=== PATIENT | female | born 1955 | race Caucasian/White ===

== ENCOUNTER 2020-02-22 11:19 | Outpatient (REF) | payer MEDICARE, SELFPAY ==
[2020-02-22 14:27] LABS: Estimated Average Glucose 105 mg/dL; Hemoglobin A1c % 5.3 %
[2020-02-22 14:50] LABS: Lithium 0.31 mmol/L (0.60-1.20)
[2020-02-22 14:52] LABS: Alanine Aminotransferase 11 U/L (0-31); Anion Gap 18 (12-20); Aspartate Amino Transferase 15 U/L (5-31); Blood Urea Nitrogen 10 mg/dL (9-16); Calcium 9.3 mg/dL (8.4-10.2); Carbon Dioxide 20 mmol/L (22-29); Chloride 110 mmol/L (96-108); Cholesterol 134 mg/dL; Estimated Glomerular Filt Rate > 60; Glucose Fasting 113 mg/dL (60-99); HDL Cholesterol 36 mg/dL; LDL Cholesterol Calculated 59 mg/dl; Potassium 3.4 mmol/l (3.3-5.1); Sodium 145 mmol/L (135-145); Triglycerides 198 mg/dL
[2020-02-22 14:57] LABS: Creatinine Urine 258.38 mg/dL; Microalbum/Creatinine Ratio Ur 99.4 ug/mg cr
[2020-02-22 15:11] LABS: Vitamin D 25-OH Total 32.5 ng/mL (>30)
[2020-02-22 15:26] LABS: Folate 9.2 ng/mL (> or = 4.0); Vitamin B12 645 pg/mL (200-900)
[2020-02-24 15:27] LABS: Calcium, Ionized 4.9 mg/dL (4.8-5.6)
[2020-02-24 16:37] LABS: Calcium (PTHI) 9.6 mg/dL (8.6-10.4); PTHI 100 pg/mL (14-64)
== END 2020-02-22 11:20 | disposition home or self-care (01) ==
LOC: HO.HMGCLDS 11:19
PROVIDERS: PCP Internal Medicine; Visit Provider Internal Medicine
DX: I10 Essential (primary) hypertension (principal); E83.52 Hypercalcemia; F31.9 Bipolar disorder, unspecified; E78.5 Hyperlipidemia, unspecified; E11.9 Type 2 diabetes mellitus without complications; E53.8 Deficiency of other specified B group vitamins; Z78.0 Asymptomatic menopausal state
CPT/HCPCS: 80048; 80061; 80178; 82043; 82306; 82330; 82607; 82746; 83036; 83970; 84450; 84460

== ENCOUNTER → 2020-04-06 12:59 | Outpatient (BNVA) | payer MEDICARE, SELFPAY | PROVIDERS: PCP Internal Medicine; Referring Provider Internal Medicine; Visit Provider Urology | DX: R32 Unspecified urinary incontinence (principal); R35.1 Nocturia | CPT/HCPCS: 51798; 99202 ==

== ENCOUNTER → 2020-05-25 08:51 | Outpatient (BNVA) | payer MEDICARE, SELFPAY | PROVIDERS: PCP Internal Medicine; Visit Provider Internal Medicine | DX: E11.9 Type 2 diabetes mellitus without complications (principal); I10 Essential (primary) hypertension; E78.5 Hyperlipidemia, unspecified; M88.9 Osteitis deformans of unspecified bone; E21.3 Hyperparathyroidism, unspecified; E55.9 Vitamin D deficiency, unspecified | CPT/HCPCS: Q3014 ==

== ENCOUNTER 2020-06-03 13:54 | Outpatient (REF) | payer MEDICARE, SELFPAY ==
--- NOTE | 2020-06-03 13:59 | MM_ITS ---
EXAMINATION: BONE DENSITOMETRY CLINICAL INDICATION: Hyperparathyroidism, unspecified. COMPARISON: Baseline BD dated 10/21/2018. TECHNIQUE: Using a iGen6 DXA System (software version: 13.1) manufactured by [employer], dual-energy x-ray absorptiometry was performed of the lumbar spine, left hip, and left forearm radius 33%. The images are of good technical quality. Summary results are attached. FINDINGS: AP SPINE L1-L4: Current: BMD 1.284 g/cm2, Z-score 1.2, T-score 0.9, normal, 0.5% increase from baseline (<5% change is not significant). Baseline: BMD 1.278 g/cm2. LEFT FEMUR, NECK: Current: BMD 0.859 g/cm2, Z-score -0.7, T-score -1.3, osteopenia. Baseline: BMD 0.967 g/cm2. LEFT FEMUR, TOTAL: Current: BMD 0.910 g/cm2, Z-score -0.5, T-score -0.8, normal, 3.2% decrease from baseline (<5% change is not significant). Baseline: BMD 0.940 g/cm2. LEFT FOREARM RADIUS 33%: BMD 0.842 g/cm2, Z-score 0.8, T-score -0.4, normal. IDENTIFIED RISK FACTORS: Hyperparathyroidism, low calcium intake, menopause. HISTORY OF FRACTURE: None listed. MEDICATIONS: Vitamin D. MM/XR DEXA appendicular skeleton IMPRESSION: 1. DIAGNOSIS: Osteopenia based on the lowest T-score value of -1.3 in the femoral neck applying World Health Organization criteria. 2. 10-YEAR FRACTURE RISK PREDICTION, FRAX: Major osteoporotic fracture (clinical spine, forearm, hip or shoulder) 6.9%. Hip fracture 0.5%. 3. Treatment Recommendations: NOF guidelines recommend consideration for treatment in postmenopausal women and men age 50 and older presenting with the following: -A hip or vertebral (clinical or morphometric) fracture. -T-score less than or equal to -2.5 at the femoral neck or spine after appropriate evaluation to exclude secondary causes. -Low bone mass at the hip or spine and a 10-year fracture probability by FRAX of greater than or equal to 3% for hip fracture or greater than or equal to 20% for major osteoporotic fracture based on the [place] adapted WHO algorithm. 4. Other Recommendations: All treatment decisions require clinical judgment and consideration of individual patient factors, including patient preferences, comorbidities, previous drug use, risk factors not captured in the FRAX model (e.g. frailty, falls, vitamin D deficiency, increased bone turnover, interval significant decline in bone density) and possible under or overestimation of fracture risk by FRAX. Additional medical evaluation for secondary cause of low bone mineral density may be appropriate. FUTURE SCAN RECOMMENDATION: People with diagnosed cases of osteoporosis or at high risk for fracture should have regular bone mineral density tests. For patients eligible for Medicare, routine testing is allowed once every 2 years. The testing frequency can be increased to one year for patients who have rapidly progressing disease, those who are receiving or discontinuing medical therapy to restore bone mass, or have additional risk factors.
== END 2020-06-03 13:55 | disposition home or self-care (01) ==
LOC: HO.MAMMO 13:54
PROVIDERS: Visit Provider Internal Medicine
DX: Z13.820 Encounter for screening for osteoporosis (principal); Z78.0 Asymptomatic menopausal state; E21.3 Hyperparathyroidism, unspecified; E58 Dietary calcium deficiency
CPT/HCPCS: 77081

== ENCOUNTER → 2020-06-15 14:48 | Outpatient (BNVA) | payer MEDICARE, SELFPAY | PROVIDERS: PCP Internal Medicine; Visit Provider Dietitian, Registered ==

== ENCOUNTER → 2020-07-13 13:12 | Outpatient (BNVA) | payer MEDICARE, SELFPAY | PROVIDERS: PCP Internal Medicine; Visit Provider Dietitian, Registered ==

== ENCOUNTER → 2020-08-05 07:22 | Outpatient (BNVA) | payer MEDICARE, SELFPAY | PROVIDERS: PCP Internal Medicine; Visit Provider Internal Medicine | DX: Z13.89 Encounter for screening for other disorder (principal) | CPT/HCPCS: Q3014 ==

== ENCOUNTER 2020-09-09 13:20 | Outpatient (REF) | payer MEDICARE, SELFPAY ==
[2020-09-09 14:30] LABS: Alanine Aminotransferase 11 U/L (0-31); Albumin Level 4.4 g/dL (3.5-5.0); Alkaline Phosphatase 203 U/L (39-117); Anion Gap 16 (12-20); Aspartate Amino Transferase 14 U/L (5-31); Bilirubin Total 0.7 mg/dL (0.0-1.0); Blood Urea Nitrogen 6 mg/dL (9-16); Calcium 9.1 mg/dL (8.4-10.2); Carbon Dioxide 25 mmol/L (22-29); Chloride 108 mmol/L (96-108); Cholesterol 142 mg/dL; Estimated Glomerular Filt Rate > 60; Glucose Fasting 122 mg/dL (60-99); HDL Cholesterol 36 mg/dL; LDL Cholesterol Calculated 70 mg/dl; Phosphorus 3.1 mg/dL (2.7-4.5); Potassium 3.5 mmol/L (3.3-5.1); Sodium 145 mmol/L (135-145); Total Protein 6.6 g/dL (6.5-8.0); Triglycerides 182 mg/dL
[2020-09-09 14:45] LABS: Free T4 (Free Thyroxine) 0.96 ng/dL (0.71-1.85); Vitamin D 25-OH Total 22.5 ng/mL (>30)
[2020-09-09 17:37] LABS: Creatinine Urine 75.58 mg/dL
[2020-09-12 11:37] LABS: Calcium (PTHI) 9.2 mg/dL (8.6-10.4); PTHI 118 pg/mL (14-64)
[2020-09-13 21:02] LABS: Prot Elec - Albumin 3.8 g/dL (3.8-4.8); Prot Elec - Alpha1 0.4 g/dL (0.2-0.3); Prot Elec - Alpha2 1.1 g/dL (0.5-0.9); Prot Elec - Beta 1 0.4 g/dL (0.4-0.6); Prot Elec - Beta 2 0.4 g/dL (0.2-0.5); Prot Elec - Gamma 0.4 g/dL (0.8-1.7); Prot Elec - Total Protein 6.5 g/dL (6.1-8.1)
[2020-09-16 16:27] LABS: Alkaline Phosphatase Bone 32.9 mcg/L (5.6-29.0)
== END 2020-09-09 13:21 | disposition home or self-care (01) ==
LOC: HO.HMGCLDS 13:20
PROVIDERS: PCP Internal Medicine; Visit Provider Internal Medicine
DX: E11.9 Type 2 diabetes mellitus without complications (principal); E78.2 Mixed hyperlipidemia; Z78.0 Asymptomatic menopausal state; I10 Essential (primary) hypertension; E55.9 Vitamin D deficiency, unspecified; E21.3 Hyperparathyroidism, unspecified
CPT/HCPCS: 36415; 80048; 80053; 80061; 82043; 82306; 83970; 84075; 84100; 84155; 84165; 84439; 84443

== ENCOUNTER 2020-09-20 11:04 | Outpatient (REF) | payer MEDICARE, SELFPAY ==
[2020-09-20 14:47] LABS: Creatinine, mg/dL 24.02
[2020-09-21 07:46] LABS: Creatinine, 24Hr Urine 0.5 G/Day (1.0-2.0); Total Volume 24 Hour Urine 1950 mL
[2020-09-21 17:47] LABS: Calcium, 24 Hr Urine 20 mg/24 h; Calcium/Creatinine Ratio 38 mg/g creat (30-275); Creatinine 24Hr Urine 0.51 g/24 h (0.50-2.15)
[2020-09-24 10:46] LABS: N-Telopeptide 155 (see note); NTXCreaRU 21 mg/dL (20-275)
== END 2020-09-20 11:05 | disposition home or self-care (01) ==
LOC: HO.CHCLNP 11:04
PROVIDERS: Visit Provider Internal Medicine
DX: E21.3 Hyperparathyroidism, unspecified (principal)
CPT/HCPCS: 82340; 82523; 82570

== ENCOUNTER 2020-10-06 12:48 | Outpatient (REF) | payer MEDICARE, SELFPAY ==
--- NOTE | ~2020-10-06 | MM_ITS ---
EXAMINATION: MM SCREENING DIGITAL BREAST TOMOSYNTHESIS, BILATERAL CLINICAL INFORMATION: Screening. Asymptomatic. The lifetime risk of breast cancer based on the Tyrer-Cuzick Model is 18%. COMPARISON: Mammography: 10/21/2018 and outside exam 08/10/2016 ([place], [place]). TECHNIQUE: Digital breast tomosynthesis is performed in both the craniocaudal and mediolateral oblique views along with computer-aided detection (CAD). Synthesized 2D images are generated from the tomosynthesis. Additional left CC and left MLO views are provided. FINDINGS: The breasts are almost entirely fatty (ACR BI-RADS breast composition Category a). There are no significant masses, abnormal calcifications, or other abnormalities. Background stromal densities are stable. There is no significant changes from prior exams. Skin contours are smooth. MM/MM tomosynthesis screening BI IMPRESSION: No mammographic evidence of malignancy. ASSESSMENT: BI-RADS 1: Negative RECOMMENDATION: Routine annual mammography screening. This patient's information was entered into a reminder system with a target due date for their next mammogram.
== END 2020-10-06 12:49 | disposition home or self-care (01) ==
LOC: HO.MAMMO 12:48
PROVIDERS: Visit Provider Internal Medicine
DX: Z12.31 Encounter for screening mammogram for malignant neoplasm of breast (principal)
CPT/HCPCS: 77063; 77067

== ENCOUNTER → 2020-10-17 12:20 | Outpatient (BNVA) | payer MEDICARE, SELFPAY | PROVIDERS: PCP Internal Medicine; Visit Provider Dietitian, Registered | DX: E11.65 Type 2 diabetes mellitus with hyperglycemia (principal) | CPT/HCPCS: 97803 ==

== ENCOUNTER → 2021-01-16 13:03 | Outpatient (BNVA) | payer MEDICARE, SELFPAY | PROVIDERS: PCP Internal Medicine; Visit Provider Dietitian, Registered | DX: E11.65 Type 2 diabetes mellitus with hyperglycemia (principal); E66.9 Obesity, unspecified; Z68.41 Body mass index [BMI] 40.0-44.9, adult; Z71.3 Dietary counseling and surveillance | CPT/HCPCS: 97803 ==

== ENCOUNTER 2021-01-26 12:16 | Outpatient (REF) | payer MEDICARE, SELFPAY ==
[2021-01-26 14:02] LABS: Eosinophils Percent Auto 0.6 % (0-4); MANUAL DIFF FLAG SCAN; PLT CLUMP 1; SCAN SMEAR FLAG 1
[2021-01-26 14:04] LABS: Basophils Percent Auto 0.4 % (0-2); Hematocrit 40.7 % (37-47); Imm Gran Abs Auto 0.02 X10*3/uL (0.00-0.03); Imm Gran Pct Auto 0.4 % (0.0-0.4); Lymphocytes Absolute Auto 0.9 X10*3/uL (1.2-4.9); Lymphocytes Percent Auto 18.9 % (20-40); Mean Corpuscular HGB Conc 31.9 g/dl (31.0-35.0); Mean Corpuscular Hemoglobin 28.1 pg (27.0-33.0); Mean Corpuscular Volume 88.1 fL (80-98); Monocytes Absolute Auto 0.2 X10*3/uL (0.1-1.2); Neutrophils Absolute Auto 3.6 X10*3/uL (2.0-8.3); Neutrophils Percent Auto 74.7 % (45-73); Platelet Count 111 X10*3/uL (160-400); Red Blood Count 4.62 X10*6/uL (4.20-5.50); Red Cell Distribution Width 13.7 % (11.0-16.0); White Blood Count 4.8 X10*3/uL (4.8-10.8)
[2021-01-26 14:08] LABS: SLIDE REVIEW VERIFIED
[2021-01-26 14:29] LABS: Alanine Aminotransferase 12 U/L (0-31); Albumin Level 4.7 g/dL (3.5-5.0); Alkaline Phosphatase 184 U/L (39-117); Anion Gap 18 (12-20); Aspartate Amino Transferase 15 U/L (5-31); Bilirubin Total 0.4 mg/dL (0.0-1.0); Blood Urea Nitrogen 9 mg/dL (9-16); Calcium 10.1 mg/dL (8.4-10.2); Carbon Dioxide 22 mmol/L (22-29); Chloride 108 mmol/L (96-108); Estimated Glomerular Filt Rate > 60; Glucose Random 106 mg/dL (60-115); Potassium 4.2 mmol/L (3.3-5.1); Sodium 144 mmol/L (135-145); Total Protein 7.1 g/dL (6.5-8.0)
[2021-01-26 14:39] LABS: Amphetamine Screen Urine Not Detected (Not Detect); Barbiturates, Urine Not Detected (Not Detect); Benzodiazepines Screen Urine Not Detected (Not Detect); Cannabinoid Screen Urine Not Detected (Not Detect); Cocaine Screen Urine Not Detected (Not Detect); Fentanyl, urine Not Detected (Not Detect); Opiate Screen Urine Not Detected (Not Detect); Phencyclidine Screen Urine Not Detected (Not Detect)
[2021-01-31 08:38] LABS: Alcohol, Ethyl Urine Screen Negative
[2021-02-02 11:47] LABS: EDDP (Methadone Metabolite) negative; Methadone, Urine MS negative
== END 2021-01-26 12:17 | disposition home or self-care (01) ==
LOC: HO.HMGCLDS 12:16
PROVIDERS: PCP Internal Medicine; Visit Provider Nurse Practitioner Psychiatric/Mental Health
DX: Z51.81 Encounter for therapeutic drug level monitoring (principal); Z79.899 Other long term (current) drug therapy
CPT/HCPCS: 36415; 80053; 80307; 80358; 85025

== ENCOUNTER → 2021-03-22 08:05 | Outpatient (BNVA) | payer MEDICARE, SELFPAY | PROVIDERS: PCP Internal Medicine | DX: R32 Unspecified urinary incontinence (principal) | CPT/HCPCS: 51798; 99212 ==

== ENCOUNTER 2021-03-27 14:31 | Outpatient (REF) | payer MEDICARE, SELFPAY ==
--- NOTE | ~2021-03-27 | US_ITS ---
EXAMINATION: US THYROID CLINICAL INFORMATION: Hyperparathyroidism, unspecified. COMPARISON: None TECHNIQUE: Linear transducer grayscale and color Doppler examination with attention to the region of the thyroid. FINDINGS: SIZE: Measurements of the thyroid lobes and nodules are given in sagittal, anteroposterior and transverse dimensions respectively. Right Thyroid Lobe: 5.4 x 1.7 x 1.2 cm, volume 5.9 mL. Parenchyma: The gland echotexture is homogeneous. Thyroid vascularity is normal. Left Thyroid Lobe: 4.4 x 1.4 x 1.8 cm, volume 5.6 mL. Parenchyma: The gland echotexture is homogeneous. Thyroid vascularity is normal. Isthmus: 0.5 cm in maximum AP dimension. Estimated total number of nodules greater than or equal to 1 cm: 1. Metal Sash Setter nodules are described as follows: 1. Location: Right lower pole. Size: 0.8 x 0.8 x 0.8 cm, volume 0.27 mL. Nodule characteristics: Composition: Solid/almost completely solid (2). Echogenicity: Hypoechoic (2). Shape: Not taller than wide (0). Margins: Smooth (0). Echogenic Foci: None (0). ACR TI-RADS total points: 4 ACR TI-RADS category: 4 2. Location: Right mid pole. Size: 0.6 x 0.4 x 0.4 cm, volume 0.05 mL. Nodule characteristics: Composition: Spongiform (0). Echogenicity: Shape: Margins: Echogenic Foci: ACR TI-RADS total points: 0 ACR TI-RADS category: 1 3. Location: Isthmus. Size: 1.3 x 0.2 x 0.2 cm, volume 0.008 mL. Nodule characteristics: Composition: Spongiform (0). Echogenicity: Shape: Margins: Echogenic Foci: ACR TI-RADS total points: 0 ACR TI-RADS category: 1 4. Location: Left mid pole. Size: 0.9 x 0.6 x 1.1 cm, volume 0.34 mL. Nodule characteristics: Composition: Mixed cystic and solid (1). Echogenicity: Isoechoic (1). Shape: Not taller than wide (0). Margins: Smooth (0). Echogenic Foci: Punctate echogenic foci (3). ACR TI-RADS total points: 5 ACR TI-RADS category: 4 NODES: No lymphadenopathy is seen in the tissue surrounding the thyroid gland. US/US thyroid IMPRESSION: Small thyroid nodules. No parathyroid adenoma seen. ACR TI-RADS RECOMMENDATION REFERENCE: Ultrasound-guided fine-needle aspiration, followup ultrasound, no further follow up. * TR1 (0 point) and TR 2 (2 points): No FNA or follow up * TR3 (3 points): FNA if more than or equal to 2.5 cm in maximum dimension, followup ultrasound in 1, 3 and 5 years if 1.5 to 2.4 cm in maximum dimension. * TR4 (4-6 points): FNA if more than or equal to 1.5 cm in maximum dimension, followup ultrasound in 1, 2, 3 and 5 years if 1 to 1.4 cm in maximum dimension. * TR5 (more than or equal to 7 points): FNA if more than or equal to 1 cm in maximum dimension, followup ultrasound every year for 5 years if 0.5 to 0.9 cm in maximum dimension. * TR3, TR4 or TR5 nodules that are below the size threshold for follow up receive no follow up.
[2021-03-27 17:04] LABS: Alanine Aminotransferase 15 U/L (0-31); Aspartate Amino Transferase 15 U/L (5-31)
== END 2021-03-27 14:32 | disposition home or self-care (01) ==
LOC: HO.HMGCX 14:31
PROVIDERS: Absent Provider Internal Medicine; PCP Internal Medicine; Visit Provider Internal Medicine
DX: E21.3 Hyperparathyroidism, unspecified (principal); E11.9 Type 2 diabetes mellitus without complications; E78.2 Mixed hyperlipidemia; Z78.0 Asymptomatic menopausal state; E55.9 Vitamin D deficiency, unspecified
CPT/HCPCS: 36415; 76536; 82306; 84450; 84460

== ENCOUNTER → 2021-04-17 13:04 | Outpatient (BNVA) | payer MEDICARE, SELFPAY | PROVIDERS: PCP Internal Medicine; Visit Provider Dietitian, Registered | DX: E11.65 Type 2 diabetes mellitus with hyperglycemia (principal) | CPT/HCPCS: 97803 ==

== ENCOUNTER → 2021-06-12 12:35 | Outpatient (BNVA) | payer MEDICARE, SELFPAY | PROVIDERS: PCP Internal Medicine; Visit Provider Internal Medicine | DX: M88.9 Osteitis deformans of unspecified bone (principal); E21.3 Hyperparathyroidism, unspecified; E55.9 Vitamin D deficiency, unspecified | CPT/HCPCS: 99212 ==

== ENCOUNTER → 2021-06-14 09:26 | Outpatient (BNVA) | payer MEDICARE, SELFPAY | PROVIDERS: PCP Internal Medicine; Referring Provider Internal Medicine; Visit Provider Surgery | DX: Z12.11 Encounter for screening for malignant neoplasm of colon (principal); K43.9 Ventral hernia without obstruction or gangrene | CPT/HCPCS: 99212 ==

== ENCOUNTER 2021-07-07 08:28 | Outpatient (REF) | payer MEDICARE, SELFPAY ==
--- NOTE | ~2021-07-07 | CT_ITS ---
EXAMINATION: CT ABDOMEN AND PELVIS WITHOUT CONTRAST CLINICAL INFORMATION: Ventral hernia without obstruction or gangrene. COMPARISON: CT abdomen 12/31/2018. TECHNIQUE: Multidetector volumetric imaging was performed from the superior aspect of the liver through the pubic symphysis. Sagittal and coronal reformatted images were obtained on the technologist's workstation. This CT examination was performed using dose optimization techniques as appropriate, variously including the following: *Automated exposure control *Adjustment of mA and/or kV according to patient size (this includes techniques or standardized protocols for targeted exams where dose is matched to indication/reason for exam; i.e. extremities or head) *Use of iterative reconstruction technique DLP: 1069 mGy-cm FINDINGS: LUNG BASES: The visualized lung bases are unremarkable. LIVER, GALLBLADDER, AND BILIARY TREE: Subtle nodularity to the liver surface raises the possibility of cirrhosis. No demonstrable mass or ductal dilatation. There is a recanalized umbilical vein. The gallbladder is unremarkable with no evidence of radiopaque gallstones, gallbladder wall thickening, or obvious pericholecystic inflammatory changes. PANCREAS: Unremarkable. SPLEEN: The spleen is enlarged measuring up to 14.9 cm. ADRENAL GLANDS: Unremarkable. KIDNEYS AND URETERS: The kidneys are normal in size, shape, and attenuation. No hydronephrosis, hydroureter, or calculi seen. No perinephric stranding. BLADDER: Unremarkable. GASTROINTESTINAL TRACT: Small hiatal hernia. Stomach unremarkable. Large duodenal diverticulum. Normal caliber small bowel. A large loop of transverse colon and associated omentum within a large umbilical hernia. No evidence of obstruction. There is moderate sigmoid diverticulosis. ABDOMINAL WALL: Umbilical hernia. The neck of the hernia measures 4.7 x 3.3 cm. The hernia sac measures 14.4 x 10.7 x 14.8 cm. The sac contains transverse colon and omentum. No evidence of obstruction. No pneumatosis, vascular congestion, or fluid within the hernia sac. LYMPH NODES: No lymphadenopathy. VASCULAR: No aortic aneurysm. PELVIC VISCERA: Left adnexal cyst measures 3.6 x 3.2 x 5.0 cm. This is unchanged compared to prior MRI. OSSEOUS STRUCTURES: Mild degenerative changes in the spine. Heterogeneous right iliac bone is unchanged compared to prior. CT/CT abdomen pelvis wo con IMPRESSION: Question hepatic cirrhosis with subtle nodularity to the liver surface, recanalized umbilical vein, and enlarged spleen measuring 14.9 cm. No ascites. Umbilical hernia containing transverse colon without evidence of obstruction. Unchanged left adnexal cyst measuring up to 5 cm in diameter. Fleischner guidelines were followed.
[2021-07-07 09:50] LABS: Thyroid Stimulating Hormone 1.01 uIU/mL (0.32-4.0); Vitamin D 25-OH Total 82.9 ng/mL (>30)
[2021-07-07 10:06] LABS: Alanine Aminotransferase 10 U/L (0-31); Albumin Level 4.7 g/dL (3.5-5.0); Alkaline Phosphatase 154 U/L (39-117); Anion Gap 18 (12-20); Aspartate Amino Transferase 11 U/L (5-31); Bilirubin Total 0.6 mg/dL (0.0-1.0); Blood Urea Nitrogen 16 mg/dL (9-16); Calcium 10.3 mg/dL (8.4-10.2); Carbon Dioxide 25 mmol/L (22-29); Chloride 103 mmol/L (96-108); Estimated Glomerular Filt Rate 59; Glucose Random 136 mg/dL (60-115); Phosphorus 3.7 mg/dL (2.7-4.5); Potassium 3.9 mmol/L (3.3-5.1); Sodium 142 mmol/L (135-145); Total Protein 7.2 g/dL (6.5-8.0)
[2021-07-10 13:35] LABS: Calcium (PTHI) 9.9 mg/dL (8.6-10.4); PTHI 75 pg/mL (14-64)
[2021-07-11 15:36] LABS: Alkaline Phosphatase Bone 19.4 mcg/L (5.6-29.0)
== END 2021-07-07 08:29 | disposition home or self-care (01) ==
LOC: HO.CT 08:28
PROVIDERS: Absent Provider Internal Medicine; PCP Internal Medicine; Visit Provider Surgery
DX: K43.9 Ventral hernia without obstruction or gangrene (principal); E21.3 Hyperparathyroidism, unspecified; E04.2 Nontoxic multinodular goiter
CPT/HCPCS: 36415; 74176; 80053; 82306; 83970; 84075; 84100; 84439; 84443

== ENCOUNTER → 2021-07-13 09:33 | Outpatient (BNVA) | payer MEDICARE, SELFPAY | PROVIDERS: PCP Internal Medicine; Referring Provider Internal Medicine; Visit Provider Surgery | DX: Z12.11 Encounter for screening for malignant neoplasm of colon (principal); K43.9 Ventral hernia without obstruction or gangrene | CPT/HCPCS: 99212 ==

== ENCOUNTER 2021-07-13 12:07 | Outpatient (REF) | payer MEDICARE, SELFPAY ==
[2021-07-13 12:57] LABS: Total Volume 24 Hour Urine 1600 mL
[2021-07-13 13:03] LABS: Creatinine, 24Hr Urine 0.6 G/Day (1.0-2.0)
[2021-07-16 17:46] LABS: Calcium, 24 Hr Urine 69 mg/24 h; Calcium/Creatinine Ratio 108 mg/g creat (30-275); Creatinine 24Hr Urine 0.64 g/24 h (0.50-2.15)
[2021-07-19 18:21] LABS: N-Telopeptide 77 (see note); NTXCreaRU 22 mg/dL (20-275)
== END 2021-07-13 12:08 | disposition home or self-care (01) ==
LOC: HO.LNP 12:07
PROVIDERS: Visit Provider Internal Medicine
DX: E21.3 Hyperparathyroidism, unspecified (principal)
CPT/HCPCS: 82340; 82523; 82570

== ENCOUNTER → 2021-07-17 11:42 | Outpatient (BNVA) | payer MEDICARE, SELFPAY | PROVIDERS: PCP Internal Medicine; Visit Provider Dietitian, Registered | DX: E11.65 Type 2 diabetes mellitus with hyperglycemia (principal) | CPT/HCPCS: 97803 ==

== ENCOUNTER 2021-08-03 08:16 | Outpatient (REF) | payer MEDICARE, SELFPAY ==
--- NOTE | 2021-08-03 09:18 | P.BOP_ITS ---
Brief Operative Note Date of Service: 08/03/21 Pre-op diagnosis: Multinodular Thyroid Procedure: EXAMINATION: US THYROID CLINICAL INFORMATION: Multinodular Thyroid TECHNIQUE: Linear transducer valverde-scale and color Doppler examination with attention to the region of the thyroid. FINDINGS: SIZE: Measurements of the thyroid lobes and nodules are given in sagittal, anteroposterior and transverse dimensions respectively. Right Thyroid Lobe: 3.7 x 1.5 x 1.3 cm. Parenchyma: The gland echotexture is heterogenous. Left Thyroid Lobe: 4.6 x 1.4 x 1.4 cm. Parenchyma: The gland echotexture is heterogenous. Isthmus: 0.3 cm in maximum AP dimension. RIGHT THYROID LOBE: There is 1 nodule. There is a 0.9 x 0.8 x 1.0 cm spongiform nodule in the right mid pole. This has regular margins and no calcification. LEFT THYROID LOBE: There is 1 nodule. There is a 0.9 x 0.5 x 0.7 cm spongiform nodule. This has regular margins and no calcifications. IMPRESSION: A small heterogenous appearing thyroid gland with bilateral small spongiform nodules not meeting indication for FNA biopsy at this time. Surgeon: Miryam Larios, DO Was an Piano Assembler used for this Procedure?: No Estimated blood loss (mL): 0
== END 2021-08-03 08:17 | disposition home or self-care (01) ==
LOC: HO.US 08:16
PROVIDERS: Visit Provider Internal Medicine
DX: E04.2 Nontoxic multinodular goiter (principal)
CPT/HCPCS: 76536

== ENCOUNTER → 2021-09-07 09:04 | Outpatient (BNVA) | payer MEDICARE, SELFPAY | PROVIDERS: PCP Internal Medicine; Visit Provider Internal Medicine | DX: M88.9 Osteitis deformans of unspecified bone (principal); E21.3 Hyperparathyroidism, unspecified; E55.9 Vitamin D deficiency, unspecified; E04.2 Nontoxic multinodular goiter | CPT/HCPCS: Q3014 ==

== ENCOUNTER 2021-09-11 09:36 | Outpatient (REF) | payer MEDICARE, SELFPAY ==
[2021-09-11 11:41] LABS: Alanine Aminotransferase 12 U/L (0-31); Albumin Level 4.9 g/dL (3.5-5.0); Alkaline Phosphatase 152 U/L (39-117); Anion Gap 17 (12-20); Aspartate Amino Transferase 13 U/L (5-31); Bilirubin Total 0.5 mg/dL (0.0-1.0); Blood Urea Nitrogen 18 mg/dL (9-16); Calcium 10.4 mg/dL (8.4-10.2); Carbon Dioxide 25 mmol/L (22-29); Chloride 105 mmol/L (96-108); Cholesterol 112 mg/dL; Estimated Glomerular Filt Rate 59; Glucose Random 129 mg/dL (60-115); HDL Cholesterol 37 mg/dL; LDL Cholesterol Calculated 51 mg/dl; Phosphorus 3.8 mg/dL (2.7-4.5); Potassium 3.8 mmol/L (3.3-5.1); Sodium 143 mmol/L (135-145); Total Protein 7.4 g/dL (6.5-8.0); Triglycerides 120 mg/dL
[2021-09-11 11:43] LABS: Estimated Average Glucose 120 mg/dL; Hemoglobin A1c % 5.8 %
[2021-09-11 12:02] LABS: Vitamin D 25-OH Total 50.6 ng/mL (>30)
[2021-09-11 12:11] LABS: Creatinine Urine 96.64 mg/dL; Microalbum/Creatinine Ratio Ur 21.7 ug/mg cr
[2021-09-12 12:42] LABS: Calcium (PTHI) 10.4 mg/dL (8.6-10.4); PTHI 92 pg/mL (16-77)
[2021-09-16 10:26] LABS: Alkaline Phosphatase Bone 22.8 mcg/L (5.6-29.0)
[2021-09-17 05:36] LABS: N-Telopeptide 112 (see note); NTXCreaRU 96 mg/dL (20-275)
== END 2021-09-11 09:37 | disposition home or self-care (01) ==
LOC: HO.HMGCLDS 09:36
PROVIDERS: PCP Internal Medicine; Visit Provider Internal Medicine
DX: Z00.01 Encounter for general adult medical examination with abnormal findings (principal); E78.2 Mixed hyperlipidemia; E21.3 Hyperparathyroidism, unspecified; E55.9 Vitamin D deficiency, unspecified; E11.9 Type 2 diabetes mellitus without complications
CPT/HCPCS: 36415; 80053; 80061; 82043; 82306; 82523; 83036; 83970; 84075; 84100

== ENCOUNTER → 2021-09-19 09:55 | Outpatient (BNVA) | payer MEDICARE, SELFPAY | PROVIDERS: PCP Nurse Practitioner Family | DX: R32 Unspecified urinary incontinence (principal) | CPT/HCPCS: 51798; 99212 ==

== ENCOUNTER → 2021-10-12 09:48 | Outpatient (BNVA) | payer MEDICARE, SELFPAY | PROVIDERS: PCP Internal Medicine; Visit Provider Surgery | DX: K43.9 Ventral hernia without obstruction or gangrene (principal); E66.01 Morbid (severe) obesity due to excess calories | CPT/HCPCS: 99212 ==

== ENCOUNTER → 2021-10-19 10:42 | Outpatient (BNVA) | payer MEDICARE, SELFPAY | PROVIDERS: PCP Internal Medicine; Visit Provider Internal Medicine | DX: E21.3 Hyperparathyroidism, unspecified (principal); E55.9 Vitamin D deficiency, unspecified; E04.2 Nontoxic multinodular goiter | CPT/HCPCS: Q3014 ==

== ENCOUNTER 2021-10-25 10:23 | Outpatient (REF) | payer MEDICARE, SELFPAY ==
--- NOTE | ~2021-10-25 | MM_ITS ---
EXAMINATION: MM SCREENING DIGITAL BREAST TOMOSYNTHESIS, BILATERAL CLINICAL INFORMATION: Screening. Asymptomatic. The lifetime risk of breast cancer based on the Tyrer-Cuzick Model is 19%. COMPARISON: Mammography: 10/06/2020, 10/21/2018; outside mammography 08/10/2016 ([place], [place]). TECHNIQUE: Digital breast tomosynthesis is performed in both the craniocaudal and mediolateral oblique views along with computer-aided detection (CAD). Synthesized 2D images are generated from the tomosynthesis. Additional left CC view is provided. FINDINGS: The breasts are almost entirely fatty (ACR BI-RADS breast composition Category a). Left breast has a new smooth oval nodule 0.8 x 0.5 cm residing close to skin anterior lower inner quadrant 4.5 cm from nipple. Remainder of the bilateral breasts show no significant changes. There is no architectural abnormality or abnormal calcifications. Right breast unremarkable. The bilateral axilla are unremarkable. MM/MM tomosynthesis screening BI IMPRESSION: Left: -New smooth oval nodule close to skin anterior lower inner quadrant. Right: -No mammographic evidence of malignancy. ASSESSMENT: BI-RADS 0: Incomplete - Need Additional Imaging Evaluation RECOMMENDATION: 1. Additional views of the left breast (assess for dermal lesion and obtain images with skin marker if applicable). Otherwise targeted left breast ultrasound. 2. Radiology department staff will contact the patient for additional imaging. This patient's information was entered into a reminder system with a target due date for their next mammogram.
== END 2021-10-25 10:24 | disposition home or self-care (01) ==
LOC: HO.MAMMO 10:23
PROVIDERS: Visit Provider Internal Medicine
DX: Z12.31 Encounter for screening mammogram for malignant neoplasm of breast (principal)
CPT/HCPCS: 77063; 77067

== ENCOUNTER → 2021-10-31 10:30 | Outpatient (BNVA) | payer MEDICARE, SELFPAY | PROVIDERS: PCP Internal Medicine | DX: R32 Unspecified urinary incontinence (principal); N32.81 Overactive bladder; Z79.899 Other long term (current) drug therapy | CPT/HCPCS: Q3014 ==

== ENCOUNTER 2021-11-07 11:04 | Outpatient (REF) | payer MEDICARE, SELFPAY ==
[2021-11-07 14:35] LABS: Creatinine, mg/dL 40.22
[2021-11-07 16:43] LABS: Creatinine, 24Hr Urine 0.8 G/Day (1.0-2.0); Total Volume 24 Hour Urine 1950 mL
[2021-11-09 17:42] LABS: Calcium, 24 Hr Urine 64 mg/24 h; Calcium/Creatinine Ratio 79 mg/g creat (30-275); Creatinine 24Hr Urine 0.82 g/24 h (0.50-2.15)
== END 2021-11-07 11:05 | disposition home or self-care (01) ==
LOC: HO.HMGCLNP 11:04
PROVIDERS: PCP Internal Medicine; Visit Provider Internal Medicine
DX: E21.3 Hyperparathyroidism, unspecified (principal)
CPT/HCPCS: 82340; 82570

== ENCOUNTER → 2021-11-09 10:53 | Outpatient (BNVA) | payer MEDICARE, SELFPAY | PROVIDERS: PCP Internal Medicine; Referring Provider Internal Medicine; Visit Provider Internal Medicine | DX: I48.19 Other persistent atrial fibrillation (principal); I42.9 Cardiomyopathy, unspecified; E78.2 Mixed hyperlipidemia; Z79.01 Long term (current) use of anticoagulants; Z79.899 Other long term (current) drug therapy | CPT/HCPCS: 93005; 99202 ==

== ENCOUNTER → 2021-11-15 12:13 | Outpatient (BNVA) | payer MEDICARE, SELFPAY | PROVIDERS: PCP Internal Medicine; Visit Provider Dietitian, Registered | DX: E11.65 Type 2 diabetes mellitus with hyperglycemia (principal) | CPT/HCPCS: 97803 ==

== ENCOUNTER 2021-11-20 14:07 | Outpatient (REF) | payer MEDICARE, SELFPAY ==
--- NOTE | ~2021-11-20 | US_ITS ---
EXAMINATION: US DIAGNOSTIC ULTRASOUND BREAST, LEFT CLINICAL INFORMATION: Recall from screening for new smooth oval nodule close to skin anterior lower inner left breast measuring approximately 0.8 x 0.5 cm. Family history breast cancer, mother. COMPARISON: Mammography 10/25/2021, 10/06/2020, 10/21/2018. TECHNIQUE: Ultrasound left breast is targeted to the lower inner quadrant. Grayscale imaging and color Doppler are performed without and with harmonics. FINDINGS: Clinical exam reveals no dermal lesion to correspond to finding on recent mammography. Ultrasound demonstrates subtle smooth oval hyperechoic lesion just beneath the skin lower inner left breast approximately 3-4 cm from nipple measuring 0.7 x 0.3 cm. There is no increased or decreased through transmission of sound or associated color flow. The size and shape and location and appears to correspond to the finding on recent mammography. There is no skin thickening or intradermal lesion or edema tracking in soft tissue planes. No architectural abnormality. Results and management options are discussed with patient at time of exam. Ultrasound finding has benign characteristics and may represent sequela from remote trauma. Management plan is for short interval six-month follow-up left mammography. Breast ultrasound may be performed at same visit if warranted. US/US breast LT limited IMPRESSION: Smooth benign-appearing oval hyperechoic lesion lower inner left breast 0.7 x 0.3 cm, possibly sequela from remote trauma. ASSESSMENT: BI-RADS 3: Probably Benign RECOMMENDATION: Diagnostic left mammography in 6 months. This patient's information was entered into a reminder system with a target due date for their next mammogram.
== END 2021-11-20 14:08 | disposition home or self-care (01) ==
LOC: HO.MAMMO 14:07
PROVIDERS: Visit Provider Internal Medicine
DX: N63.24 Unspecified lump in the left breast, lower inner quadrant (principal)
CPT/HCPCS: 76642

== ENCOUNTER → 2021-12-19 12:42 | Outpatient (REF) | payer MEDICARE, SELFPAY ==
--- NOTE | 2021-12-19 12:46 | HM_ITS ---
* Total monitoring time 2 days and 19 hours. * Underlying rhythm is atrial fibrillation. Average rate 55/Min. Range 34 to 123/Min. * Several pauses noted. Longest 3.4 seconds during sleep hours. Pauses also seen during daytime but do not reach significance. * Rare ventricular ectopy. Minimal burden. * No patient events. MTDD
--- NOTE | 2021-12-19 12:46 | CA_ITS ---
Transthoracic Echocardiogram Patient (Last, First, Middle): Rissa Betancur A Gender: Female Date of : 1955 Age: 65 Procedure Date: 12/19/2021 Procedure Type: Transthoracic Echocardiogram Location: OP Height: 170.18 cm Weight: 111.13 kg BSA: 2.20 m2 Heart Rate: 68 bpm BP: 130 / 85 mmHg Makeup Artistry Instructor: SB Referring MD: Maycol Wolfe MD Symptoms: I48.19 - Other persistent atrial fibrillation Study Quality: Adequate ECG Rhythm: Atrial Fibrillation/flutter Conclusions: - The left ventricular systolic function is normal. The visually estimated ejection fraction is between 55-60%. - No obvious valvular pathology seen on this study. Findings Left Ventricle Normal left ventricular cavity size. There is normal left ventricular wall thickness. The left ventricular systolic function is normal. The visually estimated ejection fraction is between 55-60%. There is no evidence of regional wall motion abnormalities. Diastolic function is indeterminate on the basis of available data. Right Ventricle Normal right ventricular cavity size. There is low normal right ventricular systolic function. Atria Both atria are normal in size. Aortic Valve There is a normal trileaflet aortic valve. There is no aortic valve stenosis. There is no aortic valve regurgitation. Mitral Valve The mitral valve appears normal. There is trace mitral valve regurgitation. There is no mitral valve stenosis. Pulmonic Valve The pulmonic valve is likely normal. Tricuspid Valve Normal tricuspid valve structure. There is trace tricuspid valve regurgitation. There is no evidence of pulmonary hypertension. Great Vessels The aortic annulus, sinuses of valsalva, asc aorta, and aortic arch are normal in size. Venous The inferior vena cava is normal in size and collapses greater than 50% with inspiration. Pericardium/Pleural There is no evidence of pericardial effusion. Prior Study Comparison No prior study available for comparison. Recommendations, Care & Conclusions No obvious valvular pathology seen on this study. Measurements 2D Linear Measurements IVSd: 0.94 0.6-0.9/0.6-1.0 cm LVIDd: 4.98 3.9-5.3/4.2-5.9 cm LVIDd Index: 2.26 2.4-3.2/2.2-3.1 cm/m2 LVIDs: 3.55 2.0-3.6 cm LVPWd: 0.89 0.7-1.1 cm LA Diam: 4.50 2.7-3.8/3.0-4.0 cm LAIDs Index: 2.05 1.5-2.3 cm/m2 LV Mass: 199.43 67-162/88-224 g LV Mass Index: 90.65 43-95/49-115 g/m2 LVOT Diam: 2.10 3.0+(-)1.3 cm 2D Systolic Function EF 4C: 45.40 >55% EF 2C: 56.90 >55% EF BiP: 52.50 >55% Aortic Valve AoV Pk Oleg: 1.62 AoV Mn Oleg: 1.15 AoV VTI: 0.29 AoV Pk Grad: 10.00 Aov Mn Grad: 6.00 BERNY Cont.VTI: 2.61 LVOT LVOT Pk Oleg: 1.21 LVOT Mn Oleg: 0.88 LVOT VTI: 0.22 LVOT Pk Grad: 6.00 LVOT Mn Grad: 4.00 LVOT Diam: 2.10 LVOT Area: 3.46 Right Ventricle TAPSE (mm): 17.00 TVS' Oleg: 8.90 Tricuspid Valve RA Press: 3.00 Great Vessels Aorta Sinus of Valsalva: 2.90 2.0-3.5 cm Ao Asc: 3.50 2.1-3.4 cm Ao Arch: 2.90 Pulmonary Valve PV Pk Oleg: 1.02 Peak PV Grad: 4.00 Updated in Other Vendor System with Status of Final Maycol Wolfe MD electronically signed on 12/19/2021 4:16:15 PM with status of Final
== END ==
LOC: HO.CARD 12:42
PROVIDERS: PCP Internal Medicine; Visit Provider Internal Medicine
DX: I48.19 Other persistent atrial fibrillation (principal)
CPT/HCPCS: 93242; 93306

== ENCOUNTER → 2021-12-19 13:52 | Outpatient (REF) | payer MEDICARE, SELFPAY | LOC: HO.SL 13:52 | PROVIDERS: PCP Internal Medicine; Visit Provider Internal Medicine | DX: G47.33 Obstructive sleep apnea (adult) (pediatric) (principal) | CPT/HCPCS: 95806 ==

== ENCOUNTER → 2022-01-11 09:27 | Outpatient (BNVA) | payer MEDICARE, SELFPAY | PROVIDERS: PCP Internal Medicine; Visit Provider Surgery | DX: K43.9 Ventral hernia without obstruction or gangrene (principal) | CPT/HCPCS: 99212 ==

== ENCOUNTER 2022-01-15 11:41 | Outpatient (REF) | payer MEDICARE, SELFPAY ==
[2022-01-15 13:51] LABS: Alanine Aminotransferase 16 U/L (0-31); Albumin Level 4.8 g/dL (3.5-5.0); Alkaline Phosphatase 143 U/L (39-117); Anion Gap 21 (12-20); Aspartate Amino Transferase 13 U/L (5-31); Bilirubin Total 0.5 mg/dL (0.0-1.0); Blood Urea Nitrogen 18 mg/dL (9-16); Calcium 9.9 mg/dL (8.4-10.2); Carbon Dioxide 19 mmol/L (22-29); Chloride 108 mmol/L (96-108); Estimated Glomerular Filt Rate 59; Glucose Random 117 mg/dL (60-115); Phosphorus 3.8 mg/dL (2.7-4.5); Potassium 4.1 mmol/L (3.3-5.1); Sodium 144 mmol/L (135-145); Total Protein 7.2 g/dL (6.5-8.0)
[2022-01-15 14:20] LABS: Vitamin D 25-OH Total 43.1 ng/mL (>30)
[2022-01-17 13:33] LABS: Calcium (PTHI) 10.2 mg/dL (8.6-10.4); PTHI 77 pg/mL (16-77)
== END 2022-01-15 11:42 | disposition home or self-care (01) ==
LOC: HO.LAB 11:41
PROVIDERS: PCP Internal Medicine; Visit Provider Internal Medicine
DX: E21.3 Hyperparathyroidism, unspecified (principal); E04.2 Nontoxic multinodular goiter; M88.9 Osteitis deformans of unspecified bone; E55.9 Vitamin D deficiency, unspecified
CPT/HCPCS: 36415; 80053; 82306; 83970; 84100; 99212

== ENCOUNTER → 2022-01-16 09:38 | Outpatient (BNVA) | payer MEDICARE, SELFPAY | PROVIDERS: PCP Internal Medicine; Referring Provider Internal Medicine; Visit Provider Internal Medicine | DX: I48.19 Other persistent atrial fibrillation (principal); I42.9 Cardiomyopathy, unspecified; E11.9 Type 2 diabetes mellitus without complications; E78.2 Mixed hyperlipidemia; G47.33 Obstructive sleep apnea (adult) (pediatric); Z79.01 Long term (current) use of anticoagulants; Z79.899 Other long term (current) drug therapy | CPT/HCPCS: 99212 ==

== ENCOUNTER 2022-04-02 11:18 | Outpatient (REF) | payer MEDICARE, SELFPAY ==
[2022-04-02 14:29] LABS: Cholesterol 90 mg/dL; HDL Cholesterol 31 mg/dL; LDL Cholesterol Calculated 35 mg/dl; Triglycerides 121 mg/dL
== END 2022-04-02 11:19 | disposition home or self-care (01) ==
LOC: HO.HMGCLDS 11:18
PROVIDERS: PCP Internal Medicine; Visit Provider Internal Medicine
DX: E78.5 Hyperlipidemia, unspecified (principal); E11.9 Type 2 diabetes mellitus without complications
CPT/HCPCS: 36415; 80061

== ENCOUNTER → 2022-05-02 11:21 | Outpatient (BNVA) | payer MEDICARE, SELFPAY | PROVIDERS: PCP Internal Medicine; Visit Provider Nurse Practitioner Family | DX: R32 Unspecified urinary incontinence (principal) | CPT/HCPCS: Q3014 ==

== ENCOUNTER → 2022-05-18 11:21 | Outpatient (BNVA) | payer MEDICARE, SELFPAY | PROVIDERS: PCP Internal Medicine; Visit Provider Dietitian, Registered | DX: E11.65 Type 2 diabetes mellitus with hyperglycemia (principal) | CPT/HCPCS: 97803 ==

== ENCOUNTER 2022-05-24 12:41 | Outpatient (REF) | payer MEDICARE, SELFPAY ==
--- NOTE | ~2022-05-24 | MM_ITS ---
EXAMINATION: MM DIAGNOSTIC DIGITAL BREAST TOMOSYNTHESIS, LEFT US TARGETED BREAST, LEFT CLINICAL INFORMATION: Six-month followup left breast density. The lifetime risk of breast cancer based on the Tyrer-Cuzick Model is 19%. COMPARISON: Mammography: 10/25/2021 and studies dating back to 08/10/2016. TECHNIQUE: Digital breast tomosynthesis is performed in both the craniocaudal and mediolateral oblique views along with computer-aided detection (CAD). Synthesized 2-D images are generated from the tomosynthesis. Targeted left breast ultrasound. FINDINGS: The breasts are almost entirely fatty (ACR BI-RADS breast composition Category a). The previously noted oval density within the left breast is no longer seen. There is a new approximately 6 x 4 x 5 mm well circumscribed density about the inferior aspect, 8 cm from the nipple, which contains a few rounded calcifications. On tomosynthesis the lesion appears to be related to the skin. However, no more or other skin abnormality is appreciated. The right breast appears stable with no new abnormal dominant mass or suspicious grouping of microcalcifications. ULTRASOUND: Targeted left breast ultrasound inferiorly demonstrates a solid homogeneously hyperechoic 5 x 3 mm circumscribed lesion within the glandular soft tissue and not associated with the dermis. There is no distal sound shadowing present. Lesion is wider than it is tall. No internal vascular flow is seen. Results are discussed with the patient at time of visit. MM/MM tomosynthesis diagnostic LT IMPRESSION: Resolution of previously noted inferior left breast lesion now with new circumscribed lesion inferiorly for which 6 month followup bilateral mammography and targeted left breast ultrasound is recommended. ASSESSMENT: BI-RADS 3: Probably Benign. RECOMMENDATION: Diagnostic mammography in 6 months. This patient's information was entered into a reminder system with a target due date for their next mammogram.
== END 2022-05-24 12:42 | disposition home or self-care (01) ==
LOC: HO.MAMMO 12:41
PROVIDERS: PCP Internal Medicine; Visit Provider Internal Medicine
DX: N63.20 Unspecified lump in the left breast, unspecified quadrant (principal); R92.2 Inconclusive mammogram
CPT/HCPCS: 76642; 77061; 77065

== ENCOUNTER → 2022-06-06 09:25 | Outpatient (BNVA) | payer MEDICARE, SELFPAY | PROVIDERS: PCP Internal Medicine; Visit Provider Surgery | DX: K43.9 Ventral hernia without obstruction or gangrene (principal); E66.01 Morbid (severe) obesity due to excess calories; Z68.33 Body mass index [BMI] 33.0-33.9, adult | CPT/HCPCS: 99212 ==

== ENCOUNTER 2022-06-12 08:33 | Outpatient (REF) | payer MEDICARE, SELFPAY ==
--- NOTE | ~2022-06-12 | MM_ITS ---
EXAMINATION: BONE DENSITOMETRY CLINICAL INDICATION: Hyperparathyroidism, unspecified. COMPARISON: Previous BD dated 06/03/2020 of the lumbar spine, left hip and left forearm radius 33%. Baseline BD dated 10/21/2018 of the lumbar spine and left hip. TECHNIQUE: Using a [employer] DXA System (software version: 13.1) manufactured by [employer], dual-energy x-ray absorptiometry was performed of the lumbar spine, left hip and left forearm radius 33%. The images are of good technical quality. Summary results are attached. FINDINGS: AP SPINE L1-L4: Current: BMD 1.179 g/cm2, Z-score 0.6, T-score 0.0, normal, 8.2% decrease from previous, 7.7% decrease from baseline (<5% change is not significant). Prior: BMD 1.284 g/cm2. Baseline: BMD 1.278 g/cm2. LEFT FEMUR, NECK: Current: BMD 0.899 g/cm2, Z-score -0.2, T-score -1.0, normal. Prior: BMD 0.859 g/cm2. Baseline: BMD 0.967 g/cm2. LEFT FEMUR, TOTAL: Current: BMD 0.934 g/cm2, Z-score -0.1, T-score -0.6, normal, 2.6% increase from previous, 0.6% decrease from baseline (<5% change is not significant). Prior: BMD 0.910 g/cm2. Baseline: BMD 0.940 g/cm2. LEFT FOREARM RADIUS 33%: BMD 0.826 g/cm2, Z-score 0.8, T-score -0.6, normal, 1.9% decrease from baseline (<5% change is not significant). Baseline: BMD 0.842 g/cm2. IDENTIFIED RISK FACTORS: Hyperparathyroidism. Menopause. HISTORY OF FRACTURE: None listed. MEDICATIONS: None listed. MM/XR DEXA appendicular skeleton IMPRESSION: 1. DIAGNOSIS: Normal bone density based on the lowest T-score value of -1.0 in the femoral neck applying World Health Organization criteria. 2. 10-YEAR FRACTURE RISK PREDICTION, FRAX: According to the guidelines, FRAX calculation should only be performed on patients in the osteopenia bone density category. Therefore, FRAX was not performed on this patient.? 3. Treatment Recommendations: NOF guidelines recommend consideration for treatment in postmenopausal women and men age 50 and older presenting with the following: -A hip or vertebral (clinical or morphometric) fracture. -T-score less than or equal to -2.5 at the femoral neck or spine after appropriate evaluation to exclude secondary causes. -Low bone mass at the hip or spine and a 10-year fracture probability by FRAX of greater than or equal to 3% for hip fracture or greater than or equal to 20% for major osteoporotic fracture based on the [place] adapted WHO algorithm. 4. Other Recommendations: All treatment decisions require clinical judgment and consideration of individual patient factors, including patient preferences, comorbidities, previous drug use, risk factors not captured in the FRAX model (e.g. frailty, falls, vitamin D deficiency, increased bone turnover, interval significant decline in bone density) and possible under or overestimation of fracture risk by FRAX. FUTURE SCAN RECOMMENDATION: People with diagnosed cases of osteoporosis or at high risk for fracture should have regular bone mineral density tests. For patients eligible for Medicare, routine testing is allowed once every 2 years. The testing frequency can be increased to one year for patients who have rapidly progressing disease, those who are receiving or discontinuing medical therapy to restore bone mass, or have additional risk factors.
== END 2022-06-12 08:34 | disposition home or self-care (01) ==
LOC: HO.MAMMO 08:33
PROVIDERS: PCP Internal Medicine; Visit Provider Internal Medicine
DX: Z13.820 Encounter for screening for osteoporosis (principal); E21.3 Hyperparathyroidism, unspecified; Z78.0 Asymptomatic menopausal state
CPT/HCPCS: 77081

== ENCOUNTER 2022-07-06 08:00 | Day surgery (SDC) | payer MEDICARE, SELFPAY ==
[2022-06-29 09:23] VITALS: BMI 33.2
--- NOTE | 2022-07-05 11:44 | HO.ANESPROP2 ---
Documented by User: Pattie Barcenas NP 07/05/22 11:46 HPI - Anesthesia Eval Consult details Narrative: 66yo F for Hernia Repair Large Umbilical with mesh Eliquis for afib. OK to hold per cardiol PMFSH Active Problems Active Problems: All Active Problems (Updated 04/02/22 @ 11:11 by Elsa Barrera MD) Persistent atrial fibrillation (Acute) Obstructive sleep apnea (Acute) Bipolar disorder (Acute) Morbid obesity (Acute) Benign familial tremor (Acute) Atrial fibrillation (Acute) Colon cancer screening (Acute) Ventral hernia (Acute) Multinodular thyroid (Acute) Umbilical hernia with obstruction (Acute) CVID (common variable immunodeficiency) (Acute) Vitamin D deficiency (Acute) Hyperparathyroidism (Acute) HLD (hyperlipidemia) (Acute) HTN (hypertension) (Acute) Cardiomyopathy (Acute) Macular degeneration (Acute) Menopause (Acute) Alkaline phosphatase elevation (Acute) Elevated parathyroid hormone (Acute) Urinary incontinence (Acute) Controlled diabetes mellitus without long-term current use of insulin (Acute) Mixed dyslipidemia (Acute) Past Medical History Medical History Alkaline phosphatase elevation Atrial fibrillation Benign familial tremor Bipolar disorder Cardiomyopathy Colon cancer screening Controlled diabetes mellitus without long-term current use of insulin CVID (common variable immunodeficiency) Elevated parathyroid hormone HLD (hyperlipidemia) HTN (hypertension) Hyperparathyroidism Macular degeneration Menopause Mixed dyslipidemia Morbid obesity Multinodular thyroid Umbilical hernia with obstruction Urinary incontinence Ventral hernia Vitamin D deficiency Family History Family History Father Diabetes mellitus Depression Mental health disorder Mother Diabetes mellitus Colon cancer Breast cancer Familial tremor Sister Colon cancer Maternal Aunt Familial tremor Sister No problems noted. Surgical History Surgical History H/O colonoscopy History of adenoidectomy History of cardiac catheterization (~2017) History of hysteroscopy Hx of biopsy Hx of wisdom tooth extraction Social History Social History Housing: House Are you a primary regular senior care provider to a significant other at home: No Do you presently have visiting nurse or other home services: No Alcohol intake: never Patient Tobacco Use Status: Never used Tobacco e-Cigarette/Vaping Use: Never Used Use of substances other than those prescribed or required for medical reasons: No Are you DNR?: No Advance Directives: No Advance Directives Information Provided: Yes (brochure mailed) Advance Directives on File: No Recently lost weight without trying: No Eating poorly because of decreased appetite: No Nutrition Risks: No Nutritional Risk Poor oral hygiene: No (chipped teeth upper front-nothing loose) Current occupational status: disabled Cognitive needs: No Hearing needs: No Vision needs: Yes Meds Allergies Allergy/AdvReac Type Severity Reaction Status Date / Time No Known Allergies Allergy Verified 07/06/22 08:28 [No Known Allergies*] Home Medications Medication Instructions Recorded Confirmed Last Taken Type ziprasidone HCl 80 mg capsule 80 mg PO BID 06/14/21 06/06/22 07/06/22 07:00 History apixaban 5 mg tablet 5 mg PO BID 01/16/22 06/29/22 07/03/22 History atorvastatin 80 mg tablet 80 mg PO BEDTIME 06/29/22 06/29/22 Unknown History oxybutynin chloride 10 mg 20 mg PO BEDTIME OAB 06/29/22 06/29/22 Unknown History tablet,extended release 24 hr vit C 250 mg-vit E 90 mg-zinc 40 1 tab PO BID 06/29/22 06/29/22 Unknown History mg-copper 1 [id number] capsule (PreserVision AREDS-2) Exam Exam Date and Time: July 05, 2022 1144 Height,Weight and Vital Signs: Height 5 ft 7 in Weight 96.162 kg Narrative Narrative: ECHO 12/2021 Conclusions: - The left ventricular systolic function is normal.? The visually estimated ejection fraction is between 55-60%. ? - No obvious valvular pathology seen on this study.? Holter 12/2021 Total monitoring time 2 days and 19 hours. Underlying rhythm is atrial fibrillation.? Average rate 55/Min.? Range 34 to 123/Min. Several pauses noted.? Longest 3.4 seconds during sleep hours.? Pauses also seen during daytime but do not reach significance. Rare ventricular ectopy.? Minimal burden. No patient events. Assessment and Plan Assessment Anesthesia Assessment: Chart Reviewed Documented by User: Mj Peres MD 07/06/22 08:52 [facility] Past Medical History Medical History Alkaline phosphatase elevation Atrial fibrillation Benign familial tremor Bipolar disorder Cardiomyopathy Colon cancer screening Controlled diabetes mellitus without long-term current use of insulin CVID (common variable immunodeficiency) Elevated parathyroid hormone HLD (hyperlipidemia) HTN (hypertension) Hyperparathyroidism Macular degeneration Menopause Mixed dyslipidemia Morbid obesity Multinodular thyroid Umbilical hernia with obstruction Urinary incontinence Ventral hernia Vitamin D deficiency Family History Family History Father Diabetes mellitus Depression Mental health disorder Mother Diabetes mellitus Colon cancer Breast cancer Familial tremor Sister Colon cancer Maternal Aunt Familial tremor Sister No problems noted. Family history of problems with anesthesia: No Surgical History Surgical History H/O colonoscopy History of adenoidectomy History of cardiac catheterization (~2016) History of hysteroscopy Hx of biopsy Hx of wisdom tooth extraction History of Problems with Anesthesia: No Social History Social History Housing: House Are you a primary regular senior care provider to a significant other at home: No Do you presently have visiting nurse or other home services: No Alcohol intake: never Patient Tobacco Use Status: Never used Tobacco e-Cigarette/Vaping Use: Never Used Use of substances other than those prescribed or required for medical reasons: No Are you DNR?: No Advance Directives: No Advance Directives Information Provided: Yes (brochure mailed) Advance Directives on File: No Recently lost weight without trying: No Eating poorly because of decreased appetite: No Nutrition Risks: No Nutritional Risk Poor oral hygiene: No (chipped teeth upper front-nothing loose) Current occupational status: disabled Cognitive needs: No Hearing needs: No Vision needs: Yes Meds Allergies Allergy/AdvReac Type Severity Reaction Status Date / Time No Known Allergies Allergy Verified 07/06/22 08:28 [No Known Allergies*] Home Medications Medication Instructions Recorded Confirmed Last Taken Type ziprasidone HCl 80 mg capsule 80 mg PO BID 06/14/21 06/06/22 07/06/22 07:00 History apixaban 5 mg tablet 5 mg PO BID 01/16/22 06/29/22 07/03/22 History atorvastatin 80 mg tablet 80 mg PO BEDTIME 06/29/22 06/29/22 Unknown History oxybutynin chloride 10 mg 20 mg PO BEDTIME OAB 06/29/22 06/29/22 Unknown History tablet,extended release 24 hr vit C 250 mg-vit E 90 mg-zinc 40 1 tab PO BID 06/29/22 06/29/22 Unknown History mg-copper 1 [id number] capsule (PreserVision AREDS-2) Exam Airway Mallampati Class: III TM Dist: <=3cm Neck ROM: Poor Heart: irregulat Lungs: cta Assessment and Plan Final Anesthetic Review Family History of Problems with Anesthesia: No History of Problems with Anesthesia: No ASA Class: III Final Preanesthetic Review: No Changes in Pt Med Stat (Diff airway, [place] planned) Patient Risk: Intermediate Procedure Risk: Intermediate Anesthetic Plan Anesthetic Plan: GA and Agree w/ Assess. and Plan Disposition: Standard PACU
[2022-07-06] VITALS (17 sets, daily range): BP systolic 94–125; BP diastolic 40–79; PULSE 52–88; RESP 16–22; TEMP 35.9–36.7; O2SAT 96–100; BMI 33.2
--- NOTE | 2022-07-06 | ECG_ITS ---
Test Reason : preop Blood Pressure : / mmHG Vent. Rate : 102 BPM Atrial Rate : 000 BPM P-R Int : 000 ms QRS Dur : 128 ms QT Int : 384 ms P-R-T Axes : 000 -50 113 degrees QTc Int : 500 ms Atrial fibrillation with rapid ventricular response Right bundle branch block Left anterior fascicular block Bifascicular block Minimal voltage criteria for LVH, may be normal variant ( R in aVL ) Cannot rule out Inferior infarct (masked by fascicular block?) , age undetermined T wave abnormality, consider lateral ischemia Abnormal ECG No previous ECGs available Referred By: Pattie Barcenas Electronically Signed By:BREANNA KEANE MD
--- NOTE | 2022-07-06 08:18 | MHC.SHP ---
Pre-Procedural Eval Section A Date of Service: 07/06/22 Section B Chief Complaint: Ventral hernia without obstruction or gangrene Details of Present Illness: has chronically incarcerated umbilical hernia with bowel loops Relevant Family History (Specify if Yes): No Relevant Social History: None Present Medications: see Short Stay Collaborative assessment Medical History: Significant History (obesity, LAURIE, a fib, tremors, nyperliopidemoia, cardiomyopathy, DM) History of Previous Operations: No relevant previous surgery Allergies: Allergies Allergy/AdvReac Type Severity Reaction Status Date / Time No Known Allergies Allergy Verified 06/06/22 09:44 [No Known Allergies*] Review of Systems Sugical H&P ROS: Negative: Constitution, Cardiovascular, Respiratory, Neurological, Psychiatric, Hem-Onc, Allergic/Immunologic, Gastrointestinal, Genitourinary, Musculoskeletal, Integumentary, Endocrine and Eyes/Ears/Nose/Throat Exam Surgical H&P Exam: Normal: HEENT, Normal: Heart, Normal: Lungs, Normal: Extremities, Normal: Skin and Normal: Neurological and Significant Findings: Abdomen (large chronically incarcerated ventral hernia, around umbilicus) Plan Diagnosis/Plan: Unchanged I have reviewed the history and physical and performed a pertinent physical examination on my patient. No changes have occurred unless specified. Time Spent With Patient Time: Total time managing care of this patient today ____ minutes.
[2022-07-06 08:36] LABS: Glucose, Whole Blood 147 mg/dL (60-115)
[2022-07-06] MEDS: Lactated Ringers 1,000 ML 100 ML IVCONT ×2 (08:41→17:37)
[2022-07-06 08:48] LABS: Anion Gap 19 (12-20); Blood Urea Nitrogen 16 mg/dL (9-16); Carbon Dioxide 17 mmol/L (22-29); Chloride 109 mmol/L (96-108); Creatinine Clr Calc Pharmacy 77.6; Estimated Glomerular Filt Rate > 60; Glucose Fasting 147 mg/dL (60-99); Potassium 3.9 mmol/L (3.3-5.1); Sodium 141 mmol/L (135-145)
--- NOTE | 2022-07-06 09:06 | PC.NURSE ---
anesthesia ok to go in without cbc results that are pending. lytes resulted.
[2022-07-06 09:21] LABS: Hematocrit 39.1 % (37.0-47.0); Hemoglobin 13.1 g/dl (12.0-16.0); Mean Corpuscular HGB Conc 33.5 g/dl (31.0-35.0); Mean Corpuscular Hemoglobin 29.7 pg (27.0-33.0); Mean Corpuscular Volume 88.7 fL (80.0-98.0); Mean Platelet Volume 11.7 fL (9.4-12.3); Red Blood Count 4.41 X10*6/uL (4.20-5.50); White Blood Count 4.9 X10*3/uL (4.8-10.8)
[2022-07-06 09:22] LABS: Platelet Count 83 X10*3/uL (160-400)
--- NOTE | 2022-07-06 10:24 | W.PM.OPN ---
Operative Note Operative Note Date of Service: 07/06/22 Narrative: Preop diagnosis: Large umbilical hernia with chronically incarcerated bowel loops Postop diagnosis: The same Procedure: Repair of a large chronically incarcerated umbilical hernia with large Ventralex mesh, extensive lysis of adhesions Surgeon: Freedom Andrade MD historian research assistant: ZHANG Celestin The patient is a 66-year-old female with morbid obesity, with a large chronically incarcerated umbilical hernia, with bowel loops involved, for repair. She understood the technique of repair with mesh. She was aware of the risks, benefits, and alternatives. She was brought to the operating room. She was placed supine under general anesthesia via endotracheal tube. The abdomen is prepped and draped in the usual sterile fashion. A surgical time-out was done. The patient received cefazolin 2 g IV preoperatively The large hernia was noted on the umbilical area within a pannus. I infiltrated the planned line of incision with lidocaine 1%. I made a midline incision overlying the hernia using blade 15. This carried down through the full-thickness of the skin subcutaneous fat until I was able to see the hernia sac. There was a very large hernia sac. With therefore continue the need to define a plane of dissection around this sac to separate this from the very thick subcutaneous fat. This part of the procedure took an extended period of time because of the patient's habitus. We had to dissect this sac circumferentially using combination of sharp dissection with Metzenbaum scissors and electrocautery until I was able to define the fascial edges. I opened up the hernia sac at the interface of the sac itself and the fascial edge using fine dissection Metzenbaum scissors. I applied Murali clamps and the fascial edge. I then proceeded to divide the hernia sac using electrocautery off of the fascial edge circumferentially. There was note of a lot of adherent omentum around the sac so we had to carefully separate this with a combination of sharp dissection Metzenbaum scissors and electrocautery and blunt dissection as well until was able to completely release all these hernia contents off of the large hernia sac. this allowed us to continue to dissect the sac off of the rest of the fascial defect using electrocautery until were able to excise the sac. This was sent as a specimen We observed the hernia contents which contained a lot of omental fat and what appeared to be colon. I had to control some oozing areas on the omentum, as well as the edge of the fascia with ligation using Polysorb 3-0 ties We then attempted to reduce this entire hernia contents which was a large amount of omentum as well as colon. We had no success with this size of the hernia defect relative to the amount of hernia contents. I therefore had to lengthen the fascial defect a little bit. Eventually, with gentle pressure circumferentially, we were able to reduce the entire hernia contents. The fascial edges were clear of any adhesions I applied Murali clamps on 4 quadrants of the fascial defect. The fascial defect measured about 7 cm in widest dimension. The fascial edges however came across together really with any tension so I decided to use a large-sized Ventralex mesh which allowed adequate Coverage of the defect. Once hemostasis had been confirmed on the omentum and the hernia contents, I proceeded to position the mesh underneath the heel defect. I applied parachute-type transfascial sutures through the Prolene layer of the mesh on 4 quadrants to allow good placement and positioning. Once the trans fascial were applied, I proceeded to tighten this to flattened the mesh and cover the entire defect. I tightened all these transfascial sutures. I made sure that there were no bowel loops trapped between the mesh and the fascia. I then proceeded to close the fascial defect with a running Maxon 1 stitch. I had to excise excess skin and this involved the umbilical dimple as there was note of skin maceration already within the umbilicus itself from chronic pressure. I closed the subcutaneous layer with Dexon 3-0 interrupted sutures. Skin closure was achieved with skin ady. The area was infiltrated with Marcaine 0.5% for postop analgesia. Dressings were applied. The procedure was completed. The patient tolerated procedure well. There were no immediate complications. Initial and final counts of sponges and instruments were correct. Estimated blood loss was about 75 cc. The patient was extubated without difficulty and transferred to the recovery room with stable vital signs.
[2022-07-06] MEDS: HYDROmorphone HCl 0.5 MG/0.5 ML SYRINGE 0.25 MG IVPUSH ×2 (10:56→11:11)
[2022-07-06 11:12] LABS: IDNOW Serial# BCCEAD1C
[2022-07-06 11:13] LABS: COVID-19 Test Negative (Negative)
--- NOTE | 2022-07-06 13:35 | PM.EVENT ---
Event Note Date of Service: 07/06/22 Event Note: seen postop underwent repair of large umb hernia earlier with mesh appears to have good pain control abd soft dressings dry admitted for extended stay for postop pain mgt; pt lives alone dw her sister and HCP Sima [phone] Time Spent With Patient Time: Total time managing care of this patient today ____ minutes.
--- NOTE | 2022-07-06 16:04 | P.CONHOSP_ITS ---
History of Present Illness Data of Consult Service Date: 07/06/22 Requesting physician: Freedom Andrade Primary Care Provider: Elsa Barrera MD [facility] Reason for consult: medical management of diabetes mellitus 66-year-old female patient with past medical history significant for diabetes mellitus type 2, atrial fibrillation, cardiomyopathy underwent elective incarcerated umbilical hernia repair by General surgery post surgery patient is doing well denies nausea, no vomiting, no abdominal discomfort denies chest pain, no palpitations, no lightheadedness, no dizziness ate lunch. Review of Systems Review of Systems: General no headache, no dizziness, no fever chills. CVS no chest pain, no palpitation. Respiratory no cough, no sob. Gastrointestinal no nausea no vomiting, no abdominal pain No burning, no dysuria Yes all other systems are reviewed and are negative [facility] Medical History Alkaline phosphatase elevation Atrial fibrillation Benign familial tremor Bipolar disorder Cardiomyopathy Colon cancer screening Controlled diabetes mellitus without long-term current use of insulin CVID (common variable immunodeficiency) Elevated parathyroid hormone HLD (hyperlipidemia) HTN (hypertension) Hyperparathyroidism Macular degeneration Menopause Mixed dyslipidemia Morbid obesity Multinodular thyroid Umbilical hernia with obstruction Urinary incontinence Ventral hernia Vitamin D deficiency Family History Father Diabetes mellitus Depression Mental health disorder Mother Diabetes mellitus Colon cancer Breast cancer Familial tremor Sister Colon cancer Maternal Aunt Familial tremor Sister No problems noted. Surgical History H/O colonoscopy History of adenoidectomy History of cardiac catheterization (~2017) History of hysteroscopy Hx of biopsy Hx of wisdom tooth extraction Social History Housing: House Are you a primary continuum of care manager to a significant other at home: No Do you presently have visiting nurse or other home services: No Alcohol intake: never Patient Tobacco Use Status: Never used Tobacco e-Cigarette/Vaping Use: Never Used Use of substances other than those prescribed or required for medical reasons: No Are you DNR?: No Advance Directives: No Advance Directives Information Provided: Yes (brochure mailed) Advance Directives on File: No Recently lost weight without trying: No Eating poorly because of decreased appetite: No Nutrition Risks: No Nutritional Risk Poor oral hygiene: No (chipped teeth upper front-nothing loose) Current occupational status: disabled Cognitive needs: No Hearing needs: No Vision needs: Yes Meds Allergies Allergy/AdvReac Type Severity Reaction Status Date / Time No Known Allergies Allergy Verified 07/06/22 08:28 [No Known Allergies*] Active Medications: Current Medications Apixaban (Apixaban 5 Mg Tablet) 5 mg PO BID [facility] Atorvastatin Calcium (Atorvastatin Calcium 80 Mg Tablet) 80 mg PO BEDTIME [facility] Doxazosin Mesylate (Doxazosin Mesylate 1 Mg Tablet) 3 mg PO BEDTIME [facility] Fentanyl (Fentanyl Citrate/Pf 100 Mcg/2 Ml Vial) 25 mcg IVPUSH Q5M PRN; Protoco l PRN Reason: Pain, Moderate (Pain Scale 4-6 Hydromorphone HCl (Hydromorphone Hcl 0.5 Mg/0.5 Ml Syringe) 0.25 mg IVPUSH Q5M PRN; Protocol PRN Reason: Pain, Severe (Pain Scale 7-10) Last Admin: 07/06/22 11:11 Dose: 0.25 mg Lactated Ringer's (Lr) 1,000 mls @ 100 mls/hr IVCONT .Q10H REGINO Last Admin: 07/06/22 08:41 Dose: 100 mls/hr Promethazine HCl 12.5 mg/ (Sodium Chloride) 50.5 mls @ 202 mls/hr IV ONCE PRN PRN Reason: Nausea and Vomiting Lisinopril (Lisinopril 2.5 Mg Tablet) 2.5 mg PO DAILY [facility]; Protocol Metformin HCl (Metformin Hcl 500 Mg Tablet) 500 mg PO BID [facility] Metoprolol Succinate (Metoprolol Succinate Er 100 Mg Tab.Er.24h) 100 mg PO DAILY [facility]; Protocol Morphine Sulfate (Morphine Sulfate 4 Mg/Ml Cartridge) 3 mg IVPUSH Q3H PRN; Protocol PRN Reason: Pain, Severe (Pain Scale 7-10) Ondansetron HCl (Ondansetron Hcl 4 Mg/2 Ml Vial) 4 mg IVPUSH ONCE PRN PRN Reason: Nausea and Vomiting Oxybutynin Chloride (Oxybutynin Chloride Er 5 Mg Tab.Er.24) 20 mg PO BEDTIME [facility] Oxycodone HCl (Oxycodone Hcl Immed Release 5 Mg Tablet) 10 mg PO Q6H PRN PRN Reason: Pain, Moderate (Pain Scale 4-6 Sodium Chloride (0.9 % Sodium Chloride Flush 3 Ml Syringe) 3 ml IVFLUSH QSHIFT [facility] Home Medications Medication Instructions Recorded Confirmed Last Taken Type ziprasidone HCl 80 mg capsule 80 mg PO BID 06/14/21 06/06/22 07/06/22 07:00 History apixaban 5 mg tablet 5 mg PO BID 01/16/22 06/29/22 07/03/22 History atorvastatin 80 mg tablet 80 mg PO BEDTIME 06/29/22 06/29/22 Unknown History oxybutynin chloride 10 mg 20 mg PO BEDTIME OAB 06/29/22 06/29/22 Unknown History tablet,extended release 24 hr vit C 250 mg-vit E 90 mg-zinc 40 1 tab PO BID 06/29/22 06/29/22 Unknown History mg-copper 1 [id number] capsule (PreserVision AREDS-2) Physical Exam Vital Signs and Narrative: Vital Signs: Last Vital Signs Temp 98.0 F 07/06/22 15:07 Pulse 88 07/06/22 15:07 Resp 18 07/06/22 15:07 BP 118/79 07/06/22 15:07 Pulse Ox 99 07/06/22 15:07 O2 Del Method 07/06/22 15:07 O2 Flow Rate 2 07/06/22 13:30 BMI result Body Mass Index 33.2 Const: Other: General awake alert x3, resting comfortably in no acute distress. Neck supple no JVD. CVS regular rate rhythm, Respiratory lungs clear to auscultation, no respiratory distress, no wheeze, no rhonchi. Gastrointestinal abdominal binder in place, nondistended,no guarding , no rigidity. Extremities no edema. Neuro nonfocal Skin no rash psych appropriate affect Results Labs 07/06/22 08:21 07/06/22 08:21 Labs: Laboratory Results - last 24 hr 07/06/22 07/06/22 07/06/22 08:21 08:21 08:32 MCV 88.7 MCH 29.7 MCHC 33.5 RDW 13.0 Plt Count 83 L MPV 11.7 Absolute Nucleated RBC 0.000 Nucleated RBC % (auto) 0.0 Anion Gap 19 Estim Creat Clear Calc 77.6 Estimated GFR > 60 POC Glucose 147 H Fasting Glucose 147 H Calcium 10.0 COVID-19 ([facility]ARREN) COVID-19 Clin Com 07/06/22 10:45 MCV MCH MCHC RDW Plt Count MPV Absolute Nucleated RBC Nucleated RBC % (auto) Anion Gap Estim Creat Clear Calc Estimated GFR POC Glucose Fasting Glucose Calcium COVID-19 (DARREN) Negative COVID-19 Clin Com See Note Assessment and Plan (1) Persistent atrial fibrillation: Status: Acute (2) Obstructive sleep apnea: Status: Acute Plan 66-year-old female patient with chronically incarcerated umbilical hernia with bowel loops underwent elective surgery with [facility], extensive lysis of adhesions today.. Status post Umblical hernia repair postoperative day 0 continue current pain medication, tolerating diet encourage incentive spirometry, out of bed to chair diabetes mellitus type 2 change diet to diabetic, continue metformin, monitor bs bid Persistent atrial fibrillation continue metoprolol and Eliquis, good ventricular rate hyperlipidemia continue Lipitor Obesity recommend low-calorie diet. DVT prophylaxis on Eliquis disposition as per General surgery Time Spent With Patient Time: Total time managing care of this patient today ____ minutes.
[2022-07-06 16:46] LABS: Glucose, Whole Blood 141 mg/dL (60-115)
[2022-07-06] MEDS: 0.9 % Sodium Chloride Flush 3 ML SYRINGE IVFLUSH (17:37)
[2022-07-06 20:25] LABS: Glucose, Whole Blood 126 mg/dL (60-115)
[2022-07-06] MEDS: Doxazosin Mesylate 1 MG TABLET 3 MG PO (20:27)
[2022-07-06] MEDS: Atorvastatin Calcium 80 MG TABLET PO (20:27)
[2022-07-06] MEDS: oxyBUTYnin chloride ER 5 MG TAB.ER.24 20 MG PO (20:27)
[2022-07-06] MEDS: Apixaban 5 MG TABLET PO (20:36)
[2022-07-06] MEDS: metFORMIN HCl 500 MG TABLET PO (20:36)
[2022-07-07] MEDS: Lactated Ringers 1,000 ML 100 ML IVCONT (02:43)
[2022-07-07 03:36] VITALS: BP 114/56; PULSE 67; RESP 18; TEMP 36.9; O2SAT 94
[2022-07-07 07:45] VITALS: BP 117/59; PULSE 63; RESP 18; TEMP 36.3; O2SAT 93
[2022-07-07 07:49] LABS: Glucose, Whole Blood 117 mg/dL (60-115)
[2022-07-07] MEDS: lisinopriL 2.5 MG TABLET PO (08:14)
[2022-07-07] MEDS: Apixaban 5 MG TABLET PO ×2 (08:14→20:15)
[2022-07-07] MEDS: Metoprolol Succinate ER 100 MG TAB.ER.24H PO (08:14)
[2022-07-07] MEDS: metFORMIN HCl 500 MG TABLET PO ×2 (08:14→20:15)
--- NOTE | 2022-07-07 11:12 | P.PNIM_ITS ---
Subjective Subjective Date of Service: 07/07/22 Interval History: offers no acute complaints, good pain control walk to the bathroom, tolerated breakfast with no nausea no vomiting no abdominal pain passing flatus no bowel movement, no chest pain no lightheadedness, no dizziness no other acute events overnight. Review of Systems Review of Systems: Yes all other systems are reviewed and are negative Physical Exam Vital Signs: Vital Signs: Last Vital Signs Temp 97.4 F 07/07/22 07:45 Pulse 63 07/07/22 07:45 Resp 18 07/07/22 07:45 BP 117/59 L 07/07/22 07:45 Pulse Ox 93 07/07/22 07:45 O2 Del Method 07/07/22 07:45 O2 Flow Rate 2 07/06/22 13:30 BMI result Body Mass Index 33.2 Const: Other: General? awake alert x3, resting comfortably in no acute distress.? Neck supple no JVD. CVS? regular rate rhythm, Respiratory lungs clear to auscultation, no respiratory distress, no wheeze, no rhonchi. Gastrointestinal? abdominal binder in place, nondistended, Bowel sounds audible,no guarding , no rigidity. Extremities no edema. Neuro nonfocal Skin no rash psych appropriate affect Objective Data Active Medications Apixaban (Apixaban 5 Mg Tablet) 5 mg PO BID [facility] Last Admin: 07/07/22 08:14 Dose: 5 mg Documented By: LINDA Atorvastatin Calcium (Atorvastatin Calcium 80 Mg Tablet) 80 mg PO BEDTIME [facility] Last Admin: 07/06/22 20:27 Dose: 80 mg Documented By: LAURIE Doxazosin Mesylate (Doxazosin Mesylate 1 Mg Tablet) 3 mg PO BEDTIME [facility] Last Admin: 07/06/22 20:27 Dose: 3 mg Documented By: LAURIE Fentanyl (Fentanyl Citrate/Pf 100 Mcg/2 Ml Vial) 25 mcg IVPUSH Q5M PRN; Protocol PRN Reason: Pain, Moderate (Pain Scale 4-6 Hydromorphone HCl (Hydromorphone Hcl 0.5 Mg/0.5 Ml Syringe) 0.25 mg IVPUSH Q5M PRN; Protocol PRN Reason: Pain, Severe (Pain Scale 7-10) Last Admin: 07/06/22 11:11 Dose: 0.25 mg Documented By: ARNOL Promethazine HCl 12.5 mg/ (Sodium Chloride) 50.5 mls @ 202 mls/hr IV ONCE PRN PRN Reason: Nausea and Vomiting Lisinopril (Lisinopril 2.5 Mg Tablet) 2.5 mg PO DAILY [facility]; Protocol Last Admin: 07/07/22 08:14 Dose: 2.5 mg Documented By: LINDA Metformin HCl (Metformin Hcl 500 Mg Tablet) 500 mg PO BID [facility] Last Admin: 07/07/22 08:14 Dose: 500 mg Documented By: LINDA Metoprolol Succinate (Metoprolol Succinate Er 100 Mg Tab.Er.24h) 100 mg PO DAILY [facility]; Protocol Last Admin: 07/07/22 08:14 Dose: 100 mg Documented By: LINDA Morphine Sulfate (Morphine Sulfate 4 Mg/Ml Cartridge) 3 mg IVPUSH Q3H PRN; Protocol PRN Reason: Pain, Severe (Pain Scale 7-10) Ondansetron HCl (Ondansetron Hcl 4 Mg/2 Ml Vial) 4 mg IVPUSH ONCE PRN PRN Reason: Nausea and Vomiting Oxybutynin Chloride (Oxybutynin Chloride Er 5 Mg Tab.Er.24) 20 mg PO BEDTIME [facility] Last Admin: 07/06/22 20:27 Dose: 20 mg Documented By: LAURIE Oxycodone HCl (Oxycodone Hcl Immed Release 5 Mg Tablet) 10 mg PO Q6H PRN PRN Reason: Pain, Moderate (Pain Scale 4-6 Sodium Chloride (0.9 % Sodium Chloride Flush 3 Ml Syringe) 3 ml IVFLUSH QSHIFT [facility] Last Admin: 07/07/22 08:11 Dose: Not Given Documented By: LINDA Non-Admin Reason: IV Running Labs 07/06/22 08:21 07/06/22 08:21 Labs: Laboratory Results - last 24 hr 07/06/22 07/06/22 07/06/22 10:45 16:42 19:56 POC Glucose 141 H 126 H COVID-19 ([facility]ARR[facility]) Negative COVID-19 Clin Com See Note 07/07/22 07:44 POC Glucose 117 H COVID-19 ([facility]ARREN) COVID-19 Clin Com Assessment and Plan (1) Persistent atrial fibrillation: Status: Acute Plan 66-year-old female patient with 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 ?Status post Umblical hernia repair postoperative day 1 ? good pain control, passing flatus , tolerating diet ? encourage incentive spirometry, ambulation drop in platelets 83,000 no bleeding noted follow CBC ?diabetes mellitus type 2 ?change diet to diabetic, continue metformin, monitor bs bid is stable blood sugars less than 150 ?Persistent atrial fibrillation continue metoprolol and Eliquis, stable ventricular rate ?hyperlipidemia continue Lipitor ?Obesity? recommend low-calorie diet. ?DVT prophylaxis on Eliquis ?disposition as per General surgery Time Spent With Patient Time: Total time managing care of this patient today ____ minutes. Quality Stroke Does the patient have a stroke diagnosis?: No VTE Prior VTE?: No VTE Risk Level:: Medical - moderate - high VTE Device Contraindication: N/A - Device Ordered VTE Drug Contraindication: Treatment Not Indicated
--- NOTE | 2022-07-07 11:57 | MHC.CM.PN ---
PT REPORTS SHE LIVES ALONE AND IS INDEPENDENT WITH CARE SHE REPORTS SHE USES A WHEELED WALKER WHEN OUT AND A NON-WHEELED AT HOME SHE HAS NO HOME SERVICES SHE IS COVID VAX X 3 PCP: ONI COULTER COPY OF HCP REQUESTED PT WILL DC HOME, LIKELY WITH NO SERVICES SHE WILL NEED BLS TRANSPORT IF CURRENT PAIN PERSISTS
--- NOTE | 2022-07-07 12:36 | PM.PNGS ---
Subjective Subjective Date of Service: 07/07/22 Interval history: feeling well not much pain but having a hard time rolling out of bed to get up - difficulty bending and moving wants to go home tomorrow Physical Exam Vital Signs: Vital Signs: Last Vital Signs Temp 97.4 F 07/07/22 07:45 Pulse 63 07/07/22 07:45 Resp 18 07/07/22 07:45 BP 117/59 L 07/07/22 07:45 Pulse Ox 93 07/07/22 07:45 O2 Del Method 07/07/22 07:45 O2 Flow Rate 2 07/06/22 13:30 BMI result Body Mass Index 33.2 Const: General: cooperative, healthy appearing, comfortable and no acute distress Resp: Effort & Inspection: normal respiratory effort Auscultation: clear to auscultation bilaterally Cardio: Rate: regular rate Rhythm: regular rhythm GI: Other: abdo with some bruising but dressings in place - soft and nontender Psych: Appearance: grossly normal Mental Status: mental status grossly normal Speech and movement: Normal speech and movement present Objective Data Active Medications Apixaban (Apixaban 5 Mg Tablet) 5 mg PO BID [facility] Last Admin: 07/07/22 08:14 Dose: 5 mg Documented By: LINDA Atorvastatin Calcium (Atorvastatin Calcium 80 Mg Tablet) 80 mg PO BEDTIME [facility] Last Admin: 07/06/22 20:27 Dose: 80 mg Documented By: LAURIE Doxazosin Mesylate (Doxazosin Mesylate 1 Mg Tablet) 3 mg PO BEDTIME [facility] Last Admin: 07/06/22 20:27 Dose: 3 mg Documented By: LAURIE Fentanyl (Fentanyl Citrate/Pf 100 Mcg/2 Ml Vial) 25 mcg IVPUSH Q5M PRN; Protocol PRN Reason: Pain, Moderate (Pain Scale 4-6 Hydromorphone HCl (Hydromorphone Hcl 0.5 Mg/0.5 Ml Syringe) 0.25 mg IVPUSH Q5M PRN; Protocol PRN Reason: Pain, Severe (Pain Scale 7-10) Last Admin: 07/06/22 11:11 Dose: 0.25 mg Documented By: ARNOL Promethazine HCl 12.5 mg/ (Sodium Chloride) 50.5 mls @ 202 mls/hr IV ONCE PRN PRN Reason: Nausea and Vomiting Lisinopril (Lisinopril 2.5 Mg Tablet) 2.5 mg PO DAILY [facility]; Protocol Last Admin: 07/07/22 08:14 Dose: 2.5 mg Documented By: LINDA Metformin HCl (Metformin Hcl 500 Mg Tablet) 500 mg PO BID [facility] Last Admin: 07/07/22 08:14 Dose: 500 mg Documented By: LINDA Metoprolol Succinate (Metoprolol Succinate Er 100 Mg Tab.Er.24h) 100 mg PO DAILY [facility]; Protocol Last Admin: 07/07/22 08:14 Dose: 100 mg Documented By: LINDA Morphine Sulfate (Morphine Sulfate 4 Mg/Ml Cartridge) 3 mg IVPUSH Q3H PRN; Protocol PRN Reason: Pain, Severe (Pain Scale 7-10) Ondansetron HCl (Ondansetron Hcl 4 Mg/2 Ml Vial) 4 mg IVPUSH ONCE PRN PRN Reason: Nausea and Vomiting Oxybutynin Chloride (Oxybutynin Chloride Er 5 Mg Tab.Er.24) 20 mg PO BEDTIME [facility] Last Admin: 07/06/22 20:27 Dose: 20 mg Documented By: LAURIE Oxycodone HCl (Oxycodone Hcl Immed Release 5 Mg Tablet) 10 mg PO Q6H PRN PRN Reason: Pain, Moderate (Pain Scale 4-6 Sodium Chloride (0.9 % Sodium Chloride Flush 3 Ml Syringe) 3 ml IVFLUSH QSHIFT [facility] Last Admin: 07/07/22 08:11 Dose: Not Given Documented By: LINDA Non-Admin Reason: IV Running Labs 07/06/22 08:21 07/06/22 08:21 Labs: Laboratory Results - last 24 hr 07/06/22 07/06/22 07/07/22 16:42 19:56 07:44 POC Glucose 141 H 126 H 117 H Procedures Date of Service Date of Service: 07/07/22 Progress Note: A&P Assessment and plan (1) Umbilical hernia with obstruction: Status: Acute Assessment and Plan: pod#1 sp open repair of large umbilical hernia - doing well but still with some trouble moving around - will work on mobility today as she is going home to be on her own. should be good for nv home tomorrow Time Spent With Patient Time: Total time managing care of this patient today ____ minutes. Quality Stroke Does the patient have a stroke diagnosis?: No VTE Prior VTE?: No VTE Risk Level:: Medical - moderate - high VTE Device Contraindication: N/A - Device Ordered VTE Drug Contraindication: Treatment Not Indicated
[2022-07-07 15:58] VITALS: BP 117/56; PULSE 57; RESP 18; TEMP 36.9; O2SAT 98
[2022-07-07] MEDS: 0.9 % Sodium Chloride Flush 3 ML SYRINGE IVFLUSH ×2 (16:59→20:18)
[2022-07-07 19:15] VITALS: BP 130/65; PULSE 64; RESP 18; TEMP 36.7; O2SAT 92
[2022-07-07] MEDS: Atorvastatin Calcium 80 MG TABLET PO (20:15)
[2022-07-07] MEDS: Doxazosin Mesylate 1 MG TABLET 3 MG PO (20:15)
[2022-07-07] MEDS: oxyBUTYnin chloride ER 5 MG TAB.ER.24 20 MG PO (20:15)
[2022-07-07 20:45] LABS: Glucose, Whole Blood 127 mg/dL (60-115)
[2022-07-08 03:35] VITALS: BP 104/54; PULSE 62; RESP 16; TEMP 36.4; O2SAT 93
[2022-07-08 06:54] LABS: Hematocrit 31.7 % (37.0-47.0); Hemoglobin 10.5 g/dl (12.0-16.0); Mean Corpuscular HGB Conc 33.1 g/dl (31.0-35.0); Mean Corpuscular Hemoglobin 30.2 pg (27.0-33.0); Mean Corpuscular Volume 91.1 fL (80.0-98.0); Mean Platelet Volume 11.9 fL (9.4-12.3); Red Blood Count 3.48 X10*6/uL (4.20-5.50); Red Cell Distribution Width 13.5 % (11.0-16.0); White Blood Count 5.4 X10*3/uL (4.8-10.8)
[2022-07-08 06:56] LABS: Platelet Count 85 X10*3/uL (160-400)
[2022-07-08 08:00] VITALS: BP 112/61; PULSE 64; RESP 18; TEMP 36.4; O2SAT 94
[2022-07-08] MEDS: lisinopriL 2.5 MG TABLET PO (09:11)
[2022-07-08] MEDS: Metoprolol Succinate ER 100 MG TAB.ER.24H PO (09:11)
[2022-07-08] MEDS: Apixaban 5 MG TABLET PO (09:11)
[2022-07-08] MEDS: metFORMIN HCl 500 MG TABLET PO (09:11)
[2022-07-08] MEDS: 0.9 % Sodium Chloride Flush 3 ML SYRINGE IVFLUSH (09:13)
--- NOTE | 2022-07-08 10:29 | PC.NURSE ---
POC BID. [employer] PROFESSOR scanned pt bracelet. POC machine asked to verify [facility] number with that on pt bracelet. Confirmed with this RN and [employer] PROFESSOR. New pt recieved to attempt to troubleshoot. Downtime Override message still appeared.
[2022-07-08 10:34] LABS: Glucose, Whole Blood 132 mg/dL (60-115)
--- NOTE | 2022-07-08 10:40 | P.PNIM_ITS ---
Subjective Subjective Date of Service: 07/08/22 Interval History: tolerating diet, no nausea, no vomiting , good pain control, continue to have difficulty with movements, no bowel movement, no other acute issues no fevers no chills, no lightheadedness or dizziness. Review of Systems Review of Systems: Yes all other systems are reviewed and are negative Physical Exam Vital Signs: Vital Signs: Last Vital Signs Temp 97.5 F 07/08/22 08:00 Pulse 64 07/08/22 08:00 Resp 18 07/08/22 08:00 BP 112/61 07/08/22 08:00 Pulse Ox 94 07/08/22 08:00 O2 Del Method 07/08/22 08:00 O2 Flow Rate 2 07/06/22 13:30 BMI result Body Mass Index 33.2 Const: Other: General? awake alert x3, resting comfortably in no acute distress.? Neck supple no JVD. CVS? regular rate rhythm, Respiratory lungs clear to auscultation, no respiratory distress, no wheeze, no rhonchi. Gastrointestinal? abdominal binder in place, Bowel sounds audible, nontender,no guarding , no rigidity. Extremities no edema. Neuro nonfocal Skin no rash psych appropriate affect Objective Data Active Medications Apixaban (Apixaban 5 Mg Tablet) 5 mg PO BID [facility] Last Admin: 07/08/22 09:11 Dose: 5 mg Documented By: LINDA Atorvastatin Calcium (Atorvastatin Calcium 80 Mg Tablet) 80 mg PO BEDTIME [facility] Last Admin: 07/07/22 20:15 Dose: 80 mg Documented By: LAURIE Doxazosin Mesylate (Doxazosin Mesylate 1 Mg Tablet) 3 mg PO BEDTIME [facility] Last Admin: 07/07/22 20:15 Dose: 3 mg Documented By: LAURIE Fentanyl (Fentanyl Citrate/Pf 100 Mcg/2 Ml Vial) 25 mcg IVPUSH Q5M PRN; Protocol PRN Reason: Pain, Moderate (Pain Scale 4-6 Promethazine HCl 12.5 mg/ (Sodium Chloride) 50.5 mls @ 202 mls/hr IV ONCE PRN PRN Reason: Nausea and Vomiting Lisinopril (Lisinopril 2.5 Mg Tablet) 2.5 mg PO DAILY [facility]; Protocol Last Admin: 07/08/22 09:11 Dose: 2.5 mg Documented By: LINDA Metformin HCl (Metformin Hcl 500 Mg Tablet) 500 mg PO BID [facility] Last Admin: 07/08/22 09:11 Dose: 500 mg Documented By: LINDA Metoprolol Succinate (Metoprolol Succinate Er 100 Mg Tab.Er.24h) 100 mg PO DAILY [facility]; Protocol Last Admin: 07/08/22 09:11 Dose: 100 mg Documented By: LINDA Ondansetron HCl (Ondansetron Hcl 4 Mg/2 Ml Vial) 4 mg IVPUSH ONCE PRN PRN Reason: Nausea and Vomiting Oxybutynin Chloride (Oxybutynin Chloride Er 5 Mg Tab.Er.24) 20 mg PO BEDTIME [facility] Last Admin: 07/07/22 20:15 Dose: 20 mg Documented By: LAURIE Oxycodone HCl (Oxycodone Hcl Immed Release 5 Mg Tablet) 10 mg PO Q6H PRN PRN Reason: Pain, Moderate (Pain Scale 4-6 Sodium Chloride (0.9 % Sodium Chloride Flush 3 Ml Syringe) 3 ml IVFLUSH QSHIFT [facility] Last Admin: 07/08/22 09:13 Dose: 3 ml Documented By: LINDA Labs 07/08/22 06:19 07/06/22 08:21 Labs: Laboratory Results - last 24 hr 07/07/22 07/08/22 07/08/22 20:35 06:19 10:29 MCV 91.1 MCH 30.2 MCHC 33.1 RDW 13.5 Plt Count 85 L MPV 11.9 Absolute Nucleated RBC 0.000 Nucleated RBC % (auto) 0.0 POC Glucose 127 H 132 H Assessment and Plan (1) Persistent atrial fibrillation: Status: Acute Plan 66-year-old female patient with 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 ?Status post Umblical hernia repair postoperative day 2 ? good pain control, passing flatus , tolerating diet, encourage incentive spirometry, ambulation platelets low but stable hematocrit drop but above threshold level for blood transfusion not requiring pain medication will DC IV morphine and Dilaudid will reduce dose of oxycodone to 5 mg ?diabetes mellitus type 2 ? on diabetic diet, continue metformin, stable blood sugars less than 150 ?Persistent atrial fibrillation continue metoprolol and Eliquis, stable ventricular rate ?hyperlipidemia continue Lipitor ?Obesity? recommend low-calorie diet. ?DVT prophylaxis on Eliquis ?disposition as per General surgery Time Spent With Patient Time: Total time managing care of this patient today ____ minutes. Quality Stroke Does the patient have a stroke diagnosis?: No VTE Prior VTE?: No VTE Risk Level:: Medical - moderate - high VTE Device Contraindication: N/A - Device Ordered VTE Drug Contraindication: Treatment Not Indicated
--- NOTE | 2022-07-08 11:27 | PM.DS ---
DS: Providers Provider Date of Service: 07/06/22 Date of discharge: 07/08/22 Primary care physician: Elsa Barrera MD Consults: 07/06/22 11:44 Consult to Hospitalist Routine Consulting Provider: Hospitalist Reason For Exam: hx of cardiomyopathy, HTN, DM Attending physician on discharge: Sridevi Tellez DS: Diagnosis Discharge Diagnosis (1) Persistent atrial fibrillation: Status: Acute (2) Umbilical hernia with obstruction: Status: Acute DS: Summary Hospital Course Hospital Course: The pt is a 66 year old female with a large umbilical hernia with obstruction of bowel who underwent open repair with mesh and reduction. She did well postop requiring a little more time with mobility and getting up and down but by pod#2 she is moving well, tolerating po diet, good pain control and normal bathroom functions. pt to be dc home with no heavy lifting etc. Time spent discussing smoking cessation with patient: 3 to 10 minutes Status at Discharge Cognitive/behavioral status at discharge: good Functional status at discharge: independent ambulation Overall status at discharge: patient is progressing back to baseline Time Spent with Patient Time attestation: Total time managing care of this patient today ____ minutes. Discharge coordination time: Less than 30 minutes Quality: Safe Use of Opioids Does Pt have an Active Cancer Diagnosis on the Problem List?: No Quality: Stroke Does the patient have a stroke diagnosis?: No Reason for No Anti-thrombotic at DC: N/A - Med Ordered Reason for No Anticoagulant at DC: N/A - Med Ordered Physical Exam Vital Signs: Vital Signs: Last Vital Signs Temp 97.5 F 07/08/22 08:00 Pulse 64 07/08/22 08:00 Resp 18 07/08/22 08:00 BP 112/61 07/08/22 08:00 Pulse Ox 94 07/08/22 08:00 O2 Del Method 07/08/22 08:00 O2 Flow Rate 2 07/06/22 13:30 BMI result Body Mass Index 33.2 Resp: Effort & Inspection: normal respiratory effort Auscultation: clear to auscultation bilaterally GI: Other: abdomen is soft and wound area looks good. DS: Data Data Completed and Pending Pending studies at discharge: Pending at discharge 07/06/22 09:58 Surgical [PTH] Routine Labs on day of discharge: Laboratory Results - last 24 hr 07/07/22 07/08/22 07/08/22 20:35 06:19 10:29 WBC 5.4 RBC 3.48 L D Hgb 10.5 L Hct 31.7 L MCV 91.1 MCH 30.2 MCHC 33.1 RDW 13.5 Plt Count 85 L MPV 11.9 Absolute Nucleated RBC 0.000 Nucleated RBC % (auto) 0.0 POC Glucose 127 H 132 H Discharge Plan Discharge Patient Disposition: Home, Self-Care Referrals: Elsa Barrera MD [Primary Care Provider] - 1 Month Freedom Andrade MD [Physician] - 2 Weeks Discharge Medications: New oxycodone-acetaminophen [Percocet] 5-325 mg tablet 1 tab PO Q4-6H PRN (Reason: pain) Qty: 30 0RF Rx Instructions: Partial Fill upon patient request. No Action blood sugar diagnostic [iyzicoTouch Verio test strips] Strip See Rx Instructions .ROUTE BID Qty: 200 3RF Rx Instructions: Check blood glucose levels twice a day metoprolol succinate 100 mg tablet extended release 24 hr 100 mg PO DAILY Qty: 90 3RF metformin 500 mg tablet 500 mg PO BID Qty: 180 2RF lisinopril 2.5 mg tablet 2.5 mg PO DAILY Qty: 90 1RF terazosin 1 mg capsule 3 mg PO BEDTIME 90 Days Qty: 270 0RF PreserVision AREDS-2 250-90-40-1 mg Capsule 1 tab PO BID atorvastatin 80 mg tablet 80 mg PO BEDTIME oxybutynin chloride 10 mg tablet extended release 24hr 20 mg PO BEDTIME ziprasidone HCl 80 mg capsule 80 mg PO BID apixaban 5 mg tablet 5 mg PO BID Discharge Orders: Discharge Order (Routine); Ordered 07/08/22 Ordered By: Sridevi Tellez Diet: Advance to usual diet Activity on Discharge: No heavy lifting Activity Restrictions/Additional Instructions: If the incision area is tender, you may apply an ice pack for short intervals (No more than 20 minutes on, followed by at least 20 minutes off). Do not apply heat. Do not use creams, lotions, or topical antibiotics unless instructed to do so by your surgeon. These can cause infection or allergic reaction. No lifting more than 20 lbs Okay to shower starting 07/08/22 Okay to change dressings daily No strenuous activities Call the office for follow-up in 2 weeks - with Dr. Andrade Call Your Doctor If: -Your temperature exceeds 101.5? F -You experience excessive pain or swelling -You have an unexpected reaction to medication -You have excessive bleeding -You experience continued vomiting/nausea -Your incision begins to separate -Your incision shows signs of infection such as increased redness, swelling, excessive pain, drainage (light blood or clear fluid is normal) or heat
--- NOTE | 2022-07-08 12:18 | MHC.CM.PN ---
PT WILL DC HOME TODAY WITH NO SERVICES RUBIO MET WITH PT AGAIN TO DISCUSS TRANSPORT SHE REPORTS SHE DOES FEEL SHE NEEDS BLS DUE TO HER INABILITY TO TRANSFER FROM BED CM REMINDED HER THERE IS NO WAY TO KNOW IF THE INSURANCE COMPANY WOULD COVER IT THEREFORE SHE MAY GET A BILL. SHE REPORTS UNDERSTANDING BLS TRANSPORT SCHEDULED FOR 1330 WITH NATE
--- NOTE | 2022-07-08 14:38 | HO.POSTANES ---
Post Anesthesia Evaluation Post Anesthesia Evaluation Vital Signs: Vital Signs Temp Pulse Resp BP Pulse Ox O2 Del Method 07/08/22 08:00 97.5 F 64 18 112/61 94 Room Air 07/08/22 03:35 97.6 F 62 16 104/54 L 93 Room Air Anesthesia: General LMA Mental Status: Awake Pain Control: Satisfactory Nausea/Vomiting: None Hydration: Adequate Anesthesia-Related Issues: No Anes. Related Issues
== END 2022-07-08 13:55 | disposition home or self-care (01) ==
LOC: HO.SSS 09:13 → HO.SSSA 13:58 → HO.S3 13:59
PROVIDERS: Hospitalist; Nurse Practitioner; PCP Internal Medicine; Visit Provider Surgery
PROC: (CPT 49594; principal; 2022-07-06 08:40)
DX: K42.0 Umbilical hernia with obstruction, without gangrene (principal); K43.9 Ventral hernia without obstruction or gangrene; I48.19 Other persistent atrial fibrillation; R25.1 Tremor, unspecified; E66.01 Morbid (severe) obesity due to excess calories; Z68.33 Body mass index [BMI] 33.0-33.9, adult; G47.33 Obstructive sleep apnea (adult) (pediatric); I10 Essential (primary) hypertension; E11.9 Type 2 diabetes mellitus without complications; E78.2 Mixed hyperlipidemia; Z79.01 Long term (current) use of anticoagulants; Z79.84 Long term (current) use of oral hypoglycemic drugs; Z79.899 Other long term (current) drug therapy; Z20.822 Contact with and (suspected) exposure to COVID-19
CPT/HCPCS: 49594; 49999; 36415; 80048; 82947; 85027; 87635; 88302; 93005; C1781; J0131; J0690; J1170; J1885; J2370; J2795; J3010

== ENCOUNTER 2022-07-12 10:17 | Outpatient (REF) | payer MEDICARE, SELFPAY ==
[2022-07-12 12:50] LABS: Creatinine, mg/dL 48.67
[2022-07-12 16:09] LABS: Alanine Aminotransferase 10 U/L (0-31); Albumin Level 4.1 g/dL (3.5-5.0); Alkaline Phosphatase 110 U/L (39-117); Anion Gap 19 (12-20); Aspartate Amino Transferase 10 U/L (5-31); Bilirubin Total 0.8 mg/dL (0.0-1.0); Blood Urea Nitrogen 13 mg/dL (9-16); Calcium 9.4 mg/dL (8.4-10.2); Carbon Dioxide 22 mmol/L (22-29); Chloride 108 mmol/L (96-108); Estimated Glomerular Filt Rate > 60; Glucose Random 132 mg/dL (60-115); Phosphorus 3.5 mg/dL (2.7-4.5); Potassium 4.2 mmol/L (3.3-5.1); Sodium 145 mmol/L (135-145); Total Protein 6.1 g/dL (6.5-8.0)
[2022-07-12 16:26] LABS: Vitamin D 25-OH Total 28.1 ng/mL (>30)
[2022-07-12 16:56] LABS: Creatinine, 24Hr Urine 0.8 G/Day (1.0-2.0); Total Volume 24 Hour Urine 1600 mL
[2022-07-14 18:48] LABS: Calcium, 24 Hr Urine 18 mg/24 h; Calcium/Creatinine Ratio 23 mg/g creat (30-275); Creatinine 24Hr Urine 0.77 g/24 h (0.50-2.15)
[2022-07-17 14:54] LABS: Calcium (PTHI) 9.7 mg/dL (8.6-10.4); PTHI 75 pg/mL (16-77)
== END 2022-07-12 10:18 | disposition home or self-care (01) ==
LOC: HO.HMGCLDS 10:17
PROVIDERS: PCP Internal Medicine; Visit Provider Internal Medicine
DX: E55.9 Vitamin D deficiency, unspecified (principal); E34.9 Endocrine disorder, unspecified
CPT/HCPCS: 36415; 80053; 82306; 82340; 82570; 83970; 84100

== ENCOUNTER → 2022-07-18 10:27 | Outpatient (BNVA) | payer MEDICARE, SELFPAY | PROVIDERS: PCP Internal Medicine; Referring Provider Internal Medicine; Visit Provider Surgery ==

== ENCOUNTER → 2022-07-23 10:51 | Outpatient (BNVA) | payer MEDICARE, SELFPAY | PROVIDERS: PCP Internal Medicine; Visit Provider Internal Medicine | DX: E21.3 Hyperparathyroidism, unspecified (principal); E55.9 Vitamin D deficiency, unspecified; E04.2 Nontoxic multinodular goiter | CPT/HCPCS: 99212 ==

== ENCOUNTER 2022-08-01 12:00 | Outpatient (REF) | payer MEDICARE, SELFPAY ==
--- NOTE | ~2022-08-01 | US_ITS ---
EXAMINATION: US THYROID CLINICAL INFORMATION: Nontoxic multinodular goiter. COMPARISON: Ultrasound thyroid 03/27/2021. TECHNIQUE: Linear transducer grayscale and color Doppler examination with attention to the region of the thyroid. FINDINGS: SIZE: Measurements of the thyroid lobes and nodules are given in sagittal, anteroposterior and transverse dimensions respectively. Right Thyroid Lobe: 5.1 x 1.7 x 1.4 cm, volume 6.1 mL. Previously 5.4 x 1.7 x 1.2 cm, volume 5.9 mL. Parenchyma: The gland echotexture is homogeneous. Thyroid vascularity is normal. Left Thyroid Lobe: 4.5 x 1.6 x 1.6 cm, volume 6.3 mL. Previously 4.4 x 1.4 x 1.8 cm, volume 5.6 mL. Parenchyma: The gland echotexture is homogeneous. Thyroid vascularity is normal. Isthmus: 0.5 cm in maximum AP dimension. Previously 0.5 cm. Estimated total number of nodules greater than or equal to 1 cm: 2. Tool Adjuster nodules are described as follows: 1. Location: Right inferior. Size: 1.1 x 0.9 x 1.1 cm, volume 0.5 mL. Previously: 0.8 x 0.8 x 0.8 cm, volume 0.3 mL. Nodule characteristics: Composition: Mixed cystic and solid (1). Echogenicity: Cannot be determined (1). Shape: Not taller than wide (0). Margins: Smooth (0). Echogenic Foci: Peripheral calcifications (2). ACR TI-RADS total points: 4 Previous: 4 ACR TI-RADS category: 4 Previous: 4 Significant change in size (>/= 20% in 2 dimensions and minimal increase of 2 mm or 50% or greater increase in volume): Yes Change in features: No Change in ACR TI-RADS risk category: No 2. Location: Right mid. Size: 0.5 x 0.3 x 0.4 cm, volume 0.02 mL. Previously: 0.6 x 0.4 x 0.4 cm, volume 0.05 mL. Nodule characteristics: Composition: Solid (2). Echogenicity: Hyperechoic (1). Shape: Not taller than wide (0). Margins: Smooth (0). Echogenic Foci: None (0). ACR TI-RADS total points: 3 Previous: 0 ACR TI-RADS category: 3 Previous: 1 Significant change in size (>/= 20% in 2 dimensions and minimal increase of 2 mm or 50% or greater increase in volume): No Change in features: Yes Change in ACR TI-RADS risk category: Yes 3. Location: Isthmus. Size: 0.2 x 0.2 x 0.2 cm, volume 0.01 mL. Previously: 0.3 x 0.2 x 0.2 cm, volume 0.01 mL. Nodule characteristics: Composition: Cystic(0). ACR TI-RADS total points: 0 Previous: 0 ACR TI-RADS category: 1 Previous: 1 Significant change in size (>/= 20% in 2 dimensions and minimal increase of 2 mm or 50% or greater increase in volume): No Change in features: Yes Change in ACR TI-RADS risk category: Yes 4. Location: Left mid/superior. Size: 1.1 x 0.6 x 1.0 cm, volume 0.3 mL. Previously: 0.9 x 0.6 x 1.1 cm, volume 0.3 mL. Nodule characteristics: Composition: Mixed cystic and solid (1). Echogenicity: Cannot be determined (1). Shape: Not taller than wide (0). Margins: Smooth (0). Echogenic Foci: None (0). ACR TI-RADS total points: 2 Previous: 5 ACR TI-RADS category: 2 Previous: 4 Significant change in size (>/= 20% in 2 dimensions and minimal increase of 2 mm or 50% or greater increase in volume): No Change in features: Yes Change in ACR TI-RADS risk category: Yes 5. Location: Right mid. Size: 0.4 x 0.2 x 0.4 cm, volume 0.02 mL. Previously: New since the previous study. Nodule characteristics: Composition: Mixed cystic and solid (1). Echogenicity: Cannot be determined (1). Shape: Not taller than wide (0). Margins: Smooth (0). Echogenic Foci: None (0). ACR TI-RADS total points: 2 ACR TI-RADS category: 2 NODES: No lymphadenopathy is seen in the tissue surrounding the thyroid gland. US/US thyroid IMPRESSION: Bilateral thyroid nodules are seen, as detailed. Recommend continued thyroid ultrasound surveillance. ACR TI-RADS RECOMMENDATION REFERENCE: Ultrasound-guided fine-needle aspiration, followup ultrasound, no further follow up. * TR1 (0 point) and TR2 (2 points): No FNA or follow up. * TR3 (3 points): FNA if more than or equal to 2.5 cm in maximum dimension, followup ultrasound in 1, 3 and 5 years if 1.5 to 2.4 cm in maximum dimension. * TR4 (4-6 points): FNA if more than or equal to 1.5 cm in maximum dimension, followup ultrasound in 1, 2, 3 and 5 years if 1 to 1.4 cm in maximum dimension. * TR5 (more than or equal to 7 points): FNA if more than or equal to 1 cm in maximum dimension, followup ultrasound every year for 5 years if 0.5 to 0.9 cm in maximum dimension. * TR3, TR4 or TR5 nodules that are below the size threshold for followup receive no follow up.
== END 2022-08-01 12:01 | disposition home or self-care (01) ==
LOC: HO.US 12:00
PROVIDERS: PCP Internal Medicine; Visit Provider Internal Medicine
DX: E04.2 Nontoxic multinodular goiter (principal)
CPT/HCPCS: 76536

== ENCOUNTER 2022-08-08 10:14 | Outpatient (AMB) | payer MEDICARE, SELFPAY ==
--- NOTE | 2022-08-08 11:14 | A.OFFPC_ITS ---
Vital Signs 08/08/22 11:15 Height 5 ft 7 in Weight 199 lb 4 oz BMI 31.1 BP 118/94 H Blood Pressure Location Rt brachial Position Sitting Pulse 68 Pulse Source Pulse Oximeter Pulse Oximetry (%) 98 Oxygen Delivery Method Room Air Intake Visit Reasons: 4 month follow up HTN Intake Note: Pt is here today for f/u HTN Allergies No Known Allergies [No Known Allergies*] Allergy (Verified 06/06/23 10:10) Medication List - Last Reconciled 06/11/23 by Elsa Barrera MD apixaban (Eliquis) 5 mg PO BID atorvastatin 80 mg PO BEDTIME blood sugar diagnostic ([facility] [employer] Verio test strips) Check blood glucose levels twice a day lisinopril 2.5 mg PO DAILY metformin 500 mg PO BID metoprolol succinate ER 100 mg PO DAILY oxybutynin chloride ER 20 mg (2 x 10 mg) PO BEDTIME 90 days terazosin 3 mg (3 x 1 mg) PO BEDTIME 90 days vit C,Z-Bz-qdxrv-lutein-zeaxan 250-90-40-1 mg (PreserVision AREDS-2) 1 tab PO BID ziprasidone HCl 80 mg PO BID Tobacco use date assessed: 08/08/22 Fall risk assessment: No Falls in past year Last assessed Fall Risk: 08/08/22 HPI 4 month follow up HTN HPI Details 66-year-old lady with hypertension, pers istent atrial fibrillation, morbid obesity, hyperlipidemia, and CVID, here for follow-up on her hypertension. She has been compliant with taking her medications, has been trying to follow recommended diet . Her blood pressure is controlled with present treatment. Denies any chest pain, no shortness of breath, no lightheadedness, no syncopal attacks. [facility] Medical History (Updated 06/11/23 @ 02:13 by Elsa Barrera MD) Anemia Bipolar disorder Morbid obesity Benign familial tremor Colon cancer screening Ventral hernia Multinodular thyroid Umbilical hernia with obstruction CVID (common variable immunodeficiency) Vitamin D deficiency Hyperparathyroidism HLD (hyperlipidemia) HTN (hypertension) Cardiomyopathy Macular degeneration Menopause Elevated parathyroid hormone Urinary incontinence Controlled diabetes mellitus without long-term current use of insulin Mixed dyslipidemia Surgical History History of umbilical hernia repair (07/06/22) Hx of wisdom tooth extraction History of cardiac catheterization (~2017) Hx of biopsy H/O colonoscopy History of hysteroscopy History of adenoidectomy Family History Father Diabetes mellitus Depression Mental health disorder Mother Diabetes mellitus Colon cancer Breast cancer Familial tremor Sister Colon cancer Maternal Aunt Familial tremor Sister No problems noted. Social History Household Members: None Housing: Apartment Are you a primary wound care coordinator to a significant other at home: No Do you presently have visiting nurse or other home services: No Alcohol intake: never Patient Tobacco Use Status: Never used Tobacco e-Cigarette/Vaping Use: Never Used service: No Current occupational status: disabled Cognitive needs: No Hearing needs: No Vision needs: Yes Questionnaire PHQ-9 Over the last 2 weeks, how often have you been bothered by any of the following problems? 1. Little interest or pleasure in doing things: not at all 2. Feeling down, depressed, or hopeless: not at all 3. Trouble falling or staying asleep, or sleeping too much: not at all 4. Feeling tired or having little energy: not at all 5. Poor appetite or overeating: not at all 6. Feeling bad about yourself - or that you are a failure or have let yourself or your family down: not at all 7. Trouble concentrating on things, such as reading the newspaper or watching television: not at all 8. Moving or speaking so slowly that other people could have noticed. Or the opposite - being so fidgety or restless that you have been moving around a lot more than usual: not at all 9. Thoughts that you would be better off or of hurting yourself in some way: not at all Total score: 0 Depression Screening Interpretation: Negative 96427 - PHQ-9 Billing: Yes Source: Developed by Drs. Braulio Durand, Kathryn Martinez, Javier Hodgson and colleagues, with an educational jeffry from [employer]. Thrive Questionnaire Date Thrive assessed: 08/08/22 I am a: Patient What is your living situation today?: I have a steady place to live Within the past 12 months, did the food you bought not last and you didn't have the money to get more?: Never true Within the past 12 months, did you worry whether your food would run out before you got money to buy more?: Never true Do you have trouble paying for medicines?: No Do you have trouble getting transportation to medical appointments?: No Do you have trouble paying your heating and electricity bill?: No Do you have trouble taking care of your child, family member or friend?: No Do you have trouble with day-to-day activities such as bathing, preparing meals, shopping, managing finances, etc.?: No Are you currently unemployed and looking for a job?: No Are you interested in more education?: No JULIA-7 AMB Questionnaire JULIA-7 Date JULIA - 7 assessed: 08/08/22 Feeling nervous, anxious, or on edge: 0 = Not at all Not being able to stop or control worryin = Not at all Worrying too much about different things: 0 = Not at all Trouble relaxin = Not at all Being so restless that it is hard to sit still: 0 = Not at all Becoming easily annoyed or irritable: 0 = Not at all Feeling afraid as if something awful might happen: 0 = Not at all Total JULIA-7 score (0-4 normal; 5-9 mild; 10-14 moderate; 15-21 severe): 0 Source: Developed by Drs. Braulio Durand, Kathryn Martinez, Javier Hodgson and colleagues, with an educational jeffry from [employer]. JULIA-7 Assessment Billing JULIA-7 Assessment Tool: JULIA-7 Assessment 15027 Review of Systems Const Denies headache(s) and Denies weakness Eyes Details: Currently being followed by the [facility] and also goes to the [facility] in [place] for her macular degeneration Denies change in vision ENT Denies dizziness, Denies headache(s), Denies nasal discharge, Denies disequilibrium and Denies post nasal drip Card Reports as per HPI and Reports no additional complaints Resp Denies cough GI Denies abdominal pain, Denies melena, Denies bloating, Denies hematochezia, Denies change in bowel habits, Denies change in stool character and Denies heartburn Musc Reports no additional complaints Neuro Denies dizziness, Denies headache(s), Denies disequilibrium and Denies weakness Endo Reports no additional complaints Physical exam (Primary Care) Vital Signs: Last Vital Signs Pulse 68 08/08/22 11:15 BP 118/94 H 08/08/22 11:15 Pulse Ox 98 08/08/22 11:15 Oxygen Delivery Method Room Air 08/08/22 11:15 BMI result Body Mass Index 31.1 Tobacco/Smoking Status: Tobacco use Status Tobacco use date assessed 08/08/22 08/08/22 11:29 Patient Tobacco Use Status Never used Tobacco 08/08/22 11:29 e-Cigarette/Vaping Use Never Used 08/08/22 11:29 PHQ-9: PHQ-9 Score PHQ-9: Total score 0 08/08/22 11:49 Depression Screening Interpretation: Negative Thrive Assessment: Date of Thrive Assessment Date Thrive assessed 08/08/22 08/08/22 11:30 Const Other: Alert oriented x3 no acute distress noted normal gait Orientation/consciousness: patient oriented x3 HENMT Head: Yes normocephalic Ears: TM's normal bilaterally General nose exam: Normal external nose present Face and sinus: Yes face symmetric Mouth: moist mucous membranes Eyes General: appearance normal, both eyes and all related structures Neck Neck: Yes full ROM, Yes no lymphadenopathy and Yes supple Resp Auscultation: clear to auscultation bilaterally Cardio Other: S1-S2 present regular rate and rhythm GI Palpation (GI): Soft to palpation, nontender and no guarding Auscultation: normal bowel sounds Back/Spine/Pelvis Back: No back tenderness Neuro General: patient oriented x3, gait normal, tone normal, moves all extremities and no focal motor deficits Extrem General: Yes full ROM, Yes no joint enlargement, Yes no pedal edema, Yes no calf tenderness and Yes normal gait Psych Appearance: grossly normal and well kempt Mental Status: mental status grossly normal Speech and movement: Normal speech and movement present Affect: normal affect Attitude: cooperative Thought process: Normal thought process present Results Reviewed Results Reviewed: Name: Rissa Betancur Age/Sex: 66/F : 1955 Unit#: [id number] Attend Dr: Freedom Andrade MD Re07/06/[address] [facility] Location: [facility] Disch: SPEC : [id number] DUSTIN: 07/08/22 STATUS: COMP REQ : [id number] RECD: 07/08/22 [facility] DR: Richar Sheffield MD COMP: 07/08/22 ENTERED: 07/08/[address] [facility] [address]: Elsa Barrera MD, Francis MD ORDERED: CBC No Diff Test Result Flag Reference Site WBC 5.4 4.8-10.8 X10*3/uL RBC 3.48 # L 4.20-5.50 X10*6/uL HGB 10.5 L 12.0-16.0 g/dl HCT 31.7 L 37.0-47.0 % MCV 91.1 80.0-98.0 fL MCH 30.2 27.0-33.0 pg MCHC 33.1 31.0-35.0 g/dl RDW 13.5 11.0-16.0 % PLT 85 L 160-400 X10*3/uL MPV 11.9 9.4-12.3 fL NRBC Pct Auto 0.0 0.0-0.2 /100WBC NRBC Abs Auto 0.000 0.0-0.012 X10*3/uL ENTERED: 07/12/[address]: Elsa Barrera MD ORDERED: CMP, Phos, Vitamin D 25-OH Test Result Flag Reference Site Sodium 145 135-145 mmol/L Potassium 4.2 3.3-5.1 mmol/L CL 108 96-108 mmol/L CO2 22 22-29 mmol/L Gap 19 12-20 BUN 13 9-16 mg/dL Creat 0.78 0.5-1.4 mg/dL EGFR > 60 NOTE: For -[place] individuals, multiply the result by 1.210. Chronic Kidney Disease: Estimated GFR < 60 mL/min/1.73m2 Severe Kidney Disease: Estimated GFR < 15 mL/min/1.73m2 Glucose, Random 132 H 60-115 mg/dL CA 9.4 8.4-10.2 mg/dL Phosphorus 3.5 2.7-4.5 mg/dL Total Bili 0.8 0.0-1.0 mg/dL AST (GOT) 10 5-31 U/L ALT (GPT) 10 0-31 U/L Protein, Total 6.1 L 6.5-8.0 g/dL Alb 4.1 3.5-5.0 g/dL Alk Phos 110 39-117 U/L Vit D 25-OH Tot 28.1 >30 ng/mL Health Based Reference Values* < 20 ng/mL Deficient 20-30 ng/mL Insufficient > 30 ng/mL Sufficient Assessment and Plan Assessment & Plan (1) Controlled diabetes mellitus without long-term current use of insulin: Code(s): E11.9 - Type 2 diabetes mellitus without complications Qualifiers: Diabetes mellitus complication status: without complication Diabetes mellitus type: type 2 Qualified Code(s): E11.9 - Type 2 diabetes mellitus without complications Plan: Continue metformin 500 mg 1 tab twice a day (2) Mixed dyslipidemia: Code(s): E78.2 - Mixed hyperlipidemia Plan: Fasting lipid panel . Continue with atorvastatin 80 mg daily , in addition to adherence to low-cholesterol diet and regular exercise, at least 30 minutes 3 to 4 times a week. Advised patient to make healthy food choices, eat more fruits, vegetables, whole grains, wild caught fish and low-fat dairy. Limit amount of meat and fried or fatty food products, as well as processed foods and fast foods. (3) Vitamin D deficiency: Code(s): E55.9 - Vitamin D deficiency, unspecified Plan: Prescription sent for cholecalciferol 72454 units per capsule to take once a week for the next 3 months. (4) HTN (hypertension): Code(s): I10 - Essential (primary) hypertension Qualifiers: Hypertension type: essential hypertension Qualified Code(s): I10 - Essential (primary) hypertension Plan: Blood pressure at goal of less than 130/80. Continue with lisinopril 2.5 mg daily and metoprolol succinate ER 100 mg once a day. Reinforced importance of following a low sodium diet, getting regular exercise, and lowering stress levels. Orders: Orders Lipid Panel 08/08/22 E78.5 - Hyperlipidemia, unspecified, E11.9 - Type 2 diabetes mellitus without complications, E78.2 - Mixed hyperlipidemia Hemoglobin A1c 08/08/22 E78.5 - Hyperlipidemia, unspecified, E11.9 - Type 2 diabetes mellitus without complications, E78.2 - Mixed hyperlipidemia Medications: New cholecalciferol (vitamin D3) 1,250 mcg PO QWEEK 13 caps 0RF 3 months E55.9 - Vit bradford D deficiency, unspecified Refilled atorvastatin 80 mg PO BEDTIME 90 tabs 3RF lisinopril 2.5 mg PO DAILY 90 tabs 3RF metformin 500 mg PO BID 180 tabs 3RF Coding Level of Care Code Est Pt Level 4 (65608) Diagnoses Controlled type 2 diabetes mellitus without complication, without long-term current use of insulin E11.9 Diabetes mellitus complication status: without complication Diabetes mellitus type: type 2 Mixed dyslipidemia E78.2 Vitamin D deficiency E55.9 Essential hypertension I10 Hypertension type: essential hypertension Additional Codes JULIA-7 Assessment Billing - JULIA-7 Assessment Tool: JULIA-7 Assessment 77011 ([id number])
[2022-08-08 11:15] VITALS: BP 118/94; PULSE 68; O2SAT 98; BMI 31.1
== END 2022-08-08 12:07 | disposition home or self-care (01) ==
LOC: HO.HMGC 10:14
PROVIDERS: PCP Internal Medicine; Visit Provider Internal Medicine
DX: E11.69 Type 2 diabetes mellitus with other specified complication (principal); E78.2 Mixed hyperlipidemia; E55.9 Vitamin D deficiency, unspecified; I10 Essential (primary) hypertension
CPT/HCPCS: 99214; 99499

== ENCOUNTER 2022-08-08 11:49 | Outpatient (REF) | payer MEDICARE, SELFPAY ==
[2022-08-08 14:16] LABS: Estimated Average Glucose 103 mg/dL; Hemoglobin A1c % 5.2 %
[2022-08-08 15:02] LABS: Cholesterol 94 mg/dL; HDL Cholesterol 32 mg/dL; LDL Cholesterol Calculated 44 mg/dl; Triglycerides 93 mg/dL
== END 2022-08-08 11:50 | disposition home or self-care (01) ==
LOC: HO.HMGCLDS 11:49
PROVIDERS: PCP Internal Medicine; Visit Provider Internal Medicine
DX: E11.9 Type 2 diabetes mellitus without complications (principal); E78.2 Mixed hyperlipidemia
CPT/HCPCS: 36415; 80061; 83036

== ENCOUNTER → 2022-10-31 13:15 | Outpatient (BNVA) | payer MEDICARE, SELFPAY | PROVIDERS: Visit Provider Nurse Practitioner Family | DX: R32 Unspecified urinary incontinence (principal) | CPT/HCPCS: 51798; 99212 ==

== ENCOUNTER 2022-11-14 11:41 | Outpatient (AMB) | payer MEDICARE, SELFPAY ==
[2022-11-14 12:28] VITALS: BMI 28.4
--- NOTE | 2022-11-14 12:28 | MHC.AMNUTRGE ---
Intake VS Expanded 11/14/22 12:28 Height 5 ft 7 in Weight 181 lb 10.574 oz BMI 28.4 Intake Visit Reasons: Obesity Allergies No Known Allergies [No Known Allergies*] Allergy (Verified 10/31/22 21:30) HPI Nutrition Presentation Details Pt presents for MNT follow up for T2DM. Pt continues to work on weight loss. Reports trying to increase protein intake however not able to get enough. Pt verbalizes portion sizes and amount of protein per portion sizes, reports getting 60-77 g most days of the week. Pt has lost additional 37 lbs in the past 6 months at a rate of 1.5 lb per week. Pt was advised to STOP working on weight loss and work on maintaining muscles mass by increasing physical activity. Pt uses walker for support. Reports having chair exercises and stretches provided by PT in the past. food frequency Dairy: 2 -3 serving/d fruits 0-/1 non starchy vegetables: 5-6 servings/d protein foods : yogurt/beans/soy/chicken about 60-70 g protein /day starches : 15-18 serving/d Typical meals lean cuisine (9- 20 g prot) yogurt 13 g (some are 20) chicken breast 31 g protein and vegetables has high protein boost daily 20 g protein Most Recent Diabetes Results: Cholesterol 94 mg/dL 08/08/22 HDL Cholesterol 32 mg/dL 08/08/22 Triglycerides 93 mg/dL 08/08/22 Creatinine 0.78 mg/dL (0.5-1.4) 07/12/22 Blood Urea Nitrogen 13 mg/dL (9-16) 07/12/22 Sodium 145 mmol/L (135-145) 07/12/22 Potassium 4.2 mmol/L (3.3-5.1) 07/12/22 Chloride 108 mmol/L (96-108) 07/12/22 Carbon Dioxide 22 mmol/L (22-29) 07/12/22 Calcium 9.4 mg/dL (8.4-10.2) 07/12/22 AST 10 U/L (5-31) 07/12/22 ALT 10 U/L (0-31) 07/12/22 Total Protein 6.1 g/dL (6.5-8.0) L 07/12/22 Albumin 4.1 g/dL (3.5-5.0) 07/12/22 [facility] Medical History (Reviewed 10/31/22 @ 21:31 by [facility]) Benign familial tremor Bipolar disorder Cardiomyopathy Colon cancer screening Controlled diabetes mellitus without long-term current use of insulin CVID (common variable immunodeficiency) Elevated parathyroid hormone HLD (hyperlipidemia) HTN (hypertension) Hyperparathyroidism Macular degeneration Menopause Mixed dyslipidemia Morbid obesity Multinodular thyroid Umbilical hernia with obstruction Urinary incontinence Ventral hernia Vitamin D deficiency Surgical History H/O colonoscopy History of adenoidectomy History of cardiac catheterization (~2017) History of hysteroscopy History of umbilical hernia repair (07/06/22) Hx of biopsy Hx of wisdom tooth extraction Family History Father Diabetes mellitus Depression Mental health disorder Mother Diabetes mellitus Colon cancer Breast cancer Familial tremor Sister Colon cancer Maternal Aunt Familial tremor Sister No problems noted. Social History Household Members: None Housing: Apartment Are you a primary career center advisor to a significant other at home: No Do you presently have visiting nurse or other home services: No Alcohol intake: never Patient Tobacco Use Status: Never used Tobacco e-Cigarette/Vaping Use: Never Used service: No Current occupational status: disabled Cognitive needs: No Hearing needs: No Vision needs: Yes Assessment & Plan Assessment & Plan (1) T2DM (type 2 diabetes mellitus): Code(s): E11.9 - Type 2 diabetes mellitus without complications Qualifiers: Diabetes mellitus usp insulin use: without usp use Diabetes mellitus complication status: with hyperglycemia Qualified Code(s): E11.65 - Type 2 diabetes mellitus with hyperglycemia Plan: BMI at 28.5 on 11/14/22 , 34.1 on 05/18/22, 39.7b on 11/15/21, 41.8 on 07/17/21, BMI at 43 on 06/16/20 , 10/2020, . Weight goal : STOP WEIGHT LOSS : maintain weight 180-190 lbs EST Kcal NEEDS as per 25-30 kcal/kg bw : 6746-4238 USED WT : 99 kg (218 lbs) est protein needs as per 0.8-1.0 g/kg bw:79-98 (for 99 kg) minimum 66-83 g/d for current wt 83 kg) est fluid needs as per 25 ml/kg bw: 2475 ml/d Na rec: <2000 mg /d Educate patient on: (R= Reviewed, V = verbalizes understanding N/R= Needs review N/A= not applicable) Protein sources of foods to meet estimated protein needs: R, V Include fiber rich foods in diet : fruits at least 2 a day, whole grain starches : R Keeping hydrated by having water /diluted fruit juices/soups/milk: R Role of exercise to prevent muscle mass wasting: R Multivitamin;R Prevention of further weight loss via including nutrient rich in diet : R Healthy plate method: R Patient Instructions: Have an additional 3 ounce serving of protein to your meals : shrimp, beef, cottage cheese,tuna, cheese - list of protein foods discussed Include at least 2 fruits per day (fruit cups, canned fruits ok in its own juice) Engage in physical activity- obtain referral for physical therapy for further assessment Maintain weight 180-190. Do not continue working on reducing portions. Coding Level of Care Code Nutr Indiv Subseq (17668) Diagnoses T2DM (type 2 diabetes mellitus) E11.65 Diabetes mellitus card reader insulin use: without card reader use Diabetes mellitus complication status: with hyperglycemia Time Spent (min) 30
== END 2022-11-14 13:07 | disposition home or self-care (01) ==
PROVIDERS: PCP Internal Medicine; Referring Provider Internal Medicine; Visit Provider Dietitian, Registered
DX: E11.65 Type 2 diabetes mellitus with hyperglycemia (principal)

== ENCOUNTER → 2022-11-14 11:41 | Outpatient (BNVA) | payer MEDICARE, SELFPAY | PROVIDERS: Visit Provider Dietitian, Registered | DX: E11.65 Type 2 diabetes mellitus with hyperglycemia (principal) | CPT/HCPCS: 97803 ==

== ENCOUNTER 2022-12-17 11:14 | Outpatient (REF) | payer MEDICARE, SELFPAY ==
--- NOTE | ~2022-12-17 | MM_ITS ---
EXAMINATION: MM DIAGNOSTIC DIGITAL BREAST TOMOSYNTHESIS, BILATERAL US BREAST LIMITED, LEFT MAMMOGRAPHY: CLINICAL INFORMATION: 6 month Follow-up oval density left breast inferior aspect, 8 cm from the nipple, possibly dermal. 6 month follow-up hyperechoic subcutaneous small nodules seen on ultrasound left breast 8:00 axis, 3 cm from the nipple. The lifetime risk of breast cancer based on the Tyrer-Cuzick Model is 19%. COMPARISON: Mammography: Mammography dated 05/24/2022, 10/25/2021, 10/06/2020. Sonography dated 05/24/2022, 05/23/2021 of the left breast. TECHNIQUE: Digital breast tomosynthesis is performed in both the craniocaudal and mediolateral oblique views along with computer-aided detection (CAD). Synthesized 2D images are generated from the tomosynthesis. FINDINGS: The breasts are almost entirely fatty (ACR BI-RADS breast composition Category a). There are no suspicious masses, suspicious grouped calcifications, or areas of architectural distortion. The parenchymal pattern is stable from prior exams. The previously described nodule in the inferior aspect of the left breast is no longer visualized, and appears to have resolved. There are no suspicious abnormalities. Results were provided to the patient at time of visit by the technologist. ULTRASOUND: CLINICAL INFORMATION: Evaluate hyperechoic subcutaneous nodules left breast 8:00 axis, 3 cm from the nipple. COMPARISON: 05/24/2022, 05/23/2021. TECHNIQUE: Targeted sonographic evaluation left breast 8:00 axis was performed using a high frequency linear transducer. Selected archived documentation. FINDINGS: LEFT BREAST: In review of the prior ultrasound dated 05/24/2022, 2 subcutaneous lipomatous nodules were identified., The larger measuring 5 mm in diameter, and the smaller measuring 3 mm in diameter. Lipomatous nodules are benign. No further follow-up was necessary at that time. Real-time scanning of the left breast in the same region on today's exam demonstrates no persistence of the previously seen lipomatous nodules. Only normal breast parenchyma is identified. MM/MM tomosynthesis diagnostic BI IMPRESSION: There are no imaging findings suspicious for malignancy. Previously seen hyperechoic nodules were consistent with small lipomatous nodules which are benign. These did not persist on today's exam. Recommend the patient resume routine annual screening to include both breasts. OVERALL ASSESSMENT: Mammography: BI-RADS 2 - Benign Findings Ultrasound: BI-RADS 2 - Benign Findings RECOMMENDATION: 1 year F/U This patient's information was entered into a reminder system with a target due date for their next mammogram.
== END 2022-12-17 11:15 | disposition home or self-care (01) ==
LOC: HO.MAMMO 11:14
PROVIDERS: PCP Internal Medicine; Visit Provider Internal Medicine
DX: R92.2 Inconclusive mammogram (principal)
CPT/HCPCS: 76642; 77062; 77066

== ENCOUNTER → 2022-12-17 11:30 | Outpatient (BNV) | payer MEDICARE, SELFPAY | PROVIDERS: PCP Internal Medicine; Visit Provider Radiology Diagnostic Radiology | DX: R92.2 Inconclusive mammogram (principal) | CPT/HCPCS: 77062; 77066; G0279 ==

== ENCOUNTER 2023-01-30 09:25 | Outpatient (AMB) | payer MEDICARE, SELFPAY ==
--- NOTE | 2023-01-30 09:56 | MHC.OFFVIS ---
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 Accompanied by: Self / Same As Patient Allergies No Known Allergies [No Known Allergies*] Allergy (Verified 01/30/23 09:59) Medication List - Last Reconciled 01/30/23 by Maycol Wolfe MD apixaban (Eliquis) 5 mg PO BID atorvastatin 80 mg PO BEDTIME blood sugar diagnostic (Toutuch Verio test strips) Check blood glucose levels twice a day lisinopril 2.5 mg PO DAILY metformin 500 mg PO BID metoprolol succinate ER 100 mg PO DAILY oxybutynin chloride ER 20 mg (2 x 10 mg) PO BEDTIME 90 days terazosin 3 mg (3 x 1 mg) PO BEDTIME 90 days vit C,V-Ry-jzzfu-lutein-zeaxan 250-90-40-1 mg (PreserVision AREDS-2) 1 tab PO BID ziprasidone HCl 80 mg PO BID HPI HPI Comments History of Present Illness Details Rissa returns for follow-up regarding atrial fibrillation. Previously seen by Dr. Gamez. It seems that she has had this for the last few years. Primarily treated by rate control. She is on beta-blockers as well as anticoagulation. Patient states that she does not experience any symptoms like angina or shortness of breath or palpitations or in fact anything cardiac related at all. Limited ambulation and she comes to the office with a walker. Otherwise, also described to have cardiomyopathy in the history, but then recovered EF as well. Multiple cardiovascular issues including type 2 diabetes, hypertension, dyslipidemia, obesity among others. Patient states that her atrial fibrillation has converted to sinus rhythm in the last few months. She however, cannot say difference one way or another. In the last few months, patient states that she has been losing a lot of weight and has lost almost 100 lb or so. And that might be the reason why she converted from atrial fibrillation to sinus rhythm. [facility] Medical History Benign familial tremor Bipolar disorder Cardiomyopathy Colon cancer screening Controlled diabetes mellitus without long-term current use of insulin CVID (common variable immunodeficiency) Elevated parathyroid hormone HLD (hyperlipidemia) HTN (hypertension) Hyperparathyroidism Macular degeneration Menopause Mixed dyslipidemia Morbid obesity Multinodular thyroid Umbilical hernia with obstruction Urinary incontinence Ventral hernia Vitamin D deficiency Surgical History History of umbilical hernia repair (07/06/22) Hx of wisdom tooth extraction History of cardiac catheterization (~2017) Hx of biopsy H/O colonoscopy History of hysteroscopy History of adenoidectomy Family History Father Diabetes mellitus Depression Mental health disorder Mother Diabetes mellitus Colon cancer Breast cancer Familial tremor Sister Colon cancer Maternal Aunt Familial tremor Sister No problems noted. Social History Household Members: None Housing: Apartment Are you a primary primary health care nurse to a significant other at home: No Do you presently have visiting nurse or other home services: No Alcohol intake: never Patient Tobacco Use Status: Never used Tobacco e-Cigarette/Vaping Use: Never Used service: No Current occupational status: disabled Cognitive needs: No Hearing needs: No Vision needs: Yes Review of Systems Const Denies weakness ENT Denies dizziness Card Denies chest pain, Denies chest pain with activity, Denies syncope, Denies rapid heart rate, Denies pedal edema, Denies edema, Denies leg edema, Denies lightheadedness, Denies palpitations, Denies dyspnea, Denies dyspnea on exertion and Denies orthopnea Resp Denies cough, Denies dyspnea and Denies dyspnea on exertion GI Denies hematochezia and Denies change in stool character Musc Denies abnormal gait, Denies muscle cramps, Denies muscle weakness, Denies numbness, Denies radiating pain into limb and Denies tingling Neuro Denies abnormal gait, Denies dizziness, Denies syncope, Denies numbness, Denies tingling and Denies weakness Endo Denies palpitations Physical Exam Vital Signs: Last Vital Signs Pulse 56 01/30/23 09:57 BP 114/68 01/30/23 09:57 BMI result Body Mass Index 26.9 Const General: comfortable and no acute distress Orientation/consciousness: patient oriented x3 HEENT Other: Unremarkable Head: Yes normal to inspection Neck Neck: Yes normal visual inspection Chest Chest palpation & inspection: normal inspection of the chest Resp Auscultation: clear to auscultation bilaterally Cardio Palpation: normal PMI Heart sounds: S1 normal heart sound present, S2 normal heart sound present, no gallops, no murmurs and no rubs GI Palpation (GI): Soft to palpation Back/Spine/Pelvis Other: unremarkable Skin General skin exam: no rashes or lesions noted Neuro General: patient oriented x3 Extrem General: Yes normal to inspection Psych Mental Status: mental status grossly normal Office Procedures EKG Details: EKG with sinus rhythm at 65/Min; left anterior fascicular block and right bundle-branch block pattern. Has been seen before. [id number], Complete Assessment & Plan Assessment & Plan (1) Persistent atrial fibrillation: Code(s): I48.19 - Other persistent atrial fibrillation (2) Cardiomyopathy: Code(s): I42.9 - Cardiomyopathy, unspecified Plan In the last echocardiogram, LVEF is 55-60%. In the past, reported to have cardiomyopathy in the 40-45% range. Hence seems resolved. By EKG, she is in sinus rhythm today. Reason for spontaneous conversion from atrial fibrillation to sinus in spite of being in atrial fibrillation for many years could be the fact that she lost a substantial amount of weight. May continue beta-blockers without changes. Continue anticoagulation. Will check a Holter monitor to see if she is in and out of atrial fibrillation or remains in sinus rhythm. Otherwise, hopefully she can keep the weight down and not regain anything back. Total time spent including review of data, counseling, documentation, coordination of care-31 minutes. Orders: Orders ECG 7 day holter monitor Today I48.19 - Other persistent atrial fibrillation Coding Level of Care Code Est Pt Level 4 (82487) Diagnoses Persistent atrial fibrillation I48.19 Cardiomyopathy I42.9 CPT Codes EKG - CPT: 60792-[id number], Complete ([id number])
[2023-01-30 09:57] VITALS: BP 114/68; PULSE 56; BMI 26.9
== END 2023-01-30 10:15 | disposition home or self-care (01) ==
PROVIDERS: PCP Internal Medicine; Visit Provider Internal Medicine
DX: I48.19 Other persistent atrial fibrillation (principal); I42.9 Cardiomyopathy, unspecified
CPT/HCPCS: 93010; 99214

== ENCOUNTER → 2023-01-30 09:25 | Outpatient (BNVA) | payer MEDICARE, SELFPAY | PROVIDERS: PCP Internal Medicine; Visit Provider Internal Medicine | DX: I48.19 Other persistent atrial fibrillation (principal); I42.9 Cardiomyopathy, unspecified | CPT/HCPCS: 93005; 99212 ==

== ENCOUNTER → 2023-02-22 10:30 | Outpatient (REF) | payer MEDICARE, SELFPAY ==
--- NOTE | 2023-02-22 10:32 | HM_ITS ---
Conclusion: 1. Patient was monitored for total period of 6 days and 21 hours 2. Baseline rhythm is predominantly sinus bradycardia with average heart of 48 beats per minute with 82% of time heart rate below 100 beats per minute with no significant pauses 3. Intermittent atrial fibrillation noted with total burden of 8.1% with longest episode of 2 hours and 42 minutes with fastest heart rate of 125 beats per minute 4. Frequent PACs noted when in sinus rhythm with total burden of 1.9% 5. Occasional PVCs noted with 2 nonsustained VT episode, longest of 5 beats at 104 beats per minute most suggestive excellent idioventricular rhythm 6. Patient marked the counter 3 times without any symptoms reported in diary correlating with sinus rhythm or sinus bradycardia. [facility]
== END ==
LOC: HO.CARD 10:30
PROVIDERS: PCP Internal Medicine; Visit Provider Internal Medicine
DX: I48.19 Other persistent atrial fibrillation (principal)
CPT/HCPCS: 93242

== ENCOUNTER → 2023-02-22 10:32 | Outpatient (BNV) | payer MEDICARE, SELFPAY | PROVIDERS: PCP Internal Medicine; Visit Provider Internal Medicine Cardiovascular Disease | DX: I48.19 Other persistent atrial fibrillation (principal) | CPT/HCPCS: 93244 ==

== ENCOUNTER 2023-06-06 09:29 | Outpatient (AMB) | payer MEDICARE, SELFPAY ==
--- NOTE | 2023-06-06 09:41 | MHC.PC.OV ---
Vital Signs 06/06/23 09:50 Height 5 ft 7 in Weight 165 lb BMI 25.8 BP 90/60 Blood Pressure Location Rt brachial Position Sitting Pulse 58 Pulse Source Pulse Oximeter Pulse Oximetry (%) 96 Oxygen Delivery Method Room Air Intake Visit Reasons: Annual Physical Intake Note: Pt is here today for her PE: Last mammogram 12/17/22, bone density scan 06/12/22, colonoscopy 12/31/18 Allergies No Known Allergies [No Known Allergies*] Allergy (Verified 06/06/23 10:10) Medication List - Last Reconciled 06/06/23 by Elsa Barrera MD apixaban (Eliquis) 5 mg PO BID atorvastatin 80 mg PO BEDTIME blood sugar diagnostic ([employer] Verio test strips) Check blood glucose levels twice a day lisinopril 2.5 mg PO DAILY metformin 500 mg PO BID metoprolol succinate ER 100 mg PO DAILY oxybutynin chloride ER 20 mg (2 x 10 mg) PO BEDTIME 90 days terazosin 3 mg (3 x 1 mg) PO BEDTIME 90 days vit C,K-Nc-qqogx-lutein-zeaxan 250-90-40-1 mg (PreserVision AREDS-2) 1 tab PO BID ziprasidone HCl 80 mg PO BID Tobacco use date assessed: 06/06/23 Fall risk assessment: No Falls in past year Last assessed Fall Risk: 06/06/23 Dental Screening Dental Screen Date: 06/06/23 Did you have a dental visit in the last 12 months?: No Was dental information given to patient?: No HPI Annual Physical HPI Details 67-year-old lady with bipolar disorder currently followed by psych, has benign familial tremor, diabetes mellitus, mixed dyslipidemia, hyperparathyroidism, macular degeneration, here today for her physical exam. She is up-to-date with her screening mammogram and bone density, done last yea both of which showed normal findings. Last colonoscopy was done in 2019 , due again this year due to positive family history for colon cancer. [facility] Medical History (Updated 06/11/23 @ 02:13 by Elsa Barrera MD) Anemia Bipolar disorder Morbid obesity Benign familial tremor Colon cancer screening Ventral hernia Multinodular thyroid Umbilical hernia with obstruction CVID (common variable immunodeficiency) Vitamin D deficiency Hyperparathyroidism HLD (hyperlipidemia) HTN (hypertension) Cardiomyopathy Macular degeneration Menopause Elevated parathyroid hormone Urinary incontinence Controlled diabetes mellitus without long-term current use of insulin Mixed dyslipidemia Surgical History History of umbilical hernia repair (07/06/22) Hx of wisdom tooth extraction History of cardiac catheterization (~2016) Hx of biopsy H/O colonoscopy History of hysteroscopy History of adenoidectomy Family History Father Diabetes mellitus Depression Mental health disorder Mother Diabetes mellitus Colon cancer Breast cancer Familial tremor Sister Colon cancer Maternal Aunt Familial tremor Sister No problems noted. Social History Household Members: None Housing: Apartment Are you a primary critical care specialist to a significant other at home: No Do you presently have visiting nurse or other home services: No Alcohol intake: never Patient Tobacco Use Status: Never used Tobacco e-Cigarette/Vaping Use: Never Used service: No Current occupational status: disabled Cognitive needs: No Hearing needs: No Vision needs: Yes Questionnaire PHQ-9 Over the last 2 weeks, how often have you been bothered by any of the following problems? 1. Little interest or pleasure in doing things: more than half the days 2. Feeling down, depressed, or hopeless: several days 3. Trouble falling or staying asleep, or sleeping too much: more than half the days 4. Feeling tired or having little energy: several days 5. Poor appetite or overeating: not at all 6. Feeling bad about yourself - or that you are a failure or have let yourself or your family down: not at all 7. Trouble concentrating on things, such as reading the newspaper or watching television: more than half the days 8. Moving or speaking so slowly that other people could have noticed. Or the opposite - being so fidgety or restless that you have been moving around a lot more than usual: not at all 9. Thoughts that you would be better off or of hurting yourself in some way: not at all Total score: 8 Depression Screening Interpretation: Positive (CURRENTLY SEES PSYCHIATRY) Depression Screening Follow-up: Existing condition, In treatment and Community Mental Health Worker F/U Depression Screening Done: Yes 92272 - PHQ-9 Billing: Yes Source: Developed by Drs. Braulio Durand, Kathryn Martinez, Javier Hodgson and colleagues, with an educational jeffry from [employer]. Thrive Questionnaire Date Thrive assessed: 08/08/22 I am a: Patient What is your living situation today?: I have a steady place to live Within the past 12 months, did the food you bought not last and you didn't have the money to get more?: Never true Within the past 12 months, did you worry whether your food would run out before you got money to buy more?: Never true Do you have trouble paying for medicines?: No Do you have trouble getting transportation to medical appointments?: No Do you have trouble paying your heating and electricity bill?: No Do you have trouble taking care of your child, family member or friend?: No Do you have trouble with day-to-day activities such as bathing, preparing meals, shopping, managing finances, etc.?: No Are you currently unemployed and looking for a job?: No Are you interested in more education?: No THRIVE Score: 0 JULIA-7 AMB Questionnaire JULIA-7 Date JULIA - 7 assessed: 06/06/23 Feeling nervous, anxious, or on edge: 1 = Several days Not being able to stop or control worryin = Several days Worrying too much about different things: 1 = Several days Trouble relaxin = Not at all Being so restless that it is hard to sit still: 0 = Not at all Becoming easily annoyed or irritable: 0 = Not at all Feeling afraid as if something awful might happen: 0 = Not at all Total JULIA-7 score (0-4 normal; 5-9 mild; 10-14 moderate; 15-21 severe): 3 Source: Developed by Drs. Braulio Durand, Kathryn Martinez, Javier Hodgson and colleagues, with an educational jeffry from [employer]. JULIA-7 Assessment Billing JULIA-7 Assessment Tool: JULIA-7 Assessment 82912 Review of Systems Const Denies headache(s) and Denies weakness Eyes Details: Currently being followed by the [facility] and also goes to the [facility] [place] for her macular degeneration Denies change in vision ENT Denies dizziness, Denies headache(s), Denies nasal discharge, Denies disequilibrium and Denies post nasal drip Card Denies chest pain, Denies chest pain with activity, Denies syncope, Denies rapid heart rate, Denies pedal edema, Denies leg edema, Denies lightheadedness, Denies dyspnea and Denies dyspnea on exertion Resp Denies cough, Denies dyspnea and Denies dyspnea on exertion GI Denies abdominal pain, Denies melena, Denies bloating, Denies hematochezia, Denies change in bowel habits, Denies change in stool character and Denies heartburn Reports no additional complaints Musc Reports no additional complaints Skin/Breast Denies breast pain, Denies breast mass, Denies lesions and Denies rash Neuro Denies dizziness, Denies syncope, Denies headache(s), Denies disequilibrium and Denies weakness Psych Reports no additional complaints and Reports as per HPI Endo Reports no additional complaints Jorge/Lymph Reports no additional complaints Aller/Immun Reports no additional complaints Physical exam (Primary Care) Vital Signs: Last Vital Signs Pulse 58 06/06/23 09:50 BP 90/60 06/06/23 09:50 Pulse Ox 96 06/06/23 09:50 Oxygen Delivery Method Room Air 06/06/23 09:50 BMI result Body Mass Index 25.8 Tobacco/Smoking Status: Tobacco use Status Tobacco use date assessed 06/06/23 06/06/23 09:46 Patient Tobacco Use Status Never used Tobacco 06/06/23 09:46 e-Cigarette/Vaping Use Never Used 06/06/23 09:46 PHQ-9: PHQ-9 Score PHQ-9: Total score 8 06/06/23 10:43 Depression Screening Interpretation: Positive (CURRENTLY SEES PSYCHIATRY) Depression Screening Follow-up: Existing condition, In treatment and Community Mental Health Worker F/U Thrive Assessment: Date of Thrive Assessment Date Thrive assessed 08/08/22 06/06/23 09:46 Results AMB Hemoglobin A1c AMB Hemoglobin A1c 5.2 % Last Edit by Judy Lee CMA on 06/06/23 10:12 Immunizations pneumoc 20-bj conj-dip cr(PF) 0.5 mL IM syringe Performing Provider: Elsa Barrera MD Performing Location: [facility] Administered by: Judy Lee CMA on 06/06/23 10:43 Dose Route Admin Location Dispensed Lot Number Expiration Date NDC Operations Support Specialist 0.5 mL IM Right Deltoid 0.5 mL [id number] 01/04/24 [id number] [employer] VIS Given Date VIS Provided VIS Publication Date 06/06/23 Single Vaccine 21 Eligibility Eligibility Date Funding Source Not VFC Eligible 06/06/23 Private Results Reviewed Results Reviewed: Laboratory Last Values Hgb A1c (Clinic) 5.2 % (4.0-6.0) 06/06/23 10:00 Assessment and Plan Assessment & Plan (1) Persistent atrial fibrillation: Code(s): I48.19 - Other persistent atrial fibrillation Plan: Currently followed by cardiology, on apixaban 5 mg 1 tablet twice a day and metoprolol succinate ER 100 mg once a day (2) Mixed dyslipidemia: Code(s): E78.2 - Mixed hyperlipidemia Plan: Fasting lipid panel ordered . Continue with atorvastatin , in addition to adherence to low-cholesterol diet and regular exercise, at least 30 minutes 3 to 4 times a week. Advised patient to make healthy food choices, eat more fruits, vegetables, whole grains, wild caught fish and low-fat dairy. Limit amount of meat and fried or fatty food products, as well as processed foods and fast foods. . (3) CVID (common variable immunodeficiency): Comment: sees Dr Duffy, previously on Gamunex-c 100 gms weekly Code(s): D83.9 - Common variable immunodeficiency, unspecified Plan: Previously was being seen by Dr. Bryon rice, stopped going due to high cost of treatment. Ordered CBC with differential (4) Vitamin D deficiency: Code(s): E55.9 - Vitamin D deficiency, unspecified Plan: Will check vitamin-D level (5) Hyperparathyroidism: Code(s): E21.3 - Hyperparathyroidism, unspecified Plan: Previously seen by Dr. Parra, now has an appointment with Dr. Moreno next month for follow-up (6) Bipolar disorder: Comment: followed by Monica aMyer q 3 months in [facility] Code(s): F31.9 - Bipolar disorder, unspecified Plan: Followed by psychiatry and therapist (7) HTN (hypertension): Code(s): I10 - Essential (primary) hypertension Qualifiers: Hypertension type: essential hypertension Qualified Code(s): I10 - Essential (primary) hypertension Plan: Blood pressure at goal of less than 130/80. Continue with current medication. Reinforced importance of following a low sodium diet, getting regular exercise, and lowering stress levels. (8) Cardiomyopathy: Code(s): I42.9 - Cardiomyopathy, unspecified Qualifiers: Cardiomyopathy type: unspecified Qualified Code(s): I42.9 - Cardiomyopathy, unspecified Plan: Followed by cardiology (9) Macular degeneration: Comment: wet type, followed by retina eyespecialist, last eye exam was May 2023, also sees [facility] Code(s): H35.30 - Unspecified macular degeneration Qualifiers: Macular degeneration type: unspecified type Eye laterality: bilateral Qualified Code(s): H35.30 - Unspecified macular degeneration Plan: Followed by retina audit specialist (10) Controlled diabetes mellitus without long-term current use of insulin: Code(s): E11.9 - Type 2 diabetes mellitus without complications Qualifiers: Diabetes mellitus complication status: without complication Diabetes mellitus type: type 2 Qualified Code(s): E11.9 - Type 2 diabetes mellitus without complications Plan: Continue metformin 500 mg 1 tablet p.o. b.i.d. in addition to adhering to healthy diet, low in carbs and getting regular exercise. Hemoglobin A1c today is at 5.2% , ordered basic metabolic panel and urine for microalbuminuria screening. Prevnar 20 given today (11) Urinary incontinence: Code(s): R32 - Unspecified urinary incontinence Qualifiers: Urinary Incontinence type: unspecified incontinence Qualified Code(s): R32 - Unspecified urinary incontinence Plan: Followed by Urology, currently on oxybutynin and terazosin (12) Annual visit for general adult medical examination with abnormal findings: Code(s): Z00.01 - Encounter for general adult medical examination with abnormal findings Plan: Will check appropriate labs. Recommended dental visit every 6 months and yearly eye exams, currently up-to-date. Take adequate calcium in diet and vitamin-D 3 at 2000 IU per cap once a day, in addition to weight-bearing exercises to help maintain good muscle tone and weight control. Instructed to do self-breast exam, and to get yearly mammogram, starting at age 40, currently up-to-date bone density scan is up-to-date as well... She is up-to-date with her screening colonoscopy, due again this year, referral ordered. 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 (13) Family history of colon cancer: Code(s): Z80.0 - Family history of malignant neoplasm of digestive organs Orders: Orders AMB Hemoglobin A1c 06/06/23 E11.9 - Type 2 diabetes mellitus without complications Hemoglobin A1c 06/06/23 D83.9 - Common variable immunodeficiency, unspecified, E11.9 - Type 2 diabetes mellitus without complications, E55.9 - Vitamin D deficiency, unspecified, E78.2 - Mixed hyperlipidemia, E78.5 - Hyperlipidemia, unspecified, F31.9 - Bipolar disorder, unspecified, G25.0 - Essential tremor, H35.30 - Unspecified macular degeneration, I10 - Essential (primary) hypertension, I42.9 - Cardiomyopathy, unspecified, I48.19 - Other persistent atrial fibrillation, R32 - Unspecified urinary incontinence Lipid Panel 06/06/23 D83.9 - Common variable immunodeficiency, unspecified, E11.9 - Type 2 diabetes mellitus without complications, E55.9 - Vitamin D deficiency, unspecified, E78.2 - Mixed hyperlipidemia, E78.5 - Hyperlipidemia, unspecified, F31.9 - Bipolar disorder, unspecified, G25.0 - Essential tremor, H35.30 - Unspecified macular degeneration, I10 - Essential (primary) hypertension, I42.9 - Cardiomyopathy, unspecified, I48.19 - Other persistent atrial fibrillation, R32 - Unspecified urinary incontinence Comprehensive [place]. Panel Fast 06/06/23 D83.9 - Common variable immunodeficiency, unspecified, E11.9 - Type 2 diabetes mellitus without complications, E55.9 - Vitamin D deficiency, unspecified, E78.2 - Mixed hyperlipidemia, E78.5 - Hyperlipidemia, unspecified, F31.9 - Bipolar disorder, unspecified, G25.0 - Essential tremor, H35.30 - Unspecified macular degeneration, I10 - Essential (primary) hypertension, I42.9 - Cardiomyopathy, unspecified, I48.19 - Other persistent atrial fibrillation, R32 - Unspecified urinary incontinence Microalbumin, Random (w Creat) 06/06/23 D83.9 - Common variable immunodeficiency, unspecified, E11.9 - Type 2 diabetes mellitus without complications, E55.9 - Vitamin D deficiency, unspecified, E78.2 - Mixed hyperlipidemia, E78.5 - Hyperlipidemia, unspecified, F31.9 - Bipolar disorder, unspecified, G25.0 - Essential tremor, H35.30 - Unspecified macular degeneration, I10 - Essential (primary) hypertension, I42.9 - Cardiomyopathy, unspecified, I48.19 - Other persistent atrial fibrillation, R32 - Unspecified urinary incontinence IRON PROFILE 06/06/23 D64.9 - Anemia, unspecified Pneumococcal 20 Immunization 06/06/23 Z23 - Encounter for immunization Complete Blood Count Auto Diff 06/06/23 D83.9 - Common variable immunodeficiency, unspecified, E11.9 - Type 2 diabetes mellitus without complications, E55.9 - Vitamin D deficiency, unspecified, E78.2 - Mixed hyperlipidemia, E78.5 - Hyperlipidemia, unspecified, F31.9 - Bipolar disorder, unspecified, G25.0 - Essential tremor, H35.30 - Unspecified macular degeneration, I10 - Essential (primary) hypertension, I42.9 - Cardiomyopathy, unspecified, I48.19 - Other persistent atrial fibrillation, R32 - Unspecified urinary incontinence Vitamin D 25-OH Total 06/06/23 D83.9 - Common variable immunodeficiency, unspecified, E11.9 - Type 2 diabetes mellitus without complications, E55.9 - Vitamin D deficiency, unspecified, E78.2 - Mixed hyperlipidemia, E78.5 - Hyperlipidemia, unspecified, F31.9 - Bipolar disorder, unspecified, G25.0 - Essential tremor, H35.30 - Unspecified macular degeneration, I10 - Essential (primary) hypertension, I42.9 - Cardiomyopathy, unspecified, I48.19 - Other persistent atrial fibrillation, R32 - Unspecified urinary incontinence Vitamin B12 and Folate 06/06/23 D83.9 - Common variable immunodeficiency, unspecified, E11.9 - Type 2 diabetes mellitus without complications, E55.9 - Vitamin D deficiency, unspecified, E78.2 - Mixed hyperlipidemia, E78.5 - Hyperlipidemia, unspecified, F31.9 - Bipolar disorder, unspecified, G25.0 - Essential tremor, H35.30 - Unspecified macular degeneration, I10 - Essential (primary) hypertension, I42.9 - Cardiomyopathy, unspecified, I48.19 - Other persistent atrial fibrillation, R32 - Unspecified urinary incontinence Referrals Gastroenterology Referral Z80.0 - Family history of malignant neoplasm of digestive organs Coding Level of Care Code Est Pt Prev Care >65y(71152) Diagnoses Persistent atrial fibrillation I48.19 Mixed dyslipidemia E78.2 CVID (common variable immunodeficiency) D83.9 Vitamin D deficiency E55.9 Hyperparathyroidism E21.3 Bipolar disorder F31.9 Essential hypertension I10 Hypertension type: essential hypertension Cardiomyopathy, unspecified type I42.9 Cardiomyopathy type: unspecified Macular degeneration of both eyes, unspecified type H35.30 Macular degeneration type: unspecified type Eye laterality: bilateral Controlled type 2 diabetes mellitus without complication, without long-term current use of insulin E11.9 Diabetes mellitus complication status: without complication Diabetes mellitus type: type 2 Urinary incontinence, unspecified type R32 Urinary Incontinence type: unspecified incontinence Annual visit for general adult medical examination with abnormal findings Z00.01 Family history of colon cancer Z80.0 Additional Codes JULIA-7 Assessment Billing - JULIA-7 Assessment Tool: JULIA-7 Assessment [id number] ([id number])
[2023-06-06 09:50] VITALS: BP 90/60; PULSE 58; O2SAT 96; BMI 25.8
== END 2023-06-06 10:46 | disposition home or self-care (01) ==
PROVIDERS: PCP Internal Medicine; Visit Provider Internal Medicine
DX: Z23 Encounter for immunization (principal); E11.9 Type 2 diabetes mellitus without complications
CPT/HCPCS: 83036; 90471; 90677; 99397

== ENCOUNTER 2023-06-06 10:48 | Outpatient (REF) | payer MEDICARE, SELFPAY ==
[2023-06-06 13:12] LABS: MANUAL DIFF FLAG NO
[2023-06-06 13:23] LABS: Basophils Percent Auto 0.2 % (0-2); Eosinophils Percent Auto 0.2 % (0-4); Hematocrit 40.3 % (37.0-47.0); Hemoglobin 13.3 g/dl (12.0-16.0); Imm Gran Abs Auto 0.02 X10*3/uL (0.00-0.03); Imm Gran Pct Auto 0.4 % (0.0-0.4); Lymphocytes Absolute Auto 1.3 X10*3/uL (1.2-4.9); Lymphocytes Percent Auto 25.7 % (20-40); Mean Corpuscular Hemoglobin 30.5 pg (27.0-33.0); Mean Corpuscular Volume 92.4 fL (80.0-98.0); Mean Platelet Volume 12.7 fL (9.4-12.3); Monocytes Absolute Auto 0.2 X10*3/uL (0.1-1.2); Monocytes Percent Auto 4.3 % (2-11); Neutrophils Absolute Auto 3.4 x10*3/uL (2.0-8.3); Neutrophils Percent Auto 69.2 % (45-73); Platelet Count 112 X10*3/uL (160-400); Red Blood Count 4.36 X10*6/uL (4.20-5.50); Red Cell Distribution Width 13.5 % (11.0-16.0); White Blood Count 4.9 X10*3/uL (4.8-10.8)
[2023-06-06 13:40] LABS: Estimated Average Glucose 97 mg/dL; Hemoglobin A1C 105.5024 umol/L
[2023-06-06 13:56] LABS: Creatinine Urine 57.72 mg/dL; Microalbumin Urine < 5.0 mg/L
[2023-06-06 13:59] LABS: Alanine Aminotransferase 15 U/L (0-31); Albumin Level 4.7 g/dL (3.5-5.0); Alkaline Phosphatase 132 U/L (39-117); Anion Gap 13 (12-20); Aspartate Amino Transferase 15 U/L (5-31); Bilirubin Total 0.4 mg/dL (0.0-1.0); Blood Urea Nitrogen 14 mg/dL (9-16); Calcium 10.3 mg/dL (8.4-10.2); Carbon Dioxide 26 mmol/L (22-29); Chloride 105 mmol/L (96-108); Cholesterol 86 mg/dL (<200); Estimated Glomerular Filt Rate > 60; Glucose Fasting 104 mg/dL (60-99); HDL Cholesterol 41 mg/dL (>40); Iron 56 mcg/dL (30-160); LDL Cholesterol Calculated 34 mg/dL (<100); Percent Iron Saturation 19 % (15-50); Phosphorus 3.3 mg/dL (2.7-4.5); Potassium 4.3 mmol/L (3.3-5.1); Sodium 140 mmol/L (135-145); Total Iron Binding Capacity 291 mcg/dL (228-428); Triglycerides 57 mg/dL (<150); Unsaturated Iron Binding 235 ug/dL
[2023-06-06 14:00] LABS: Thyroid Stimulating Hormone 1.31 uIU/mL (0.32-4.0); Vitamin D 25-OH Total 63.1 ng/mL (>30)
[2023-06-06 14:03] LABS: Free T4 (Free Thyroxine) 1.03 ng/dL (0.71-1.85)
[2023-06-06 14:07] LABS: Folate 7.2 ng/mL (> or = 4.0); Vitamin B12 294 pg/mL (200-900)
== END 2023-06-06 10:49 | disposition home or self-care (01) ==
LOC: HO.HMGCLDS 10:48
PROVIDERS: Internal Medicine; PCP Internal Medicine; Visit Provider Internal Medicine
DX: F31.9 Bipolar disorder, unspecified (principal); I48.19 Other persistent atrial fibrillation; G25.0 Essential tremor; D83.9 Common variable immunodeficiency, unspecified; E55.9 Vitamin D deficiency, unspecified; I10 Essential (primary) hypertension; I42.9 Cardiomyopathy, unspecified; H35.30 Unspecified macular degeneration; E11.9 Type 2 diabetes mellitus without complications; R32 Unspecified urinary incontinence; E78.2 Mixed hyperlipidemia; D64.9 Anemia, unspecified; E21.3 Hyperparathyroidism, unspecified; E04.2 Nontoxic multinodular goiter
CPT/HCPCS: 36415; 80053; 80061; 82306; 82570; 82607; 82746; 83036; 83540; 84100; 84439; 84443; 85025

== ENCOUNTER 2023-06-13 11:15 | Outpatient (REF) | payer MEDICARE, SELFPAY ==
--- NOTE | ~2023-06-13 | US_ITS ---
EXAMINATION: US THYROID CLINICAL INFORMATION: Nontoxic multinodular goiter. COMPARISON: Thyroid ultrasound 08/01/2022 and 03/27/2021. TECHNIQUE: Linear transducer valverde-scale and color Doppler examination with attention to the region of the thyroid. FINDINGS: SIZE: Measurements of the thyroid lobes and nodules are given in sagittal, anteroposterior and transverse dimensions respectively. Right Thyroid Lobe: 5.1 x 1.9 x 1.3 cm, volume 6.6 mL. Previously 5.1 x 1.7 x 1.4 cm, volume 6.1 mL. Parenchyma: The gland echotexture is homogeneous. Thyroid vascularity is mildly increased. Left Thyroid Lobe: 4.6 x 1.7 x 1.6 cm, volume 6.6 mL. Previously 4.5 x 1.6 x 1.6 cm, volume 6.3 mL. Parenchyma: The gland echotexture is homogeneous. Thyroid vascularity is normal. Isthmus: 0.5 cm in maximum AP dimension. Previously 0.5 cm. Estimated total number of nodules greater than or equal to 1 cm: 2. Study Abroad Coordinator nodules are described as follows: 1. Location: Left superior. Size: 1.1 x 0.6 x 1.2 cm, volume 0.4 mL. Previously: 1.1 x 0.6 x 1 cm, volume 0.3 mL. Nodule characteristics: Composition: Mixed cystic and solid (1). Echogenicity: Isoechoic (1). Shape: Not taller than wide (0). Margins: Smooth (0). Echogenic Foci: None (0). ACR TI-RADS total points: 2 Previous: 2 ACR TI-RADS category: 2 Previous: 2 Significant change in size (>/= 20% in 2 dimensions and minimal increase of 2 mm or 50% or greater increase in volume): No Change in features: No Change in ACR TI-RADS risk category: No 2. Location: Right inferior isthmus. Size: 1.2 x 0.8 x 1.2 cm, volume 0.6 mL. Previously: 1.1 x 0.9 x 1.1 cm, volume 0.6 mL. Nodule characteristics: Composition: Mixed cystic and solid (1). Echogenicity: Isoechoic (1). Shape: Not taller than wide (0). Margins: Smooth (0). Echogenic Foci: None (0). ACR TI-RADS total points: 2 Previous: 4 ACR TI-RADS category: 2 Previous: 4 Significant change in size (>/= 20% in 2 dimensions and minimal increase of 2 mm or 50% or greater increase in volume): No Change in features: Yes Change in ACR TI-RADS risk category: Yes NODES: No lymphadenopathy is seen in the tissue surrounding the thyroid gland. US/US thyroid IMPRESSION: 1. Bilateral thyroid nodules are seen, as detailed. No specific imaging follow-up is recommended. 2. There is mild increase in vascularity, which can be associated with thyroiditis. ACR TI-RADS RECOMMENDATION REFERENCE: Ultrasound-guided fine-needle aspiration, follow up ultrasound, no further followup. * TR1 (0 point) and TR2 (2 points): No FNA or followup * TR3 (3 points): FNA if more than or equal to 2.5 cm in maximum dimension, follow up ultrasound in 1, 3 and 5 years if 1.5 to 2.4 cm in maximum dimension. * TR4 (4-6 points): FNA if more than or equal to 1.5 cm in maximum dimension, follow up ultrasound in 1, 2, 3 and 5 years if 1 to 1.4 cm in maximum dimension. * TR5 (more than or equal to 7 points): FNA if more than or equal to 1 cm in maximum dimension, follow up ultrasound every year for 5 years if 0.5 to 0.9 cm in maximum dimension. * TR3, TR4 or TR5 nodules that are below the size threshold for follow up receive no followup.
== END 2023-06-13 11:16 | disposition home or self-care (01) ==
LOC: HO.HMGCX 11:15
PROVIDERS: PCP Internal Medicine; Visit Provider Internal Medicine Endocrinology, Diabetes & Metabolism
DX: E04.2 Nontoxic multinodular goiter (principal)
CPT/HCPCS: 76536

== ENCOUNTER 2023-08-08 09:52 | Outpatient (AMB) | payer MEDICARE, SELFPAY ==
[2023-08-08 09:54] VITALS: BP 132/68; PULSE 54; BMI 25.0
--- NOTE | 2023-08-08 09:54 | A.OFFVIS_ITS ---
Intake Vital Signs 08/08/23 09:54 Height 5 ft 7 in Weight 159 lb 6.307 oz BMI 25.0 BP 132/68 Blood Pressure Location Lt brachial Position Sitting Pulse 54 Pulse Source Pulse Oximeter Intake Visit Reasons: f/u NTMNG-confirmed Intake Note: Patient present today for NTMNG follow up visit. Appeals Reviewer Veteran Required: No Accompanied by: Self / Same As Patient Allergies No Known Allergies [No Known Allergies*] Allergy (Verified 08/08/23 09:59) Medication List - Last Reconciled 08/08/23 by Braulio Moreno MD apixaban (Eliquis) 5 mg PO BID atorvastatin 80 mg PO BEDTIME blood sugar diagnostic ([employer] Verio test strips) Check blood glucose levels twice a day lisinopril 2.5 mg PO DAILY metformin 500 mg PO BID metoprolol succinate ER 100 mg PO DAILY oxybutynin chloride ER 20 mg (2 x 10 mg) PO BEDTIME 90 days terazosin 3 mg (3 x 1 mg) PO BEDTIME 90 days vit C,E-Da-xrsfr-lutein-zeaxan 250-90-40-1 mg (PreserVision AREDS-2) 1 tab PO BID ziprasidone HCl 80 mg PO BID HPI HPI Comments History of Present Illness Details 67 YO F with PMHx T2DM, reported Paget's disease of the bone who is seen in F/U for Hyperparathyroidism vs [place] Associated Hypocalciuric Hypercalcemia (LAHH).. The patient last saw Dr. Parra on 07/23/2022 She reports a history of Paget's disease which was diagnosed [facility] [place], approximately 3 years ago. She reports not undergoing any treatment as it was found her disease was inactive. She has had repeat labs most recently which show BSAP to be completely WNL. Paget's disease has been ruled out. She presented to see us and had labs which revealed elevated PTH, with Calcium WNL. Vitamin D was low. Her 24 hour urine calcium was an insufficient sample. Labs were repeated 09/11/2021 WITH Calcium 10.4, Albumin 4.9, PTH 92 and Vitamin D 50.6. 24 hour urine calcium was checked 11/07/21 with urinary calcium low at 64, and a sufficient sample with volume of 1.9 L and Creatinine of 0.82. She does have Bipolar disorder and was on chronic lithium therapy until just a few months ago. She reports multiple prior episodes of nephrolithiasis. Labs do reveal an elevated PTH, but Calcium is WNL. Urine calcium is low. She had an US of the thyroid which revealed multiple nodules. She presented for FNA biopsy of these nodules 08/03/2021, but at that time I repeated her US and found the nodules to be subcentimeter and spongiform so no FNA biopsy was indicated. She is currently not using a Vitamin D supplement. She is not using a Calcium supplement but does have 3-4 servings of dietary calcium daily in the form of almond milk and yogurt. DEXA: 06/12/2022 FINDINGS: AP SPINE L1-L4: Current: BMD 1.179 g/cm2, Z-score 0.6, T-score 0.0, normal, 8.2% decrease from previous, 7.7% decrease from baseline (<5% change is not significant). Prior: BMD 1.284 g/cm2. Baseline: BMD 1.278 g/cm2. LEFT FEMUR, NECK: Current: BMD 0.899 g/cm2, Z-score -0.2, T-score -1.0, normal. Prior: BMD 0.859 g/cm2. Baseline: BMD 0.967 g/cm2. LEFT FEMUR, TOTAL: Current: BMD 0.934 g/cm2, Z-score -0.1, T-score -0.6, normal, 2.6% increase from previous, 0.6% decrease from baseline (<5% change is not significant). Prior: BMD 0.910 g/cm2. Baseline: BMD 0.940 g/cm2. LEFT FOREARM RADIUS 33%: BMD 0.826 g/cm2, Z-score 0.8, T-score -0.6, normal, 1.9% decrease from baseline (<5% change is not significant). Baseline: BMD 0.842 g/cm2. Labs: Laboratory Tests 07/12/22 07/12/22 07/12/22 08:00 08:00 10:30 Sodium 145 Potassium 4.2 Creatinine 0.78 Estimated GFR > 60 25-OH Vitamin D To enedina 28.1 PTH Intact Calcium (PTH Intac t) Ur 24 Hour Volume 1600 Ur Creatinine 24 H our 0.77 Ur Calcium 24 Hr 18 L 07/12/22 10:30 Sodium Potassium Creatinine Estimated GFR 25-OH Vitamin D To enedina PTH Intact 75 Calcium (PTH Intac t) 9.7 Ur 24 Hour Volume Ur Creatinine 24 H our Ur Calcium 24 Hr Albumin level was high normal and corrected calcium is now normal as was PTH in 08/2022. Recent repeat thyroid ultrasound showed small non suspicious nodules. No further imaging was recommended [facility] Medical History (Updated 06/11/23 @ 02:13 by Elsa Barrera MD) Anemia Bipolar disorder Morbid obesity Benign familial tremor Colon cancer screening Ventral hernia Multinodular thyroid Umbilical hernia with obstruction CVID (common variable immunodeficiency) Vitamin D deficiency Hyperparathyroidism HLD (hyperlipidemia) HTN (hypertension) Cardiomyopathy Macular degeneration Menopause Elevated parathyroid hormone Urinary incontinence Controlled diabetes mellitus without long-term current use of insulin Mixed dyslipidemia Surgical History History of umbilical hernia repair (07/06/22) Hx of wisdom tooth extraction History of cardiac catheterization (~2016) Hx of biopsy H/O colonoscopy History of hysteroscopy History of adenoidectomy Family History Father Diabetes mellitus Depression Mental health disorder Mother Diabetes mellitus Colon cancer Breast cancer Familial tremor Sister Colon cancer Maternal Aunt Familial tremor Sister No problems noted. Social History Household Members: None Housing: Apartment Are you a primary memory care director to a significant other at home: No Do you presently have visiting nurse or other home services: No Alcohol intake: never Patient Tobacco Use Status: Never used Tobacco e-Cigarette/Vaping Use: Never Used service: No Current occupational status: disabled Cognitive needs: No Hearing needs: No Vision needs: Yes Physical Exam Vital Signs: Last Vital Signs Pulse 54 08/08/23 09:54 BP 132/68 08/08/23 09:54 BMI result Body Mass Index 25.0 Const Other: Thyroid gland is normal size weighs about 15 g . There are no palpable thyroid nodules Assessment & Plan Assessment & Plan (1) Multinodular thyroid: Code(s): E04.2 - Nontoxic multinodular goiter Plan: Ultrasound showed low risk nodules small in size. Clinically biochemically euthyroid. Patient can follow-up with primary care provider. Based on imaging characteristics, there is no need for any follow-up thyroid ultrasound or endocrine follow-up at this point (2) Hyperparathyroidism: Code(s): E21.3 - Hyperparathyroidism, unspecified Plan: This is a 67-year-old white female with a history of slightly elevated total calcium with high normal albumin and corrected normal calcium and normal PTH. Do not believe at this point patient has primary hyperparathyroidism and that corrected calcium is normal. No need for further workup or follow-up with this point for this issue She does complain of neuropathic pain in lower extremities and other neurological symptoms her primary care provider should work these up further or consider sending her for neurological consult Coding Level of Care Code Est Pt Level 3 (09291) Diagnoses Multinodular thyroid E04.2 Hyperparathyroidism E21.3
== END 2023-08-08 10:56 | disposition home or self-care (01) ==
PROVIDERS: PCP Internal Medicine; Visit Provider Internal Medicine Endocrinology, Diabetes & Metabolism
DX: E04.2 Nontoxic multinodular goiter (principal); E21.3 Hyperparathyroidism, unspecified
CPT/HCPCS: 99213

== ENCOUNTER → 2023-08-08 09:52 | Outpatient (BNVA) | payer MEDICARE, SELFPAY | PROVIDERS: PCP Internal Medicine; Visit Provider Internal Medicine Endocrinology, Diabetes & Metabolism | DX: E04.2 Nontoxic multinodular goiter (principal); E21.3 Hyperparathyroidism, unspecified | CPT/HCPCS: 99212 ==

== ENCOUNTER 2023-08-15 07:47 | Outpatient (AMB) | payer MEDICARE, SELFPAY ==
--- NOTE | 2023-08-15 08:01 | MHC.OFFVIS ---
Intake Vital Signs 08/15/23 08:03 Height 5 ft 7 in Weight 156 lb 8.451 oz BMI 24.5 BP 108/63 Blood Pressure Location Lt brachial Position Sitting Pulse 46 L Intake Visit Reasons: Colonoscopy Screening Intake Note: Rissa presents in the office as a new patient colonoscopy screening. CC: She is just due for a colonoscopy. Allergies No Known Allergies [No Known Allergies*] Allergy (Verified 08/15/23 08:03) Medication List - Last Reconciled 08/15/23 by Danna Gaines PA-C apixaban (Eliquis) 5 mg PO BID atorvastatin 80 mg PO BEDTIME blood sugar diagnostic ([employer] Verio test strips) Check blood glucose levels twice a day lisinopril 2.5 mg PO DAILY metformin 500 mg PO BID metoprolol succinate ER 100 mg PO DAILY oxybutynin chloride ER 20 mg (2 x 10 mg) PO BEDTIME 90 days terazosin 3 mg (3 x 1 mg) PO BEDTIME 90 days vit C,X-Az-twtef-lutein-zeaxan 250-90-40-1 mg (PreserVision AREDS-2) 1 tab PO BID ziprasidone HCl 80 mg PO BID HPI HPI Comments History of Present Illness Details 67-year-old female family hx crc- mother and sisster in 60s- lastcolon 2018- Dr. Valencia- She is normal bowel pattern Appetite is good-she is intentionally lost weight Bowels - chronic-- uses laxative if no BM in week- LAURIE no CPAP- She says she has fatty liver she does not drink alcohol- follows with pcp- No N/V/ D/ abdominal pain PFSH Medical History (Updated 08/15/23 @ 09:00 by Danna Gaines PA-C) Anemia Bipolar disorder Morbid obesity Benign familial tremor Colon cancer screening Ventral hernia Multinodular thyroid Umbilical hernia with obstruction CVID (common variable immunodeficiency) Vitamin D deficiency Hyperparathyroidism HLD (hyperlipidemia) HTN (hypertension) Cardiomyopathy Macular degeneration Menopause Elevated parathyroid hormone Urinary incontinence Controlled diabetes mellitus without long-term current use of insulin Mixed dyslipidemia Surgical History History of umbilical hernia repair (07/06/22) Hx of wisdom tooth extraction History of cardiac catheterization (~2016) Hx of biopsy H/O colonoscopy History of hysteroscopy History of adenoidectomy Family History Father Diabetes mellitus Depression Mental health disorder Mother Diabetes mellitus Colon cancer Breast cancer Familial tremor Sister Colon cancer Maternal Aunt Familial tremor Sister No problems noted. Social History Household Members: None Housing: Apartment Are you a primary career development counselor to a significant other at home: No Do you presently have visiting nurse or other home services: No Alcohol intake: never Patient Tobacco Use Status: Never used Tobacco e-Cigarette/Vaping Use: Never Used service: No Current occupational status: disabled Cognitive needs: No Hearing needs: No Vision needs: Yes Review of Systems Const All systems reviewed & are unremarkable except as noted in HPI and below Card Denies chest pain, Denies rapid heart rate and Denies dyspnea Resp Denies dyspnea GI Denies abdominal pain, Denies hematochezia, Reports constipation, Denies heartburn, Denies nausea and Denies vomiting Physical Exam Vital Signs: Last Vital Signs Pulse 46 L 08/15/23 08:03 BP 108/63 08/15/23 08:03 BMI result Body Mass Index 24.5 Tremors Const General: comfortable and no acute distress Orientation/consciousness: patient oriented x3 Limitations: no limitations and ambulation with walker Eyes Sclerae: sclerae normal Resp Effort & Inspection: normal respiratory effort and able to speak in complete sentences Auscultation: clear to auscultation bilaterally, no rales, no rhonchi and no wheezes Cardio Rate: bradycardic (APR 50) Rhythm: regular rhythm GI Palpation (GI): Soft to palpation and nontender Auscultation: normal bowel sounds Skin General skin exam: no rashes or lesions noted Neuro General: patient oriented x3 Psych Mental Status: mental status grossly normal Speech and movement: Clear speech present Affect: Labile affect present Attitude: cooperative Thought process: Normal thought process present Thought content: Normal thought content present Insight: Good insight present (Psych) Assessment & Plan Assessment & Plan (1) custodial current use of anticoagulant therapy: Comment: x 5 years- no issues Code(s): 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 anticoagulants Plan: eliquis d/c x 2 days- (2) Persistent atrial fibrillation: Code(s): I48.19 - Other persistent atrial fibrillation Plan: eliquis d/c x 2 days-prior to procedures (3) Family history of colon cancer: Comment: mother/ sister Code(s): Z80.0 - Family history of malignant neoplasm of digestive organs (4) Thrombocytopathia: Comment: reviewed noted- from 2019 Code(s): D69.1 - Qualitative platelet defects Plan: EGD (5) NAFLD (nonalcoholic fatty liver disease): Code(s): K76.0 - Fatty (change of) liver, not elsewhere classified Plan: normal enzymes Good wt, gluc choles-control abstain etoh (6) Chronic constipation: Code(s): K59.09 - Other constipation Plan: consistent bowel regimen HFD Plan EGD/ colon- anesthesia consult MG prep Orders: Orders EGD/Diagonal Combo - GI Use Only Today D69.1 - Qualitative platelet defects, I48.19 - Other persistent atrial fibrillation, Z79.01 - custodial (current) use of anticoagulants, Z80.0 - Family history of malignant neoplasm of digestive organs Medications: New bisacodyl (Dulcolax (bisacodyl)) Day before procedure @ 12 noon Take 4 tablets by mouth followed by large glass of water 20 mg (4 x 5 mg) PO ONCE 1 day PRN 4 tabs 0RF colonoscopy prep Z12.11 - Encounter for screening for malignant neoplasm of colon polyethylene glycol 3350 (Miralax) Take as directed by mouth the day before your procedure. 238 grams PO ONCE 1 day PRN 238 grams 0RF laxative effect docusate sodium (Colace) 200 mg (2 x 100 mg) PO BEDTIME 60 caps 5RF polyethylene glycol 3350 (Miralax) 17 grams PO DAILY 30 days 510 grams 6RF Patient Instructions: EGD/ colon-Anesthesia consult- LAURIE, eliquis d/c x 2 days-prior to procedures omit metformin day before and day of procedures HFD Miralax/ colace- consistent Good wt, gluc choles-control abstain etoh Coding Level of Care Code New Pt Level 4 (76836) Diagnoses custodial current use of anticoagulant therapy Z79.01 Persistent atrial fibrillation I48.19 Family history of colon cancer Z80.0 Thrombocytopathia D69.1 NAFLD (nonalcoholic fatty liver disease) K76.0 Chronic constipation K59.09 Time Spent (min) 35
[2023-08-15 08:03] VITALS: BP 108/63; PULSE 46; BMI 24.5
== END 2023-08-15 08:57 | disposition home or self-care (01) ==
PROVIDERS: PCP Internal Medicine; Visit Provider Physician Assistant
DX: Z79.01 Long term (current) use of anticoagulants (principal); I48.19 Other persistent atrial fibrillation; Z80.0 Family history of malignant neoplasm of digestive organs; D69.1 Qualitative platelet defects; K76.0 Fatty (change of) liver, not elsewhere classified; K59.09 Other constipation
CPT/HCPCS: 99204; 99214

== ENCOUNTER → 2023-08-15 07:47 | Outpatient (BNVA) | payer MEDICARE, SELFPAY | PROVIDERS: PCP Internal Medicine; Visit Provider Physician Assistant | DX: K76.0 Fatty (change of) liver, not elsewhere classified (principal); K59.09 Other constipation; I48.19 Other persistent atrial fibrillation; D69.1 Qualitative platelet defects; Z80.0 Family history of malignant neoplasm of digestive organs; Z79.01 Long term (current) use of anticoagulants | CPT/HCPCS: 99202 ==

== ENCOUNTER 2023-10-10 13:10 | Outpatient (AMB) | payer MEDICARE, SELFPAY ==
[2023-10-10 13:45] VITALS: BP 110/70; PULSE 92; TEMP 36.8; O2SAT 94; BMI 24.6
--- NOTE | 2023-10-10 13:45 | MHC.OFFWIV ---
Intake Vital Signs 10/10/23 13:45 Height 5 ft 7 in Weight 157 lb BMI 24.6 BP 110/70 Blood Pressure Location Lt brachial Position Sitting Pulse 92 Pulse Source Pulse Oximeter Temp 98.3 F Temp Source Oral Pulse Oximetry (%) 94 Oxygen Delivery Method Room Air Intake Visit Reasons: EP LT knee pain due to fall Intake Note: pt is here today for lft knee pain due to fall started Saturday, 10/06. Has widespread bruising and blistering Patient Tobacco Use Status: Never used Tobacco Allergies No Known Allergies [No Known Allergies*] Allergy (Verified 10/10/23 14:24) Do you need a note to return to daycare/school/sports/work: No HPI HPI Comments History of Present Illness Details 67 y/o female patient who presents to walk in clinic with c/o left knee swelling and pain. Pt fell at home Saturday and landed on her left knee. Pt reports noticing the swelling yesterday, and now getting worse. Pt currently on Eliquis. Reports pain 10/10 on pain scale. She is able to walk with a walker. Reports limited ROM due to pain. Denies LOC or hitting head. [facility] Medical History Anemia Bipolar disorder Morbid obesity Benign familial tremor Colon cancer screening Ventral hernia Multinodular thyroid Umbilical hernia with obstruction CVID (common variable immunodeficiency) Vitamin D deficiency Hyperparathyroidism HLD (hyperlipidemia) HTN (hypertension) Cardiomyopathy Macular degeneration Menopause Elevated parathyroid hormone Urinary incontinence Controlled diabetes mellitus without long-term current use of insulin Mixed dyslipidemia Surgical History History of umbilical hernia repair (07/06/22) Hx of wisdom tooth extraction History of cardiac catheterization (~2017) Hx of biopsy H/O colonoscopy History of hysteroscopy History of adenoidectomy Family History Father Diabetes mellitus Depression Mental health disorder Mother Diabetes mellitus Colon cancer Breast cancer Familial tremor Sister Colon cancer Maternal Aunt Familial tremor Sister No problems noted. Social History Household Members: None Housing: Apartment Are you a primary palliative care physician to a significant other at home: No Do you presently have visiting nurse or other home services: No Alcohol intake: never Patient Tobacco Use Status: Never used Tobacco e-Cigarette/Vaping Use: Never Used service: No Current occupational status: disabled Cognitive needs: No Hearing needs: No Vision needs: Yes Review of Systems Const All systems reviewed & are unremarkable except as noted in HPI and below Physical Exam Vital Signs: Last Vital Signs Temp 98.3 F 10/10/23 13:45 Pulse 92 10/10/23 13:45 BP 110/70 10/10/23 13:45 Pulse Ox 94 10/10/23 13:45 Oxygen Delivery Method Room Air 10/10/23 13:45 BMI result Body Mass Index 24.6 Const General: no acute distress Orientation/consciousness: patient oriented x3 Neuro Other: Walk with a walker, with slight limp General: patient oriented x3 Extrem Right lower extremity: normal to inspection and full ROM Left lower extremity: knee (Limited ROM) Details: tenderness, swelling and ecchymosis (Left patella); no crepitus and lower leg (left lower knee, tender to touch firm and actively bleeding. Large bruise) Details: erythema, tenderness Location: of the proximal tibia and ecchymosis Psych Speech and movement: Normal speech and movement present Assessment & Plan Assessment & Plan (1) Left knee injury: Code(s): S89.92XA - Unspecified injury of left lower leg, initial encounter Qualifiers: Encounter type: initial encounter Qualified Code(s): S89.92XA - Unspecified injury of left lower leg, initial encounter Plan: - Large bruise, actively bleeding, firm and tender to touch - DDx's: Compartment syndrome vs Fracture vs Hematoma vs Sprain/strain knee. - Called EMT for transport to ED for further evaluation. Pt has no ride (came with [employer] today). Coding Level of Care Code Est Pt Level 3 (79801) Diagnoses Injury of left knee, initial encounter S89.92XA Encounter type: initial encounter Time Spent (min) 15
== END 2023-10-10 16:07 | disposition home or self-care (01) ==
PROVIDERS: PCP Internal Medicine; Visit Provider Nurse Practitioner Family
DX: S89.92XA Unspecified injury of left lower leg, initial encounter (principal)
CPT/HCPCS: 99213

== ENCOUNTER 2023-10-10 15:19 | Inpatient (IN) | payer MEDICARE, SELFPAY ==
--- NOTE | ~2023-10-10 | CT_ITS ---
EXAMINATION: CT left lower extremity with contrast CLINICAL INFORMATION: Fall, extensive bruising and edema. COMPARISON: None TECHNIQUE: Axial imaging. Sagittal and coronal reconstructions. 85 mL Omnipaque FINDINGS: There is a skin blisters/soft tissue wound along the anterior aspect of the proximal tibia. There is swelling and heterogeneous focus in the underlying soft tissues and muscles, margins difficult to delineate on CT. The dominant portion measures approximately 6.3 cm transverse, approximately 3.2 cm AP, and at least 9 cm craniocaudal. There is curvilinear foci of increased attenuation in the area of the hematoma, suspicious for active extravasation. There is soft tissue prominence more inferiorly as well as in the anterior soft tissues, and additional/more extensive edema cannot be excluded on CT. Circumferential prominent soft tissue swelling with prominent subcutaneous stranding/fluid, which may reflect edema or cellulitis. Advanced tricompartment osteoarthritis of the knee. Knee joint effusion, HU measurement 7 suggestive of simple fluid. No acute fractures identified of the tibia or fibula. Ankle mortise is maintained.. The patellar tendon is intact. The Achilles tendon is intact. CT/CT lower leg LT w IV con IMPRESSION: 1. Skin blister/soft tissue wound along the anterior aspect of the proximal tibia. 2. Prominent soft tissue swelling and heterogeneous focus in the underlying soft tissues and muscle, measuring at least approximately 6.3 x 3.2 x 9 cm. This is suboptimal evaluated on CT. There may be more extensive hematoma extending more inferiorly as well. There is curvilinear foci of increased attenuation in the area of the hematoma, suspicious for active extravasation. 3. Circumferential soft tissue swelling and subcutaneous edema. Cellulitis cannot be excluded 4. Recommend orthopedic/surgical consultation/interventional radiology consultation for further management. This critical result was discussed with ZHANG Best at 8:05 PM on 10/10/2023 and it was ascertained that the content and urgency of the report was understood at the time of direct communication.
--- NOTE | ~2023-10-10 | CT_ITS ---
EXAMINATION: CT HEAD WITHOUT CONTRAST CT CERVICAL SPINE WITHOUT CONTRAST CLINICAL INFORMATION: Fall. COMPARISON: None. TECHNIQUE: Contiguous axial imaging was performed from the skullbase to vertex without intravenous administration of contrast. Multidetector helical imaging was performed through the cervical spine. This CT examination was performed using dose optimization techniques as appropriate, variously including the following: *Automated exposure control *Adjustment of mA and/or kV according to patient size (this includes techniques or standardized protocols for targeted exams where dose is matched to indication/reason for exam; i.e. extremities or head) *Use of iterative reconstruction technique DLP: 225, 655 mGy-cm. FINDINGS: HEAD: There is no evidence of acute intracranial hemorrhage or territorial infarction. No abnormal mass effect or midline shift is seen. Kelsey to white matter differentiation is well preserved. No extra-axial fluid collections are identified. Mild generalized brain parenchymal volume loss noted. The ventricles are normal in size. Mild chronic white matter microangiopathy visible. The osseous structures and soft tissues are normal. The mastoid air cells and visualized portions of the paranasal sinuses are well aerated. CERVICAL SPINE: No acute fracture or significant subluxation is identified in the cervical spine. Multilevel disc space narrowing noted with uncovertebral joint spurring, more significant at the C5-C6 and C6-C7 levels. The atlantoaxial articulation is normally maintained. The paraspinal soft tissues are normal. The lung apices are relatively clear with mild subsegmental atelectatic changes. CT/CT head/brain wo IV con IMPRESSION: 1. No acute intracranial pathology. 2. No evidence of acute cervical spine traumatic injury. Moderate lower cervical spondylosis.
--- NOTE | ~2023-10-10 | CT_ITS ---
EXAMINATION: CT HEAD WITHOUT CONTRAST CT CERVICAL SPINE WITHOUT CONTRAST CLINICAL INFORMATION: Fall. COMPARISON: None. TECHNIQUE: Contiguous axial imaging was performed from the skullbase to vertex without intravenous administration of contrast. Multidetector helical imaging was performed through the cervical spine. This CT examination was performed using dose optimization techniques as appropriate, variously including the following: *Automated exposure control *Adjustment of mA and/or kV according to patient size (this includes techniques or standardized protocols for targeted exams where dose is matched to indication/reason for exam; i.e. extremities or head) *Use of iterative reconstruction technique DLP: 225, 655 mGy-cm. FINDINGS: HEAD: There is no evidence of acute intracranial hemorrhage or territorial infarction. No abnormal mass effect or midline shift is seen. Kelsey to white matter differentiation is well preserved. No extra-axial fluid collections are identified. Mild generalized brain parenchymal volume loss noted. The ventricles are normal in size. Mild chronic white matter microangiopathy visible. The osseous structures and soft tissues are normal. The mastoid air cells and visualized portions of the paranasal sinuses are well aerated. CERVICAL SPINE: No acute fracture or significant subluxation is identified in the cervical spine. Multilevel disc space narrowing noted with uncovertebral joint spurring, more significant at the C5-C6 and C6-C7 levels. The atlantoaxial articulation is normally maintained. The paraspinal soft tissues are normal. The lung apices are relatively clear with mild subsegmental atelectatic changes. CT/CT cervical spine wo IV con IMPRESSION: 1. No acute intracranial pathology. 2. No evidence of acute cervical spine traumatic injury. Moderate lower cervical spondylosis.
[2023-10-10 15:35] VITALS: BP 106/80; PULSE 77; O2SAT 99
[2023-10-10 15:46] VITALS: BP 95/63; PULSE 72; RESP 20; TEMP 36.6; O2SAT 98; BMI 25.9
[2023-10-10 16:49] LABS: MANUAL DIFF FLAG NO
[2023-10-10 16:59] LABS: INTERNATIONAL NORM RATIO 1.9 (0.9-1.1); Prothrombin Time 23.7 SEC (11.1-13.3)
[2023-10-10 17:02] LABS: Partial Thromboplastin Time 33.7 SEC (26.0-36.8)
[2023-10-10 17:03] LABS: Basophils Percent Auto 0.2 % (0-2); Hematocrit 31.5 % (37.0-47.0); Hemoglobin 10.5 g/dl (12.0-16.0); Imm Gran Abs Auto 0.02 X10*3/uL (0.00-0.03); Imm Gran Pct Auto 0.3 % (0.0-0.4); Lymphocytes Absolute Auto 0.6 X10*3/uL (1.2-4.9); Mean Corpuscular HGB Conc 33.3 g/dl (31.0-35.0); Mean Corpuscular Hemoglobin 30.7 pg (27.0-33.0); Mean Corpuscular Volume 92.1 fL (80.0-98.0); Monocytes Absolute Auto 0.4 X10*3/uL (0.1-1.2); Monocytes Percent Auto 6.3 % (2-11); Neutrophils Percent Auto 83.2 % (45-73); Platelet Count 115 X10*3/uL (160-400); Red Blood Count 3.42 X10*6/uL (4.20-5.50); Red Cell Distribution Width 13.2 % (11.0-16.0)
[2023-10-10 17:04] LABS: Alanine Aminotransferase 9 U/L (0-31); Albumin Level 4.3 g/dL (3.5-5.0); Alkaline Phosphatase 90 U/L (39-117); Anion Gap 15 (12-20); Aspartate Amino Transferase 10 U/L (5-31); Bilirubin Direct 0.2 mg/dL (0.0-0.5); Bilirubin Total 0.5 mg/dL (0.0-1.0); Blood Urea Nitrogen 22 mg/dL (9-16); Calcium 10.1 mg/dL (8.4-10.2); Carbon Dioxide 24 mmol/L (22-29); Chloride 105 mmol/L (96-108); Creatinine Clr Calc Pharmacy 67.2; Estimated Glomerular Filt Rate > 60; Glucose Random 107 mg/dL (60-115); Potassium 4.5 mmol/L (3.3-5.1); Sodium 139 mmol/L (135-145); Total Protein 6.7 g/dL (6.5-8.0)
--- NOTE | 2023-10-10 17:08 | ED.GENADULT ---
HPI - General Adult General Chief complaint: Fall Stated complaint: L LEG INJURY, FELLX4 DAYS, SWELLING, BRUISING Time Seen by Provider: 10/10/23 15:50 Source: patient and RN notes reviewed Mode of arrival: ambulatory Limitations: no limitations History of Present Illness ED Provider: Sneha Jenkins PA-C HPI narrative: This is a 67-year-old female, with a history of diabetes mellitus type 2, atrial fibrillation on Eliquis, cardiomyopathy, who presents to the emergency department with complaints of left leg swelling, pain and ecchymosis. Patient states that she had a mechanical fall where she accidentally tripped on her walker and fell forward landing onto her left leg. She states that she was able to get back up however has had increased pain, swelling, bruising to her left lower leg. She also states that she hit her head, denies loss consciousness. She states that she has had no headaches, dizziness, blurred vision, chest pain, shortness breath, abdominal pain, nausea, vomiting or diarrhea. She states that she is able to get back on her feet however states over the last several days she is noticed increased swelling, bruising, and now has blisters on her leg from the fall. No fevers or chills. No other complaints or concerns at this time. MD complaint: Left leg pain Onset (ago): day(s) Location: lower extremity Severity: moderate Quality: aching Pain Consistency: constant Relieving factors: none Exacerbating factors: none Associated symptoms: denies other symptoms Treatments prior to arrival: none Related Data Home Medications ?Medication ?Instructions ?Recorded ?Confirmed ziprasidone HCl 80 mg capsule 80 mg PO BID 06/14/21 06/11/23 vit C 250 mg-vit E 90 mg-zinc 40 1 tab PO BID 06/29/22 06/11/23 mg-copper 1 [id number] capsule (PreserVision AREDS-2) docusate sodium 100 mg capsule 100 mg PO BEDTIME PRN Constipation 10/10/23 10/10/23 (Colace) lisinopril 2.5 mg tablet 2.5 mg PO BEDTIME 10/10/23 10/10/23 Previous Rx's ?Medication ?Instructions ?Recorded metformin 500 mg tablet 500 mg PO BID #180 tabs 08/04/23 terazosin 1 mg capsule 3 mg (3 x 1 mg) PO BEDTIME 90 days 08/27/23 #270 caps metoprolol succinate 100 mg 100 mg PO DAILY #90 tabs 09/06/23 tablet,extended release 24 hr oxybutynin chloride 10 mg 20 mg (2 x 10 mg) PO BEDTIME OAB 09/06/23 tablet,extended release 24 hr 90 days #180 tabs atorvastatin 80 mg tablet 80 mg PO BEDTIME #90 tabs 09/07/23 apixaban 5 mg tablet (Eliquis) 5 mg PO BID 90 days #180 tabs 09/12/23 Allergies Allergy/AdvReac Type Severity Reaction Status Date / Time No Known Allergies Allergy Verified 10/10/23 15:49 [No Known Allergies*] Review of Systems Review of Systems: Yes all other systems are reviewed and are negative Constitutional: Constitutional: Reports as per [facility] Past Medical History Medical History Anemia Bipolar disorder Morbid obesity Benign familial tremor Colon cancer screening Ventral hernia Multinodular thyroid Umbilical hernia with obstruction CVID (common variable immunodeficiency) Vitamin D deficiency Hyperparathyroidism HLD (hyperlipidemia) HTN (hypertension) Cardiomyopathy Macular degeneration Menopause Elevated parathyroid hormone Urinary incontinence Controlled diabetes mellitus without long-term current use of insulin Mixed dyslipidemia Surgical History History of umbilical hernia repair (07/06/22) Hx of wisdom tooth extraction History of cardiac catheterization (~2016) Hx of biopsy H/O colonoscopy History of hysteroscopy History of adenoidectomy Family History Family History Father Diabetes mellitus Depression Mental health disorder Mother Diabetes mellitus Colon cancer Breast cancer Familial tremor Sister Colon cancer Maternal Aunt Familial tremor Sister No problems noted. Social History Social History Household Members: None Housing: Apartment Are you a primary home day care provider to a significant other at home: No Do you presently have visiting nurse or other home services: No Alcohol intake: never Patient Tobacco Use Status: Never used Tobacco Smoked in Last 30 Days: No e-Cigarette/Vaping Use: Never Used Use of substances other than those prescribed or required for medical reasons: No Advance Directives: No Advance Directives Information Provided: Yes Do you have a plan to hurt others: No Plan service: No Current occupational status: disabled Cognitive needs: No Hearing needs: No Vision needs: Yes Physical Exam ED Vital Signs: Vital Signs - 24 hr 10/10/23 15:46 10/10/23 18:55 Temperature 97.8 F 98.4 F Pulse Rate 72 73 Respiratory Rate 20 19 Blood Pressure 95/63 91/63 Pulse Oximetry 98 100 Oxygen Delivery Method Room Air Room Air BMI result Body Mass Index 25.9 Const General: cooperative, comfortable and no acute distress Orientation/consciousness: patient oriented x3 Limitations: no limitations HENMT Other: Small hematoma noted to upper lip, nontender, no induration or warmth. Head: Yes normal to inspection, Yes normocephalic and Yes atraumatic Ears: hearing grossly normal bilaterally General nose exam: Normal external nose present Face and sinus: Yes normal facial exam Mouth: Normal oral and palatal mucosa present, oropharynx normal and moist mucous membranes Throat: Yes posterior oropharynx normal Eyes General: appearance normal, both eyes and all related structures Eyelids: Yes eyelids normal Conjunctivae: conjunctivae normal Sclerae: sclerae normal Pupils: Equal, round and reactive pupils present EOM: EOMs intact bilaterally Neck Neck: Yes normal visual inspection, Yes full ROM and Yes no lymphadenopathy Lymphatic: no lymphadenopathy noted Chest Chest palpation & inspection: normal inspection of the chest Resp Effort & Inspection: normal respiratory effort and able to speak in complete sentences Auscultation: clear to auscultation bilaterally, no crackles, no rales, no rhonchi and no wheezes Cardio Rate: regular rate Rhythm: regular rhythm Heart sounds: S1 normal heart sound present and S2 normal heart sound present GI Inspection: Yes normal to inspection Skin General skin exam: no rashes or lesions noted Trauma: no lacerations or abrasions Wounds: no wounds Neuro General: patient oriented x3 and moves all extremities Cranial nerves: Yes Equal, round and reactive pupils present Extrem Other: Left lower extremity, with extensive ecchymosis, induration and warmth starting from the suprapatellar region extending into the distal tib-fib, with tenderness palpation, compartments are soft. Multiple blood filled bullae overlying ecchymosis. No calf tenderness. Strong DP pulse, able to plantar and dorsiflex right ankle. Ankle is nontender. Tenderness palpation throughout the knee joint, able to flex and extend at the knee General: Yes normal to inspection Right upper extremity: normal to inspection Left upper extremity: normal to inspection Right lower extremity: normal to inspection Course Reevaluation(s) Reevaluation #1: No leukocytosis, normocytic anemia with an H&H of 10.5/31.5, appears to be lower than her baseline which is at 13/41. BUN slightly elevated at 22, creatinine within normal limits. Has had similar H&H however upon review this appeared to be a 2 post-operatative level in 07/2022. CT of the head and C-spine unremarkable for any acute findings. CT of the lower leg with IV contrast still pending at this time. Concern for drop in H&H from typical baseline. Patient remained stable, vital signs within normal limits. Sign-out given to my colleague, Tarah Gaitan PA-C pending CT of the leg. Time: 19:25 Reevaluation #2: Received sign-out from Sneha Jenkins PA-C. Received critical result from [facility], spoke with the radiologist directly. Patient has at least 9 cm hematoma with active extravasation. Case was discussed with Dr. Stapleton as well as Dr. Andrade. Dr. Andrade is recommending reversal of her Eliquis, compression, close monitoring of her H&H, holding off on surgical intervention at this time. NPO after midnight for possible surgical evacuation tomorrow. Patient updated on plan of care. She remains hemodynamically stable. Will monitor her H and H q.4 hours, next is ordered for midnight. Her H&H did down trend here c/w active bleeding. Type and screen also ordered in the event she needs blood transfusion. Lower extremity was placed in Tim wrap for compression. Will monitor neurovascular checks of her lower extremity. She has dopplerable pulses, no evidence of compartment syndrome at this time. Patient to be admitted to the hospitalist. Time: 20:56 Medications Administered Discontinued Medications Generic Name Dose Route Start Last Admin Trade Name Freq PRN Reason Stop Dose Admin Prothrombin Complex Concent ( 80 mls @ 480 mls/hr 10/10/23 20:41 10/10/23 21:51 Human) 2,000 unit/ IV IV 10/10/23 20:50 480 mls/hr Miscellaneous Supplies .Q10M ONE Administration Iohexol 85 ml 10/10/23 17:44 10/10/23 17:44 Iohexol 350 Mg/Ml 100 Ml Infus..Btl IV 10/10/23 17:45 85 ml ONCE ONE Administration Medical Decision Making Medical Decision Making [facility] Narrative: This is a 67-year-old female, with a history of diabetes mellitus type 2, atrial fibrillation on Eliquis, cardiomyopathy, who presents to the emergency department with complaints of left leg swelling, pain and ecchymosis. On arrival, vital signs within normal limits. Extensive ecchymosis hematoma with blood-filled blisters noted to the anterior alejandra. No surrounding erythema. Compartments are soft. She is on blood thinners. Differential diagnoses include compartment syndrome, extravasation, fracture, hematoma, cellulitis. Plan: Labs, CT of the lower extremity, CT head CT C-spine Differential Diagnosis Differential Diagnoses: The differential diagnosis associated with the presentation includes See above Admission/Observation Consideration of admission/observation: Escalation of care including admission/observation considered Escalation of care including admission/observation considered however given workup today not warranted at this time. Lab Data [facility] Lab Attestation statement: I reviewed the patient's lab results. No leukocytosis, normocytic anemia with an H&H of 10.5/31.5, appears to be lower than her baseline which is at 13/41. BUN slightly elevated at 22, creatinine within normal limits. 10/10/23 20:14 10/10/23 16:44 Labs: Lab Results 10/10/23 10/10/23 Range/Units 16:44 20:14 WBC 6.0 5.4 (4.8-10.8) X10*3/uL RBC 3.42 L D 2.98 L (4.20-5.50) X10*6/uL Hgb 10.5 L D 9.3 L (12.0-16.0) g/dl Hct 31.5 L D 27.4 L (37.0-47.0) % MCV 92.1 91.9 (80.0-98.0) fL MCH 30.7 31.2 (27.0-33.0) pg MCHC 33.3 33.9 (31.0-35.0) g/dl RDW 13.2 13.3 (11.0-16.0) % Plt Count 115 L 119 L (160-400) X10*3/uL MPV 11.0 11.2 (9.4-12.3) fL Immature Gran % (Auto) 0.3 0.2 (0.0-0.4) % Neut % (Auto) 83.2 H 68.8 (45-73) % Lymph % (Auto) 10.0 L 22.7 (20-40) % [place] % (Auto) 6.3 7.9 (2-11) % Eos % (Auto) 0.0 0.2 (0-4) % Baso % (Auto) 0.2 0.2 (0-2) % Lymph # (Auto) 0.6 L 1.2 (1.2-4.9) X10*3/uL [place] # (Auto) 0.4 0.4 (0.1-1.2) X10*3/uL Eos # (Auto) 0.0 0.0 (0.0-0.4) X10*3/uL Baso # (Auto) 0.0 0.0 (0.0-0.2) X10*3/uL Abs Immat Gran (auto) 0.02 0.01 (0.00-0.03) X10*3/uL Absolute Neuts (auto) 5.0 3.7 (2.0-8.3) x10*3/uL Absolute Nucleated RBC 0.000 0.000 (0.0-0.012) X10*3/uL Nucleated RBC % (auto) 0.0 0.0 (0.0-0.2) /100WBC PT 23.7 H (11.1-13.3) SEC INR 1.9 H (0.9-1.1) APTT 33.7 (26.0-36.8) SEC Sodium 139 (135-145) mmol/L Potassium 4.5 (3.3-5.1) mmol/L Chloride 105 (96-108) mmol/L Carbon Dioxide 24 (22-29) mmol/L Anion Gap 15 (12-20) BUN 22 H (9-16) mg/dL Creatinine 0.87 (0.5-1.4) mg/dL Estim Creat Clear Calc 67.2 Estimated GFR > 60 Random Glucose 107 (60-115) mg/dL Calcium 10.1 (8.4-10.2) mg/dL Total Bilirubin 0.5 (0.0-1.0) mg/dL Direct Bilirubin 0.2 (0.0-0.5) mg/dL AST 10 (5-31) U/L ALT 9 (0-31) U/L Alkaline Phosphatase 90 (39-117) U/L Total Protein 6.7 (6.5-8.0) g/dL Albumin 4.3 (3.5-5.0) g/dL Radiology Impression Discussion of test interpretation with radiology: I have reviewed the radiologist's reading. Radiologist Impression: CT/CT head/brain wo IV con IMPRESSION: 1. No acute intracranial pathology. 2. No evidence of acute cervical spine traumatic injury. Moderate lower cervical spondylosis. Dictated By: DANIEL WILKES MD Critical Care Time Critical Care Time Critical Care Time: Yes Total Critical Care Time: 36 Attestation: I have personally provided critical care time exclusive of time spent on separately billable procedures. Time includes review of lab data, radiology results, discussion with consultants, and monitoring for potential decompensation. Intervention performed as documented. Discharge Plan Discharge Clinical Impression: Acute blood loss anemia Hematoma of left lower extremity Qualifiers: Encounter type: initial encounter Qualified Code(s): S80.12XA - Contusion of left lower leg, initial encounter
[2023-10-10] MEDS: iohexoL 350 MG/ML 100 ML INFUS..BTL 85 ML IV (17:44)
--- NOTE | 2023-10-10 17:56 | PC.NURSE ---
pt a&ox4, vss, pt reports mechanical trip and fall over walker on Saturday, +ve head strike, on . significant ecchymosis and swelling to left leg w blistering. 20G IV placed L forearm. pt pending CT scans. no new orders at this time.
[2023-10-10 18:55] VITALS: BP 91/63; PULSE 73; RESP 19; TEMP 36.9; O2SAT 100
[2023-10-10 20:18] LABS: MANUAL DIFF FLAG NO
[2023-10-10 20:29] LABS: Basophils Percent Auto 0.2 % (0-2); Eosinophils Percent Auto 0.2 % (0-4); Hematocrit 27.4 % (37.0-47.0); Hemoglobin 9.3 g/dl (12.0-16.0); Imm Gran Abs Auto 0.01 X10*3/uL (0.00-0.03); Imm Gran Pct Auto 0.2 % (0.0-0.4); Lymphocytes Absolute Auto 1.2 X10*3/uL (1.2-4.9); Lymphocytes Percent Auto 22.7 % (20-40); Mean Corpuscular HGB Conc 33.9 g/dl (31.0-35.0); Mean Corpuscular Hemoglobin 31.2 pg (27.0-33.0); Mean Corpuscular Volume 91.9 fL (80.0-98.0); Mean Platelet Volume 11.2 fL (9.4-12.3); Monocytes Absolute Auto 0.4 X10*3/uL (0.1-1.2); Monocytes Percent Auto 7.9 % (2-11); Neutrophils Absolute Auto 3.7 x10*3/uL (2.0-8.3); Neutrophils Percent Auto 68.8 % (45-73); Platelet Count 119 X10*3/uL (160-400); Red Blood Count 2.98 X10*6/uL (4.20-5.50); Red Cell Distribution Width 13.3 % (11.0-16.0); White Blood Count 5.4 X10*3/uL (4.8-10.8)
--- NOTE | 2023-10-10 21:24 | P.HPHOSP_ITS ---
History of Present Illness Date of Service: 10/10/23 Chief Complaint: Fall This is a 67-year-old female with pertinent history of persistent atrial fibrillation on Eliquis, ayv-vlpsund-srygugmir diabetes mellitus, mixed hyperlipidemia, mood disorder, hypertension who presents to the emergency department for evaluation after a fall. Patient states she tripped while using her walker and fell on her left lower extremity. Denies loss of consciousness before or after the fall. No chest pain or palpitations prior to the fall. Patient states she has been having left leg swelling, pain, bruising since the fall. Also hit her head. Is on Eliquis for AFib. No fever, chills, chest discomfort, palpitations, shortness of breath, nausea, vomiting, abdominal pain, changes in urinary or bowel habits. In the emergency department, imaging with left lower extremity hematoma with questionable active extravasation. General surgery was consulted who will take the patient OR in a.m.. Patient was given PCC. Review of Systems 2 Constitutional: Constitutional: Reports no additional constitutional complaints Cardiovascular: Cardiovascular: Reports no additional cardiovascular complaints Respiratory: Respiratory: Reports no additional respiratory complaints Genitourinary: Genitourinary: Reports no additional female genitourinary complaints [facility] Medical History Anemia Bipolar disorder Morbid obesity Benign familial tremor Colon cancer screening Ventral hernia Multinodular thyroid Umbilical hernia with obstruction CVID (common variable immunodeficiency) Vitamin D deficiency Hyperparathyroidism HLD (hyperlipidemia) HTN (hypertension) Cardiomyopathy Macular degeneration Menopause Elevated parathyroid hormone Urinary incontinence Controlled diabetes mellitus without long-term current use of insulin Mixed dyslipidemia Family History Father Diabetes mellitus Depression Mental health disorder Mother Diabetes mellitus Colon cancer Breast cancer Familial tremor Sister Colon cancer Maternal Aunt Familial tremor Sister No problems noted. Surgical History History of umbilical hernia repair (07/06/22) Hx of wisdom tooth extraction History of cardiac catheterization (~2016) Hx of biopsy H/O colonoscopy History of hysteroscopy History of adenoidectomy Social History Household Members: None Housing: Apartment Are you a primary tire care manager to a significant other at home: No Do you presently have visiting nurse or other home services: No Alcohol intake: never Patient Tobacco Use Status: Never used Tobacco Smoked in Last 30 Days: No e-Cigarette/Vaping Use: Never Used Use of substances other than those prescribed or required for medical reasons: No Advance Directives: No Advance Directives Information Provided: Yes Do you have a plan to hurt others: No Plan service: No Current occupational status: disabled Cognitive needs: No Hearing needs: No Vision needs: Yes Meds Allergies Allergy/AdvReac Type Severity Reaction Status Date / Time No Known Allergies Allergy Verified 10/10/23 15:49 [No Known Allergies*] Home Medications ?Medication ?Instructions ?Recorded ?Confirmed ?Last Taken ?Type ziprasidone HCl 80 mg capsule 80 mg PO BID 06/14/21 06/11/23 07/06/22 07:00 History vit C 250 mg-vit E 90 mg-zinc 40 1 tab PO BID 06/29/22 06/11/23 Unknown History mg-copper 1 [id number]-[id number] capsule (PreserVision AREDS-2) Physical Exam 2 Vital Signs and Narrative: Vital Signs: Last Vital Signs Temp 98.4 F 10/10/23 18:55 Pulse 73 10/10/23 18:55 Resp 19 10/10/23 18:55 BP 91/63 10/10/23 18:55 Pulse Ox 100 10/10/23 18:55 O2 Del Method Room Air 10/10/23 18:55 BMI result Body Mass Index 25.9 Middle-aged female lying in bed in no distress Neck supple, no JVD Irregularly irregular, S1-S2 heard Regular breath sounds bilaterally, no wheezing or crackles appreciated Abdomen soft nontender, no guarding, no rigidity Patient is awake, alert and oriented to self, place, time and person ; no focal motor deficit Psych: Normal mood Left lower extremity in Tim wrap Results Labs 10/10/23 20:14 10/10/23 16:44 Labs: Laboratory Results - last 24 hr 10/10/23 10/10/23 16:44 20:14 MCV 92.1 91.9 MCH 30.7 31.2 MCHC 33.3 33.9 RDW 13.2 13.3 Plt Count 115 L 119 L MPV 11.0 11.2 Immature Gran % (Auto) 0.3 0.2 Neut % (Auto) 83.2 H 68.8 Lymph % (Auto) 10.0 L 22.7 [place] % (Auto) 6.3 7.9 Eos % (Auto) 0.0 0.2 Baso % (Auto) 0.2 0.2 Lymph # (Auto) 0.6 L 1.2 [place] # (Auto) 0.4 0.4 Eos # (Auto) 0.0 0.0 Baso # (Auto) 0.0 0.0 Abs Immat Gran (auto) 0.02 0.01 Absolute Neuts (auto) 5.0 3.7 Absolute Nucleated RBC 0.000 0.000 Nucleated RBC % (auto) 0.0 0.0 PT 23.7 H INR 1.9 H APTT 33.7 Anion Gap 15 Estim Creat Clear Calc 67.2 Estimated GFR > 60 Random Glucose 107 Calcium 10.1 Total Bilirubin 0.5 Direct Bilirubin 0.2 AST 10 ALT 9 Alkaline Phosphatase 90 Total Protein 6.7 Albumin 4.3 Imaging Radiologist's Impressions: Impressions Cervical Spine CT 10/10/23 18:06 IMPRESSION: 1. No acute intracranial pathology. 2. No evidence of acute cervical spine traumatic injury. Moderate lower cervical spondylosis. Head CT 10/10/23 18:06 IMPRESSION: 1. No acute intracranial pathology. 2. No evidence of acute cervical spine traumatic injury. Moderate lower cervical spondylosis. Lower Extremity CT 10/10/23 18:07 IMPRESSION: 1. Skin blister/soft tissue wound along the anterior aspect of the proximal tibia. 2. Prominent soft tissue swelling and heterogeneous focus in the underlying soft tissues and muscle, measuring at least approximately 6.3 x 3.2 x 9 cm. This is suboptimal evaluated on CT. There may be more extensive hematoma extending more inferiorly as well. There is curvilinear foci of increased attenuation in the area of the hematoma, suspicious for active extravasation. 3. Circumferential soft tissue swelling and subcutaneous edema. Cellulitis cannot be excluded 4. Recommend orthopedic/surgical consultation/interventional radiology consultation for further management. This critical result was discussed with ZHANG Best at 8:05 PM on 10/10/2023 and it was ascertained that the content and urgency of the report was understood at the time of direct communication. Assessment and Plan (1) Hematoma of left lower extremity: Qualifiers: Encounter type: initial encounter Qualified Code(s): S80.12XA - Contusion of left lower leg, initial encounter Status: Acute (2) Acute blood loss anemia: Status: Acute Plan This is a 67-year-old female with pertinent history of persistent atrial fibrillation on Eliquis, mjt-qcxtfdw-weaynhugj diabetes mellitus, mixed hyperlipidemia, mood disorder, hypertension who presents to the emergency department for evaluation after a fall. #. Hematoma of left lower extremity with ?active extravasation due to mechanical fall: Patient given PCC in the ER. Hold Eliquis. General surgery consulted who will likely take the patient to OR in a.m.. Will keep patient NPO after midnight. #. Acute blood loss anemia in the setting of above: Hemoglobin currently above transfusion threshold. Closely monitor H&H #. Lrk-afapxun-kmyxoiati diabetes mellitus: Initiating Accu-Cheks with sliding scale insulin #. Mixed hyperlipidemia: On statin #. Persistent atrial fibrillation: Rate controlled in the ER. Holding Eliquis as above #. Hypertension: On lisinopril #. Mood disorder: Continue home mood stabilizers Med rec pending DVT prophylaxis: Mechanical Full code Admit as inpatient and will require two night minimum hospital stay for evaluation of hematoma with possible surgical evaluation, close monitoring of hemodynamics and H&H (as above), which is not possible in a lesser acute setting. Surgical consult pending Quality Stroke Does the patient have a stroke diagnosis?: No VTE Prior VTE?: No VTE Risk Level:: Medical - moderate - high VTE Device Contraindication: N/A - Device Ordered VTE Drug Contraindication: Treatment Not Indicated
--- NOTE | 2023-10-10 21:41 | PM.CNGS ---
History of Present Illness Consult details Consult date: 10/10/23 Narrative: 67-year-old female here in the ER because of a hematoma on the left lower leg. She says that she had fallen while trying to use her walker last Friday October 06, 2023. She had bruising on both lower extremities on the anterior alejandra on both sides at that time. However, she had noticed that the bruising on the left alejandra had been progressively getting worse since then. She says that this looked ?growth? 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 She otherwise says that she is comfortable at this time. Review of Systems Constitutional: Constitutional: Denies chills and Denies fever(s) Cardiovascular: Cardiovascular: Denies chest pain, Denies dyspnea and Denies dyspnea on exertion Respiratory: Respiratory: Denies cough, Denies dyspnea and Denies dyspnea on exertion Gastrointestinal: Gastrointestinal: Denies hematochezia and Denies change in bowel habits Genitourinary: Genitourinary: Denies hematuria Musculoskeletal: Musculoskeletal: Reports abnormal gait, Denies back pain and Reports limited range of motion Neurologic: Reports abnormal gait, Denies focal weakness and Denies convulsions Comments: Has tremors Psychiatric: Psychiatric: Denies depression and Denies mood swings PMFSH Past Medical History Medical History Anemia Bipolar disorder Morbid obesity Benign familial tremor Colon cancer screening Ventral hernia Multinodular thyroid Umbilical hernia with obstruction CVID (common variable immunodeficiency) Vitamin D deficiency Hyperparathyroidism HLD (hyperlipidemia) HTN (hypertension) Cardiomyopathy Macular degeneration Menopause Elevated parathyroid hormone Urinary incontinence Controlled diabetes mellitus without long-term current use of insulin Mixed dyslipidemia Family History Family History Father Diabetes mellitus Depression Mental health disorder Mother Diabetes mellitus Colon cancer Breast cancer Familial tremor Sister Colon cancer Maternal Aunt Familial tremor Sister No problems noted. Surgical History Surgical History History of umbilical hernia repair (07/06/22) Hx of wisdom tooth extraction History of cardiac catheterization (~2017) Hx of biopsy H/O colonoscopy History of hysteroscopy History of adenoidectomy Social History Social History Household Members: None Housing: House Are you a primary child care attendant school to a significant other at home: No Do you presently have visiting nurse or other home services: No Alcohol intake: never Comment: COUNT CORRECT Patient Tobacco Use Status: Never used Tobacco e-Cigarette/Vaping Use: Never Used service: No Current occupational status: disabled Cognitive needs: No Hearing needs: No Vision needs: Yes Meds Allergies Allergy/AdvReac Type Severity Reaction Status Date / Time No Known Allergies Allergy Verified 10/10/23 15:49 [No Known Allergies*] Active Medications: Current Medications Acetaminophen (Acetaminophen 325 Mg Tablet) 650 mg PO Q6H PRN PRN Reason: Pain, Mild (Pain Scale 1-3) Glucose (Glucose Gel 15 Gm Gel..Gram.) 15 gm PO Q15M PRN; Protocol PRN Reason: per Hypoglycemia Standing Ord. Dextrose (D10) 250 mls @ 750 mls/hr IV Q15M PRN; Protocol PRN Reason: per Hypoglycemia Standing Ord. Insulin Human Lispro (Insulin Lispro 100 Unit/Ml 3 Ml Vial) [facility]; Protocol Melatonin (Melatonin 3 Mg Tablet) 6 mg PO BEDTIME PRN PRN Reason: Insomnia Ondansetron HCl (Ondansetron Hcl 4 Mg/2 Ml Vial) 4 mg IVPUSH Q8H PRN PRN Reason: Nausea and Vomiting Sodium Chloride (0.9 % Sodium Chloride Flush 3 Ml Syringe) 3 [facility] Medications ?Medication ?Instructions ?Recorded ?Confirmed ?Last Taken ?Type ziprasidone HCl 80 mg capsule 80 mg PO BID 06/14/21 10/10/23 10/10/23 06:00 History vit C 250 mg-vit E 90 mg-zinc 40 1 tab PO BID 06/29/22 10/10/23 10/10/23 06:00 History mg-copper 1 [id number]-[id number]-gongkg capsule (PreserVision AREDS-2) bevacizumab 25 mg/mL intravenous 25 mg IV DIRECTED 10/10/23 10/10/23 Unknown History solution (Avastin) docusate sodium 100 mg capsule 100 mg PO BEDTIME PRN Constipation 10/10/23 10/10/23 10/09/23 18:00 History (Colace) lisinopril 2.5 mg tablet 2.5 mg PO BEDTIME 10/10/23 10/10/23 10/09/23 18:00 History Physical Exam Vital Signs: Vital Signs: Last Vital Signs Temp 98.4 F 10/10/23 18:55 Pulse 73 10/10/23 18:55 Resp 19 10/10/23 18:55 BP 91/63 10/10/23 18:55 Pulse Ox 100 10/10/23 18:55 O2 Del Method Room Air 10/10/23 18:55 BMI result Body Mass Index 25.9 Const: Other: Looks well General: comfortable and no acute distress Orientation/consciousness: patient oriented x3 Neck: Neck: Yes no lymphadenopathy Resp: Auscultation: clear to auscultation bilaterally Cardio: Rhythm: abnormal rhythm GI: Palpation (GI): Soft to palpation, nontender and no guarding Neuro: Other: Has tremors on both hands and arms General: patient oriented x3 Extrem: Other: Large ecchymosis and edema of the anterior aspect of the lower leg just below the knee, with an obvious hematoma, no hematoma posteriorly, calf and thighs are soft, no evidence of elevated compartment pressures, no evidence of vascular insufficiency distally Results Labs 10/13/23 06:18 10/11/23 05:16 Labs: Abnormal lab results 10/10/23 10/10/23 Range/Units 16:44 20:14 RBC 3.42 L D 2.98 L (4.20-5.50) X10*6/uL Hgb 10.5 L D 9.3 L (12.0-16.0) g/dl Hct 31.5 L D 27.4 L (37.0-47.0) % Plt Count 115 L 119 L (160-400) X10*3/uL Neut % (Auto) 83.2 H (45-73) % Lymph % (Auto) 10.0 L (20-40) % Lymph # (Auto) 0.6 L (1.2-4.9) X10*3/uL PT 23.7 H (11.1-13.3) SEC INR 1.9 H (0.9-1.1) BUN 22 H (9-16) mg/dL Short CBC 10/10/23 10/10/23 Range/Units 16:44 20:14 WBC 6.0 5.4 (4.8-10.8) X10*3/uL Hgb 10.5 L D 9.3 L (12.0-16.0) g/dl Hct 31.5 L D 27.4 L (37.0-47.0) % Plt Count 115 L 119 L (160-400) X10*3/uL BMP 10/10/23 16:44 Sodium 139 Potassium 4.5 Chloride 105 Carbon Dioxide 24 BUN 22 H Creatinine 0.87 Calcium 10.1 Liver Function 10/10/23 Range/Units 16:44 Total Bilirubin 0.5 (0.0-1.0) mg/dL Direct Bilirubin 0.2 (0.0-0.5) mg/dL AST 10 (5-31) U/L ALT 9 (0-31) U/L Alkaline Phosphatase 90 (39-117) U/L Albumin 4.3 (3.5-5.0) g/dL All other labs normal. Imaging Additional studies: Laboratory Results WBC 5.4 X10*3/uL (4.8-10.8) 10/10/23 20:14 RBC 2.98 X10*6/uL (4.20-5.50) L 10/10/23 20:14 Hgb 9.3 g/dl (12.0-16.0) L 10/10/23 20:14 Hct 27.4 % (37.0-47.0) L 10/10/23 20:14 MCV 91.9 fL (80.0-98.0) 10/10/23 20:14 MCH 31.2 pg (27.0-33.0) 10/10/23 20:14 MCHC 33.9 g/dl (31.0-35.0) 10/10/23 20:14 RDW 13.3 % (11.0-16.0) 10/10/23 20:14 Plt Count 119 X10*3/uL (160-400) L 10/10/23 20:14 MPV 11.2 fL (9.4-12.3) 10/10/23 20:14 Immature Gran % (Auto) 0.2 % (0.0-0.4) 10/10/23 20:14 Neut % (Auto) 68.8 % (45-73) 10/10/23 20:14 Lymph % (Auto) 22.7 % (20-40) 10/10/23 20:14 Mck[place] % (Auto) 7.9 % (2-11) 10/10/23 20:14 Eos % (Auto) 0.2 % (0-4) 10/10/23 20:14 Baso % (Auto) 0.2 % (0-2) 10/10/23 20:14 Lymph # (Auto) 1.2 X10*3/uL (1.2-4.9) 10/10/23 20:14 [place] # (Auto) 0.4 X10*3/uL (0.1-1.2) 10/10/23 20:14 Eos # (Auto) 0.0 X10*3/uL (0.0-0.4) 10/10/23 20:14 Baso # (Auto) 0.0 X10*3/uL (0.0-0.2) 10/10/23 20:14 Abs Immat Gran (auto) 0.01 X10*3/uL (0.00-0.03) 10/10/23 20:14 Absolute Neuts (auto) 3.7 x10*3/uL (2.0-8.3) 10/10/23 20:14 Absolute Nucleated RBC 0.000 X10*3/uL (0.0-0.012) 10/10/23 20:14 Nucleated RBC % (auto) 0.0 /100WBC (0.0-0.2) 10/10/23 20:14 PT 23.7 SEC (11.1-13.3) H 10/10/23 16:44 INR 1.9 (0.9-1.1) H 10/10/23 16:44 APTT 33.7 SEC (26.0-36.8) 10/10/23 16:44 Sodium 139 mmol/L (135-145) 10/10/23 16:44 Potassium 4.5 mmol/L (3.3-5.1) 10/10/23 16:44 Chloride 105 mmol/L (96-108) 10/10/23 16:44 Carbon Dioxide 24 mmol/L (22-29) 10/10/23 16:44 Anion Gap 15 (12-20) 10/10/23 16:44 BUN 22 mg/dL (9-16) H 10/10/23 16:44 Creatinine 0.87 mg/dL (0.5-1.4) 10/10/23 16:44 Estim Creat Clear Calc 67.2 10/10/23 16:44 Estimated GFR > 60 10/10/23 16:44 Random Glucose 107 mg/dL (60-115) 10/10/23 16:44 Calcium 10.1 mg/dL (8.4-10.2) 10/10/23 16:44 Total Bilirubin 0.5 mg/dL (0.0-1.0) 10/10/23 16:44 Direct Bilirubin 0.2 mg/dL (0.0-0.5) 10/10/23 16:44 AST 10 U/L (5-31) 10/10/23 16:44 ALT 9 U/L (0-31) 10/10/23 16:44 Alkaline Phosphatase 90 U/L (39-117) 10/10/23 16:44 Total Protein 6.7 g/dL (6.5-8.0) 10/10/23 16:44 Albumin 4.3 g/dL (3.5-5.0) 10/10/23 16:[address] 10/10/23 18:06 IMPRESSION: 1. No acute intracranial pathology. 2. No evidence of acute cervical spine traumatic injury. Moderate lower cervical spondylosis. Head CT 10/10/23 18:06 IMPRESSION: 1. No acute intracranial pathology. 2. No evidence of acute cervical spine traumatic injury. Moderate lower cervical spondylosis. Lower Extremity CT 10/10/23 18:07 IMPRESSION: 1. Skin blister/soft tissue wound along the anterior aspect of the proximal tibia. 2. Prominent soft tissue swelling and heterogeneous focus in the underlying soft tissues and muscle, measuring at least approximately 6.3 x 3.2 x 9 cm. This is suboptimal evaluated on CT. There may be more extensive hematoma extending more inferiorly as well. There is curvilinear foci of increased attenuation in the area of the hematoma, suspicious for active extravasation. 3. Circumferential soft tissue swelling and subcutaneous edema. Cellulitis cannot be excluded 4. Recommend orthopedic/surgical consultation/interventional radiology consultation for further management. This critical result was discussed with ZHANG Best at 8:05 PM on 10/10/2023 and it was ascertained that the content and urgency of the report was understood at the time of direct communication. Assessment and Plan (1) Hematoma of left lower extremity: Qualifiers: Encounter type: initial encounter Qualified Code(s): S80.12XA - Contusion of left lower leg, initial encounter Status: Acute (2) Acute blood loss anemia: Status: Acute Plan She has a large hematoma of the lower leg starting from the knee distally in the year aspect. This was after trauma to both lower extremities when she had fallen while trying to use her walker last Saturday 3 days ago The hematoma is mostly anterior of the leg and muscle groups to not seem compromise. She calf muscles is worse with thigh muscles appear soft. There is no evidence of any vascular compromise I would recommend stopping her Eliquis and correcting this as she may be continued to ooze from very fine vessels due to her fall. She did have a drop in her hemoglobin from baseline. I have wrapped the leg in Tim bandage and elevated this She may need to be transfused at some point if she continues to drop her hemoglobin although with tamponade, this hematoma should eventually stopped expanding especially once her anticoagulation is corrected She may be at risk for an infection from the hematoma so she we may have to evacuate is down the line once it was more organized I have explained to her the above. She understands the plan well. Procedures Date of Service Date of Service: 10/16/23
[2023-10-10] MEDS: Hum Prothrombin Cplx(PCC)4Fact 2,000 UNIT in Container,Empty 0 ML 480 UNIT IV (21:51)
--- NOTE | 2023-10-10 22:24 | PC.NURSE ---
t reporting 6/10 pain in L-leg after navid banage was applied by . notified, awaiting new orders.
--- NOTE | 2023-10-10 22:51 | PHA.MEDREC ---
Pharmacy Consult ? Medication Reconciliation Pharmacy has completed the medication reconciliation. Confirmed meds with list provided by patient. Patient is on injection Avastin 1.25mg once every 11 weeks she does not remember the date for last dose but she is sure it is not within the time she will be in here,
[2023-10-10] MEDS: 0.9 % Sodium Chloride 1,000 ML 999 ML IV (22:56)
[2023-10-11] VITALS (13 sets, daily range): BP systolic 124–152; BP diastolic 72–91; PULSE 56–95; RESP 12–19; TEMP 36.1–37.2; O2SAT 96–100
[2023-10-11 00:28] LABS: Hematocrit 30.6 % (37.0-47.0); Hemoglobin 10.1 g/dl (12.0-16.0)
--- NOTE | 2023-10-11 03:49 | PC.NURSE ---
DP and PT pulses remains present using doppler at this time. VSS stable. Denies any other needs at this time.
[2023-10-11 06:03] LABS: MANUAL DIFF FLAG NO
[2023-10-11 06:16] LABS: INTERNATIONAL NORM RATIO 1.4 (0.9-1.1); Prothrombin Time 17.6 SEC (11.1-13.3)
[2023-10-11 06:22] LABS: Anion Gap 14 (12-20); Blood Urea Nitrogen 18 mg/dL (9-16); Carbon Dioxide 23 mmol/L (22-29); Chloride 108 mmol/L (96-108); Creatinine Clr Calc Pharmacy 68.8; Estimated Glomerular Filt Rate > 60; Glucose Random 113 mg/dL (60-115); Potassium 4.3 mmol/L (3.3-5.1); Sodium 141 mmol/L (135-145)
[2023-10-11 06:29] LABS: Basophils Percent Auto 0.2 % (0-2); Eosinophils Percent Auto 0.2 % (0-4); Hematocrit 26.8 % (37.0-47.0); Hemoglobin 9.1 g/dl (12.0-16.0); Imm Gran Abs Auto 0.02 X10*3/uL (0.00-0.03); Imm Gran Pct Auto 0.4 % (0.0-0.4); Lymphocytes Absolute Auto 0.8 X10*3/uL (1.2-4.9); Lymphocytes Percent Auto 16.6 % (20-40); Mean Corpuscular Hemoglobin 31.1 pg (27.0-33.0); Mean Corpuscular Volume 91.5 fL (80.0-98.0); Mean Platelet Volume 11.8 fL (9.4-12.3); Monocytes Absolute Auto 0.4 X10*3/uL (0.1-1.2); Monocytes Percent Auto 7.6 % (2-11); Neutrophils Absolute Auto 3.8 x10*3/uL (2.0-8.3); Platelet Count 116 X10*3/uL (160-400); Red Blood Count 2.93 X10*6/uL (4.20-5.50); Red Cell Distribution Width 13.4 % (11.0-16.0)
--- NOTE | 2023-10-11 07:10 | HO.PM.IMPN ---
Subjective Subjective Date of Service: 10/11/23 Interval History: f/u on hematoma of the leg s/p fall interval history--has pain in the leg, H/H slightly down Physical Exam Vital Signs: Vital Signs: Last Vital Signs Temp 98.9 F 10/11/23 06:05 Pulse 56 10/11/23 06:05 Resp 16 10/11/23 06:05 BP 143/74 H 10/11/23 06:05 Pulse Ox 97 10/11/23 06:05 O2 Del Method Room Air 10/11/23 06:05 BMI result Body Mass Index 25.9 A, O x3 Neck supple, no JVD Irregularly irregular, S1-S2 heard lungs CTA juan luis Abdomen soft nontender, no guarding, no rigidity Patient is awake, alert and oriented to self, place, time and person ; no focal motor deficit Psych: Normal mood Left lower extremity in Tim wrap with noted swelling and surounding bruse Objective Data Active Medications Acetaminophen (Acetaminophen 325 Mg Tablet) 650 mg PO Q6H PRN PRN Reason: Pain, Mild (Pain Scale 1-3) Atorvastatin Calcium (Atorvastatin Calcium 80 Mg Tablet) 80 mg PO BEDTIME REGINO Docusate Sodium (Docusate Sodium 100 Mg Capsule) 100 mg PO BEDTIME PRN PRN Reason: Constipation Glucose (Glucose Gel 15 Gm Gel..Gram.) 15 gm PO Q15M PRN; Protocol PRN Reason: per Hypoglycemia Standing Ord. Dextrose (D10) 250 mls @ 750 mls/hr IV Q15M PRN; Protocol PRN Reason: per Hypoglycemia Standing Ord. Insulin Human Lispro (Insulin Lispro 100 Unit/Ml 3 Ml Vial) 0 unit SUBCUT QIDACHS [facility]; Protocol Melatonin (Melatonin 3 Mg Tablet) 6 mg PO BEDTIME PRN PRN Reason: Insomnia Metformin HCl (Metformin Hcl 500 Mg Tablet) 500 mg PO BID [facility] Metoprolol Succinate (Metoprolol Succinate Er 50 Mg Tab.Er.24h) 50 mg PO DAILY REGINO; Protocol Non-Formulary Medication (Bevacizumab [Avastin]) 25 mg IV DIRECTED [facility] Non-Formulary Medication (Terazosin) 3 mg PO BEDTIME [facility] Non-Formulary Medication (Vit C,K-Lc-Xrjfh-Lutein-Zeaxan [Preservision Areds-2]) 1 tab PO BID [facility] Ondansetron HCl (Ondansetron Hcl 4 Mg/2 Ml Vial) 4 mg IVPUSH Q8H PRN PRN Reason: Nausea and Vomiting Oxybutynin Chloride (Oxybutynin Chloride Er 5 Mg Tab.Er.24) 20 mg PO BEDTIME [facility] Sodium Chloride (0.9 % Sodium Chloride Flush 3 Ml Syringe) 3 ml IVFLUSH QSHIFT [facility] Last Admin: 10/10/23 22:57 Dose: Not Given Documented By: BRITTANY Non-Admin Reason: IV Running Tramadol HCl (Tramadol Hcl 50 Mg Tablet) 50 mg PO Q6H PRN PRN Reason: Pain, Severe (Pain Scale 7-10) Ziprasidone (Ziprasidone 80 Mg Capsule) 80 mg PO BID [facility] Labs 10/11/23 05:16 10/11/23 05:16 Labs: Laboratory Results - last 24 hr 10/10/23 10/10/23 10/10/23 16:44 20:14 22:45 MCV 92.1 91.9 MCH 30.7 31.2 MCHC 33.3 33.9 RDW 13.2 13.3 Plt Count 115 L 119 L MPV 11.0 11.2 Immature Gran % (Auto) 0.3 0.2 Neut % (Auto) 83.2 H 68.8 Lymph % (Auto) 10.0 L 22.7 [place] % (Auto) 6.3 7.9 Eos % (Auto) 0.0 0.2 Baso % (Auto) 0.2 0.2 Lymph # (Auto) 0.6 L 1.2 [place] # (Auto) 0.4 0.4 Eos # (Auto) 0.0 0.0 Baso # (Auto) 0.0 0.0 Abs Immat Gran (auto) 0.02 0.01 Absolute Neuts (auto) 5.0 3.7 Absolute Nucleated RBC 0.000 0.000 Nucleated RBC % (auto) 0.0 0.0 PT 23.7 H INR 1.9 H APTT 33.7 Anion Gap 15 Estim Creat Clear Calc 67.2 Estimated GFR > 60 Random Glucose 107 Calcium 10.1 Total Bilirubin 0.5 Direct Bilirubin 0.2 AST 10 ALT 9 Alkaline Phosphatase 90 Total Protein 6.7 Albumin 4.3 Blood Type O Negative Antibody Screen NEGATIVE 10/11/23 05:16 MCV 91.5 MCH 31.1 MCHC 34.0 RDW 13.4 Plt Count 116 L MPV 11.8 Immature Gran % (Auto) 0.4 Neut % (Auto) 75.0 H Lymph % (Auto) 16.6 L [place] % (Auto) 7.6 Eos % (Auto) 0.2 Baso % (Auto) 0.2 Lymph # (Auto) 0.8 L [place] # (Auto) 0.4 Eos # (Auto) 0.0 Baso # (Auto) 0.0 Abs Immat Gran (auto) 0.02 Absolute Neuts (auto) 3.8 Absolute Nucleated RBC 0.000 Nucleated RBC % (auto) 0.0 PT 17.6 H D INR 1.4 H APTT Anion Gap 14 Estim Creat Clear Calc 68.8 Estimated GFR > 60 Random Glucose 113 Calcium 10.0 Total Bilirubin Direct Bilirubin AST ALT Alkaline Phosphatase Total Protein Albumin Blood Type Antibody Screen Assessment and Plan (1) Acute blood loss anemia: Status: Acute (2) Hematoma of left lower extremity: Status: Acute Plan 67-year-old female with pertinent history of persistent atrial fibrillation on Eliquis, [id number] diabetes mellitus, mixed hyperlipidemia, mood disorder, hypertension who presents to the emergency department for evaluation after a fall. Hematoma of left lower extremity with ?active extravasation due to mechanical fall: Patient given PCC in the ER. -hold eliquis -Surgery consult for possible evacuation -at average risk for surgery with no additional testing waranted at this time, however there is increased risk of bleeding Acute Blood loss anemia (ABLA) d/t above -monitor h/h, transfuse for Hgb < 7 or rapidly droping Hxy-gfitkxo-kudprovpu diabetes mellitus -SSI, diabetic diet, hold metformin following contrast use Mixed hyperlipidemia: On statin Persistent atrial fibrillation: Rate controlled -continue Metoprolol -hold eliquis Hypertension: On lisinopril, metoprolol Mood disorder: Continue home mood stabilizers DVT prophylaxis: Mechanical Full code need for inpatient:large traumatic hematoma that needs surgical evacuation, close monitoring of hemodynamics and H&H (as above), which is not possible in a lesser acute setting. Quality Stroke Does the patient have a stroke diagnosis?: No VTE Prior VTE?: No VTE Risk Level:: Medical - moderate - high VTE Device Contraindication: N/A - Device Ordered VTE Drug Contraindication: Treatment Not Indicated
[2023-10-11 07:18] LABS: Glucose, Whole Blood 100 mg/dL (60-115)
--- NOTE | 2023-10-11 07:21 | PC.NURSE ---
patient a&ox3, LLE navid wrapped- ecchymosis noted above top of navid wrap, + csm/pulses to extremity. pt npo per order, vss, pt states she has 2/10 pain which is tolerable to her while laying, call cuellar within reach, will continue to monitor
[2023-10-11] MEDS: 0.9 % Sodium Chloride Flush 3 ML SYRINGE IVFLUSH ×3 (07:24→22:03)
--- NOTE | 2023-10-11 07:27 | PC.NURSE ---
per dr hanna mcrae text metformin is being held- pt is NPO and has poc of 100
--- NOTE | 2023-10-11 08:06 | PM.PNGS ---
Subjective Subjective Date of Service: 10/11/23 Interval history: She says she feels well Denies severe pain on the leg States that she is in her usual state of health at this time except for the large bruise on her left leg Physical Exam Vital Signs: Vital Signs: Last Vital Signs Temp 98.9 F 10/11/23 06:05 Pulse 56 10/11/23 06:05 Resp 16 10/11/23 06:05 BP 143/74 H 10/11/23 06:05 Pulse Ox 97 10/11/23 06:05 O2 Del Method Room Air 10/11/23 06:05 BMI result Body Mass Index 25.9 Const: Other: Has tremors General: no acute distress Resp: Effort & Inspection: normal respiratory effort Cardio: Rhythm: abnormal rhythm GI: Palpation (GI): Soft to palpation, not firm and nontender Extrem: Other: Large ecchymotic area on the left lower leg around the knee with edema, hematoma, some blisters on the overlying skin and skin breakdown Objective Data Active Medications Acetaminophen (Acetaminophen 325 Mg Tablet) 650 mg PO Q6H PRN PRN Reason: Pain, Mild (Pain Scale 1-3) Atorvastatin Calcium (Atorvastatin Calcium 80 Mg Tablet) 80 mg PO BEDTIME [facility] Docusate Sodium (Docusate Sodium 100 Mg Capsule) 100 mg PO BEDTIME PRN PRN Reason: Constipation Doxazosin Mesylate (Doxazosin Mesylate 1 Mg Tablet) 3 mg PO BEDTIME [facility] Glucose (Glucose Gel 15 Gm Gel..Gram.) 15 gm PO Q15M PRN; Protocol PRN Reason: per Hypoglycemia Standing Ord. Dextrose (D10) 250 mls @ 750 mls/hr IV Q15M PRN; Protocol PRN Reason: per Hypoglycemia Standing Ord. Insulin Human Lispro (Insulin Lispro 100 Unit/Ml 3 Ml Vial) 0 unit SUBCUT QIDACHS [facility]; Protocol Last Admin: 10/11/23 07:23 Dose: Not Given Documented By: JELANI Non-Admin Reason: No Insulin Coverage Melatonin (Melatonin 3 Mg Tablet) 6 mg PO BEDTIME PRN PRN Reason: Insomnia Metformin HCl (Metformin Hcl 500 Mg Tablet) 500 mg PO BID [facility] Last Admin: 10/11/23 07:27 Dose: Not Given Documented By: JELANI Non-Admin Reason: Physician Held Med Metoprolol Succinate (Metoprolol Succinate Er 50 Mg Tab.Er.24h) 50 mg PO DAILY [facility]; Protocol Non-Formulary Medication (Bevacizumab [Avastin]) 25 mg IV ONCE ONE Stop: 10/11/23 07:16 Ondansetron HCl (Ondansetron Hcl 4 Mg/2 Ml Vial) 4 mg IVPUSH Q8H PRN PRN Reason: Nausea and Vomiting Oxybutynin Chloride (Oxybutynin Chloride Er 5 Mg Tab.Er.24) 20 mg PO BEDTIME [facility] Sodium Chloride (0.9 % Sodium Chloride Flush 3 Ml Syringe) 3 ml IVFLUSH QSHIFT [facility] Last Admin: 10/11/23 07:24 Dose: 3 ml Documented By: JELANI Tramadol HCl (Tramadol Hcl 50 Mg Tablet) 50 mg PO Q6H PRN PRN Reason: Pain, Severe (Pain Scale 7-10) Ziprasidone (Ziprasidone 80 Mg Capsule) 80 mg PO BID [facility] Labs 10/11/23 05:16 10/11/23 05:16 Labs: Laboratory Results - last 24 hr 10/10/23 10/10/23 10/10/23 16:44 20:14 22:45 MCV 92.1 91.9 MCH 30.7 31.2 MCHC 33.3 33.9 RDW 13.2 13.3 Plt Count 115 L 119 L MPV 11.0 11.2 Immature Gran % (Auto) 0.3 0.2 Neut % (Auto) 83.2 H 68.8 Lymph % (Auto) 10.0 L 22.7 [place] % (Auto) 6.3 7.9 Eos % (Auto) 0.0 0.2 Baso % (Auto) 0.2 0.2 Lymph # (Auto) 0.6 L 1.2 [place] # (Auto) 0.4 0.4 Eos # (Auto) 0.0 0.0 Baso # (Auto) 0.0 0.0 Abs Immat Gran (auto) 0.02 0.01 Absolute Neuts (auto) 5.0 3.7 Absolute Nucleated RBC 0.000 0.000 Nucleated RBC % (auto) 0.0 0.0 PT 23.7 H INR 1.9 H APTT 33.7 Anion Gap 15 Estim Creat Clear Calc 67.2 Estimated GFR > 60 POC Glucose Random Glucose 107 Calcium 10.1 Total Bilirubin 0.5 Direct Bilirubin 0.2 AST 10 ALT 9 Alkaline Phosphatase 90 Total Protein 6.7 Albumin 4.3 Blood Type O Negative Antibody Screen NEGATIVE 10/11/23 10/11/23 05:16 07:15 MCV 91.5 MCH 31.1 MCHC 34.0 RDW 13.4 Plt Count 116 L MPV 11.8 Immature Gran % (Auto) 0.4 Neut % (Auto) 75.0 H Lymph % (Auto) 16.6 L [place] % (Auto) 7.6 Eos % (Auto) 0.2 Baso % (Auto) 0.2 Lymph # (Auto) 0.8 L [place] # (Auto) 0.4 Eos # (Auto) 0.0 Baso # (Auto) 0.0 Abs Immat Gran (auto) 0.02 Absolute Neuts (auto) 3.8 Absolute Nucleated RBC 0.000 Nucleated RBC % (auto) 0.0 PT 17.6 H D INR 1.4 H APTT Anion Gap 14 Estim Creat Clear Calc 68.8 Estimated GFR > 60 POC Glucose 100 Random Glucose 113 Calcium 10.0 Total Bilirubin Direct Bilirubin AST ALT Alkaline Phosphatase Total Protein Albumin Blood Type Antibody Screen Procedures Date of Service Date of Service: 10/11/23 Progress Note: A&P Assessment and plan (1) Hematoma of left lower extremity: Status: Acute Assessment and Plan: Was on anticoagulation, reversed last night Hemoglobin steady after initial up from previous baseline She looks well overall In view of large size of hematoma with potential for infection, with ongoing skin breakdown I explained to her that it may be best to do evacuation and debridement in the OR for the left lower leg under anesthesia I explained to her the technique of this procedure I reviewed the risks including but not limited to bleeding, infections, poor healing, open wound, need for dressing changes, inherent risks of anesthesia, pain She understands and wants to proceed Plan to do evacuation and debridement of left leg today in the OR today She looks well overall Time Spent With Patient Time: Total time managing care of this patient today ____ minutes. Quality Stroke Does the patient have a stroke diagnosis?: No VTE Prior VTE?: No VTE Risk Level:: Medical - moderate - high VTE Device Contraindication: N/A - Device Ordered VTE Drug Contraindication: Treatment Not Indicated
--- NOTE | 2023-10-11 09:23 | PC.NURSE ---
called pharmacy for missing medications
--- NOTE | 2023-10-11 10:12 | PC.NURSE ---
report given to short stay, pt report also given to floor.
--- NOTE | 2023-10-11 10:31 | HO.ANESPROP2 ---
HPI - Anesthesia Eval Consult details Narrative: 67 yo F presenting for left lower extremity hematoma evacuation PMFSH Active Problems Active Problems: All Active Problems Acute blood loss anemia (Acute) Hematoma of left lower extremity (Acute) Chronic constipation (Acute) NAFLD (nonalcoholic fatty liver disease) (Acute) Thrombocytopathia (Acute) Family history of colon cancer (Acute) skilled nursing current use of anticoagulant therapy (Acute) Anemia (Acute) Persistent atrial fibrillation (Acute) Bipolar disorder (Acute) Morbid obesity (Acute) Benign familial tremor (Acute) Multinodular thyroid (Acute) CVID (common variable immunodeficiency) (Acute) Vitamin D deficiency (Acute) Hyperparathyroidism (Acute) HTN (hypertension) (Acute) Cardiomyopathy (Acute) Macular degeneration (Acute) Menopause (Acute) Elevated parathyroid hormone (Acute) Urinary incontinence (Acute) Controlled diabetes mellitus without long-term current use of insulin (Acute) Mixed dyslipidemia (Acute) Past Medical History Medical History Anemia Bipolar disorder Morbid obesity Benign familial tremor Colon cancer screening Ventral hernia Multinodular thyroid Umbilical hernia with obstruction CVID (common variable immunodeficiency) Vitamin D deficiency Hyperparathyroidism HLD (hyperlipidemia) HTN (hypertension) Cardiomyopathy Macular degeneration Menopause Elevated parathyroid hormone Urinary incontinence Controlled diabetes mellitus without long-term current use of insulin Mixed dyslipidemia Family History Family History Father Diabetes mellitus Depression Mental health disorder Mother Diabetes mellitus Colon cancer Breast cancer Familial tremor Sister Colon cancer Maternal Aunt Familial tremor Sister No problems noted. Family history of problems with anesthesia: No Surgical History Surgical History History of umbilical hernia repair (07/06/22) Hx of wisdom tooth extraction History of cardiac catheterization (~2017) Hx of biopsy H/O colonoscopy History of hysteroscopy History of adenoidectomy History of Problems with Anesthesia: No Social History Social History Household Members: None Housing: Apartment Are you a primary professional healthcare representative to a significant other at home: No Do you presently have visiting nurse or other home services: No Alcohol intake: never Patient Tobacco Use Status: Never used Tobacco Smoked in Last 30 Days: No e-Cigarette/Vaping Use: Never Used Use of substances other than those prescribed or required for medical reasons: No Are you DNR?: No Advance Directives: No Advance Directives Information Provided: Yes Do you have a plan to hurt others: No Plan Nutrition Risks: No Nutritional Risk service: No Current occupational status: disabled Cognitive needs: No Hearing needs: No Vision needs: Yes Meds Allergies Allergy/AdvReac Type Severity Reaction Status Date / Time No Known Allergies Allergy Verified 10/10/23 15:49 [No Known Allergies*] Active Medications: Current Medications Acetaminophen (Acetaminophen 325 Mg Tablet) 650 mg PO Q6H PRN PRN Reason: Pain, Mild (Pain Scale 1-3) Atorvastatin Calcium (Atorvastatin Calcium 80 Mg Tablet) 80 mg PO BEDTIME [facility] Docusate Sodium (Docusate Sodium 100 Mg Capsule) 100 mg PO BEDTIME PRN PRN Reason: Constipation Doxazosin Mesylate (Doxazosin Mesylate 1 Mg Tablet) 3 mg PO BEDTIME [facility] Glucose (Glucose Gel 15 Gm Gel..Gram.) 15 gm PO Q15M PRN; Protocol PRN Reason: per Hypoglycemia Standing Ord. Dextrose (D10) 250 mls @ 750 mls/hr IV Q15M PRN; Protocol PRN Reason: per Hypoglycemia Standing Ord. Insulin Human Lispro (Insulin Lispro 100 Unit/Ml 3 Ml Vial) 0 unit SUBCUT QIDACHS [facility]; Protocol Last Admin: 10/11/23 07:23 Dose: Not Given Melatonin (Melatonin 3 Mg Tablet) 6 mg PO BEDTIME PRN PRN Reason: Insomnia Metformin HCl (Metformin Hcl 500 Mg Tablet) 500 mg PO BID [facility] Last Admin: 10/11/23 07:27 Dose: Not Given Metoprolol Succinate (Metoprolol Succinate Er 50 Mg Tab.Er.24h) 50 mg PO DAILY [facility]; Protocol Ondansetron HCl (Ondansetron Hcl 4 Mg/2 Ml Vial) 4 mg IVPUSH Q8H PRN PRN Reason: Nausea and Vomiting Oxybutynin Chloride (Oxybutynin Chloride Er 5 Mg Tab.Er.24) 20 mg PO BEDTIME [facility] Sodium Chloride (0.9 % Sodium Chloride Flush 3 Ml Syringe) [facility] Last Admin: 10/11/23 07:24 Dose: 3 ml Tramadol HCl (Tramadol Hcl 50 Mg Tablet) 50 mg PO Q6H PRN PRN Reason: Pain, Severe (Pain Scale 7-10) Ziprasidone (Ziprasidone 80 Mg Capsule) 80 mg PO BID [facility] Home Medications ?Medication ?Instructions ?Recorded ?Confirmed ?Last Taken ?Type ziprasidone HCl 80 mg capsule 80 mg PO BID 06/14/21 10/10/23 10/10/23 06:00 History vit C 250 mg-vit E 90 mg-zinc 40 1 tab PO BID 06/29/22 10/10/23 10/10/23 06:00 History mg-copper 1 [id number] capsule (PreserVision AREDS-2) bevacizumab 25 mg/mL intravenous 25 mg IV DIRECTED 10/10/23 10/10/23 Unknown History solution (Avastin) docusate sodium 100 mg capsule 100 mg PO BEDTIME PRN Constipation 10/10/23 10/10/23 10/09/23 18:00 History (Colace) lisinopril 2.5 mg tablet 2.5 mg PO BEDTIME 10/10/23 10/10/23 10/09/23 18:00 History Exam Exam Date and Time: October 11, 2023 1030 Height,Weight and Vital Signs: Height 5 ft 7 in Weight 74.9 kg Last Vital Signs Temp 98.9 F 10/11/23 06:05 Pulse 56 10/11/23 06:05 Resp 16 10/11/23 06:05 BP 143/74 H 10/11/23 06:05 Pulse Ox 97 10/11/23 06:05 O2 Del Method Room Air 10/11/23 06:05 Pertinent Lab Results Pertinent Lab Results: Laboratory Tests 10/10/23 10/10/23 10/10/23 16:44 20:14 22:45 WBC 6.0 5.4 RBC 3.42 L D 2.98 L Hgb 10.5 L D 9.3 L Hct 31.5 L D 27.4 L MCV 92.1 91.9 MCH 30.7 31.2 MCHC 33.3 33.9 RDW 13.2 13.3 Plt Count 115 L 119 L MPV 11.0 11.2 Immature Gran % (Auto) 0.3 0.2 Neut % (Auto) 83.2 H 68.8 Lymph % (Auto) 10.0 L 22.7 [place] % (Auto) 6.3 7.9 Eos % (Auto) 0.0 0.2 Baso % (Auto) 0.2 0.2 Lymph # (Auto) 0.6 L 1.2 [place] # (Auto) 0.4 0.4 Eos # (Auto) 0.0 0.0 Baso # (Auto) 0.0 0.0 Abs Immat Gran (auto) 0.02 0.01 Absolute Neuts (auto) 5.0 3.7 Absolute Nucleated RBC 0.000 0.000 Nucleated RBC % (auto) 0.0 0.0 PT 23.7 H INR 1.9 H APTT 33.7 Sodium 139 Potassium 4.5 Chloride 105 Carbon Dioxide 24 Anion Gap 15 BUN 22 H Creatinine 0.87 Estim Creat Clear Calc 67.2 Estimated GFR > 60 POC Glucose Random Glucose 107 Calcium 10.1 Total Bilirubin 0.5 Direct Bilirubin 0.2 AST 10 ALT 9 Alkaline Phosphatase 90 Total Protein 6.7 Albumin 4.3 Blood Type O Negative Antibody Screen NEGATIVE 10/11/23 10/11/23 10/11/23 00:16 05:16 07:15 WBC 5.0 RBC 2.93 L Hgb 10.1 L 9.1 L Hct 30.6 L 26.8 L MCV 91.5 MCH 31.1 MCHC 34.0 RDW 13.4 Plt Count 116 L MPV 11.8 Immature Gran % (Auto) 0.4 Neut % (Auto) 75.0 H Lymph % (Auto) 16.6 L [place] % (Auto) 7.6 Eos % (Auto) 0.2 Baso % (Auto) 0.2 Lymph # (Auto) 0.8 L [place] # (Auto) 0.4 Eos # (Auto) 0.0 Baso # (Auto) 0.0 Abs Immat Gran (auto) 0.02 Absolute Neuts (auto) 3.8 Absolute Nucleated RBC 0.000 Nucleated RBC % (auto) 0.0 PT 17.6 H D INR 1.4 H APTT Sodium 141 Potassium 4.3 Chloride 108 Carbon Dioxide 23 Anion Gap 14 BUN 18 H Creatinine 0.85 Estim Creat Clear Calc 68.8 Estimated GFR > 60 POC Glucose 100 Random Glucose 113 Calcium 10.0 Total Bilirubin Direct Bilirubin AST ALT Alkaline Phosphatase Total Protein Albumin Blood Type Antibody Screen Airway Mallampati Class: I TM Dist: >3cm Neck ROM: Full Loose/Missing/Broken Teeth: Yes (poor dentition - multiple broken teeth) Heart: S1S2 Lungs: CTAB Assessment and Plan Assessment Anesthesia Assessment: Anesthesia Plan Discussed and Chart Reviewed Final Anesthetic Review Family History of Problems with Anesthesia: No History of Problems with Anesthesia: No NPO: Yes ASA Class: III and Emergency Final Preanesthetic Review: No Changes in Pt Med Stat, Meds/Allgs Chart Reviewed, Consent Obtained/Reviewed and Anes Risks/Benef Reviewed Patient Risk: Intermediate Procedure Risk: Low Anesthetic Plan Anesthetic Plan: GA and Agree w/ Assess. and Plan Disposition: Standard PACU
--- NOTE | 2023-10-11 10:32 | MHC.CM.PN ---
PATIENT TRANSFERRED TO FLOOR PRIOR TO CM ASSESSMENT ATTEMPT.
[2023-10-11 10:41] LABS: Glucose, Whole Blood 130 mg/dL (60-115)
--- NOTE | 2023-10-11 11:36 | W.PM.OPN ---
Operative Note Operative Note Date of Service: 10/11/23 Narrative: Preop diagnosis: Large hematoma, anterior aspect of the left lower leg Postop diagnosis: The same Procedure: Evacuation of a large hematoma from the anterior aspect of the left lower leg, with additional debridement of the partial thickness of the skin, about 2 x 3 cm Surgeon: Freedom Andrade MD The patient is a 67-year-old female with a large leg hematoma starting from just distal to the knee extending on the anterior aspect of the lower leg. There was significant ecchymosis and swelling because of this hematoma. She had fallen and had been on anticoagulation causing this hematoma. There was note of note of some skin breakdown with blister formation on the skin overlying this hematoma due to pressure . I therefore explained to her it will be best to proceed with evacuation of this hematoma in view of the risk of infection as well as because of the skin breakdown. She understood the technique of the procedure as well as the risks, benefits, and alternatives She was brought to the operating room. She was placed supine under general anesthesia via laryngeal mask airway. The lower leg was prepped and draped in the usual sterile fashion. A surgical time-out was done. The patient received cefazolin 2 g IV preoperatively. The large hematoma was palpable on the anterior aspect of the lower leg on the pretibial area. I made an incision on the skin overlying this using blade 15. This was about a 5 cm incision. I then proceeded to evacuate large clots the subcutaneous layer around the area using my fingers. Large amounts of clots were evacuated. I applied pressure from the periphery to was out the rest of the hematoma in the surrounding areas. After evacuation of large amounts of the hematoma, the lower leg appeared much smaller in diameter. Examination of the hematoma cavity did not reveal any active bleeding. I sharply debrided superficial skin, partial-thickness using Evans scissors to remove blisters and nonviable looking skin. This measured about 2 x 3 cm. I irrigated. I left the wound open to allow drainage. I then applied thick dressings and wrapped the lower leg with Kerlix as well as Tim bandage. The procedure was then completed The patient tolerated procedure well. There were no immediate complications. Initial and final counts of sponges and instruments were correct. Large amounts of clots were evacuated but there was actually minimal blood loss. The patient was then extubated without difficulty and transferred to the recovery room with stable vital sign.
[2023-10-11] MEDS: oxyCODONE HCl Immed Release 5 MG TABLET PO (13:49)
--- NOTE | 2023-10-11 14:09 | PM.EVENT ---
Event Note Date of Service: 10/14/23 Event Note: Seen postop Had evacuation of hematoma in the OR earlier She looks well with good pain control Dressings dry Stable vital signs Dry dressing changes with Kerlix and his bandage to wrap the leg Okay to restart anticoagulation tomorrow Time Spent With Patient Time: Total time managing care of this patient today ____ minutes.
[2023-10-11 16:17] LABS: Glucose, Whole Blood 134 mg/dL (60-115)
--- NOTE | 2023-10-11 17:59 | PC.NURSE ---
Pt was able to ambulate up to bathroom with 1A and walker to void.
[2023-10-11 18:34] LABS: Hematocrit 27.4 % (37.0-47.0); Hemoglobin 9.3 g/dl (12.0-16.0); Mean Corpuscular HGB Conc 33.9 g/dl (31.0-35.0); Mean Corpuscular Volume 91.3 fL (80.0-98.0); Mean Platelet Volume 11.4 fL (9.4-12.3); Platelet Count 127 X10*3/uL (160-400); Red Cell Distribution Width 13.3 % (11.0-16.0); White Blood Count 6.7 X10*3/uL (4.8-10.8)
[2023-10-11 20:24] LABS: Glucose, Whole Blood 154 mg/dL (60-115)
[2023-10-11] MEDS: Atorvastatin Calcium 80 MG TABLET PO (21:58)
[2023-10-11] MEDS: Doxazosin Mesylate 1 MG TABLET 3 MG PO (22:02)
[2023-10-11] MEDS: oxyBUTYnin chloride ER 5 MG TAB.ER.24 20 MG PO (22:02)
[2023-10-11] MEDS: Ziprasidone 80 MG CAPSULE PO (22:03)
[2023-10-12 03:15] VITALS: BP 144/74; PULSE 94; RESP 16; TEMP 36.1; O2SAT 96
[2023-10-12 06:48] LABS: Hematocrit 26.2 % (37.0-47.0); Hemoglobin 8.8 g/dl (12.0-16.0); Mean Corpuscular HGB Conc 33.6 g/dl (31.0-35.0); Mean Corpuscular Hemoglobin 30.9 pg (27.0-33.0); Mean Corpuscular Volume 91.9 fL (80.0-98.0); Mean Platelet Volume 11.6 fL (9.4-12.3); Platelet Count 115 X10*3/uL (160-400); Red Blood Count 2.85 X10*6/uL (4.20-5.50); Red Cell Distribution Width 13.3 % (11.0-16.0); White Blood Count 5.8 X10*3/uL (4.8-10.8)
[2023-10-12 07:18] VITALS: BP 123/70; PULSE 81; RESP 18; TEMP 36.3; O2SAT 95
[2023-10-12 07:39] LABS: Glucose, Whole Blood 120 mg/dL (60-115)
[2023-10-12 08:05] VITALS: BP 123/70; PULSE 81
[2023-10-12] MEDS: 0.9 % Sodium Chloride Flush 3 ML SYRINGE IVFLUSH ×3 (08:05→20:57)
[2023-10-12] MEDS: Ziprasidone 80 MG CAPSULE PO ×2 (08:05→20:56)
[2023-10-12] MEDS: Metoprolol Succinate ER 50 MG TAB.ER.24H PO (08:05)
--- NOTE | 2023-10-12 08:18 | HO.POSTANES ---
Post Anesthesia Evaluation Post Anesthesia Evaluation Date of Service: 10/12/23 Vital Signs: Vital Signs Temp Pulse Resp BP Pulse Ox O2 Del Method 10/12/23 08:05 81 123/70 10/12/23 07:18 97.4 F 81 18 123/70 95 Room Air 10/12/23 03:15 97.0 F 94 16 144/74 H 96 Room Air 10/11/23 22:02 136/90 H Anesthesia: General LMA Mental Status: Awake Pain Control: Satisfactory Nausea/Vomiting: None Hydration: Adequate Anesthesia-Related Issues: No Anes. Related Issues
--- NOTE | 2023-10-12 09:02 | HO.PM.IMPN ---
Subjective Subjective Date of Service: 10/12/23 Interval History: f/u on hematoma of the leg s/p fall s/p surgical evaluation on 10/10 interval history--doing ok with pain, able to walk to washroom Physical Exam Vital Signs: Vital Signs: Last Vital Signs Temp 97.4 F 10/12/23 07:18 Pulse 81 10/12/23 08:05 Resp 18 10/12/23 07:18 BP 123/70 10/12/23 08:05 Pulse Ox 95 10/12/23 07:18 O2 Del Method Room Air 10/12/23 07:18 O2 Flow Rate 2 10/11/23 12:15 BMI result Body Mass Index 25.9 A, O x3 Neck supple, no JVD Irregularly irregular, S1-S2 heard lungs CTA juan luis Abdomen soft nontender, no guarding, no rigidity Patient is awake, alert and oriented to self, place, time and person ; no focal motor deficit Psych: Normal mood Left lower extremity in Tim wrap with noted swelling and surounding bruse, no cyanosis to the foot Objective Data Active Medications Acetaminophen (Acetaminophen 325 Mg Tablet) 650 mg PO Q6H PRN PRN Reason: Pain, Mild (Pain Scale 1-3) Atorvastatin Calcium (Atorvastatin Calcium 80 Mg Tablet) 80 mg PO BEDTIME [facility] Last Admin: 10/11/23 21:58 Dose: 80 mg Documented By: YUMIKO Docusate Sodium (Docusate Sodium 100 Mg Capsule) 100 mg PO BEDTIME PRN PRN Reason: Constipation Doxazosin Mesylate (Doxazosin Mesylate 1 Mg Tablet) 3 mg PO BEDTIME [facility] Last Admin: 10/11/23 22:02 Dose: 3 mg Documented By: YUMIKO Glucose (Glucose Gel 15 Gm Gel..Gram.) 15 gm PO Q15M PRN; Protocol PRN Reason: per Hypoglycemia Standing Ord. Haloperidol Lactate (Haloperidol Lactate 5 Mg/Ml Vial) 0.5 mg IVPUSH ONCE PRN PRN Reason: Nausea and Vomiting Dextrose (D10) 250 mls @ 750 mls/hr IV Q15M PRN; Protocol PRN Reason: per Hypoglycemia Standing Ord. Insulin Human Lispro (Insulin Lispro 100 Unit/Ml 3 Ml Vial) 0 unit SUBCUT QIDACHS [facility]; Protocol Last Admin: 10/12/23 08:06 Dose: Not Given Documented By: HO.[email or web address] Non-Admin Reason: No Insulin Coverage Melatonin (Melatonin 3 Mg Tablet) 6 mg PO BEDTIME PRN PRN Reason: Insomnia Metformin HCl (Metformin Hcl 500 Mg Tablet) 500 mg PO BID [facility] Last Admin: 10/11/23 07:27 Dose: Not Given Documented By: JELANI Non-Admin Reason: Physician Held Med Metoprolol Succinate (Metoprolol Succinate Er 50 Mg Tab.Er.24h) 50 mg PO DAILY [facility]; Protocol Last Admin: 10/12/23 08:05 Dose: 50 mg Documented By: MICHELLE Morphine Sulfate (Morphine Sulfate 2 Mg/Ml Cartridge) 2 mg IVPUSH Q3H PRN; Protocol PRN Reason: Pain, Severe (Pain Scale 7-10) Ondansetron HCl (Ondansetron Hcl 4 Mg/2 Ml Vial) 4 mg IVPUSH Q8H PRN PRN Reason: Nausea and Vomiting Oxybutynin Chloride (Oxybutynin Chloride Er 5 Mg Tab.Er.24) 20 mg PO BEDTIME [facility] Last Admin: 10/11/23 22:02 Dose: 20 mg Documented By: YUMIKO Oxycodone HCl (Oxycodone Hcl Immed Release 5 Mg Tablet) 5 mg PO Q4H PRN PRN Reason: Pain, Moderate(Pain Scale 4-6) Last Admin: 10/11/23 13:49 Dose: 5 mg Documented By: MELINA Sodium Chloride (0.9 % Sodium Chloride Flush 3 Ml Syringe) [facility] Last Admin: 10/12/23 08:05 Dose: 3 ml Documented By: MICHELLE Tramadol HCl (Tramadol Hcl 50 Mg Tablet) 50 mg PO Q6H PRN PRN Reason: Pain, Severe (Pain Scale 7-10) Ziprasidone (Ziprasidone 80 Mg Capsule) 80 mg PO BID [facility] Last Admin: 10/12/23 08:05 Dose: 80 mg Documented By: MICHELLE Labs 10/12/23 05:45 10/11/23 05:16 Labs: Laboratory Results - last 24 hr 10/11/23 10/11/23 10/11/23 10:37 16:11 18:21 MCV 91.3 MCH 31.0 MCHC 33.9 RDW 13.3 Plt Count 127 L MPV 11.4 Absolute Nucleated RBC 0.000 Nucleated RBC % (auto) 0.0 POC Glucose 130 H 134 H 10/11/23 10/12/23 10/12/23 20:19 05:45 07:16 MCV 91.9 MCH 30.9 MCHC 33.6 RDW 13.3 Plt Count 115 L MPV 11.6 Absolute Nucleated RBC 0.000 Nucleated RBC % (auto) 0.0 POC Glucose 154 H 120 H Assessment and Plan (1) Acute blood loss anemia: Status: Acute (2) Hematoma of left lower extremity: Status: Acute Plan 67-year-old female with pertinent history of persistent atrial fibrillation on Eliquis, [id number] diabetes mellitus, mixed hyperlipidemia, mood disorder, hypertension who presents to the emergency department for evaluation after a fall. Hematoma of left lower extremity with ?active extravasation due to mechanical fall: Patient given PCC in the ER. -hold eliquis -s/p evacuation of hematoma yesterday Acute Blood loss anemia (ABLA) d/t above -monitor h/h, transfuse for Hgb < 7 or rapidly droping, so far steady Okt-qsufstz-tquhtahqv diabetes mellitus -SSI, diabetic diet, hold metformin following contrast use, can resume after 48 hrs Mixed hyperlipidemia: On statin Persistent atrial fibrillation: Rate controlled -continue Metoprolol -hold eliquis for now Hypertension: On lisinopril, metoprolol Mood disorder: Continue home mood stabilizers DVT prophylaxis: Mechanical Full code need for inpatient:large traumatic hematoma that needs surgical evacuation, close monitoring of hemodynamics and H&H (as above), which is not possible in a lesser acute setting. PT eval Quality Stroke Does the patient have a stroke diagnosis?: No VTE Prior VTE?: No VTE Risk Level:: Medical - moderate - high VTE Device Contraindication: N/A - Device Ordered VTE Drug Contraindication: Treatment Not Indicated
--- NOTE | 2023-10-12 09:51 | MHC.CM.PN ---
IMM DELIVERED. PATIENT LIVES IN A HOME ALONE. SHE IS INDP W/ ADL'S, BUT USES A ROLLATOR PRN WHEN IN THE COMMUNITY. PCP ONI COULTER MD COMPLETED HCP NAMING HER SISTER, BRYN [facility]. DP: GOAL IS HOME W/ SERVICES. PT EVAL PENDING. FAMILY TO TRANSPORT HOME. CM WILL CONTINUE TO FOLLOW.
[2023-10-12 11:36] LABS: Glucose, Whole Blood 133 mg/dL (60-115)
--- NOTE | 2023-10-12 13:39 | P.PNGS_ITS ---
Subjective Subjective Date of Service: 10/12/23 Interval history: Patient doing well feeling okay walking around in her room into the bathroom Physical Exam 2 Vital Signs: Vital Signs: Last Vital Signs Temp 97.4 F 10/12/23 07:18 Pulse 81 10/12/23 08:05 Resp 18 10/12/23 07:18 BP 123/70 10/12/23 08:05 Pulse Ox 95 10/12/23 07:18 O2 Del Method Room Air 10/12/23 07:18 O2 Flow Rate 2 10/11/23 12:15 BMI result Body Mass Index 25.9 Skin: Other: Taking down the dressings the leg is markedly discolored with evidence of old hematoma and skin discoloration but calf and just under the knee soft tissue looks healthy and viable no significant edema that concerns compartment syndrome. The open wound looks good. There is a little bit of some skin breakdown on the skin surrounding the open area. No active bleeding Objective Data Active Medications Acetaminophen (Acetaminophen 325 Mg Tablet) 650 mg PO Q6H PRN PRN Reason: Pain, Mild (Pain Scale 1-3) Atorvastatin Calcium (Atorvastatin Calcium 80 Mg Tablet) 80 mg PO BEDTIME [facility] Last Admin: 10/11/23 21:58 Dose: 80 mg Documented By: YUMIKO Docusate Sodium (Docusate Sodium 100 Mg Capsule) 100 mg PO BEDTIME PRN PRN Reason: Constipation Doxazosin Mesylate (Doxazosin Mesylate 1 Mg Tablet) 3 mg PO BEDTIME [facility] Last Admin: 10/11/23 22:02 Dose: 3 mg Documented By: YUMIKO Glucose (Glucose Gel 15 Gm Gel..Gram.) 15 gm PO Q15M PRN; Protocol PRN Reason: per Hypoglycemia Standing Ord. Haloperidol Lactate (Haloperidol Lactate 5 Mg/Ml Vial) 0.5 mg IVPUSH ONCE PRN PRN Reason: Nausea and Vomiting Dextrose (D10) 250 mls @ 750 mls/hr IV Q15M PRN; Protocol PRN Reason: per Hypoglycemia Standing Ord. Insulin Human Lispro (Insulin Lispro 100 Unit/Ml 3 Ml Vial) 0 unit SUBCUT QIDACHS [facility]; Protocol Last Admin: 10/12/23 11:44 Dose: Not Given Documented By: MICHELLE Non-Admin Reason: No Insulin Coverage Melatonin (Melatonin 3 Mg Tablet) 6 mg PO BEDTIME PRN PRN Reason: Insomnia Metformin HCl (Metformin Hcl 500 Mg Tablet) 500 mg PO BID [facility] Last Admin: 10/11/23 07:27 Dose: Not Given Documented By: JELANI Non-Admin Reason: Physician Held Med Metoprolol Succinate (Metoprolol Succinate Er 50 Mg Tab.Er.24h) 50 mg PO DAILY [facility]; Protocol Last Admin: 10/12/23 08:05 Dose: 50 mg Documented By: MICHELLE Morphine Sulfate (Morphine Sulfate 2 Mg/Ml Cartridge) 2 mg IVPUSH Q3H PRN; Protocol PRN Reason: Pain, Severe (Pain Scale 7-10) Ondansetron HCl (Ondansetron Hcl 4 Mg/2 Ml Vial) 4 mg IVPUSH Q8H PRN PRN Reason: Nausea and Vomiting Oxybutynin Chloride (Oxybutynin Chloride Er 5 Mg Tab.Er.24) 20 mg PO BEDTIME [facility] Last Admin: 10/11/23 22:02 Dose: 20 mg Documented By: YUMIKO Oxycodone HCl (Oxycodone Hcl Immed Release 5 Mg Tablet) 5 mg PO Q4H PRN PRN Reason: Pain, Moderate(Pain Scale 4-6) Last Admin: 10/11/23 13:49 Dose: 5 mg Documented By: MELINA Sodium Chloride (0.9 % Sodium Chloride Flush 3 Ml Syringe) [facility] Last Admin: 10/12/23 08:05 Dose: 3 ml Documented By: MICHELLE Tramadol HCl (Tramadol Hcl 50 Mg Tablet) 50 mg PO Q6H PRN PRN Reason: Pain, Severe (Pain Scale 7-10) Ziprasidone (Ziprasidone 80 Mg Capsule) 80 mg PO BID [facility] Last Admin: 10/12/23 08:05 Dose: 80 mg Documented By: MICHELLE Labs 10/12/23 05:45 10/11/23 05:16 Labs: Laboratory Results - last 24 hr 10/11/23 10/11/23 10/11/23 16:11 18:21 20:19 MCV 91.3 MCH 31.0 MCHC 33.9 RDW 13.3 Plt Count 127 L MPV 11.4 Absolute Nucleated RBC 0.000 Nucleated RBC % (auto) 0.0 POC Glucose 134 H 154 H 10/12/23 10/12/23 10/12/23 05:45 07:16 11:27 MCV 91.9 MCH 30.9 MCHC 33.6 RDW 13.3 Plt Count 115 L MPV 11.6 Absolute Nucleated RBC 0.000 Nucleated RBC % (auto) 0.0 POC Glucose 120 H 133 H Procedures Date of Service Date of Service: 10/12/23 Progress Note: A&P Assessment and plan (1) Hematoma of left lower extremity: Status: Acute Assessment and Plan: Patient is status post evacuation of left lower leg hematoma and overall looks really quite good. No active bleeding. Would recommend continuing just local dressings of gauze to the open area and compression with Tim from the foot to just under the knee. When patient is stable she can be discharged home from medical perspective and follow-up in the surgical office. Time Spent With Patient Time: Total time managing care of this patient today ____ minutes. Quality Stroke Does the patient have a stroke diagnosis?: No VTE Prior VTE?: No VTE Risk Level:: Medical - moderate - high VTE Device Contraindication: N/A - Device Ordered VTE Drug Contraindication: Treatment Not Indicated
[2023-10-12 15:29] VITALS: BP 126/73; PULSE 70; RESP 18; TEMP 36.5; O2SAT 98
[2023-10-12 16:53] LABS: Glucose, Whole Blood 123 mg/dL (60-115)
[2023-10-12 19:34] VITALS: BP 109/64; PULSE 71; RESP 18; TEMP 36.3; O2SAT 98
[2023-10-12 20:07] LABS: Glucose, Whole Blood 120 mg/dL (60-115)
[2023-10-12 20:55] VITALS: BP 109/64
[2023-10-12] MEDS: Doxazosin Mesylate 1 MG TABLET 3 MG PO (20:55)
[2023-10-12] MEDS: oxyBUTYnin chloride ER 5 MG TAB.ER.24 20 MG PO (20:56)
[2023-10-12] MEDS: Atorvastatin Calcium 80 MG TABLET PO (20:56)
[2023-10-13] MEDS: traMADoL HCL 50 MG TABLET PO (01:27)
[2023-10-13 03:44] VITALS: BP 123/82; PULSE 102; RESP 16; TEMP 36.1; O2SAT 97
[2023-10-13 06:29] LABS: Hematocrit 25.7 % (37.0-47.0); Hemoglobin 8.6 g/dl (12.0-16.0); Mean Corpuscular HGB Conc 33.5 g/dl (31.0-35.0); Mean Corpuscular Volume 92.8 fL (80.0-98.0); Mean Platelet Volume 10.7 fL (9.4-12.3); Platelet Count 124 X10*3/uL (160-400); Red Blood Count 2.77 X10*6/uL (4.20-5.50); Red Cell Distribution Width 13.4 % (11.0-16.0); White Blood Count 4.9 X10*3/uL (4.8-10.8)
[2023-10-13 07:11] VITALS: BP 130/68; PULSE 78; RESP 14; TEMP 36.6; O2SAT 97
--- NOTE | 2023-10-13 07:42 | P.PNIM_ITS ---
Subjective Subjective Date of Service: 10/13/23 Interval History: pain the back 10/13 left shoulder blade not related to prior fall thiks from lying in bed h/h is stable and minimal pain in the left leg Physical Exam 2 Vital Signs: Vital Signs: Last Vital Signs Temp 97.8 F 10/13/23 07:11 Pulse 78 10/13/23 07:11 Resp 14 10/13/23 07:11 BP 130/68 10/13/23 07:11 Pulse Ox 97 10/13/23 07:11 O2 Del Method Room Air 10/13/23 07:11 O2 Flow Rate 2 10/11/23 12:15 BMI result Body Mass Index 25.9 A, O x3 Neck supple, no JVD Irregularly irregular, S1-S2 heard lungs CTA juan luis Abdomen soft nontender, no guarding, no rigidity Patient is awake, alert and oriented to self, place, time and person ; no focal motor deficit msK normal appearing shoulders, and no pain with movment Psych: Normal mood Left lower extremity in Tim wrap with noted swelling and surounding bruse, no cyanosis to the foot Objective Data Active Medications Acetaminophen (Acetaminophen 325 Mg Tablet) 650 mg PO Q6H PRN PRN Reason: Pain, Mild (Pain Scale 1-3) Atorvastatin Calcium (Atorvastatin Calcium 80 Mg Tablet) 80 mg PO BEDTIME [facility] Last Admin: 10/12/23 20:56 Dose: 80 mg Documented By: YUMIKO Docusate Sodium (Docusate Sodium 100 Mg Capsule) 100 mg PO BEDTIME PRN PRN Reason: Constipation Doxazosin Mesylate (Doxazosin Mesylate 1 Mg Tablet) 3 mg PO BEDTIME [facility] Last Admin: 10/12/23 20:55 Dose: 3 mg Documented By: YUMIKO Glucose (Glucose Gel 15 Gm Gel..Gram.) 15 gm PO Q15M PRN; Protocol PRN Reason: per Hypoglycemia Standing Ord. Haloperidol Lactate (Haloperidol Lactate 5 Mg/Ml Vial) 0.5 mg IVPUSH ONCE PRN PRN Reason: Nausea and Vomiting Dextrose (D10) 250 mls @ 750 mls/hr IV Q15M PRN; Protocol PRN Reason: per Hypoglycemia Standing Ord. Insulin Human Lispro (Insulin Lispro 100 Unit/Ml 3 Ml Vial) 0 unit SUBCUT QIDAS [facility]; Protocol Last Admin: 10/12/23 20:51 Dose: Not Given Documented By: YUMIKO Non-Admin Reason: No Insulin Coverage Melatonin (Melatonin 3 Mg Tablet) 6 mg PO BEDTIME PRN PRN Reason: Insomnia Metformin HCl (Metformin Hcl 500 Mg Tablet) 500 mg PO BID [facility] Last Admin: 10/11/23 07:27 Dose: Not Given Documented By: JELANI Non-Admin Reason: Physician Held Med Metoprolol Succinate (Metoprolol Succinate Er 50 Mg Tab.Er.24h) 50 mg PO DAILY [facility]; Protocol Last Admin: 10/12/23 08:05 Dose: 50 mg Documented By: MICHELLE Morphine Sulfate (Morphine Sulfate 2 Mg/Ml Cartridge) 2 mg IVPUSH Q3H PRN; Protocol PRN Reason: Pain, Severe (Pain Scale 7-10) Ondansetron HCl (Ondansetron Hcl 4 Mg/2 Ml Vial) 4 mg IVPUSH Q8H PRN PRN Reason: Nausea and Vomiting Oxybutynin Chloride (Oxybutynin Chloride Er 5 Mg Tab.Er.24) 20 mg PO BEDTIME [facility] Last Admin: 10/12/23 20:56 Dose: 20 mg Documented By: YUMIKO Oxycodone HCl (Oxycodone Hcl Immed Release 5 Mg Tablet) 5 mg PO Q4H PRN PRN Reason: Pain, Moderate(Pain Scale 4-6) Last Admin: 10/11/23 13:49 Dose: 5 mg Documented By: MELINA Sodium Chloride (0.9 % Sodium Chloride Flush 3 Ml Syringe) 3 ml IVFSH [facility] Last Admin: 10/12/23 20:57 Dose: 3 ml Documented By: YUMIKO Tramadol HCl (Tramadol Hcl 50 Mg Tablet) 50 mg PO Q6H PRN PRN Reason: Pain, Severe (Pain Scale 7-10) Last Admin: 10/13/23 01:27 Dose: 50 mg Documented By: YUMIKO Ziprasidone (Ziprasidone 80 Mg Capsule) 80 mg PO BID [facility] Last Admin: 10/12/23 20:56 Dose: 80 mg Documented By: YUMIKO Labs 10/13/23 06:18 10/11/23 05:16 Labs: Laboratory Results - last 24 hr 10/12/23 10/12/23 10/12/23 11:27 16:47 19:59 MCV MCH MCHC RDW Plt Count MPV Absolute Nucleated RBC Nucleated RBC % (auto) POC Glucose 133 H 123 H 120 H 10/13/23 06:18 MCV 92.8 MCH 31.0 MCHC 33.5 RDW 13.4 Plt Count 124 L MPV 10.7 Absolute Nucleated RBC 0.000 Nucleated RBC % (auto) 0.0 POC Glucose Assessment and Plan (1) Acute blood loss anemia: Status: Acute (2) Hematoma of left lower extremity: Status: Acute Plan 67-year-old female with pertinent history of persistent atrial fibrillation on Eliquis, [id number] diabetes mellitus, mixed hyperlipidemia, mood disorder, hypertension who presents to the emergency department for evaluation after a fall. Hematoma of left lower extremity d/t mechanical fall rsulting in Acute Blood loss anemia (ABLA) -continue holding eliquis -s/p evacuation of hematoma 6/7 -monitor h/h ABLA d/t above -monitor h/h, transfuse for Hgb < 7 or rapidly droping, so far steady [id number] diabetes mellitus -SSI, diabetic diet, hold metformin following contrast use, can resume after 48 hrs Mixed hyperlipidemia: On statin Persistent atrial fibrillation: Rate controlled -continue Metoprolol -hold eliquis for now Hypertension: On lisinopril, metoprolol Mood disorder: Continue home mood stabilizers DVT prophylaxis: Mechanical Full code need for inpatient:large traumatic hematoma that needs surgical evacuation, close monitoring of hemodynamics and H&H (as above), which is not possible in a lesser acute setting. PT eval tomorrow Quality Stroke Does the patient have a stroke diagnosis?: No VTE Prior VTE?: No VTE Risk Level:: Medical - moderate - high VTE Device Contraindication: N/A - Device Ordered VTE Drug Contraindication: Treatment Not Indicated
[2023-10-13 07:48] LABS: Glucose, Whole Blood 99 mg/dL (60-115)
[2023-10-13 08:04] VITALS: BP 130/68; PULSE 78
[2023-10-13] MEDS: Ziprasidone 80 MG CAPSULE PO ×2 (08:04→21:27)
[2023-10-13] MEDS: Metoprolol Succinate ER 50 MG TAB.ER.24H PO (08:04)
[2023-10-13] MEDS: 0.9 % Sodium Chloride Flush 3 ML SYRINGE IVFLUSH ×3 (08:04→21:28)
[2023-10-13 11:09] LABS: Glucose, Whole Blood 122 mg/dL (60-115)
[2023-10-13 15:14] VITALS: BP 111/67; PULSE 69; RESP 18; TEMP 36.2; O2SAT 98
[2023-10-13 16:36] LABS: Glucose, Whole Blood 115 mg/dL (60-115)
--- NOTE | 2023-10-13 16:58 | P.PNGS_ITS ---
Subjective Subjective Date of Service: 10/13/23 Interval history: feels good walking in room Physical Exam 2 Vital Signs: Vital Signs: Last Vital Signs Temp 97.2 F 10/13/23 15:14 Pulse 69 10/13/23 15:14 Resp 18 10/13/23 15:14 BP 111/67 10/13/23 15:14 Pulse Ox 98 10/13/23 15:14 O2 Del Method Room Air 10/13/23 15:14 O2 Flow Rate 2 10/11/23 12:15 BMI result Body Mass Index 25.9 Skin: Other: wound looks good and leg less swelling - some old blood stain on dressing Objective Data Active Medications Acetaminophen (Acetaminophen 325 Mg Tablet) 650 mg PO Q6H PRN PRN Reason: Pain, Mild (Pain Scale 1-3) Atorvastatin Calcium (Atorvastatin Calcium 80 Mg Tablet) 80 mg PO BEDTIME [facility] Last Admin: 10/12/23 20:56 Dose: 80 mg Documented By: YUMIKO Docusate Sodium (Docusate Sodium 100 Mg Capsule) 100 mg PO BEDTIME PRN PRN Reason: Constipation Doxazosin Mesylate (Doxazosin Mesylate 1 Mg Tablet) 3 mg PO BEDTIME [facility] Last Admin: 10/12/23 20:55 Dose: 3 mg Documented By: YUMIKO Glucose (Glucose Gel 15 Gm Gel..Gram.) 15 gm PO Q15M PRN; Protocol PRN Reason: per Hypoglycemia Standing Ord. Haloperidol Lactate (Haloperidol Lactate 5 Mg/Ml Vial) 0.5 mg IVPUSH ONCE PRN PRN Reason: Nausea and Vomiting Dextrose (D10) 250 mls @ 750 mls/hr IV Q15M PRN; Protocol PRN Reason: per Hypoglycemia Standing Ord. Insulin Human Lispro (Insulin Lispro 100 Unit/Ml 3 Ml Vial) 0 unit SUBCUT QIDACHS [facility]; Protocol Last Admin: 10/13/23 16:48 Dose: Not Given Documented By: MICHELLE Non-Admin Reason: No Insulin Coverage Melatonin (Melatonin 3 Mg Tablet) 6 mg PO BEDTIME PRN PRN Reason: Insomnia Metformin HCl (Metformin Hcl 500 Mg Tablet) 500 mg PO BID [facility] Last Admin: 10/13/23 09:17 Dose: Not Given Documented By: MICHELLE Non-Admin Reason: Physician Held Med Comments: Resume medication with nighttime dose per Pharmacy and Dr. Nicole. Metoprolol Succinate (Metoprolol Succinate Er 50 Mg Tab.Er.24h) 50 mg PO DAILY [facility]; Protocol Last Admin: 10/13/23 08:04 Dose: 50 mg Documented By: MICHELLE Morphine Sulfate (Morphine Sulfate 2 Mg/Ml Cartridge) 2 mg IVPUSH Q3H PRN; Protocol PRN Reason: Pain, Severe (Pain Scale 7-10) Ondansetron HCl (Ondansetron Hcl 4 Mg/2 Ml Vial) 4 mg IVPUSH Q8H PRN PRN Reason: Nausea and Vomiting Oxybutynin Chloride (Oxybutynin Chloride Er 5 Mg Tab.Er.24) 20 mg PO BEDTIME [facility] Last Admin: 10/12/23 20:56 Dose: 20 mg Documented By: YUMIKO Oxycodone HCl (Oxycodone Hcl Immed Release 5 Mg Tablet) 5 mg PO Q4H PRN PRN Reason: Pain, Moderate(Pain Scale 4-6) Last Admin: 10/11/23 13:49 Dose: 5 mg Documented By: MELINA Sodium Chloride (0.9 % Sodium Chloride Flush 3 Ml Syringe) [facility] Last Admin: 10/13/23 08:04 Dose: 3 ml Documented By: MICHELLE Tramadol HCl (Tramadol Hcl 50 Mg Tablet) 50 mg PO Q6H PRN PRN Reason: Pain, Severe (Pain Scale 7-10) Last Admin: 10/13/23 01:27 Dose: 50 mg Documented By: YUMIKO Ziprasidone (Ziprasidone 80 Mg Capsule) 80 mg PO BID [facility] Last Admin: 10/13/23 08:04 Dose: 80 mg Documented By: MICHELLE Labs 10/13/23 06:18 10/11/23 05:16 Labs: Laboratory Results - last 24 hr 10/12/23 10/13/23 10/13/23 19:59 06:18 07:14 MCV 92.8 MCH 31.0 MCHC 33.5 RDW 13.4 Plt Count 124 L MPV 10.7 Absolute Nucleated RBC 0.000 Nucleated RBC % (auto) 0.0 POC Glucose 120 H 99 10/13/23 10/13/23 11:01 16:33 MCV MCH MCHC RDW Plt Count MPV Absolute Nucleated RBC Nucleated RBC % (auto) POC Glucose 122 H 115 Procedures Date of Service Date of Service: 10/13/23 Progress Note: A&P Assessment and plan (1) Hematoma of left lower extremity: Status: Acute Assessment and Plan: leg and wound looks good - cont with navid wrap and dressings and walk with PT med team to determine the anticoagulation status but consider resuming tomorrow if urgent need Time Spent With Patient Time: Total time managing care of this patient today ____ minutes. Quality Stroke Does the patient have a stroke diagnosis?: No VTE Prior VTE?: No VTE Risk Level:: Medical - moderate - high VTE Device Contraindication: N/A - Device Ordered VTE Drug Contraindication: Treatment Not Indicated
[2023-10-13 19:09] VITALS: BP 126/68; PULSE 83; RESP 18; TEMP 36.6; O2SAT 99
[2023-10-13 19:57] LABS: Glucose, Whole Blood 156 mg/dL (60-115)
[2023-10-13] MEDS: Docusate Sodium 100 MG CAPSULE PO (21:25)
[2023-10-13] MEDS: oxyBUTYnin chloride ER 5 MG TAB.ER.24 20 MG PO (21:26)
[2023-10-13 21:27] VITALS: BP 126/68
[2023-10-13] MEDS: Doxazosin Mesylate 1 MG TABLET 3 MG PO (21:27)
[2023-10-13] MEDS: Insulin Lispro 100 UNIT/ML 3 ML VIAL SUBCUT (21:27)
[2023-10-13] MEDS: metFORMIN HCl 500 MG TABLET PO (21:27)
[2023-10-13] MEDS: Atorvastatin Calcium 80 MG TABLET PO (21:27)
[2023-10-14 04:00] VITALS: BP 108/64; PULSE 67; RESP 16; TEMP 36.1; O2SAT 97
[2023-10-14] MEDS: traMADoL HCL 50 MG TABLET PO (04:20)
[2023-10-14 07:23] VITALS: BP 111/65; PULSE 70; RESP 16; TEMP 36.1; O2SAT 96
[2023-10-14 07:34] LABS: Glucose, Whole Blood 95 mg/dL (60-115)
--- NOTE | 2023-10-14 08:03 | PM.PNGS ---
Subjective Subjective Date of Service: 10/14/23 Interval history: States she feels well Denies significant pain No events reported Physical Exam Vital Signs: Vital Signs: Last Vital Signs Temp 97.0 F 10/14/23 07:23 Pulse 70 10/14/23 07:23 Resp 16 10/14/23 07:23 BP 111/65 10/14/23 07:23 Pulse Ox 96 10/14/23 07:23 O2 Del Method Room Air 10/14/23 07:23 O2 Flow Rate 2 10/11/23 12:15 BMI result Body Mass Index 25.9 Const: Other: With tremors General: comfortable and no acute distress Resp: Effort & Inspection: normal respiratory effort Cardio: Rhythm: abnormal rhythm GI: Palpation (GI): Soft to palpation and not firm Extrem: Other: Left lower leg with open wound, clean, ecchymosis much improved, swelling has improved significantly, no evidence of pus/infection Objective Data Active Medications Acetaminophen (Acetaminophen 325 Mg Tablet) 650 mg PO Q6H PRN PRN Reason: Pain, Mild (Pain Scale 1-3) Atorvastatin Calcium (Atorvastatin Calcium 80 Mg Tablet) 80 mg PO BEDTIME [facility] Last Admin: 10/13/23 21:27 Dose: 80 mg Documented By: JACKY Docusate Sodium (Docusate Sodium 100 Mg Capsule) 100 mg PO BEDTIME PRN PRN Reason: Constipation Last Admin: 10/13/23 21:25 Dose: 100 mg Documented By: JACKY Comments: pt feels constipated Doxazosin Mesylate (Doxazosin Mesylate 1 Mg Tablet) 3 mg PO BEDTIME [facility] Last Admin: 10/13/23 21:27 Dose: 3 mg Documented By: JACKY Glucose (Glucose Gel 15 Gm Gel..Gram.) 15 gm PO Q15M PRN; Protocol PRN Reason: per Hypoglycemia Standing Ord. Haloperidol Lactate (Haloperidol Lactate 5 Mg/Ml Vial) 0.5 mg IVPUSH ONCE PRN PRN Reason: Nausea and Vomiting Dextrose (D10) 250 mls @ 750 mls/hr IV Q15M PRN; Protocol PRN Reason: per Hypoglycemia Standing Ord. Insulin Human Lispro (Insulin Lispro 100 Unit/Ml 3 Ml Vial) 0 unit SUBCUT QIDACHS [facility]; Protocol Last Admin: 10/13/23 21:27 Dose: 2 unit Documented By: JACKY Melatonin (Melatonin 3 Mg Tablet) 6 mg PO BEDTIME PRN PRN Reason: Insomnia Metformin HCl (Metformin Hcl 500 Mg Tablet) 500 mg PO BID [facility] Last Admin: 10/13/23 21:27 Dose: 500 mg Documented By: JACKY Metoprolol Succinate (Metoprolol Succinate Er 50 Mg Tab.Er.24h) 50 mg PO DAILY [facility]; Protocol Last Admin: 10/13/23 08:04 Dose: 50 mg Documented By: MICHELLE Morphine Sulfate (Morphine Sulfate 2 Mg/Ml Cartridge) 2 mg IVPUSH Q3H PRN; Protocol PRN Reason: Pain, Severe (Pain Scale 7-10) Ondansetron HCl (Ondansetron Hcl 4 Mg/2 Ml Vial) 4 mg IVPUSH Q8H PRN PRN Reason: Nausea and Vomiting Oxybutynin Chloride (Oxybutynin Chloride Er 5 Mg Tab.Er.24) 20 mg PO BEDTIME [facility] Last Admin: 10/13/23 21:26 Dose: 20 mg Documented By: JACKY Oxycodone HCl (Oxycodone Hcl Immed Release 5 Mg Tablet) 5 mg PO Q4H PRN PRN Reason: Pain, Moderate(Pain Scale 4-6) Last Admin: 10/11/23 13:49 Dose: 5 mg Documented By: MELINA Sodium Chloride (0.9 % Sodium Chloride Flush 3 Ml Syringe) 3 ml IVFLUSH [facility] Last Admin: 10/13/23 21:28 Dose: 3 ml Documented By: JACKY Tramadol HCl (Tramadol Hcl 50 Mg Tablet) 50 mg PO Q6H PRN PRN Reason: Pain, Severe (Pain Scale 7-10) Last Admin: 10/14/23 04:20 Dose: 50 mg Documented By: JACKY Ziprasidone (Ziprasidone 80 Mg Capsule) 80 mg PO BID [facility] Last Admin: 10/13/23 21:27 Dose: 80 mg Documented By: JACKY Labs 10/13/23 06:18 10/11/23 05:16 Labs: Laboratory Results - last 24 hr 10/13/23 10/13/23 10/13/23 11:01 16:33 19:52 POC Glucose 122 H 115 156 H 10/14/23 07:19 POC Glucose 95 Procedures Date of Service Date of Service: 10/14/23 Progress Note: A&P Assessment and plan (1) Hematoma of left lower extremity: Status: Acute Assessment and Plan: Status post evacuation of hematoma and debridement Left leg much improved with regards to ecchymosis and swelling Wound clean I changed her dressings - gauze over the open wound and wrapped the lower leg with Kerlix and Tim bandage May need a visiting nurse on discharge Okay to [place] home as far as surgery is concerned with continuing wound care Time Spent With Patient Time: Total time managing care of this patient today ____ minutes. Quality Stroke Does the patient have a stroke diagnosis?: No VTE Prior VTE?: No VTE Risk Level:: Medical - moderate - high VTE Device Contraindication: N/A - Device Ordered VTE Drug Contraindication: Treatment Not Indicated
[2023-10-14] MEDS: Ziprasidone 80 MG CAPSULE PO (08:09)
[2023-10-14 08:10] VITALS: BP 111/65; PULSE 70
[2023-10-14] MEDS: Metoprolol Succinate ER 50 MG TAB.ER.24H PO (08:10)
[2023-10-14] MEDS: metFORMIN HCl 500 MG TABLET PO (08:10)
[2023-10-14] MEDS: 0.9 % Sodium Chloride Flush 3 ML SYRINGE IVFLUSH (08:11)
[2023-10-14 08:26] VITALS: BP 111/65; PULSE 70
--- NOTE | 2023-10-14 09:57 | P.PNIM_ITS ---
Subjective Subjective Date of Service: 10/14/23 Interval History: doing well no new issues, able to walk without issues Physical Exam 2 Vital Signs: Vital Signs: Last Vital Signs Temp 97.0 F 10/14/23 07:23 Pulse 70 10/14/23 08:10 Resp 16 10/14/23 07:23 BP 111/65 10/14/23 08:10 Pulse Ox 96 10/14/23 07:23 O2 Del Method Room Air 10/14/23 07:23 O2 Flow Rate 2 10/11/23 12:15 BMI result Body Mass Index 25.9 Objective Data Active Medications Acetaminophen (Acetaminophen 325 Mg Tablet) 650 mg PO Q6H PRN PRN Reason: Pain, Mild (Pain Scale 1-3) Atorvastatin Calcium (Atorvastatin Calcium 80 Mg Tablet) 80 mg PO BEDTIME [facility] Last Admin: 10/13/23 21:27 Dose: 80 mg Documented By: JACKY Docusate Sodium (Docusate Sodium 100 Mg Capsule) 100 mg PO BEDTIME PRN PRN Reason: Constipation Last Admin: 10/13/23 21:25 Dose: 100 mg Documented By: JACKY Comments: pt feels constipated Doxazosin Mesylate (Doxazosin Mesylate 1 Mg Tablet) 3 mg PO BEDTIME [facility] Last Admin: 10/13/23 21:27 Dose: 3 mg Documented By: JACKY Glucose (Glucose Gel 15 Gm Gel..Gram.) 15 gm PO Q15M PRN; Protocol PRN Reason: per Hypoglycemia Standing Ord. Haloperidol Lactate (Haloperidol Lactate 5 Mg/Ml Vial) 0.5 mg IVPUSH ONCE PRN PRN Reason: Nausea and Vomiting Dextrose (D10) 250 mls @ 750 mls/hr IV Q15M PRN; Protocol PRN Reason: per Hypoglycemia Standing Ord. Insulin Human Lispro (Insulin Lispro 100 Unit/Ml 3 Ml Vial) 0 unit SUBCUT QIDACHS [facility]; Protocol Last Admin: 10/14/23 08:05 Dose: Not Given Documented By: JUDE Non-Admin Reason: No Insulin Coverage Melatonin (Melatonin 3 Mg Tablet) 6 mg PO BEDTIME PRN PRN Reason: Insomnia Metformin HCl (Metformin Hcl 500 Mg Tablet) 500 mg PO BID [facility] Last Admin: 10/14/23 08:10 Dose: 500 mg Documented By: JUDE Metoprolol Succinate (Metoprolol Succinate Er 50 Mg Tab.Er.24h) 50 mg PO DAILY [facility]; Protocol Last Admin: 10/14/23 08:10 Dose: 50 mg Documented By: JUDE Morphine Sulfate (Morphine Sulfate 2 Mg/Ml Cartridge) 2 mg IVPUSH Q3H PRN; Protocol PRN Reason: Pain, Severe (Pain Scale 7-10) Ondansetron HCl (Ondansetron Hcl 4 Mg/2 Ml Vial) 4 mg IVPUSH Q8H PRN PRN Reason: Nausea and Vomiting Oxybutynin Chloride (Oxybutynin Chloride Er 5 Mg Tab.Er.24) 20 mg PO BEDTIME [facility] Last Admin: 10/13/23 21:26 Dose: 20 mg Documented By: JACKY Oxycodone HCl (Oxycodone Hcl Immed Release 5 Mg Tablet) 5 mg PO Q4H PRN PRN Reason: Pain, Moderate(Pain Scale 4-6) Last Admin: 10/11/23 13:49 Dose: 5 mg Documented By: MELINA Sodium Chloride (0.9 % Sodium Chloride Flush 3 Ml Syringe) [facility] Last Admin: 10/14/23 08:11 Dose: 3 ml Documented By: JUDE Tramadol HCl (Tramadol Hcl 50 Mg Tablet) 50 mg PO Q6H PRN PRN Reason: Pain, Severe (Pain Scale 7-10) Last Admin: 10/14/23 04:20 Dose: 50 mg Documented By: JACKY Ziprasidone (Ziprasidone 80 Mg Capsule) 80 mg PO BID [facility] Last Admin: 10/14/23 08:09 Dose: 80 mg Documented By: JUDE Labs 10/13/23 06:18 10/11/23 05:16 Labs: Laboratory Results - last 24 hr 10/13/23 10/13/23 10/13/23 11:01 16:33 19:52 POC Glucose 122 H 115 156 H 10/14/23 07:19 POC Glucose 95 Assessment and Plan (1) Acute blood loss anemia: Status: Acute (2) Hematoma of left lower extremity: Status: Acute Plan 67-year-old female with pertinent history of persistent atrial fibrillation on Eliquis, [id number]-ryerdcinh diabetes mellitus, mixed hyperlipidemia, mood disorder, hypertension who presents to the emergency department for evaluation after a fall. Hematoma of left lower extremity d/t mechanical fall rsulting in Acute Blood loss anemia (ABLA) -continue holding eliquis -s/p evacuation of hematoma 6/7 -monitor h/h ABLA d/t above -monitor h/h, transfuse for Hgb < 7 or rapidly droping, so far steady [id number]-zyhbwrvvv diabetes mellitus -SSI, diabetic diet, hold metformin following contrast use, can resume after 48 hrs Mixed hyperlipidemia: On statin Persistent atrial fibrillation: Rate controlled -continue Metoprolol -restart eliquis tomorrow Hypertension: On lisinopril, metoprolol Mood disorder: Continue home mood stabilizers DVT prophylaxis: Mechanical Full code need for inpatient:large traumatic hematoma that needs surgical evacuation, close monitoring of hemodynamics and H&H (as above), which is not possible in a lesser acute setting. PT eval tomorrow Quality Stroke Does the patient have a stroke diagnosis?: No VTE Prior VTE?: No VTE Risk Level:: Medical - moderate - high VTE Device Contraindication: N/A - Device Ordered VTE Drug Contraindication: Treatment Not Indicated
[2023-10-14 11:18] LABS: Glucose, Whole Blood 109 mg/dL (60-115)
--- NOTE | 2023-10-14 14:05 | P.F2F_ITS ---
Service Date Service Date: 10/14/23 Encounter Date of encounter: 10/14/23 Reasons for Services Signs and symptoms assessed: fall, large hematoma of the leg on anticoagulation and needed surgical evacuation Reason for custodial: wound care Reason for physical therapy: therapeutic exercises, gait/transfer training and assess need for DME Homebound: Leaving the home is medically contraindicated at this time without the asist of a device and/or another person due th the listed conditions above and below. Reason homebound: unsteady gait / fall risk and fall risk related to blood pressure changes Homebound supporting statement: homebound due to fall with large hematoma of leg on anticoagulation , limitted activity and therefore needing the ambulation of another person Certification: Based on the above findings, I certify that this patient is confined to the home and needs intermittent custodial care, physical therapy and/or speech therapy, or continues to need occupational therapy. The patient is under my care, and I have initiated the establishment of the plan of care. The patient will be followed by a physician who will periodically review the plan of care. Time Spent With Patient Time: Total time managing care of this patient today ____ minutes.
--- NOTE | 2023-10-14 14:08 | PM.DS ---
DS: Providers Provider Date of Service: 10/14/23 Date of admission: 10/10/23 21:22 Primary care physician: Elsa Barrera MD Consults: 10/10/23 20:40 Consult to General Surgery Stat Consulting Provider: [facility] General Surgeons Reason for consultation: Actively bleeding hematoma on the left lower extremity Has provider been notified: Yes DS: Diagnosis Discharge Diagnosis (1) Acute blood loss anemia: Status: Acute (2) Hematoma of left lower extremity: Status: Acute DS: Summary Hospital Course Hospital Course: admission hpi Chief Complaint: Fall This is a 67-year-old female with pertinent history of persistent atrial fibrillation on Eliquis, axa-ckmjibt-jiwsytswh diabetes mellitus, mixed hyperlipidemia, mood disorder, hypertension who presents to the emergency department for evaluation after a fall. Patient states she tripped while using her walker and fell on her left lower extremity. Denies loss of consciousness before or after the fall. No chest pain or palpitations prior to the fall. Patient states she has been having left leg swelling, pain, bruising since the fall. Also hit her head. Is on Eliquis for AFib. No fever, chills, chest discomfort, palpitations, shortness of breath, nausea, vomiting, abdominal pain, changes in urinary or bowel habits. In the emergency department, imaging with left lower extremity hematoma with questionable active extravasation. General surgery was consulted who will take the patient OR in a.m.. Patient was given PCC. hospital course: The patient experienced a mechanical fall, leading to a left lower extremity injury with left leg hematoma and acute blood loss anemia (ABLA) while on Eliquis. Eliquis was temporarily discontinued. She underwent successful clot evacuation on 10/[address] Andrade. Despite her low blood count, it has remained stable, and no transfusion was needed. The surgeon recommends resuming anticoagulation soon, likely tomorrow. She will be discharged with visiting nurse services for wound care and physical therapy (PT) for gait and ambulation. Additionally, she is advised to exercise caution while walking and to use an assistive device. She is to resume all other medications. Final diagnoses: Left leg hematoma acute blood loss anemia Time Attestation Discharge Coordination Time (in mins): 40 Quality: Safe Use of Opioids Does Pt have an Active Cancer Diagnosis on the Problem List?: No Quality: Stroke Does the patient have a stroke diagnosis?: No Physical Exam Vital Signs: Vital Signs: Last Vital Signs Temp 97.0 F 10/14/23 07:23 Pulse 70 10/14/23 08:26 Resp 16 10/14/23 07:23 BP 111/65 10/14/23 08:26 Pulse Ox 96 10/14/23 07:23 O2 Del Method Room Air 10/14/23 07:23 O2 Flow Rate 2 10/11/23 12:15 BMI result Body Mass Index 25.9 see prgress note DS: Data Data Completed and Pending Pending studies at discharge: Pending at discharge 10/11/23 11:28 Surgical [PTH] Routine Labs on day of discharge: Laboratory Results - last 24 hr 10/13/23 10/13/23 10/14/23 16:33 19:52 07:19 POC Glucose 115 156 H 95 10/14/23 11:14 POC Glucose 109 Discharge Plan Discharge Anticipated Discharge Date/Time: 10/14/23 13:56 Patient Disposition: Home Health Service Discharge Diagnosis: Acute blood loss anemia, Hemtoma of the left leg Referrals: [facility] [Outside] - 3-5 Days (Home services for fpc and physical therapy- a nurse will call you to set up first visit) Elsa Barrera MD [Primary Care Provider] - 1 Week Freedom Andrade MD [Physician] - 1 Week Discharge Medications: New oxycodone 5 mg Tablet 5 mg PO Q4H PRN (Reason: Pain, Moderate(Pain Scale 4-6)) Qty: 20 0RF Rx Instructions: Partial Fill upon patient request. Continued metformin 500 mg tablet 500 mg PO BID Qty: 180 1RF terazosin 1 mg capsule 3 mg PO BEDTIME 90 Days Qty: 270 3RF oxybutynin chloride 10 mg tablet extended release 24hr 20 mg PO BEDTIME 90 Days Qty: 180 2RF metoprolol succinate 100 mg tablet extended release 24 hr 100 mg PO DAILY Qty: 90 0RF atorvastatin 80 mg tablet 80 mg PO BEDTIME Qty: 90 2RF Eliquis 5 mg tablet 5 mg PO BID 90 Days Qty: 180 1RF PreserVision AREDS-2 250-90-40-1 mg Capsule 1 tab PO BID docusate sodium [Colace] 100 mg capsule 100 mg PO BEDTIME PRN (Reason: Constipation) lisinopril 2.5 mg tablet 2.5 mg PO BEDTIME Avastin 25 mg/mL Solution 25 mg IV DIRECTED Rx Instructions: Every 11 weeks, when ask for last dose, patient did not know, but says she is no where near next dose ziprasidone HCl 80 mg capsule 80 mg PO BID Discharge Orders: Discharge Order (Routine); Ordered 10/14/23 Ordered By: Ramu Nicole Diet: Advance to usual diet Activity on Discharge: As tolerated Stand Alone Forms: Patient Portal Discharge page Print Language: Kosovan Other Ambulatory Orders: Complete Blood Count no Diff (Routine) Timeframe: 1 Week Facility: [facility] - Location: Laboratory Ordered By: Ramu Nicole Activity Restrictions/Additional Instructions: Wound care: gauze over the open wound, followed by kerlix wrap and navid bandage, change daily or every other day Care Plan Goals: Timely healing of the wound, fall prevention and reduce risk of complication from anticoagulation Health Concerns: fall hematoma of the leg acute blood loss anemia Plan of Treatment: see ky bhaktae eliquis tomorrow October 14, if you notice any sings of bleeding, please stop eliquis and seek medical attention, including calling [address] Andrade (Surgeon) Follow up with your PCP Assessment: see above Discharge Date/Time: 10/14/23 16:50
--- NOTE | 2023-10-14 14:12 | MHC.CM.PN ---
DP: PT HAS BEEN MEDICALLY CLEARED FOR DC HOME WITH NEW [facility] FOR SN/PT SERVICES. [facility] NOTIFIED OF TODAY'S DC. BLS TRANSPORT BOOKED FOR 3:30 PM VIA [facility].
[2023-10-14 15:24] VITALS: BP 104/74; PULSE 94; RESP 18; TEMP 36.3; O2SAT 100
[2023-10-14 16:15] LABS: Glucose, Whole Blood 100 mg/dL (60-115)
== END 2023-10-14 16:50 | disposition home health service (06) | DRG 580 ==
LOC: HO.ED 21:01 → HO.EDOVER 21:32 → HO.S3 10-11 09:46
PROVIDERS: Physician Assistant; Physician Assistant Medical; Surgery; Admitting Provider Student in an Organized Health Care Education/Training Program; Emergency Provider Emergency Medicine; PCP Internal Medicine; Visit Provider Internal Medicine
PROC: 0JCP0ZZ Extirpation of Matter from Left Lower Leg Subcutaneous Tissue and Fascia, Open Approach (ICD-10-PCS; principal; 2023-10-11 10:30)
DX: S80.12XA Contusion of left lower leg, initial encounter (principal); D62 Acute posthemorrhagic anemia; I48.19 Other persistent atrial fibrillation; W19.XXXA Unspecified fall, initial encounter; I10 Essential (primary) hypertension; F31.9 Bipolar disorder, unspecified; E78.2 Mixed hyperlipidemia; Z79.01 Long term (current) use of anticoagulants; Z79.84 Long term (current) use of oral hypoglycemic drugs; Z79.899 Other long term (current) drug therapy
CPT/HCPCS: 36415; 70450; 72125; 73701; 80048; 80076; 82947; 85014; 85018; 85025; 85027; 85610; 85730; 86850; 86900; 86901; 88304; 97161; 99285; J0690; J1100; J2250; J2405; J2704; J2795; J3010; J7168; Q9967

== ENCOUNTER → 2023-10-10 17:45 | Outpatient (BNV) | payer MEDICARE, SELFPAY | PROVIDERS: Emergency Provider Emergency Medicine; PCP Internal Medicine; Visit Provider Student in an Organized Health Care Education/Training Program | DX: D62 Acute posthemorrhagic anemia (principal); S80.12XA Contusion of left lower leg, initial encounter | CPT/HCPCS: 99222; 99232; 99239; G0180 ==

== ENCOUNTER → 2023-10-10 21:22 | Outpatient (BNV) | payer MEDICARE, SELFPAY | PROVIDERS: Admitting Provider Student in an Organized Health Care Education/Training Program; Emergency Provider Emergency Medicine; PCP Internal Medicine; Visit Provider Surgery | DX: S80.12XA Contusion of left lower leg, initial encounter (principal) | CPT/HCPCS: 27603; 99024; 99222; 99232; 99499 ==

== ENCOUNTER 2023-10-23 14:20 | Outpatient (REF) | payer MEDICARE, SELFPAY ==
[2023-10-23 15:42] LABS: Hematocrit 32.6 % (37.0-47.0); Hemoglobin 10.7 g/dl (12.0-16.0); Mean Corpuscular HGB Conc 32.8 g/dl (31.0-35.0); Mean Corpuscular Hemoglobin 30.7 pg (27.0-33.0); Mean Corpuscular Volume 93.4 fL (80.0-98.0); Mean Platelet Volume 10.3 fL (9.4-12.3); Platelet Count 285 X10*3/uL (160-400); Red Blood Count 3.49 X10*6/uL (4.20-5.50); Red Cell Distribution Width 15.2 % (11.0-16.0); White Blood Count 6.3 X10*3/uL (4.8-10.8)
== END 2023-10-23 14:21 | disposition home or self-care (01) ==
LOC: HO.LAB 14:20
PROVIDERS: PCP Internal Medicine; Visit Provider Internal Medicine
DX: D62 Acute posthemorrhagic anemia (principal); S80.12XD Contusion of left lower leg, subsequent encounter
CPT/HCPCS: 36415; 85027; 99211

== ENCOUNTER 2023-10-23 14:48 | Outpatient (AMB) | payer MEDICARE, SELFPAY ==
--- NOTE | 2023-10-23 14:49 | MHC.OFFVIS ---
Intake Visit Reasons: 10/11/23 fall/wound care Intake Note: This patient presents for [facility] emergency department follow-up for left leg injury, fell x4 days ago, swelling bruising. Patient c/o; reports it's healing . 10/10/2023: Cervical spine CT Head CT Lower extremity CT Clinical Product Specialist Required: No Accompanied by: Self / Same As Patient Allergies No Known Allergies [No Known Allergies*] Allergy (Verified 10/23/23 14:58) Medication List - Last Reconciled 10/23/23 by Freedom Andrade MD apixaban (Eliquis) 5 mg PO BID 90 days atorvastatin 80 mg PO BEDTIME bevacizumab (Avastin) 25 mg IV DIRECTED docusate sodium (Colace) 100 mg PO BEDTIME PRN lisinopril 2.5 mg PO BEDTIME metformin 500 mg PO BID metoprolol succinate ER 100 mg PO DAILY oxybutynin chloride ER 20 mg (2 x 10 mg) PO BEDTIME 90 days oxycodone 5 mg PO Q4H PRN terazosin 3 mg (3 x 1 mg) PO BEDTIME 90 days vit C,U-Ru-upwaf-lutein-zeaxan 250-90-40-1 mg (PreserVision AREDS-2) 1 tab PO BID ziprasidone HCl 80 mg PO BID HPI HPI 10/11/23 fall/wound care: Details: 67-year-old female here for follow-up. She had large hematoma on the left lower leg anteriorly when she fell at home earlier this month. She had been on anticoagulation. She therefore underwent debridement and evacuation of the hematoma under anesthesia last 10/11/2023. She says dressing changes are being done at home by visiting nurse. She says that the wound has improved significantly. She is back on anticoagulation. [facility] Medical History (Updated 10/23/23 @ 15:25 by Freedom Andrade MD) Traumatic hematoma Anemia Bipolar disorder Morbid obesity Benign familial tremor Colon cancer screening Ventral hernia Multinodular thyroid Umbilical hernia with obstruction CVID (common variable immunodeficiency) Vitamin D deficiency Hyperparathyroidism HLD (hyperlipidemia) HTN (hypertension) Cardiomyopathy Macular degeneration Menopause Elevated parathyroid hormone Urinary incontinence Controlled diabetes mellitus without long-term current use of insulin Mixed dyslipidemia Surgical History History of umbilical hernia repair (07/06/22) Hx of wisdom tooth extraction History of cardiac catheterization (~2017) Hx of biopsy H/O colonoscopy History of hysteroscopy History of adenoidectomy Family History Father Diabetes mellitus Depression Mental health disorder Mother Diabetes mellitus Colon cancer Breast cancer Familial tremor Sister Colon cancer Maternal Aunt Familial tremor Sister No problems noted. Social History Household Members: None Housing: House Are you a primary prompt care rn to a significant other at home: No Do you presently have visiting nurse or other home services: No Alcohol intake: never Comment: COUNT CORRECT Patient Tobacco Use Status: Never used Tobacco e-Cigarette/Vaping Use: Never Used service: No Current occupational status: disabled Cognitive needs: No Hearing needs: No Vision needs: Yes Review of Systems Const Denies chills and Denies fever(s) Card Denies chest pain Resp Denies cough GI Denies abdominal pain Physical Exam Const Other: Has tremors, walks with a walker General: comfortable and no acute distress Resp Effort & Inspection: normal respiratory effort Extrem Other: Left lower leg open wound from the debridement and creation of a stoma much smaller now, and more superficial with good healthy granulation Assessment & Plan Assessment & Plan (1) Traumatic hematoma: Code(s): T14.8XXA - Other injury of unspecified body region, initial encounter Category: Medical Plan: She had a large hematoma after falling and had done debridement and evacuation of the hematoma under anesthesia. She is doing very well now. Her open wound has decreased in size significantly. There is good healthy granulation. I changed his dressings. She is to continue to have wound care with a visiting nurse. She can follow up with me on a p.r.n. basis. I anticipate the wound to heal and reepithelialize completely. Coding Level of Care Code Est Pt Level 1 (60068) Diagnoses Traumatic hematoma T14.8XXA
== END 2023-10-23 15:34 | disposition home or self-care (01) ==
PROVIDERS: PCP Internal Medicine; Visit Provider Surgery
DX: T14.8XXA Other injury of unspecified body region, initial encounter (principal)

== ENCOUNTER 2023-10-28 15:50 | Inpatient (IN) | payer MEDICARE, SELFPAY ==
--- NOTE | ~2023-10-28 | XR_ITS ---
EXAMINATION: XR TIBIA AND FIBULA, LEFT CLINICAL INFORMATION: Wound. Concern for osteomyelitis. COMPARISON: None available. TECHNIQUE: AP and lateral views of the left tibia and fibula were obtained. FINDINGS: Edema and air droplets in the anterior upper leg soft tissues. No focal bone lesion or bone destruction. No abnormal periosteal reaction. No radiographic evidence for osteomyelitis. Degenerative joint disease. Joint narrowing and marginal bone spurs of the knee joint. XR/XR tibia fibula LT 2V IMPRESSION: 1. Edema and air droplets in the anterior upper leg soft tissues. 2. No radiographic evidence for osteomyelitis.
[2023-10-28 15:57] VITALS: BP 110/60; PULSE 60; RESP 18; TEMP 36.4; O2SAT 98; BMI 24.3
--- NOTE | 2023-10-28 15:57 | ED_ITS ---
HPI - Extremity Injury (Lower) General Chief Complaint: Wound/Laceration Stated Complaint: pt states doc sent ?infection left leg wound Time Seen by Provider: 10/28/23 22:03 Source: patient Mode of arrival: ambulatory Limitations: no limitations History of Present Illness ED Provider: Dr. Trujillo HPI Narrative: 2 weeks ago patient had a hematoma evacuated by Dr. Andrade, now with redness and pus draining from open wound with odor. A visiting nurse saw the patient today and placed packing. MD complaint: knee injury Onset (ago): week(s) Related Data Home Medications ?Medication ?Instructions ?Recorded ?Confirmed ziprasidone HCl 80 mg capsule 80 mg PO BID 06/14/21 10/29/23 vit C 250 mg-vit E 90 mg-zinc 40 1 tab PO BID 06/29/22 10/29/23 mg-copper 1 va-etnish-lslvfg capsule (PreserVision AREDS-2) bevacizumab 25 mg/mL intravenous 25 mg IV DIRECTED 10/10/23 10/29/23 solution (Avastin) docusate sodium 100 mg capsule 100 mg PO BEDTIME PRN Constipation 10/10/23 10/29/23 (Colace) lisinopril 2.5 mg tablet 2.5 mg PO BEDTIME 10/10/23 10/29/23 Previous Rx's ?Medication ?Instructions ?Recorded metformin 500 mg tablet 500 mg PO BID #180 tabs 08/04/23 terazosin 1 mg capsule 3 mg (3 x 1 mg) PO BEDTIME 90 days 08/27/23 #270 caps metoprolol succinate 100 mg 100 mg PO DAILY #90 tabs 09/06/23 tablet,extended release 24 hr oxybutynin chloride 10 mg 20 mg (2 x 10 mg) PO BEDTIME OAB 09/06/23 tablet,extended release 24 hr 90 days #180 tabs atorvastatin 80 mg tablet 80 mg PO BEDTIME #90 tabs 09/07/23 apixaban 5 mg tablet (Eliquis) 5 mg PO BID 90 days #180 tabs 09/12/23 amoxicillin 875 mg-potassium 1 tab PO BID #20 tabs 10/31/23 clavulanate 125 mg tablet doxycycline monohydrate 100 mg 100 mg PO BID #20 caps 10/31/23 capsule oxycodone 5 mg tablet 5 mg PO Q4H PRN Pain, 10/31/23 Moderate(Pain Scale 4-6) #12 tabs Allergies Allergy/AdvReac Type Severity Reaction Status Date / Time No Known Allergies Allergy Verified 10/28/23 15:59 [No Known Allergies*] Review of Systems 2 Review of Systems: Yes all other systems are reviewed and are negative Neurologic: Denies Sensory deficit (Neuro) [facility] Past Medical History Medical History Traumatic hematoma Anemia Bipolar disorder Morbid obesity Benign familial tremor Colon cancer screening Ventral hernia Multinodular thyroid Umbilical hernia with obstruction CVID (common variable immunodeficiency) Vitamin D deficiency Hyperparathyroidism HLD (hyperlipidemia) HTN (hypertension) Cardiomyopathy Macular degeneration Menopause Elevated parathyroid hormone Urinary incontinence Controlled diabetes mellitus without long-term current use of insulin Mixed dyslipidemia Surgical History History of umbilical hernia repair (07/06/22) Hx of wisdom tooth extraction History of cardiac catheterization (~2016) Hx of biopsy H/O colonoscopy History of hysteroscopy History of adenoidectomy Family History Family History Father Diabetes mellitus Depression Mental health disorder Mother Diabetes mellitus Colon cancer Breast cancer Familial tremor Sister Colon cancer Maternal Aunt Familial tremor Sister No problems noted. Social History Social History Household Members: None Housing: Condominium Are you a primary animal care technician to a significant other at home: No Do you presently have visiting nurse or other home services: Yes ([facility]) Alcohol intake: never Comment: COUNT CORRECT Patient Tobacco Use Status: Never used Tobacco e-Cigarette/Vaping Use: Never Used service: No Current occupational status: disabled Cognitive needs: No Hearing needs: No Vision needs: Yes Physical Exam 2 Vital Signs: Vital Signs: Last Vital Signs Temp 96.8 F 10/31/23 07:02 Pulse 57 10/31/23 07:02 Resp 12 10/31/23 07:02 BP 131/57 L 10/31/23 07:02 Pulse Ox 99 10/31/23 07:02 O2 Del Method Room Air 10/31/23 07:02 O2 Flow Rate 1 10/29/23 16:32 BMI result Body Mass Index 24.3 Const: Other: female chronically ill appearing looking older than stated age Nutritional Appearance: average body habitus Orientation/consciousness: oriented to person and patient oriented x3 Limitations: no limitations HEENT: Head: Yes normal to inspection Ears: external ears normal General nose exam: Normal external nose present Mouth: Normal oral and palatal mucosa present and oropharynx normal Throat: Yes posterior oropharynx normal Eyes: General: appearance normal, both eyes and all related structures Neck: Other: supple Neck: Yes normal visual inspection Chest: Chest palpation & inspection: normal inspection of the chest Resp: Auscultation: clear to auscultation bilaterally Cardio: Jugular venous distension: no JVD Rate: regular rate Rhythm: r egular rhythm Heart sounds: S1 normal heart sound present and S2 normal heart sound present GI: Inspection: Yes normal to inspection Palpation (GI): Soft to palpation, nontender and No hepatosplenomegaly present Auscultation: normal bowel sounds : General: Yes no CVA tenderness Back/Spine/Pelvis: Back: no CVA tenderness Skin: General skin exam: no rashes or lesions noted Neuro: General: oriented to person and patient oriented x3 Cranial nerves: Yes CN's II-XII intact bilaterally Motor exam (neuro): 5/5 motor strength present throughout Sensory Exam: No Sensory deficit (Neuro) Extrem: Other: below the left patella there is an open wound that is draing pus and has erythema with bad smell Psych: Appearance: grossly normal Course Course Course Narrative: This is a Rapid Medical Exam performed in triage by Vivienne Padilla PA-C. Full HPI, ROS and PE to be performed by primary ED provider. 67 year-old F w/ PMHx NAFLD, anemia, AFib, on AC, presenting to the ED c/o ?infected wound to LLE x2 wks. admits to fall a few weeks ago had traumatic hematoma that underwent debridement and evacuation by Dr. Andrade on 10/11/2023. Reports drainage to area noted today and erythema PE: Left lower extremity with erythema, swelling, & wounds with bloody drainage. Warm to touch. Neurovascularly intact Plan: Labs, XR, blood culture Reevaluation(s) Reevaluation #1: Patient with need to be admitted for IV abx and will need surgical debriedment possibly discussed with Dr Ochoa. Time: 22:29 Medications Administered Discontinued Medications Generic Name Dose Route Start Last Admin Trade Name Catrachitoq PRN Reason Stop Dose Admin Apixaban 5 mg 10/29/23 21:00 10/31/23 07:40 Apixaban 5 Mg Tablet PO 5 mg BID REGINO Administration Atorvastatin Calcium 80 mg 10/29/23 21:00 10/30/23 21:27 Atorvastatin Calcium 80 Mg Tablet PO 80 mg BEDTIME REGINO Administration Ampicillin Sodium/Sulbactam 100 mls @ 200 mls/hr 10/28/23 22:15 10/28/23 23:48 Sodium 3 gm/ Sodium Chloride IV 10/28/23 22:44 Infused ONCE ONE Infusion Piperacillin Sod/Tazobactam 50 mls @ 100 mls/hr 10/29/23 06:00 10/31/23 05:40 Sod 3.375 gm/ Sodium Chloride IV Infused Q6H PENDING SALE TO [facility] Infusion Vancomycin HCl 1,000 mg/ 535 mls @ 267.5 mls/hr 10/29/23 02:30 10/29/23 05:21 Vancomycin HCl 750 mg/ Sodium IV 10/29/23 04:29 Infused Chloride ONCE ONE Infusion Protocol Vancomycin HCl 750 mg/ Sodium 265 mls @ 265 mls/hr 10/29/23 15:00 10/31/23 04:15 Chloride IV Infused Q12H PENDING SALE TO [facility] Infusion Insulin Human Lispro 0 unit 10/28/23 23:00 10/28/23 23:12 Insulin Lispro 100 Unit/Ml 3 Ml Vial SUBCUT Not Given Q6H PENDING SALE TO [facility] Protocol Insulin Human Lispro 0 unit 10/29/23 06:00 10/30/23 15:56 Insulin Lispro 100 Unit/Ml 3 Ml Vial SUBCUT Not Given Q6H PENDING SALE TO [facility] Protocol Insulin Human Lispro 0 unit 10/30/23 23:45 10/31/23 07:10 Insulin Lispro 100 Unit/Ml 3 Ml Vial SUBCUT Not Given QIDACHS PENDING SALE TO [facility] Protocol Lactulose 20 gm 10/30/23 17:30 10/30/23 17:52 Lactulose 20 Gm/30 Ml Solution PO 10/30/23 17:31 20 gm ONCE ONE Administration Metoprolol Succinate 100 mg 10/30/23 09:00 10/31/23 07:40 Metoprolol Succinate Er 100 Mg Tab.Er.24h PO Not Given DAILY PENDING SALE TO [facility] Protocol Morphine Sulfate 3 mg 10/29/23 16:16 10/29/23 16:34 Morphine Sulfate 4 Mg/Ml Cartridge IVPUSH 3 mg Q3H PRN Administration Pain, Severe (Pain Scale 7-10) Protocol Oxybutynin Chloride 20 mg 10/29/23 21:00 10/30/23 21:26 Oxybutynin Chloride Er 5 Mg Tab.Er.24 PO 20 mg BEDTIME REGINO Administration Oxycodone HCl 5 mg 10/29/23 16:16 10/30/23 21:28 Oxycodone Hcl Immed Release 5 Mg Tablet PO 5 mg Q4H PRN Administration Pain, Moderate(Pain Scale 4-6) Sodium Chloride 3 ml 10/29/23 00:00 10/31/23 07:41 0.9 % Sodium Chloride Flush 3 Ml Syringe IVFLUSH 3 ml QSHIFT REGINO Administration Ziprasidone 80 mg 10/29/23 21:00 10/31/23 07:40 Ziprasidone 80 Mg Capsule PO 80 mg BID REGINO Administration Medical Decision Making Differential Diagnosis Differential Diagnoses: The differential diagnosis associated with the presentation includes (Cellulitis, infected abscess) Admission/Observation Consideration of admission/observation: Escalation of care including admission/observation considered (upon arrival patient considered for admission) Consult Healthcare Provider Management of the patient was discussed with: Hospitalist and Portuguese Tutor (Dr. Ochoa surgery) Lab Data 10/31/23 07:34 10/31/23 07:34 Labs: Lab Results 10/28/23 Range/Units 19:04 WBC 5.6 (4.8-10.8) X10*3/uL RBC 3.28 L (4.20-5.50) X10*6/uL Hgb 10.1 L (12.0-16.0) g/dl Hct 30.9 L (37.0-47.0) % MCV 94.2 (80.0-98.0) fL MCH 30.8 (27.0-33.0) pg MCHC 32.7 (31.0-35.0) g/dl RDW 15.9 (11.0-16.0) % Plt Count 162 D (160-400) X10*3/uL MPV 10.3 (9.4-12.3) fL Immature Gran % (Auto) 0.2 (0.0-0.4) % Neut % (Auto) 86.3 H (45-73) % Lymph % (Auto) 7.6 L (20-40) % [place] % (Auto) 5.3 (2-11) % Eos % (Auto) 0.4 (0-4) % Baso % (Auto) 0.2 (0-2) % Lymph # (Auto) 0.4 L (1.2-4.9) X10*3/uL [place] # (Auto) 0.3 (0.1-1.2) X10*3/uL Eos # (Auto) 0.0 (0.0-0.4) X10*3/uL Baso # (Auto) 0.0 (0.0-0.2) X10*3/uL Abs Immat Gran (auto) 0.01 (0.00-0.03) X10*3/uL Absolute Neuts (auto) 4.9 (2.0-8.3) x10*3/uL Absolute Nucleated RBC 0.000 (0.0-0.012) X10*3/uL Nucleated RBC % (auto) 0.0 (0.0-0.2) /100WBC ESR 20 (0-20) MM/HR Hold Purple Top SEE NOTE Sodium 142 (135-145) mmol/L Potassium 3.9 (3.3-5.1) mmol/L Chloride 104 (96-108) mmol/L Carbon Dioxide 22 (22-29) mmol/L Anion Gap 20 (12-20) BUN 12 (9-16) mg/dL Creatinine 0.72 (0.5-1.4) mg/dL Estim Creat Clear Calc 74.7 Estimated GFR > 60 Random Glucose 90 (60-115) mg/dL Calcium 9.3 D (8.4-10.2) mg/dL C-Reactive Protein 6.82 H (< or = 0.50) mg/dL Independent Interpretation I performed an independent interpretation of an: Plain X-Ray (gas in the soft tissues) External Record Review External record reviewed: Outpatient record Chronic Conditions Patient?s care impacted by: Diabetes Discharge Plan Discharge Clinical Impression: Infected wound Patient Disposition: Admitted As Inpatient Interventions: Admission Worksheet (ED) Last Done: 10/29/23 01:03 Discharge Date/Time: 10/29/23 01:29
[2023-10-28 19:11] LABS: MANUAL DIFF FLAG NO
[2023-10-28 19:16] LABS: Basophils Percent Auto 0.2 % (0-2); Eosinophils Percent Auto 0.4 % (0-4); Hematocrit 30.9 % (37.0-47.0); Hemoglobin 10.1 g/dl (12.0-16.0); Imm Gran Abs Auto 0.01 X10*3/uL (0.00-0.03); Imm Gran Pct Auto 0.2 % (0.0-0.4); Lymphocytes Absolute Auto 0.4 X10*3/uL (1.2-4.9); Lymphocytes Percent Auto 7.6 % (20-40); Mean Corpuscular HGB Conc 32.7 g/dl (31.0-35.0); Mean Corpuscular Hemoglobin 30.8 pg (27.0-33.0); Mean Corpuscular Volume 94.2 fL (80.0-98.0); Mean Platelet Volume 10.3 fL (9.4-12.3); Monocytes Absolute Auto 0.3 X10*3/uL (0.1-1.2); Monocytes Percent Auto 5.3 % (2-11); Neutrophils Absolute Auto 4.9 x10*3/uL (2.0-8.3); Neutrophils Percent Auto 86.3 % (45-73); Platelet Count 162 X10*3/uL (160-400); Red Blood Count 3.28 X10*6/uL (4.20-5.50); Red Cell Distribution Width 15.9 % (11.0-16.0); White Blood Count 5.6 X10*3/uL (4.8-10.8)
[2023-10-28 19:27] LABS: Anion Gap 20 (12-20); Blood Urea Nitrogen 12 mg/dL (9-16); C Reactive Protein 6.82 mg/dL (< or = 0.50); Calcium 9.3 mg/dL (8.4-10.2); Carbon Dioxide 22 mmol/L (22-29); Chloride 104 mmol/L (96-108); Creatinine Clr Calc Pharmacy 74.7; Estimated Glomerular Filt Rate > 60; Glucose Random 90 mg/dL (60-115); Potassium 3.9 mmol/L (3.3-5.1); Sodium 142 mmol/L (135-145)
[2023-10-28 20:25] LABS: Erythrocyte Sedimentation Rate 20 MM/HR (0-20)
[2023-10-28 22:05] VITALS: BP 107/53; PULSE 48; RESP 18; TEMP 37.2; O2SAT 100
[2023-10-28] MEDS: Ampicillin Sodium/Sulbactam Na 3 GM in 0.9 % Sodium Chloride 100 ML IV (23:06)
[2023-10-28 23:08] LABS: Glucose, Whole Blood 83 mg/dL (60-115)
--- NOTE | 2023-10-28 23:09 | PC.NURSE ---
22gIV placed in the right forearm - abx administered per provider order. wound culture obtained/sent to lab.
--- NOTE | 2023-10-28 23:16 | P.HPHOSP_ITS ---
History of Present Illness Date of Service: 10/28/23 Attending physician on admission: Macho [place] Chief Complaint: Left leg wound drainage Rissa Betancur is a 67 years old woman with past medical history significant for type 2 diabetes mellitus on oral hypoglycemic agents, atrial fibrillation on Eliquis, hyperlipidemia, essential hypertension and mood disorder presents to the emergency department complaining of left leg wound infection. Recently, patient underwent hematoma evacuation on October [address] Andrade. Her visiting nurse today noted that the wound looks infected and was having spontaneous drainage or malodorous discharge. The patient denied any significant pain to her leg, fever, chills, nausea or vomiting. She did not report any headache, palpitations or dizziness. Denied any acute cardiopulmonary, gastrointestinal or genitourinary symptoms. No toxic habits reported. In the ED, she was found to have blood pressure 107/53, heart rate of 48, normal temperature and oxygen saturation on room air. Blood workup showed no leukocytosis. Hemoglobin is 10.1 and platelets are normal. CRP is 6.82. There are no electrolyte imbalances and glucose is normal. Tib-fib x-ray showed edema and air droplets in the anterior upper lobe soft tissue without radiographic evidence of osteomyelitis. Dr. Cheney helped to remove most of the pus out of the wound. ED tx: Ampicillin 3 g IV Review of Systems 2 Review of Systems: All 12 systems were reviewed and normal except as noted in HPI. [facility] Medical History Traumatic hematoma Anemia Bipolar disorder Morbid obesity Benign familial tremor Colon cancer screening Ventral hernia Multinodular thyroid Umbilical hernia with obstruction CVID (common variable immunodeficiency) Vitamin D deficiency Hyperparathyroidism HLD (hyperlipidemia) HTN (hypertension) Cardiomyopathy Macular degeneration Menopause Elevated parathyroid hormone Urinary incontinence Controlled diabetes mellitus without long-term current use of insulin Mixed dyslipidemia Family History Father Diabetes mellitus Depression Mental health disorder Mother Diabetes mellitus Colon cancer Breast cancer Familial tremor Sister Colon cancer Maternal Aunt Familial tremor Sister No problems noted. Surgical History History of umbilical hernia repair (07/06/22) Hx of wisdom tooth extraction History of cardiac catheterization (~2016) Hx of biopsy H/O colonoscopy History of hysteroscopy History of adenoidectomy Social History Household Members: None Housing: House Are you a primary care coordinator to a significant other at home: No Do you presently have visiting nurse or other home services: No Alcohol intake: never Comment: COUNT CORRECT Patient Tobacco Use Status: Never used Tobacco e-Cigarette/Vaping Use: Never Used Advance Directives: No Advance Directives Information Provided: No Do you have a plan to hurt others: No Plan service: No Current occupational status: disabled Cognitive needs: No Hearing needs: No Vision needs: Yes Meds Allergies Allergy/AdvReac Type Severity Reaction Status Date / Time No Known Allergies Allergy Verified 10/28/23 15:59 [No Known Allergies*] Active Medications: Current Medications Acetaminophen (Acetaminophen 325 Mg Tablet) 975 mg PO Q6H PRN PRN Reason: Pain, Mild (Pain Scale 1-3), fever or headache Glucose (Glucose Gel 15 Gm Gel..Gram.) 15 gm PO Q15M PRN; Protocol PRN Reason: per Hypoglycemia Standing Ord. Heparin Sodium (Porcine) (Heparin Sodium,Porcine 5,000 Unit/Ml Vial) 5,000 unit SUBCUT Q8H [facility] Dextrose (D10) 250 mls @ 750 mls/hr IV Q15M PRN; Protocol PRN Reason: per Hypoglycemia Standing Ord. Insulin Human Lispro (Insulin Lispro 100 Unit/Ml 3 Ml Vial) 0 unit SUBCUT Q6H [facility]; Protocol Pharmacy Consult (Consult Rx Vancomycin Dosing) 1 each MISCELLANE DAILY PRN PRN Reason: Consult order Sodium Chloride (0.9 % Sodium Chloride Flush 3 Ml Syringe) 3 ml IVFLUSH QSHIFT [facility] Home Medications ?Medication ?Instructions ?Recorded ?Confirmed ?Last Taken ?Type ziprasidone HCl 80 mg capsule 80 mg PO BID 06/14/21 10/23/23 10/10/23 06:00 History vit C 250 mg-vit E 90 mg-zinc 40 1 tab PO BID 06/29/22 10/23/23 10/10/23 06:00 History mg-copper 1 [id number] capsule (PreserVision AREDS-2) bevacizumab 25 mg/mL intravenous 25 mg IV DIRECTED 10/10/23 10/23/23 Unknown History solution (Avastin) docusate sodium 100 mg capsule 100 mg PO BEDTIME PRN Constipation 10/10/23 10/23/23 10/09/23 18:00 History (Colace) lisinopril 2.5 mg tablet 2.5 mg PO BEDTIME 10/10/23 10/23/23 10/09/23 18:00 History Physical Exam 2 Vital Signs and Narrative: Vital Signs: Last Vital Signs Temp 99 F 10/28/23 22:05 Pulse 48 L 10/28/23 22:05 Resp 18 10/28/23 22:05 BP 107/53 L 10/28/23 22:05 Pulse Ox 100 10/28/23 22:05 O2 Del Method Room Air 10/28/23 22:05 BMI result Body Mass Index 24.3 Constitutional - Awake and Alert, No apparent distress. Pleasant. Cooperative HEENT - PERRL, EOMI. Normal sclera. Heart - RRR. Lungs - Normal lung expansion, Normal respiratory effort, No respiratory distress, CTA bilaterally Abd - Nontender. Extremities: 2-3 cm deep wound noted in the upper anterior aspect of the left leg with erythematous border. No drainage or marked noted. Musculoskeletal - Normal inspection, normal ROM Skin - Warm/Dry Neurological - Alert & oriented x3, CN II-XII in tact, 5/5 strength BUE and BLE Psychological - Appropriate affect Results Labs 10/28/23 19:04 10/28/23 19:04 Labs: Laboratory Results - last 24 hr 10/28/23 10/28/23 19:04 23:03 MCV 94.2 MCH 30.8 MCHC 32.7 RDW 15.9 Plt Count 162 D MPV 10.3 Immature Gran % (Auto) 0.2 Neut % (Auto) 86.3 H Lymph % (Auto) 7.6 L [place] % (Auto) 5.3 Eos % (Auto) 0.4 Baso % (Auto) 0.2 Lymph # (Auto) 0.4 L [place] # (Auto) 0.3 Eos # (Auto) 0.0 Baso # (Auto) 0.0 Abs Immat Gran (auto) 0.01 Absolute Neuts (auto) 4.9 Absolute Nucleated RBC 0.000 Nucleated RBC % (auto) 0.0 ESR 20 Hold Purple Top SEE NOTE Anion Gap 20 Estim Creat Clear Calc 74.7 Estimated GFR > 60 POC Glucose 83 Random Glucose 90 Calcium 9.3 D C-Reactive Protein 6.82 H Imaging Radiologist's Impressions: Impressions Tibia/Fibula X-Ray 10/28/23 16:17 IMPRESSION: 1. Edema and air droplets in the anterior upper leg soft tissues. 2. No radiographic evidence for osteomyelitis. Assessment and Plan (1) Infected wound: Status: Acute (2) Wound of left lower extremity: Qualifiers: Encounter type: initial encounter Qualified Code(s): S81.802A - Unspecified open wound, left lower leg, initial encounter Status: Acute Plan Rissa Betancur is a 67 y/o woman admitted with: * Left leg infected wound and cellulitis; s/p hematoma evaluation (10/10). Admit to hospitalist service. NPO for possible exploration and/or debridement. Hold Eliquis Empiric IV antibiotic therapy with vancomycin and Zosyn IV. Blood and wound cultures obtained in ED -will follow results. Surgery consult -Dr. Ochoa. * Type 2 diabetes mellitus. BG check every 6 hours while NPO. Insulin sliding scale. Metformin on hold due to NPO status. * Chronic atrial fibrillation, currently rate controlled. Continue metoprolol. Eliquis on hold due to possible procedure in a.m. * Chronic anemia. Continue to monitor. * Essential hypertension. Continue lisinopril and metoprolol. * Hyperlipidemia. Continue statin * Mood disorder. Continue home medications DVT prophylaxis: Heparin (hold before procedure and after if contraindicated). Code status: Full Patient will need hospitalization for left leg infected wound cellulitis treatment with IV antibiotic therapy in the setting of immunocompromised state (underlying diabetes mellitus) and evaluation by Surgical Service. Quality Stroke Does the patient have a stroke diagnosis?: No VTE Prior VTE?: No VTE Risk Level:: Medical - moderate - high VTE Device Contraindication: Treatment Not Indicated VTE Drug Contraindication: N/A - Med Ordered
[2023-10-29] VITALS (13 sets, daily range): BP systolic 96–140; BP diastolic 42–84; PULSE 47–89; RESP 12–20; TEMP 36.1–36.7; O2SAT 95–100; BMI 24.0
--- NOTE | 2023-10-29 00:04 | PC.NURSE ---
pt's wound on LLE noted to be draining. nonstick abd pad/curex applied to area. fresh linen/padding applied to pt's bed. pt repositioned to comfort. warm blankets in place. call cuellar in reach.
--- NOTE | 2023-10-29 01:28 | PC.NURSE ---
pt transported upstairs at this time.
[2023-10-29 01:40] LABS: Glucose, Whole Blood 126 mg/dL (60-115)
[2023-10-29] MEDS: vancomycin HCL 1,000 MG, vancomycin HCL 750 MG in 0.9 % Sodium Chloride 500 ML 267.5 MG IV (03:12)
[2023-10-29] MEDS: Piperacillin Sodium/Tazobactam 3.375 GM in 0.9 % Sodium Chloride 50 ML IV ×4 (05:24→23:58)
[2023-10-29 06:02] LABS: Glucose, Whole Blood 86 mg/dL (60-115)
[2023-10-29 06:41] LABS: MANUAL DIFF FLAG NO
[2023-10-29 06:54] LABS: Basophils Percent Auto 0.2 % (0-2); Eosinophils Percent Auto 0.6 % (0-4); Hematocrit 27.5 % (37.0-47.0); Imm Gran Abs Auto 0.02 X10*3/uL (0.00-0.03); Imm Gran Pct Auto 0.4 % (0.0-0.4); Lymphocytes Absolute Auto 0.8 X10*3/uL (1.2-4.9); Mean Corpuscular HGB Conc 32.7 g/dl (31.0-35.0); Mean Corpuscular Hemoglobin 31.4 pg (27.0-33.0); Mean Corpuscular Volume 95.8 fL (80.0-98.0); Mean Platelet Volume 10.7 fL (9.4-12.3); Monocytes Absolute Auto 0.4 X10*3/uL (0.1-1.2); Monocytes Percent Auto 8.7 % (2-11); Neutrophils Absolute Auto 3.7 x10*3/uL (2.0-8.3); Neutrophils Percent Auto 74.1 % (45-73); Platelet Count 119 X10*3/uL (160-400); Red Blood Count 2.87 X10*6/uL (4.20-5.50); Red Cell Distribution Width 15.9 % (11.0-16.0); White Blood Count 5.1 X10*3/uL (4.8-10.8)
[2023-10-29 07:00] LABS: Anion Gap 14 (12-20); Blood Urea Nitrogen 13 mg/dL (9-16); Calcium 9.1 mg/dL (8.4-10.2); Carbon Dioxide 23 mmol/L (22-29); Chloride 110 mmol/L (96-108); Creatinine Clr Calc Pharmacy 81.5; Estimated Glomerular Filt Rate > 60; Glucose Random 89 mg/dL (60-115); Potassium 3.9 mmol/L (3.3-5.1); Sodium 143 mmol/L (135-145)
--- NOTE | 2023-10-29 07:04 | PHA.PROG ---
Admission Date/Time: October 28, 2023 22:52 Indication: skin Weight in k.6 kg Adjusted body weight in Kg: [place] body weight in Kg: Obesity Dosing Indication % IBW: Serum Creatinine - Last 168 Hours 10/28/23 10/29/23 19:04 06:05 Creatinine 0.72 0.66 Estimated CrCl and GFR - Last 168 Hours 10/28/23 10/29/23 19:04 06:05 Estim Creat Clear Calc 74.7 81.5 Estimated GFR > 60 > 60 Vancomycin Loading Dose: 1750mg x 1 Current Vancomycin Dosing Regimen: 750mg Q12H Vancomycin Monitoring using AUC goal of 400 - 600 range with trough as surrogate marker: 441 mg/L Date and Time for next Vancomycin Level to be drawn: 10/29 @1300 Pharmacist Comments on Vancomycin Plan: predicted trough of 14.1 mg/L Vancomycin dosing will take advantage of [employer] as a clinical decision support tool that uses Bayesian modeling to calculate individual patient's pharmacokinetic parameters and forecast the patient's drug concentration time course with the target goal AUC 24 range of 400 - 600 mg/L/hr.
[2023-10-29 07:09] LABS: INTERNATIONAL NORM RATIO 1.5 (0.9-1.1); Prothrombin Time 17.8 SEC (11.1-13.3)
[2023-10-29] MEDS: 0.9 % Sodium Chloride Flush 3 ML SYRINGE IVFLUSH ×3 (07:24→22:44)
[2023-10-29 07:55] LABS: Creatinine Clr Calc Pharmacy 81.5; Estimated Glomerular Filt Rate > 60
--- NOTE | 2023-10-29 08:32 | PHA.MEDREC ---
Addendum entered by Nandini Barnes [facility] 10/29/23 08:33: Utilized list from patient. Said she was due for Avastin in about 2 weeks. Last took her Eliquis Saturday night. Original Note: Pharmacy Consult ? Medication Reconciliation Pharmacy has completed the medication reconciliation.
--- NOTE | 2023-10-29 09:02 | P.CONGS_ITS ---
History of Present Illness Consult details Consult date: 10/29/23 Reason for consult: wound care Narrative: 67 year old female with PMH of HTN, a fib on eliquis who sustained a large hematoma on the left lower leg anteriorly when she fell at home earlier this month. This required debridement and evacuation of the hematoma under anesthesia 10/11/2023. She had been discharged to home and was seen in the office with significant decrease in wound size. [facility]NA was following her and changing her dressing change every other day. She reports doing well until VNA noted erythema and foul smelling drainage during the dressing change yesterday. She was therefore sent to the ED and admitted to the medical service for further treatment of the LLE wound and cellulitis. She was started on IV antibiotic therapy with vancomycin and Zosyn IV. Surgery consult was obtained for possible debridement. Review of Systems 2 Constitutional: Constitutional: Denies chills and Denies fever(s) ENT: Denies dizziness Cardiovascular: Cardiovascular: Denies chest pain and Denies dyspnea Respiratory: Respiratory: Denies dyspnea Gastrointestinal: Gastrointestinal: Denies constipation, Denies nausea and Denies vomiting Integumentary/Breasts: Skin/Breast: Reports as per HPI Neurologic: Denies dizziness PMFSH Past Medical History Medical History Traumatic hematoma Anemia Bipolar disorder Morbid obesity Benign familial tremor Colon cancer screening Ventral hernia Multinodular thyroid Umbilical hernia with obstruction CVID (common variable immunodeficiency) Vitamin D deficiency Hyperparathyroidism HLD (hyperlipidemia) HTN (hypertension) Cardiomyopathy Macular degeneration Menopause Elevated parathyroid hormone Urinary incontinence Controlled diabetes mellitus without long-term current use of insulin Mixed dyslipidemia Family History Family History Father Diabetes mellitus Depression Mental health disorder Mother Diabetes mellitus Colon cancer Breast cancer Familial tremor Sister Colon cancer Maternal Aunt Familial tremor Sister No problems noted. Surgical History Surgical History History of umbilical hernia repair (07/06/22) Hx of wisdom tooth extraction History of cardiac catheterization (~2016) Hx of biopsy H/O colonoscopy History of hysteroscopy History of adenoidectomy Social History Social History Household Members: None Housing: Condominium Are you a primary caregivers non medical to a significant other at home: No Do you presently have visiting nurse or other home services: Yes ([facility]) Alcohol intake: never Comment: COUNT CORRECT Patient Tobacco Use Status: Never used Tobacco e-Cigarette/Vaping Use: Never Used Use of substances other than those prescribed or required for medical reasons: No Currently Displaying Signs/Symptoms of Drug Intoxication Withdrawal: No Have you been hit, kicked, punched, or otherwise hurt by someone within the past year? If so, by whom?: No Do you feel safe in your current relationship?: No Current Relationship Is there a partner from a previous relationship who is making you feel unsafe now?: No Are you made to feel afraid or neglected: No Advance Directives: No Advance Directives Information Provided: No Do you have a plan to hurt others: No Plan Recently lost weight without trying: No How much weight loss: Not applicable Eating poorly because of decreased appetite: No Nutrition screen score: 0 Nutrition Risks: No Nutritional Risk Patient : No : No Poor oral hygiene: No service: No Current occupational status: disabled Cognitive needs: No Hearing needs: No Vision needs: Yes Meds Allergies Allergy/AdvReac Type Severity Reaction Status Date / Time No Known Allergies Allergy Verified 10/28/23 15:59 [No Known Allergies*] Active Medications: Current Medications Acetaminophen (Acetaminophen 325 Mg Tablet) 975 mg PO Q6H PRN PRN Reason: Pain, Mild (Pain Scale 1-3), fever or headache Glucose (Glucose Gel 15 Gm Gel..Gram.) 15 gm PO Q15M PRN; Protocol PRN Reason: per Hypoglycemia Standing Ord. Heparin Sodium (Porcine) (Heparin Sodium,Porcine 5,000 Unit/Ml Vial) 5,000 unit SUBCUT Q8H [facility] Dextrose (D10) 250 mls @ 750 mls/hr IV Q15M PRN; Protocol PRN Reason: per Hypoglycemia Standing Ord. Piperacillin Sod/Tazobactam (Sod 3.375 gm/ Sodium Chloride) 50 mls @ 100 mls/hr IV Q6H [facility] Last Infusion: 10/29/23 05:58 Dose: Infused Vancomycin HCl 750 mg/ Sodium (Chloride) 265 mls @ 265 mls/hr IV Q12H [facility] Insulin Human Lispro (Insulin Lispro 100 Unit/Ml 3 Ml Vial) [address] [facility]; Protocol Last Admin: 10/29/23 05:59 Dose: Not Given Sodium Chloride (0.9 % Sodium Chloride Flush 3 Ml Syringe) [address] [facility] Last Admin: 10/29/23 07:24 Dose: 3 ml Home Medications ?Medication ?Instructions ?Recorded ?Confirmed ?Last Taken ?Type ziprasidone HCl 80 mg capsule 80 mg PO BID 06/14/21 10/29/23 10/27/23 21:00 History vit C 250 mg-vit E 90 mg-zinc 40 1 tab PO BID 06/29/22 10/29/23 10/27/23 21:00 History mg-copper 1 [id number] capsule (PreserVision AREDS-2) bevacizumab 25 mg/mL intravenous 25 mg IV DIRECTED 10/10/23 10/29/23 9 Weeks Ago History solution (Avastin) ~08/27/23 docusate sodium 100 mg capsule 100 mg PO BEDTIME PRN Constipation 10/10/23 10/29/23 10/27/23 21:00 History (Colace) lisinopril 2.5 mg tablet 2.5 mg PO BEDTIME 10/10/23 10/29/23 10/27/23 21:00 History Physical Exam 2 Vital Signs: Vital Signs: Last Vital Signs Temp 97.3 F 10/29/23 07:25 Pulse 52 10/29/23 07:25 Resp 12 10/29/23 07:25 BP 110/58 L 10/29/23 07:25 Pulse Ox 99 10/29/23 07:25 O2 Del Method Room Air 10/29/23 07:25 BMI result Body Mass Index 24.0 Const: General: comfortable, no acute distress and alert O rientation/consciousness: patient oriented x3 Resp: Effort & Inspection: normal respiratory effort Neuro: General: patient oriented x3 and moves all extremities Extrem: Other: open wound of LLE just inferior to knee, wound tunnels 5cm laterally, and 2cm inferiorly and medially, thin serosanguineous drainage noted but purulent drainage noted in ED, slough noted at wound base without much granulation tissue ; surrounding skin with erythema, edema and resolving ecchymosis Results Labs 10/29/23 06:05 10/29/23 07:31 Labs: Abnormal lab results 0610/29/23 10/29/23 Range/Units 19:04 01:35 06:05 RBC 3.28 L 2.87 L (4.20-5.50) X10*6/uL Hgb 10.1 L 9.0 L (12.0-16.0) g/dl Hct 30.9 L 27.5 L (37.0-47.0) % Plt Count 119 L D (160-400) X10*3/uL Neut % (Auto) 86.3 H 74.1 H (45-73) % Lymph % (Auto) 7.6 L 16.0 L (20-40) % Lymph # (Auto) 0.4 L 0.8 L (1.2-4.9) X10*3/uL PT 17.8 H (11.1-13.3) SEC INR 1.5 H (0.9-1.1) Chloride 110 H (96-108) mmol/L POC Glucose 126 H (60-115) mg/dL C-Reactive Protein 6.82 H (< or = 0.50) mg/dL Short CBC 10/28/23 10/29/23 Range/Units 19:04 06:05 WBC 5.6 5.1 (4.8-10.8) X10*3/uL Hgb 10.1 L 9.0 L (12.0-16.0) g/dl Hct 30.9 L 27.5 L (37.0-47.0) % Plt Count 162 D 119 L D (160-400) X10*3/uL BMP 10/28/23 10/29/23 10/29/23 19:04 06:05 07:31 Sodium 142 143 Potassium 3.9 3.9 Chloride 104 110 H Carbon Dioxide 22 23 BUN 12 13 Creatinine 0.72 0.66 0.66 Calcium 9.3 D 9.1 All other labs normal. Assessment and Plan (1) Wound of left lower extremity: Qualifiers: Encounter type: initial encounter Qualified Code(s): S81.802A - Unspecified open wound, left lower leg, initial encounter Status: Acute Plan 67 year old female with PMH of HTN, a fib on eliquis who sustained a large hematoma on the left lower leg anteriorly after a fall requiring debridement and evacuation of the hematoma under anesthesia 10/11/2023 found to have foul smelling wound with erythema yesterday admitted for cellulitis. The wound base has slough and would benefit from debridement and possibly unroofing a little of the cavity to allow for easier packing of the wound. Patient is comfortable with plan. Will add onto the OR schedule for today for debridement of left lower extremity wound. Procedures Date of Service Date of Service: 10/29/23
--- NOTE | 2023-10-29 09:29 | HO.PM.IMPN ---
Subjective Subjective Date of Service: 10/29/23 Interval History: lle wound Physical Exam Vital Signs: Vital Signs: Last Vital Signs Temp 97.3 F 10/29/23 07:25 Pulse 52 10/29/23 07:25 Resp 12 10/29/23 07:25 BP 110/58 L 10/29/23 07:25 Pulse Ox 99 10/29/23 07:25 O2 Del Method Room Air 10/29/23 07:25 BMI result Body Mass Index 24.0 lle wound with surrounding erythema Objective Data Active Medications Acetaminophen (Acetaminophen 325 Mg Tablet) 975 mg PO Q6H PRN PRN Reason: Pain, Mild (Pain Scale 1-3), fever or headache Apixaban (Apixaban 5 Mg Tablet) 5 mg PO BID [facility] Atorvastatin Calcium (Atorvastatin Calcium 80 Mg Tablet) 80 mg PO BEDTIME RE[facility] Glucose (Glucose Gel 15 Gm Gel..Gram.) 15 gm PO Q15M PRN; Protocol PRN Reason: per Hypoglycemia Standing Ord. Heparin Sodium (Porcine) (Heparin Sodium,Porcine 5,000 Unit/Ml Vial) 5,000 unit SUBCUT Q8H [facility] Dextrose (D10) 250 mls @ 750 mls/hr IV Q15M PRN; Protocol PRN Reason: per Hypoglycemia Standing Ord. Piperacillin Sod/Tazobactam (Sod 3.375 gm/ Sodium Chloride) 50 mls @ 100 mls/hr IV Q6H [facility] Last Infusion: 10/29/23 05:58 Dose: Infused Documented By: IRIS Vancomycin HCl 750 mg/ Sodium (Chloride) 265 mls @ 265 mls/hr IV Q12H [facility] Insulin Human Lispro (Insulin Lispro 100 Unit/Ml 3 Ml Vial) 0 unit SUBCUT Q6H [facility]; Protocol Last Admin: 10/29/23 05:59 Dose: Not Given Documented By: IRIS Non-Admin Reason: No Insulin Coverage Metoprolol Succinate (Metoprolol Succinate Er 100 Mg Tab.Er.24h) 100 mg PO DAILY [facility]; Protocol Oxybutynin Chloride (Oxybutynin Chloride Er 5 Mg Tab.Er.24) 20 mg PO BEDTIME [facility] Sodium Chloride (0.9 % Sodium Chloride Flush 3 Ml Syringe) 3 ml IVFLUSH QSHIFT [facility] Last Admin: 10/29/23 07:24 Dose: 3 ml Documented By: HO.DABA Ziprasidone (Ziprasidone 80 Mg Capsule) 80 mg PO BID [facility] Labs 10/29/23 06:05 10/29/23 07:31 Labs: Laboratory Results - last 24 hr 10/28/23 10/28/23 10/29/23 19:04 23:03 01:35 MCV 94.2 MCH 30.8 MCHC 32.7 RDW 15.9 Plt Count 162 D MPV 10.3 Immature Gran % (Auto) 0.2 Neut % (Auto) 86.3 H Lymph % (Auto) 7.6 L [place] % (Auto) 5.3 Eos % (Auto) 0.4 Baso % (Auto) 0.2 Lymph # (Auto) 0.4 L [place] # (Auto) 0.3 Eos # (Auto) 0.0 Baso # (Auto) 0.0 Abs Immat Gran (auto) 0.01 Absolute Neuts (auto) 4.9 Absolute Nucleated RBC 0.000 Nucleated RBC % (auto) 0.0 ESR 20 Hold Purple Top SEE NOTE PT INR Anion Gap 20 Estim Creat Clear Calc 74.7 Estimated GFR > 60 POC Glucose 83 126 H Random Glucose 90 Calcium 9.3 D C-Reactive Protein 6.82 H 10/29/23 10/29/23 10/29/23 05:58 06:05 07:31 MCV 95.8 MCH 31.4 MCHC 32.7 RDW 15.9 Plt Count 119 L D MPV 10.7 Immature Gran % (Auto) 0.4 Neut % (Auto) 74.1 H Lymph % (Auto) 16.0 L [place] % (Auto) 8.7 Eos % (Auto) 0.6 Baso % (Auto) 0.2 Lymph # (Auto) 0.8 L [place] # (Auto) 0.4 Eos # (Auto) 0.0 Baso # (Auto) 0.0 Abs Immat Gran (auto) 0.02 Absolute Neuts (auto) 3.7 Absolute Nucleated RBC 0.000 Nucleated RBC % (auto) 0.0 ESR Hold Purple Top PT 17.8 H INR 1.5 H Anion Gap 14 Estim Creat Clear Calc 81.5 81.5 Estimated GFR > 60 > 60 POC Glucose 86 Random Glucose 89 Calcium 9.1 C-Reactive Protein Assessment and Plan (1) Infected wound: Status: Acute Plan 67F PMH dm, chronic afib, hld, htn, mood disorder, presented with LLE wound infection LLE wound infection with cellulitis vanc, zosyn, plan for OR today dm insulin chronic afib metoprolol, eliquis to restart after OR htn metoprlol hld statin dvt prophylaxis - eliquis to restart of or full code reason for continued hospitalization:iv abx, plan for OR Quality Stroke Does the patient have a stroke diagnosis?: No VTE Prior VTE?: No VTE Risk Level:: Medical - moderate - high VTE Device Contraindication: Treatment Not Indicated VTE Drug Contraindication: N/A - Med Ordered
--- NOTE | 2023-10-29 09:47 | MHC.CM.PN ---
Addendum entered by Shelbi Wiley RN 10/29/23 09:48: IMM delivered. Original Note: Patient lives in a home alone. Ambulates w/ rollator. Otherwise independent. Active w/ [facility] for SN/wound care. PCP Dr. Barrera HCP on file and verified. DP: Goal is home resume services via shuttle. CM will continue to follow.
[2023-10-29 11:23] LABS: Glucose, Whole Blood 90 mg/dL (60-115)
--- NOTE | 2023-10-29 14:10 | P.CONAN_ITS ---
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) Anemia (Acute) Persistent atrial fibrillation (Acute) Bipolar disorder (Acute) Morbid obesity (Acute) Benign familial tremor (Acute) Multinodular thyroid (Acute) CVID (common variable immunodeficiency) (Acute) Vitamin D deficiency (Acute) Hyperparathyroidism (Acute) HTN (hypertension) (Acute) Cardiomyopathy (Acute) Macular degeneration (Acute) Menopause (Acute) Elevated parathyroid hormone (Acute) Urinary incontinence (Acute) Controlled diabetes mellitus without long-term current use of insulin (Acute) Mixed dyslipidemia (Acute) Past Medical History Medical History Traumatic hematoma Anemia Bipolar disorder Morbid obesity Benign familial tremor Colon cancer screening Ventral hernia Multinodular thyroid Umbilical hernia with obstruction CVID (common variable immunodeficiency) Vitamin D deficiency Hyperparathyroidism HLD (hyperlipidemia) HTN (hypertension) Cardiomyopathy Macular degeneration Menopause Elevated parathyroid hormone Urinary incontinence Controlled diabetes mellitus without long-term current use of insulin Mixed dyslipidemia Family History Family History Father Diabetes mellitus Depression Mental health disorder Mother Diabetes mellitus Colon cancer Breast cancer Familial tremor Sister Colon cancer Maternal Aunt Familial tremor Sister No problems noted. Family history of problems with anesthesia: No Surgical History Surgical History History of umbilical hernia repair (07/06/22) Hx of wisdom tooth extraction History of cardiac catheterization (~2017) Hx of biopsy H/O colonoscopy History of hysteroscopy History of adenoidectomy History of Problems with Anesthesia: No Social History Social History Household Members: None Housing: Condominium Are you a primary wound care physician to a significant other at home: No Do you presently have visiting nurse or other home services: Yes ([facility]) Alcohol intake: never Comment: COUNT CORRECT Patient Tobacco Use Status: Never used Tobacco e-Cigarette/Vaping Use: Never Used Use of substances other than those prescribed or required for medical reasons: No Currently Displaying Signs/Symptoms of Drug Intoxication Withdrawal: No Have you been hit, kicked, punched, or otherwise hurt by someone within the past year? If so, by whom?: No Do you feel safe in your current relationship?: No Current Relationship Is there a partner from a previous relationship who is making you feel unsafe now?: No Are you made to feel afraid or neglected: No Are you DNR?: No Advance Directives: No Advance Directives Information Provided: No Do you have a plan to hurt others: No Plan Recently lost weight without trying: No How much weight loss: Not applicable Eating poorly because of decreased appetite: No Nutrition screen score: 0 Nutrition Risks: No Nutritional Risk Patient : No : No Poor oral hygiene: No service: No Current occupational status: disabled Cognitive needs: No Hearing needs: No Vision needs: Yes Meds Allergies Allergy/AdvReac Type Severity Reaction Status Date / Time No Known Allergies Allergy Verified 10/28/23 15:59 [No Known Allergies*] Active Medications: Current Medications Acetaminophen (Acetaminophen 325 Mg Tablet) 975 mg PO Q6H PRN PRN Reason: Pain, Mild (Pain Scale 1-3), fever or headache Apixaban (Apixaban 5 Mg Tablet) 5 mg PO BID [facility] Atorvastatin Calcium (Atorvastatin Calcium 80 Mg Tablet) 80 mg PO BEDTIME RE[facility] Glucose (Glucose Gel 15 Gm Gel..Gram.) 15 gm PO Q15M PRN; Protocol PRN Reason: per Hypoglycemia Standing Ord. Dextrose (D10) 250 mls @ 750 mls/hr IV Q15M PRN; Protocol PRN Reason: per Hypoglycemia Standing Ord. Piperacillin Sod/Tazobactam (Sod 3.375 gm/ Sodium Chloride) 50 mls @ 100 mls/hr IV Q6H [facility] Last Infusion: 10/29/23 12:24 Dose: Infused Vancomycin HCl 750 mg/ Sodium (Chloride) 265 mls @ 265 mls/hr IV Q12H [facility] Insulin Human Lispro (Insulin Lispro 100 Unit/Ml 3 Ml Vial) 0 unit SUBCUT Q6H [facility]; Protocol Last Admin: 10/29/23 11:41 Dose: Not Given Metoprolol Succinate (Metoprolol Succinate Er 100 Mg Tab.Er.24h) 100 mg PO DAILY [facility]; Protocol Oxybutynin Chloride (Oxybutynin Chloride Er 5 Mg Tab.Er.24) 20 mg PO BEDTIME [facility] Sodium Chloride (0.9 % Sodium Chloride Flush 3 Ml Syringe) 3 ml IVFLUSH QSHIFT [facility] Last Admin: 10/29/23 07:24 Dose: 3 ml Ziprasidone (Ziprasidone 80 Mg Capsule) 80 mg PO BID [facility] Home Medications ?Medication ?Instructions ?Recorded ?Confirmed ?Last Taken ?Type ziprasidone HCl 80 mg capsule 80 mg PO BID 06/14/21 10/29/23 10/27/23 21:00 History vit C 250 mg-vit E 90 mg-zinc 40 1 tab PO BID 06/29/22 10/29/23 10/27/23 21:00 History mg-copper 1 [id number] capsule (PreserVision AREDS-2) bevacizumab 25 mg/mL intravenous 25 mg IV DIRECTED 10/10/23 10/29/23 9 Weeks Ago History solution (Avastin) ~08/27/23 docusate sodium 100 mg capsule 100 mg PO BEDTIME PRN Constipation 10/10/23 10/29/23 10/27/23 21:00 History (Colace) lisinopril 2.5 mg tablet 2.5 mg PO BEDTIME 10/10/23 10/29/23 10/27/23 21:00 History Exam Height,Weight and Vital Signs: Height 5 ft 7 in Weight 69.6 kg Last Vital Signs Temp 97.5 F 10/29/23 14:05 Pulse 47 L 10/29/23 14:05 Resp 16 10/29/23 14:05 BP 104/48 L 10/29/23 14:05 Pulse Ox 98 10/29/23 14:05 O2 Del Method Room Air 10/29/23 14:05 Pertinent Lab Results Pertinent Lab Results: Laboratory Tests 10/28/23 10/28/23 10/29/23 19:04 23:03 01:35 WBC 5.6 RBC 3.28 L Hgb 10.1 L Hct 30.9 L MCV 94.2 MCH 30.8 MCHC 32.7 RDW 15.9 Plt Count 162 D MPV 10.3 Immature Gran % (Auto) 0.2 Neut % (Auto) 86.3 H Lymph % (Auto) 7.6 L Hoke % (Auto) 5.3 Eos % (Auto) 0.4 Baso % (Auto) 0.2 Lymph # (Auto) 0.4 L H[place] # (Auto) 0.3 Eos # (Auto) 0.0 Baso # (Auto) 0.0 Abs Immat Gran (auto) 0.01 Absolute Neuts (auto) 4.9 Absolute Nucleated RBC 0.000 Nucleated RBC % (auto) 0.0 ESR 20 Hold Purple Top SEE NOTE PT INR Sodium 142 Potassium 3.9 Chloride 104 Carbon Dioxide 22 Anion Gap 20 BUN 12 Creatinine 0.72 Estim Creat Clear Calc 74.7 Estimated GFR > 60 POC Glucose 83 126 H Random Glucose 90 Calcium 9.3 D C-Reactive Protein 6.82 H 10/29/23 10/29/23 10/29/23 05:58 06:05 07:31 WBC 5.1 RBC 2.87 L Hgb 9.0 L Hct 27.5 L MCV 95.8 MCH 31.4 MCHC 32.7 RDW 15.9 Plt Count 119 L D MPV 10.7 Immature Gran % (Auto) 0.4 Neut % (Auto) 74.1 H Lymph % (Auto) 16.0 L Hoke % (Auto) 8.7 Eos % (Auto) 0.6 Baso % (Auto) 0.2 Lymph # (Auto) 0.8 L Hoke # (Auto) 0.4 Eos # (Auto) 0.0 Baso # (Auto) 0.0 Abs Immat Gran (auto) 0.02 Absolute Neuts (auto) 3.7 Absolute Nucleated RBC 0.000 Nucleated RBC % (auto) 0.0 ESR Hold Purple Top PT 17.8 H INR 1.5 H Sodium 143 Potassium 3.9 Chloride 110 H Carbon Dioxide 23 Anion Gap 14 BUN 13 Creatinine 0.66 0.66 Estim Creat Clear Calc 81.5 81.5 Estimated GFR > 60 > 60 POC Glucose 86 Random Glucose 89 Calcium 9.1 C-Reactive Protein 10/29/23 11:14 WBC RBC Hgb Hct MCV MCH MCHC RDW Plt Count MPV Immature Gran % (Auto) Neut % (Auto) Lymph % (Auto) Hoke % (Auto) Eos % (Auto) Baso % (Auto) Lymph # (Auto) Hoke # (Auto) Eos # (Auto) Baso # (Auto) Abs Immat Gran (auto) Absolute Neuts (auto) Absolute Nucleated RBC Nucleated RBC % (auto) ESR Hold Purple Top PT INR Sodium Potassium Chloride Carbon Dioxide Anion Gap BUN Creatinine Estim Creat Clear Calc Estimated GFR POC Glucose 90 Random Glucose Calcium C-Reactive Protein Airway Mallampati Class: II TM Dist: >3cm Neck ROM: Full Heart: rrr Lungs: cta Assessment and Plan Assessment Anesthesia Assessment: Anesthesia Plan Discussed Final Anesthetic Review Family History of Problems with Anesthesia: No History of Problems with Anesthesia: No NPO: Yes ASA Class: III Final Preanesthetic Review: No Changes in Pt Med Stat, Meds/Allgs Chart Reviewed, Consent Obtained/Reviewed and Anes Risks/Benef Reviewed Patient Risk: Intermediate Procedure Risk: Low Anesthetic Plan Anesthetic Plan: GA Disposition: Standard PACU
--- NOTE | 2023-10-29 15:35 | W.PM.OPN ---
Operative Note Operative Note Date of Service: 10/29/23 Narrative: Preoperative diagnosis: [] Left lower leg wound status post hematoma with prior evacuation Postop diagnosis: [] The same Procedure [] debridement left lower leg wound of necrotic skin, and soft tissue and old clot Surgeon: [] Don Supervisor Spring Up: [] Sabi Type of Anesthesia: [] General Indication for surgery: [] Patient is status post left leg hematoma. This required evacuation in the past. She now presents with drainage and necrosis of the wound. Final wound specimen with undermining measured approximately 10 x 14 cm involving the anterior lateral proximal left leg. Findings: [] Patient brought to the operating room, placed on operative table supine position, after adequate level of general anesthesia was induced, the left lower extremity was prepped and draped in usual sterile fashion. Extending the prior incision in site, with final dimensions as described above, necrotic skin, soft tissue and old hematoma and debris were evacuated from the wound. It was then copiously irrigated and secured hemostasis. It was then packed with Kerlix followed by 4x4s and wrapped with Noe. Wound was infiltrated 0.5% Marcaine at completion. Sponge, needle, and instrument counts reported correct. Patient tolerated the procedure well and emerged from anesthesia stable condition. EBL minimal
[2023-10-29] MEDS: Morphine Sulfate 4 MG/ML CARTRIDGE 3 MG IVPUSH (16:34)
[2023-10-29] MEDS: vancomycin HCL 750 MG in 0.9 % Sodium Chloride 250 ML 265 MG IV (16:36)
[2023-10-29 16:52] LABS: Glucose, Whole Blood 85 mg/dL (60-115)
[2023-10-29 20:52] LABS: Glucose, Whole Blood 147 mg/dL (60-115)
[2023-10-29] MEDS: Ziprasidone 80 MG CAPSULE PO (22:43)
[2023-10-29] MEDS: Atorvastatin Calcium 80 MG TABLET PO (22:44)
[2023-10-29] MEDS: oxyBUTYnin chloride ER 5 MG TAB.ER.24 20 MG PO (22:44)
[2023-10-29] MEDS: Apixaban 5 MG TABLET PO (22:44)
[2023-10-30 00:34] LABS: Glucose, Whole Blood 137 mg/dL (60-115)
[2023-10-30] MEDS: vancomycin HCL 750 MG in 0.9 % Sodium Chloride 250 ML 265 MG IV ×2 (03:50→14:23)
[2023-10-30] MEDS: Piperacillin Sodium/Tazobactam 3.375 GM in 0.9 % Sodium Chloride 50 ML IV ×4 (05:00→23:52)
[2023-10-30 05:35] LABS: Glucose, Whole Blood 121 mg/dL (60-115)
[2023-10-30 06:15] LABS: Anion Gap 14 (12-20); Blood Urea Nitrogen 10 mg/dL (9-16); Calcium 8.4 mg/dL (8.4-10.2); Carbon Dioxide 22 mmol/L (22-29); Chloride 112 mmol/L (96-108); Creatinine Clr Calc Pharmacy 92.7; Estimated Glomerular Filt Rate > 60; Glucose Fasting 119 mg/dL (60-99); Potassium 3.8 mmol/L (3.3-5.1); Sodium 144 mmol/L (135-145)
[2023-10-30 06:16] LABS: Hematocrit 27.2 % (37.0-47.0); Hemoglobin 8.7 g/dl (12.0-16.0); Mean Corpuscular Hemoglobin 30.5 pg (27.0-33.0); Mean Corpuscular Volume 95.4 fL (80.0-98.0); Mean Platelet Volume 10.9 fL (9.4-12.3); Platelet Count 131 X10*3/uL (160-400); Red Blood Count 2.85 X10*6/uL (4.20-5.50); Red Cell Distribution Width 15.5 % (11.0-16.0); White Blood Count 3.1 X10*3/uL (4.8-10.8)
[2023-10-30 07:12] VITALS: BP 116/66; PULSE 53; RESP 14; TEMP 36; O2SAT 97
[2023-10-30] MEDS: 0.9 % Sodium Chloride Flush 3 ML SYRINGE IVFLUSH ×3 (07:45→21:28)
[2023-10-30] MEDS: Apixaban 5 MG TABLET PO ×2 (07:45→21:28)
[2023-10-30] MEDS: Ziprasidone 80 MG CAPSULE PO ×2 (07:45→21:28)
[2023-10-30] MEDS: Metoprolol Succinate ER 100 MG TAB.ER.24H PO (07:45)
--- NOTE | 2023-10-30 08:38 | HO.POSTANES ---
Post Anesthesia Evaluation Post Anesthesia Evaluation Date of Service: 10/29/23 Vital Signs: Vital Signs Temp Pulse Resp BP Pulse Ox O2 Del Method 10/30/23 07:12 96.8 F 53 14 116/66 97 Room Air 10/29/23 23:57 97.0 F 66 16 101/64 96 Room Air Anesthesia: General Mental Status: Awake Pain Control: Satisfactory Nausea/Vomiting: None Hydration: Adequate Anesthesia-Related Issues: No Anes. Related Issues
--- NOTE | 2023-10-30 09:08 | P.PNGS_ITS ---
Subjective Subjective Date of Service: 10/30/23 Interval history: Mild discomfort of left leg, otherwise feels well. Physical Exam 2 Vital Signs: Vital Signs: Last Vital Signs Temp 96.8 F 10/30/23 07:12 Pulse 53 10/30/23 07:12 Resp 14 10/30/23 07:12 BP 116/66 10/30/23 07:12 Pulse Ox 97 10/30/23 07:12 O2 Del Method Room Air 10/30/23 07:12 O2 Flow Rate 1 10/29/23 16:32 BMI result Body Mass Index 24.0 Const: General: comfortable, no acute distress and alert O rientation/consciousness: patient oriented x3 Resp: Effort & Inspection: normal respiratory effort Neuro: General: patient oriented x3 and moves all extremities Extrem: Other: left lower leg- wound cavity now clean appearing with good granulation tissue, no areas of necrosis, some darkening of overlying skin and new surrounding ecchymosis of posterior leg extending proximally to knee; surrounding erythema and edema improved Objective Data Active Medications Acetaminophen (Acetaminophen 325 Mg Tablet) 975 mg PO Q6H PRN PRN Reason: Pain, Mild (Pain Scale 1-3), fever or headache Apixaban (Apixaban 5 Mg Tablet) 5 mg PO BID [facility] Last Admin: 10/30/23 07:45 Dose: 5 mg Documented By: DABRoman Atorvastatin Calcium (Atorvastatin Calcium 80 Mg Tablet) 80 mg PO BEDTIME [facility] Last Admin: 10/29/23 22:44 Dose: 80 mg Documented By: YUMIKO Glucose (Glucose Gel 15 Gm Gel..Gram.) 15 gm PO Q15M PRN; Protocol PRN Reason: per Hypoglycemia Standing Ord. Dextrose (D10) 250 mls @ 750 mls/hr IV Q15M PRN; Protocol PRN Reason: per Hypoglycemia Standing Ord. Piperacillin Sod/Tazobactam (Sod 3.375 gm/ Sodium Chloride) 50 mls @ 100 mls/hr IV Q6H [facility] Last Infusion: 10/30/23 05:31 Dose: Infused Documented By: YUMIKO Vancomycin HCl 750 mg/ Sodium (Chloride) 265 mls @ 265 mls/hr IV Q12H [facility] Last Infusion: 10/30/23 04:53 Dose: Infused Documented By: YUMIKO Insulin Human Lispro (Insulin Lispro 100 Unit/Ml 3 Ml Vial) 0 unit SUBCUT Q6H [facility]; Protocol Last Admin: 10/30/23 05:36 Dose: Not Given Documented By: YUMIKO Non-Admin Reason: No Insulin Coverage Metoprolol Succinate (Metoprolol Succinate Er 100 Mg Tab.Er.24h) 100 mg PO DAILY [facility]; Protocol Last Admin: 10/30/23 07:45 Dose: 100 mg Documented By: ELIECER Morphine Sulfate (Morphine Sulfate 4 Mg/Ml Cartridge) 3 mg IVPUSH Q3H PRN; Protocol PRN Reason: Pain, Severe (Pain Scale 7-10) Last Admin: 10/29/23 16:34 Dose: 3 mg Documented By: ELIECER Oxybutynin Chloride (Oxybutynin Chloride Er 5 Mg Tab.Er.24) 20 mg PO BEDTIME [facility] Last Admin: 10/29/23 22:44 Dose: 20 mg Documented By: YUMIKO Oxycodone HCl (Oxycodone Hcl Immed Release 5 Mg Tablet) 5 mg PO Q4H PRN PRN Reason: Pain, Moderate(Pain Scale 4-6) Sodium Chloride (0.9 % Sodium Chloride Flush 3 Ml Syringe) 3 ml IVFLUSH QSHIFT [facility] Last Admin: 10/30/23 07:45 Dose: 3 ml Documented By: ELIECER Ziprasidone (Ziprasidone 80 Mg Capsule) 80 mg PO BID [facility] Last Admin: 10/30/23 07:45 Dose: 80 mg Documented By: ELIECER Labs 10/30/23 05:28 10/30/23 05:28 Labs: Laboratory Results - last 24 hr 10/29/23 10/29/23 10/29/23 11:14 16:49 20:35 MCV MCH MCHC RDW Plt Count MPV Absolute Nucleated RBC Nucleated RBC % (auto) Anion Gap Estim Creat Clear Calc Estimated GFR POC Glucose 90 85 147 H Fasting Glucose Calcium 10/29/23 10/30/23 10/30/23 23:56 05:28 05:31 MCV 95.4 MCH 30.5 MCHC 32.0 RDW 15.5 Plt Count 131 L MPV 10.9 Absolute Nucleated RBC 0.000 Nucleated RBC % (auto) 0.0 Anion Gap 14 Estim Creat Clear Calc 92.7 Estimated GFR > 60 POC Glucose 137 H 121 H Fasting Glucose 119 H Calcium 8.4 D Microbiology Microbiology Results: Microbiology 10/28/23 19:04 Blood Culture - Preliminary Blood - Venous No growth after 24 hours. 10/28/23 19:04 Blood Culture - Preliminary Blood - Venous No growth after 24 hours. Procedures Date of Service Date of Service: 10/30/23 Progress Note: A&P Assessment and plan (1) Wound of left lower extremity: Status: Acute Plan POD #1 s/p debridement left lower leg wound of necrotic skin, and soft tissue and old clot. Wound base/cavity overall clean appearing and now granulating well however some darkening of overlying tissue. Would recommend one more night to ensure viability of skin overlying cavity. Can continue daily dressing changes with wet to dry kerlix wrap into cavity, followed by dry fluffs, abd dressing and kerlix wrap. Patient comfortable with plan. Time Spent With Patient Time: Total time managing care of this patient today ____ minutes. Quality Stroke Does the patient have a stroke diagnosis?: No VTE Prior VTE?: No VTE Risk Level:: Medical - moderate - high VTE Device Contraindication: Treatment Not Indicated VTE Drug Contraindication: N/A - Med Ordered
[2023-10-30 11:19] LABS: Glucose, Whole Blood 99 mg/dL (60-115)
--- NOTE | 2023-10-30 12:42 | HO.PM.IMPN ---
Subjective Subjective Date of Service: 10/30/23 Interval History: seen and evaluated this morning feels better overall surgery site looks better pending cultures no other events Review of Systems Review of Systems: Yes all other systems are reviewed and are negative Physical Exam Vital Signs: Vital Signs: Last Vital Signs Temp 96.8 F 10/30/23 07:12 Pulse 53 10/30/23 07:12 Resp 14 10/30/23 07:12 BP 116/66 10/30/23 07:12 Pulse Ox 97 10/30/23 07:12 O2 Del Method Room Air 10/30/23 07:12 O2 Flow Rate 1 10/29/23 16:32 BMI result Body Mass Index 24.0 Const: Other: Constitutional : Awake, interactive, not in distress Neck : Normal inspection, Supple Cardiovascular : RRR, no JVP, no lower extremity edema Respiratory : good bilateral air entry, no crackles, wheezes or rhonchi Gastrointestinal: soft, lax, Normal bowel sounds, Non tender Skin : Warm, Dry, LLE wound base clean with granulating tissue, covered with dressing Neurological : Alert & oriented x3, No focal deficit Objective Data Active Medications Acetaminophen (Acetaminophen 325 Mg Tablet) 975 mg PO Q6H PRN PRN Reason: Pain, Mild (Pain Scale 1-3), fever or headache Apixaban (Apixaban 5 Mg Tablet) 5 mg PO BID [facility] Last Admin: 10/30/23 07:45 Dose: 5 mg Documented By: ELIECER Atorvastatin Calcium (Atorvastatin Calcium 80 Mg Tablet) 80 mg PO BEDTIME [facility] Last Admin: 10/29/23 22:44 Dose: 80 mg Documented By: YUMIKO Glucose (Glucose Gel 15 Gm Gel..Gram.) 15 gm PO Q15M PRN; Protocol PRN Reason: per Hypoglycemia Standing Ord. Dextrose (D10) 250 mls @ 750 mls/hr IV Q15M PRN; Protocol PRN Reason: per Hypoglycemia Standing Ord. Piperacillin Sod/Tazobactam (Sod 3.375 gm/ Sodium Chloride) 50 mls @ 100 mls/hr IV Q6H [facility] Last Admin: 10/30/23 12:20 Dose: 100 mls/hr Documented By: ELIECER Vancomycin HCl 750 mg/ Sodium (Chloride) 265 mls @ 265 mls/hr IV Q12H [facility] Last Infusion: 10/30/23 04:53 Dose: Infused Documented By: YUMIKO Insulin Human Lispro (Insulin Lispro 100 Unit/Ml 3 Ml Vial) 0 unit SUBCUT Q6H [facility]; Protocol Last Admin: 10/30/23 11:40 Dose: Not Given Documented By: ELIECER Non-Admin Reason: No Insulin Coverage Metoprolol Succinate (Metoprolol Succinate Er 100 Mg Tab.Er.24h) 100 mg PO DAILY [facility]; Protocol Last Admin: 10/30/23 07:45 Dose: 100 mg Documented By: ELIECER Morphine Sulfate (Morphine Sulfate 4 Mg/Ml Cartridge) 3 mg IVPUSH Q3H PRN; Protocol PRN Reason: Pain, Severe (Pain Scale 7-10) Last Admin: 10/29/23 16:34 Dose: 3 mg Documented By: ELIECER Oxybutynin Chloride (Oxybutynin Chloride Er 5 Mg Tab.Er.24) 20 mg PO BEDTIME [facility] Last Admin: 10/29/23 22:44 Dose: 20 mg Documented By: YUMIKO Oxycodone HCl (Oxycodone Hcl Immed Release 5 Mg Tablet) 5 mg PO Q4H PRN PRN Reason: Pain, Moderate(Pain Scale 4-6) Sodium Chloride (0.9 % Sodium Chloride Flush 3 Ml Syringe) 3 ml IVFLUSH QSHIFT [facility] Last Admin: 10/30/23 07:45 Dose: 3 ml Documented By: ELIECER Ziprasidone (Ziprasidone 80 Mg Capsule) 80 mg PO BID [facility] Last Admin: 10/30/23 07:45 Dose: 80 mg Documented By: ELIECER Labs 10/30/23 05:28 10/30/23 05:28 Labs: Laboratory Results - last 24 hr 10/29/23 10/29/23 10/29/23 16:49 20:35 23:56 MCV MCH MCHC RDW Plt Count MPV Absolute Nucleated RBC Nucleated RBC % (auto) Anion Gap Estim Creat Clear Calc Estimated GFR POC Glucose 85 147 H 137 H Fasting Glucose Calcium 10/30/23 10/30/23 10/30/23 05:28 05:31 11:09 MCV 95.4 MCH 30.5 MCHC 32.0 RDW 15.5 Plt Count 131 L MPV 10.9 Absolute Nucleated RBC 0.000 Nucleated RBC % (auto) 0.0 Anion Gap 14 Estim Creat Clear Calc 92.7 Estimated GFR > 60 POC Glucose 121 H 99 Fasting Glucose 119 H Calcium 8.4 D Microbiology Microbiology Results: Microbiology 10/28/23 19:04 Blood Culture - Preliminary Blood - Venous No growth after 24 hours. 10/28/23 19:04 Blood Culture - Preliminary Blood - Venous No growth after 24 hours. Assessment and Plan (1) Infected wound: Status: Acute (2) Wound of left lower extremity: Status: Acute (3) Cellulitis: Status: Acute (4) Traumatic hematoma: Status: Acute Plan 67F PMH dm, chronic afib, hld, htn, mood disorder, presented with LLE wound infection LLE wound infection with cellulitis and necrotizing skin POD 1 debridement Surgery following, 1 more night monitoring Continue vanc, zosyn Daily dressing follow vancomycin trough dm insulin chronic afib metoprolol, eliquis to restart after OR htn metoprlol hld statin dvt prophylaxis - eliquis to restart of or full code reason for continued hospitalization:iv abx, Quality Stroke Does the patient have a stroke diagnosis?: No VTE Prior VTE?: No VTE Risk Level:: Medical - moderate - high VTE Device Contraindication: Treatment Not Indicated VTE Drug Contraindication: N/A - Med Ordered
[2023-10-30 13:16] LABS: Vancomycin Random 14.7 mcg/mL (15-20)
[2023-10-30 15:34] VITALS: BP 116/55; PULSE 50; RESP 16; TEMP 36.1; O2SAT 100
[2023-10-30 16:00] LABS: Glucose, Whole Blood 114 mg/dL (60-115)
[2023-10-30] MEDS: Lactulose 20 GM/30 ML SOLUTION PO (17:52)
[2023-10-30 20:28] LABS: Glucose, Whole Blood 118 mg/dL (60-115)
[2023-10-30] MEDS: oxyBUTYnin chloride ER 5 MG TAB.ER.24 20 MG PO (21:26)
[2023-10-30] MEDS: Atorvastatin Calcium 80 MG TABLET PO (21:27)
[2023-10-30] MEDS: oxyCODONE HCl Immed Release 5 MG TABLET PO (21:28)
[2023-10-30 23:23] VITALS: BP 110/56; PULSE 50; RESP 16; TEMP 36.1; O2SAT 96
[2023-10-31] MEDS: vancomycin HCL 750 MG in 0.9 % Sodium Chloride 250 ML 265 MG IV (03:15)
[2023-10-31] MEDS: Piperacillin Sodium/Tazobactam 3.375 GM in 0.9 % Sodium Chloride 50 ML IV (05:10)
[2023-10-31 07:02] VITALS: BP 131/57; PULSE 57; RESP 12; TEMP 36; O2SAT 99
[2023-10-31] MEDS: Apixaban 5 MG TABLET PO (07:40)
[2023-10-31] MEDS: Ziprasidone 80 MG CAPSULE PO (07:40)
[2023-10-31] MEDS: 0.9 % Sodium Chloride Flush 3 ML SYRINGE IVFLUSH (07:41)
[2023-10-31 08:22] LABS: Hematocrit 29.1 % (37.0-47.0); Hemoglobin 9.2 g/dl (12.0-16.0); Mean Corpuscular HGB Conc 31.6 g/dl (31.0-35.0); Mean Corpuscular Hemoglobin 30.9 pg (27.0-33.0); Mean Corpuscular Volume 97.7 fL (80.0-98.0); Mean Platelet Volume 11.2 fL (9.4-12.3); Platelet Count 138 X10*3/uL (160-400); Red Blood Count 2.98 X10*6/uL (4.20-5.50); Red Cell Distribution Width 15.5 % (11.0-16.0); White Blood Count 3.3 X10*3/uL (4.8-10.8)
[2023-10-31 08:37] LABS: Creatinine Clr Calc Pharmacy 75.7; Estimated Glomerular Filt Rate > 60
[2023-10-31 08:56] LABS: Glucose, Whole Blood 75 mg/dL (60-115)
--- NOTE | 2023-10-31 10:31 | PM.PNGS ---
Subjective Subjective Date of Service: 10/31/23 Interval history: Mild left leg pain. Able to ambulate without difficulty. No new complaints. Physical Exam Vital Signs: Vital Signs: Last Vital Signs Temp 96.8 F 10/31/23 07:02 Pulse 57 10/31/23 07:02 Resp 12 10/31/23 07:02 BP 131/57 L 10/31/23 07:02 Pulse Ox 99 10/31/23 07:02 O2 Del Method Room Air 10/31/23 07:02 O2 Flow Rate 1 10/29/23 16:32 BMI result Body Mass Index 24.0 Const: General: comfortable, no acute distress and alert Orientation/consciousness: patient oriented x3 Resp: Effort & Inspection: normal respiratory effort Neuro: General: patient oriented x3 and moves all extremities Extrem: Other: left lower leg- wound cavity remains clean appearing with good granulation tissue at base, no areas of necrosis, mild darkening of overlying skin, leg remains edematous inferiorly, resolving erythema Objective Data Active Medications Acetaminophen (Acetaminophen 325 Mg Tablet) 975 mg PO Q6H PRN PRN Reason: Pain, Mild (Pain Scale 1-3), fever or headache Apixaban (Apixaban 5 Mg Tablet) 5 mg PO BID [facility] Last Admin: 10/31/23 07:40 Dose: 5 mg Documented By: DABRoman Atorvastatin Calcium (Atorvastatin Calcium 80 Mg Tablet) 80 mg PO BEDTIME [facility] Last Admin: 10/30/23 21:27 Dose: 80 mg Documented By: YUMIKO Glucose (Glucose Gel 15 Gm Gel..Gram.) 15 gm PO Q15M PRN; Protocol PRN Reason: per Hypoglycemia Standing Ord. Piperacillin Sod/Tazobactam (Sod 3.375 gm/ Sodium Chloride) 50 mls @ 100 mls/hr IV Q6H [facility] Last Infusion: 10/31/23 05:40 Dose: Infused Documented By: YUMIKO Vancomycin HCl 750 mg/ Sodium (Chloride) 265 mls @ 265 mls/hr IV Q12H [facility] Last Infusion: 10/31/23 04:15 Dose: Infused Documented By: YUMIKO Dextrose (D10) 250 mls @ 750 mls/hr IV Q15M PRN; Protocol PRN Reason: per Hypoglycemia Standing Ord. Insulin Human Lispro (Insulin Lispro 100 Unit/Ml 3 Ml Vial) 0 unit SUBCUT QIDACHS [facility]; Protocol Last Admin: 10/31/23 07:10 Dose: Not Given Documented By: ELIECER Non-Admin Reason: No Insulin Coverage Metoprolol Succinate (Metoprolol Succinate Er 100 Mg Tab.Er.24h) 100 mg PO DAILY [facility]; Protocol Last Admin: 10/31/23 07:40 Dose: Not Given Documented By: ELIECER Non-Admin Reason: Decreased Heart Rate Morphine Sulfate (Morphine Sulfate 4 Mg/Ml Cartridge) 3 mg IVPUSH Q3H PRN; Protocol PRN Reason: Pain, Severe (Pain Scale 7-10) Last Admin: 10/29/23 16:34 Dose: 3 mg Documented By: ELIECER Oxybutynin Chloride (Oxybutynin Chloride Er 5 Mg Tab.Er.24) 20 mg PO BEDTIME [facility] Last Admin: 10/30/23 21:26 Dose: 20 mg Documented By: YUMIKO Oxycodone HCl (Oxycodone Hcl Immed Release 5 Mg Tablet) 5 mg PO Q4H PRN PRN Reason: Pain, Moderate(Pain Scale 4-6) Last Admin: 10/30/23 21:28 Dose: 5 mg Documented By: YUMIKO Sodium Chloride (0.9 % Sodium Chloride Flush 3 Ml Syringe) 3 ml IVFLUSH QSHIFT [facility] Last Admin: 10/31/23 07:41 Dose: 3 ml Documented By: ELIECER Ziprasidone (Ziprasidone 80 Mg Capsule) 80 mg PO BID [facility] Last Admin: 10/31/23 07:40 Dose: 80 mg Documented By: ELIECER Labs 10/31/23 07:34 10/31/23 07:34 Labs: Laboratory Results - last 24 hr 10/30/23 10/30/23 10/30/23 11:09 12:56 15:55 MCV MCH MCHC RDW Plt Count MPV Absolute Nucleated RBC Nucleated RBC % (auto) Estim Creat Clear Calc Estimated GFR POC Glucose 99 114 Random Vancomycin 14.7 L 10/30/23 10/31/23 10/31/23 20:22 07:08 07:34 MCV 97.7 MCH 30.9 MCHC 31.6 RDW 15.5 Plt Count 138 L MPV 11.2 Absolute Nucleated RBC 0.000 Nucleated RBC % (auto) 0.0 Estim Creat Clear Calc 75.7 Estimated GFR > 60 POC Glucose 118 H 75 Random Vancomycin Microbiology Microbiology Results: Microbiology 10/28/23 19:04 Blood Culture - Preliminary Blood - Venous No growth after 48 hours. 10/28/23 19:04 Blood Culture - Preliminary Blood - Venous No growth after 48 hours. Procedures Date of Service Date of Service: 10/31/23 Progress Note: A&P Assessment and plan (1) Wound of left lower extremity: Status: Acute (2) Cellulitis: Status: Acute Plan POD #2 s/p debridement left lower leg wound of necrotic skin, and soft tissue and old clot. Wound base/cavity overall clean appearing and continues to granulate well. Cellulitis overall improved, continues with mild lower leg edema. Stable for dc from surgical standpoint. Dressing changes with wet to dry kerlix wrap into cavity, followed by dry fluffs, abd dressing and kerlix wrap every other day with VNA services, wound care center referral. Encouraged elevation of left leg while at rest. Patient comfortable with plan. F/u in office in 1 week. Time Spent With Patient Time: Total time managing care of this patient today ____ minutes. Quality Stroke Does the patient have a stroke diagnosis?: No VTE Prior VTE?: No VTE Risk Level:: Medical - moderate - high VTE Device Contraindication: Treatment Not Indicated VTE Drug Contraindication: N/A - Med Ordered
--- NOTE | 2023-10-31 11:05 | MHC.CM.PN ---
Per MD patient is medically cleared for dc home w/ resumption of [facility] services (PT and SN). Patient will take [facility] shuttle home at 12pm. RN and aware. [facility] aware of dc.
[2023-10-31 11:07] LABS: Glucose, Whole Blood 104 mg/dL (60-115)
--- NOTE | 2023-10-31 11:12 | W.MHC.F2F ---
Service Date Service Date: 10/31/23 Encounter Date of encounter: 10/31/23 Reasons for Services Signs and symptoms assessed: Infected wound Left lower extremity Reason for halfway: wound care ( Dressing changes with wet to dry kerlix wrap into cavity, followed by dry fluffs, abd dressing and kerlix wrap every other day with VNA services) and teach disease management Homebound: Leaving the home is medically contraindicated at this time without the asist of a device and/or another person due th the listed conditions above and below. Reason homebound: unable to drive Certification: Based on the above findings, I certify that this patient is confined to the home and needs intermittent halfway care, physical therapy and/or speech therapy, or continues to need occupational therapy. The patient is under my care, and I have initiated the establishment of the plan of care. The patient will be followed by a physician who will periodically review the plan of care. Time Spent With Patient Time: Total time managing care of this patient today ____ minutes.
--- NOTE | 2023-10-31 11:13 | P.DS_ITS ---
DS: Providers Provider Date of Service: 10/31/23 Date of admission: 10/28/23 22:52 Primary care physician: Elsa Barrera MD Consults: 10/28/23 22:57 Consult to General Surgery Routine Consulting Provider: Tomasz Ochoa Reason for consultation: Left leg infected wound Has provider been notified: Yes DS: Diagnosis Discharge Diagnosis (1) Wound of left lower extremity: Status: Acute (2) Cellulitis: Status: Acute (3) Infected wound: Status: Acute (4) Traumatic hematoma: Status: Acute DS: Summary Hospital Course Hospital Course: Admission note HPI Rissa Betancur is a 67 years old woman with past medical history significant for type 2 diabetes mellitus on oral hypoglycemic agents, atrial fibrillation on Eliquis, hyperlipidemia, essential hypertension and mood disorder presents to the emergency department complaining of left leg wound infection. Recently, patient underwent hematoma evacuation on October [address] Andrade. Her visiting nurse today noted that the wound looks infected and was having spontaneous drainage or malodorous discharge. The patient denied any significant pain to her leg, fever, chills, nausea or vomiting. She did not report any headache, palpitations or dizziness. Denied any acute cardiopulmonary, gastrointestinal or genitourinary symptoms. No toxic habits reported. In the ED, she was found to have blood pressure 107/53, heart rate of 48, normal temperature and oxygen saturation on room air. Blood workup showed no leukocytosis. Hemoglobin is 10.1 and platelets are normal. CRP is 6.82. There are no electrolyte imbalances and glucose is normal. Tib-fib x-ray showed edema and air droplets in the anterior upper lobe soft tissue without radiographic evidence of osteomyelitis. Dr. Cheney helped to remove most of the pus out of the wound. Hospital course The patient presented to the hospital with left lower extremity wound infection with cellulitis and necrotizing skin requiring surgical team evaluation and debridement under GA. Treated with IV Vancomycin and zosyn as she had Daily dressing with improvement of cellulitis area. patient was able to ambulate and will be followed by wound care clinic and visiting nurses. To follow with surgery next week as she will be on Augmentin and Doxycyclin. Dressing changes with wet to dry kerlix wrap into cavity, followed by dry fluffs, abd dressing and kerlix wrap every other day with VNA services Discharge plan Continue daily dressing Continue Augmentin and Doxycycline for 10 more days Follow with wound care clinic Follow with surgery in 1 week Time Attestation Discharge Coordination Time (in mins): 38 Quality: Safe Use of Opioids Does Pt have an Active Cancer Diagnosis on the Problem List?: No Quality: Stroke Does the patient have a stroke diagnosis?: No Physical Exam Vital Signs: Vital Signs: Last Vital Signs Temp 96.8 F 10/31/23 07:02 Pulse 57 10/31/23 07:02 Resp 12 10/31/23 07:02 BP 131/57 L 10/31/23 07:02 Pulse Ox 99 10/31/23 07:02 O2 Del Method Room Air 10/31/23 07:02 O2 Flow Rate 1 10/29/23 16:32 BMI result Body Mass Index 24.0 Const: Other: Constitutional : Awake, interactive, not in distress Neck : Normal inspection, Supple Cardiovascular : RRR, no JVP, no lower extremity edema Respiratory : good bilateral air entry, no crackles, wheezes or rhonchi Gastrointestinal: soft, lax, Normal bowel sounds, Non tender Skin : Warm, Dry, LLE wound base clean with granulating tissue, covered with dressing Neurological : Alert & oriented x3, No focal deficit DS: Data Data Completed and Pending Completed studies during hospitalization [Text1]: Procedures Excision of Left Lower Leg Skin, External Approach (10/10/23) Extirpation of Matter from Left Lower Leg Subcutaneous Tissue and Fascia, Open Approach (10/10/23) Labs on day of discharge: Laboratory Results - last 24 hr 10/30/23 10/30/23 10/30/23 11:09 12:56 15:55 WBC RBC Hgb Hct MCV MCH MCHC RDW Plt Count MPV Absolute Nucleated RBC Nucleated RBC % (auto) Creatinine Estim Creat Clear Calc Estimated GFR POC Glucose 99 114 Random Vancomycin 14.7 L 10/30/23 10/31/23 10/31/23 20:22 07:08 07:34 WBC 3.3 L RBC 2.98 L Hgb 9.2 L Hct 29.1 L MCV 97.7 MCH 30.9 MCHC 31.6 RDW 15.5 Plt Count 138 L MPV 11.2 Absolute Nucleated RBC 0.000 Nucleated RBC % (auto) 0.0 Creatinine 0.71 Estim Creat Clear Calc 75.7 Estimated GFR > 60 POC Glucose 118 H 75 Random Vancomycin 10/31/23 11:03 WBC RBC Hgb Hct MCV MCH MCHC RDW Plt Count MPV Absolute Nucleated RBC Nucleated RBC % (auto) Creatinine Estim Creat Clear Calc Estimated GFR POC Glucose 104 Random Vancomycin Preliminary micro results at discharge 10/28/23 19:04 Blood Culture - Preliminary Blood - Venous No growth after 48 hours. 10/28/23 19:04 Blood Culture - Preliminary Blood - Venous No growth after 48 hours. Imaging Chest x-ray: Radiologist's impression: ITS Impressions Tibia/Fibula X-Ray 10/28/23 16:17 IMPRESSION: 1. Edema and air droplets in the anterior upper leg soft tissues. 2. No radiographic evidence for osteomyelitis. Discharge Plan Discharge Anticipated Discharge Date/Time: 10/31/23 11:05 Patient Disposition: Home Health Service Discharge Diagnosis: Cellulitis Infected wound Traumatic hematoma Referrals: [facility] Wound Care Management [Provider Group] - 1 Week [facility] [Outside] - 1 Day (resumption of longterm/wound care and home PT) Elsa Barrera MD [Primary Care Provider] - 1 Week Freedom Andrade MD [Physician] - 1 Week Discharge Medications: New oxycodone 5 mg Tablet 5 mg PO Q4H PRN (Reason: Pain, Moderate(Pain Scale 4-6)) Qty: 12 0RF Rx Instructions: Partial Fill upon patient request. amoxicillin-pot clavulanate 875-125 mg tablet 1 tab PO BID Qty: 20 0RF doxycycline monohydrate 100 mg capsule 100 mg PO BID Qty: 20 0RF Continued metformin 500 mg tablet 500 mg PO BID Qty: 180 1RF terazosin 1 mg capsule 3 mg PO BEDTIME 90 Days Qty: 270 3RF oxybutynin chloride 10 mg tablet extended release 24hr 20 mg PO BEDTIME 90 Days Qty: 180 2RF metoprolol succinate 100 mg tablet extended release 24 hr 100 mg PO DAILY Qty: 90 0RF atorvastatin 80 mg tablet 80 mg PO BEDTIME Qty: 90 2RF Eliquis 5 mg tablet 5 mg PO BID 90 Days Qty: 180 1RF PreserVision AREDS-2 250-90-40-1 mg Capsule 1 tab PO BID docusate sodium [Colace] 100 mg capsule 100 mg PO BEDTIME PRN (Reason: Constipation) lisinopril 2.5 mg tablet 2.5 mg PO BEDTIME Avastin 25 mg/mL Solution 25 mg IV DIRECTED Rx Instructions: Every 11 weeks, next dose in two weeks ziprasidone HCl 80 mg capsule 80 mg PO BID Discharge Orders: Discharge Order (Routine); Ordered 10/31/23 Ordered By: Swetha Norton Diet: Advance to usual diet Activity on Discharge: As tolerated Stand Alone Forms: Patient Portal Discharge page Print Language: Omani Activity Restrictions/Additional Instructions: Wet to dry saline soaked kerlix wrap packed deep into cavity followed by dry fluffs, abd dressing and kerlix. Change every other day. Ok to shower. Care Plan Goals: Continue daily dressing Continue Augmentin and Doxycycline for 10 more days Follow with wound care clinic Follow with surgery in 1 week Health Concerns: Read below Plan of Treatment: Read below Assessment: Read below
--- NOTE | 2023-11-13 18:41 | P.CDIM_ITS ---
PROVIDER RESPONSE TEXT: To clarify, the appropriate diagnosis supported by the clinical indicators: Clinically unable to determine (explain): Send to the surgeon involved please. QUERY TEXT: PHYSICIAN'S DOCUMENTATION REQUEST Date of Query: 11/06/2023 01:56 PM EDT Patient Name: Rissa Betancur Admit Date: 10/29/2023 Dear Swetha Norton, A review of the medical record indicates additional documentation may be needed. Please review below and update the documentation accordingly. Clinical Indicators: Per Operative Note 10/29/23: Extending the prior incision in site, 2 dimensions as described above, necrotic skin, soft tissue and old hematoma and debris were evacuated from the wound. It was then copiously irrigated and secured hemostasis. Could you provide, in the Progress Notes, further clarification regarding the type and nature of the debridement? Excisional debridement Please also address the Type of instrument used, What was excised, Depth of debridement, and Size and appearance of the wound as able Non-excisional debridement Please also address the Depth of debridement, and Size and appearance of the wound as able Other (explain) Clinically unable to determine (explain) Thank you, Beatrice Garcia RN Use of terms such as suspected, likely, concern for, or probable (associated with a specific diagnosi s that is being evaluated, monitored, or treated as if it exists) are acceptable and can be coded in the inpatient se tting, when documented at the time of discharge. Please use your independent medical judgment in providing your response. THIS QUERY IS PART OF THE PERMANENT MEDICAL RECORD
--- NOTE | 2023-11-19 07:44 | P.CDIM_ITS ---
PROVIDER RESPONSE TEXT: To clarify, the appropriate diagnosis supported by the clinical indicators: Excisional debridement: Please refer to operative note debridement of necrotic tissue QUERY TEXT: PHYSICIAN'S DOCUMENTATION REQUEST Date of Query: 11/14/2023 06:43 AM EDT Patient Name: Rissa Betancur Admit Date: 10/29/2023 Dear Tomasz Ochoa MD, A review of the medical record indicates additional documentation may be needed. Please review below and update the documentation accordingly. Clinical Indicators: Per Operative Note 10/29/23: Extending the prior incision in site, 2 dimensions as described above, necrotic skin, soft tissue and old hematoma and debris were evacuated from the wound. It was then copiously irrigated and secured hemostasis. Could you provide further clarification regarding the type and nature of the debridement? Excisional debridement Please also address the Type of instrument used, What was excised, Depth of debridement, and Size and appearance of the wound as able Non-excisional debridement Please also address the Depth of debridement, and Size and appearance of the wound as able Other (explain) Clinically unable to determine (explain) Thank you, Beatrice Garcia RN Use of terms such as suspected, likely, concern for, or probable (associated with a specific diagnosi s that is being evaluated, monitored, or treated as if it exists) are acceptable and can be coded in the inpatient se tting, when documented at the time of discharge. Please use your independent medical judgment in providing your response. THIS QUERY IS PART OF THE PERMANENT MEDICAL RECORD
== END 2023-10-31 11:42 | disposition home health service (06) | DRG 863 ==
LOC: HO.ED 22:33 → HO.EDOVER 23:03 → HO.S3 10-29 01:02
PROVIDERS: Internal Medicine; Physician Assistant; Surgery; Admitting Provider Internal Medicine; Emergency Provider Emergency Medicine; PCP Internal Medicine; Visit Provider Student in an Organized Health Care Education/Training Program
PROC: 0HBLXZZ Excision of Left Lower Leg Skin, External Approach (ICD-10-PCS; principal; 2023-10-29 14:40)
DX: T81.41XA Infection following a procedure, superficial incisional surgical site, initial encounter (principal); L03.116 Cellulitis of left lower limb; I48.20 Chronic atrial fibrillation, unspecified; I96 Gangrene, not elsewhere classified; F31.9 Bipolar disorder, unspecified; E78.2 Mixed hyperlipidemia; D64.9 Anemia, unspecified; E11.9 Type 2 diabetes mellitus without complications; I10 Essential (primary) hypertension; Z79.01 Long term (current) use of anticoagulants; Z79.84 Long term (current) use of oral hypoglycemic drugs; Z79.899 Other long term (current) drug therapy
CPT/HCPCS: 36415; 73590; 80048; 80202; 82565; 82947; 85025; 85027; 85610; 85652; 86140; 87040; 99285; J0131; J0295; J1100; J1596; J2270; J2405; J2543; J2704; J2795; J3010; J3370

== ENCOUNTER → 2023-10-28 22:52 | Outpatient (BNV) | payer MEDICARE, SELFPAY | PROVIDERS: Admitting Provider Internal Medicine; Emergency Provider Emergency Medicine; Visit Provider Physician Assistant Surgical | DX: S81.802A Unspecified open wound, left lower leg, initial encounter (principal); L03.90 Cellulitis, unspecified | CPT/HCPCS: 27603; 99024 ==

== ENCOUNTER → 2023-10-28 22:52 | Outpatient (BNV) | payer MEDICARE, SELFPAY | PROVIDERS: Admitting Provider Internal Medicine; Emergency Provider Emergency Medicine; Visit Provider Internal Medicine | DX: E11.622 Type 2 diabetes mellitus with other skin ulcer (principal); L97.829 Non-pressure chronic ulcer of other part of left lower leg with unspecified severity; L08.89 Other specified local infections of the skin and subcutaneous tissue; L03.116 Cellulitis of left lower limb | CPT/HCPCS: 99222; 99232; 99239; G0180 ==

== ENCOUNTER 2023-11-13 07:47 | Outpatient (AMB) | payer MEDICARE, SELFPAY ==
--- NOTE | 2023-11-13 08:05 | MHC.OFFVIS ---
Intake Visit Reasons: s/p Debridement Skin Allergies No Known Allergies [No Known Allergies*] Allergy (Verified 10/28/23 15:59) HPI Comments Details: Patient was status post recent hospitalization for an infected hematoma which required debridement. She presents here for follow-up. She has no wound issues or complaints. She has every other day VNA services. She has had marked improvement of her symptoms. [facility] Medical History Traumatic hematoma Anemia Bipolar disorder Morbid obesity Benign familial tremor Colon cancer screening Ventral hernia Multinodular thyroid Umbilical hernia with obstruction CVID (common variable immunodeficiency) Vitamin D deficiency Hyperparathyroidism HLD (hyperlipidemia) HTN (hypertension) Cardiomyopathy Macular degeneration Menopause Elevated parathyroid hormone Urinary incontinence Controlled diabetes mellitus without long-term current use of insulin Mixed dyslipidemia Surgical History History of umbilical hernia repair (07/06/22) Hx of wisdom tooth extraction History of cardiac catheterization (~2016) Hx of biopsy H/O colonoscopy History of hysteroscopy History of adenoidectomy Family History Father Diabetes mellitus Depression Mental health disorder Mother Diabetes mellitus Colon cancer Breast cancer Familial tremor Sister Colon cancer Maternal Aunt Familial tremor Sister No problems noted. Social History Household Members: None Housing: Condominium Are you a primary customer care voice consultant to a significant other at home: No Do you presently have visiting nurse or other home services: Yes ([facility]NA) Alcohol intake: never Comment: COUNT CORRECT Patient Tobacco Use Status: Never used Tobacco e-Cigarette/Vaping Use: Never Used service: No Current occupational status: disabled Cognitive needs: No Hearing needs: No Vision needs: Yes Physical Exam Extrem Other: Proximal left lateral leg demonstrates approximately 15 cm wound which is markedly decreased in size from recent hospitalization. Healthy granulating tissue. No evidence of any infection or purulence. Assessment & Plan Assessment & Plan (1) Leg wound, left: Code(s): S81.802A - Unspecified open wound, left lower leg, initial encounter Category: Surgical Plan Patient was to continue local wound care with VNA services. She is scheduled for wound care clinic appointment next week. From our perspective, patient is stable. She will otherwise follow-up p.r.n.. All questions answered. Coding Level of Care Code Global (79406) Diagnoses Leg wound, left S81.808O
== END 2023-11-13 08:10 | disposition home or self-care (01) ==
PROVIDERS: PCP Internal Medicine; Visit Provider Surgery
DX: S81.802A Unspecified open wound, left lower leg, initial encounter (principal)
CPT/HCPCS: 99024

== ENCOUNTER → 2023-11-13 07:47 | Outpatient (BNVA) | payer MEDICARE, SELFPAY | PROVIDERS: PCP Internal Medicine; Visit Provider Surgery | DX: S81.802D Unspecified open wound, left lower leg, subsequent encounter (principal) | CPT/HCPCS: 99212 ==

== ENCOUNTER 2023-11-20 09:50 | Outpatient (RCR) | payer MEDICARE, SELFPAY | END 2024-02-06 16:55 | disposition home or self-care (01) | LOC: HO.WCC 09:50 | PROVIDERS: PCP Internal Medicine; Visit Provider Surgery | DX: I87.312 Chronic venous hypertension (idiopathic) with ulcer of left lower extremity (principal); L97.822 Non-pressure chronic ulcer of other part of left lower leg with fat layer exposed; S81.812A Laceration without foreign body, left lower leg, initial encounter; D69.6 Thrombocytopenia, unspecified; I10 Essential (primary) hypertension; Z79.2 Long term (current) use of antibiotics; Z79.01 Long term (current) use of anticoagulants; Z79.84 Long term (current) use of oral hypoglycemic drugs; Z79.891 Long term (current) use of opiate analgesic; Z79.899 Other long term (current) drug therapy | CPT/HCPCS: 11042; 97597; 99212 ==

== ENCOUNTER 2023-11-25 11:33 | Outpatient (REF) | payer MEDICARE, SELFPAY ==
[2023-11-25 13:10] LABS: MANUAL DIFF FLAG NO
[2023-11-25 13:27] LABS: Basophils Percent Auto 0.3 % (0-2); Eosinophils Percent Auto 0.3 % (0-4); Hematocrit 34.6 % (37.0-47.0); Imm Gran Abs Auto 0.02 X10*3/uL (0.00-0.03); Imm Gran Pct Auto 0.6 % (0.0-0.4); Lymphocytes Absolute Auto 0.7 X10*3/uL (1.2-4.9); Lymphocytes Percent Auto 19.3 % (20-40); Mean Corpuscular HGB Conc 31.8 g/dl (31.0-35.0); Mean Corpuscular Hemoglobin 29.6 pg (27.0-33.0); Mean Platelet Volume 11.9 fL (9.4-12.3); Monocytes Absolute Auto 0.2 X10*3/uL (0.1-1.2); Monocytes Percent Auto 4.8 % (2-11); Neutrophils Absolute Auto 2.6 x10*3/uL (2.0-8.3); Neutrophils Percent Auto 74.7 % (45-73); Platelet Count 109 X10*3/uL (160-400); White Blood Count 3.5 X10*3/uL (4.8-10.8)
[2023-11-25 13:29] LABS: Red Blood Count 3.72 X10*6/uL (4.20-5.50)
[2023-11-25 13:39] LABS: Estimated Average Glucose 85 mg/dL; Hemoglobin A1c % 4.6 % (<6.0)
[2023-11-25 13:45] LABS: Alanine Aminotransferase 9 U/L (0-31); Anion Gap 16 (12-20); Aspartate Amino Transferase 12 U/L (5-31); Blood Urea Nitrogen 15 mg/dL (9-16); Calcium 9.9 mg/dL (8.4-10.2); Carbon Dioxide 22 mmol/L (22-29); Chloride 107 mmol/L (96-108); Cholesterol 96 mg/dL (<200); Estimated Glomerular Filt Rate > 60; Glucose Fasting 101 mg/dL (60-99); HDL Cholesterol 39 mg/dL (>40); Iron 37 mcg/dL (30-160); LDL Cholesterol Calculated 46 mg/dL (<100); Percent Iron Saturation 12 % (15-50); Sodium 141 mmol/L (135-145); Total Iron Binding Capacity 300 mcg/dL (228-428); Triglycerides 58 mg/dL (<150); Unsaturated Iron Binding 263 ug/dL
[2023-11-25 13:46] LABS: Creatinine Urine 114.69 mg/dL; Microalbum/Creatinine Ratio Ur 23.5 ug/mg cr (<30)
[2023-11-25 14:03] LABS: Vitamin D 25-OH Total 64.3 ng/mL (>30)
== END 2023-11-25 11:34 | disposition home or self-care (01) ==
LOC: HO.HMGCLDS 11:33
PROVIDERS: PCP Internal Medicine; Visit Provider Internal Medicine
DX: D62 Acute posthemorrhagic anemia (principal); S81.802A Unspecified open wound, left lower leg, initial encounter; D69.1 Qualitative platelet defects; I10 Essential (primary) hypertension; E11.9 Type 2 diabetes mellitus without complications; E78.2 Mixed hyperlipidemia
CPT/HCPCS: 36415; 80048; 80061; 82043; 82306; 82570; 83036; 83540; 84450; 84460; 85025

== ENCOUNTER 2023-11-28 08:20 | Outpatient (AMB) | payer MEDICARE, SELFPAY ==
[2023-11-28 08:28] VITALS: BP 122/60; PULSE 67; O2SAT 98; BMI 23.2
--- NOTE | 2023-11-28 08:28 | MHC.PC.OV ---
Vital Signs 11/28/23 08:28 Height 5 ft 7 in Weight 148 lb BMI 23.2 BP 122/60 Blood Pressure Location Rt brachial Position Sitting Pulse 67 Pulse Source Pulse Oximeter Pulse Oximetry (%) 98 Oxygen Delivery Method Room Air Intake Visit Reasons: f/u HTN,DM and anemia Intake Note: pt is here for follow up regarding labs Ict Support Engineer Required: No Allergies No Known Allergies [No Known Allergies*] Allergy (Verified 11/28/23 09:24) Medication List - Last Reconciled 11/28/23 by Elsa Barrera MD apixaban (Eliquis) 5 mg PO BID 90 days atorvastatin 80 mg PO BEDTIME bevacizumab (Avastin) 25 mg IV DIRECTED docusate sodium (Colace) 100 mg PO BEDTIME PRN lisinopril 2.5 mg PO BEDTIME metformin 500 mg PO BID metoprolol succinate ER 100 mg PO DAILY oxybutynin chloride ER 20 mg (2 x 10 mg) PO BEDTIME 90 days terazosin 3 mg (3 x 1 mg) PO BEDTIME 90 days vit C,G-Ix-sojdg-lutein-zeaxan 250-90-40-1 mg (PreserVision AREDS-2) 1 tab PO BID ziprasidone HCl 80 mg PO BID Tobacco use date assessed: 06/06/23 Fall risk assessment: 1 Fall in past year Last assessed Fall Risk: 11/28/23 Dental Screening Dental Screen Date: 06/06/23 HPI f/u HTN,DM and anemia HPI Details -67 year-old lady with bipolar disorder currently followed by psych, persistent atrial fibrillation currently on apixaban, has benign familial tremor, diabetes mellitus, mixed dyslipidemia, history of multinodular goiter, currently euthyroid, macular degeneration, here today for her follow-up. She had recent fall a month ago and developed traumatic hematoma on left lower leg underwent evacuation of hematoma, later on developed cellulitis and now currently followed by wound clinic. She states that she has been feeling well, mood on left leg is healing. Diabetes mellitus stable and lipids are controlled on present treatment. She was recently seen by Dr. Moreno does not think that she has hyperparathyroidism and has multinodular goiter , currently euthyroid with no further indication for FNA biopsy of her nodules. He is currently being followed by Dr. 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 Age-related macular degeneration, wet, right eye Traumatic hematoma Anemia Bipolar disorder Morbid obesity Benign familial tremor Colon cancer screening Ventral hernia Multinodular thyroid Umbilical hernia with obstruction CVID (common variable immunodeficiency) Vitamin D deficiency HLD (hyperlipidemia) HTN (hypertension) Cardiomyopathy Elevated parathyroid hormone Urinary incontinence Controlled diabetes mellitus without long-term current use of insulin Mixed dyslipidemia Surgical History History of umbilical hernia repair (07/06/22) Hx of wisdom tooth extraction History of cardiac catheterization (~2016) Hx of biopsy H/O colonoscopy History of hysteroscopy History of adenoidectomy Family History Father Diabetes mellitus Depression Mental health disorder Mother Diabetes mellitus Colon cancer Breast cancer Familial tremor Sister Colon cancer Maternal Aunt Familial tremor Sister No problems noted. Social History Household Members: None Housing: Condominium Are you a primary care partner to a significant other at home: No Do you presently have visiting nurse or other home services: Yes (VNA) Alcohol intake: never Comment: COUNT CORRECT Patient Tobacco Use Status: Never used Tobacco e-Cigarette/Vaping Use: Never Used service: No Current occupational status: disabled Cognitive needs: No Hearing needs: No Vision needs: Yes Questionnaire PHQ-9 Over the last 2 weeks, how often have you been bothered by any of the following problems? 1. Little interest or pleasure in doing things: not at all 2. Feeling down, depressed, or hopeless: not at all 3. Trouble falling or staying asleep, or sleeping too much: several days 4. Feeling tired or having little energy: not at all 5. Poor appetite or overeating: several days 6. Feeling bad about yourself - or that you are a failure or have let yourself or your family down: not at all 7. Trouble concentrating on things, such as reading the newspaper or watching television: not at all 8. Moving or speaking so slowly that other people could have noticed. Or the opposite - being so fidgety or restless that you have been moving around a lot more than usual: not at all 9. Thoughts that you would be better off or of hurting yourself in some way: not at all Total score: 2 Depression Screening Interpretation: Negative Depression Screening Done: Yes 13345 - PHQ-9 Billing: Yes Source: Developed by Drs. Braulio Durand, Kathryn Martinez, Javier Hodgson and colleagues, with an educational jeffry from [employer]. Thrive Questionnaire Date Thrive assessed: 11/28/23 I am a: Patient What is your living situation today?: I have a steady place to live Within the past 12 months, did the food you bought not last and you didn't have the money to get more?: Never true Within the past 12 months, did you worry whether your food would run out before you got money to buy more?: Never true Do you have trouble paying for medicines?: No Do you have trouble getting transportation to medical appointments?: Yes Do you have trouble paying your heating and electricity bill?: No Do you have trouble taking care of your child, family member or friend?: No Do you have trouble with day-to-day activities such as bathing, preparing meals, shopping, managing finances, etc.?: No Are you currently unemployed and looking for a job?: No Are you interested in more education?: No Please select the resources that you would like help with: Housing/Detention Currently or been in a relationship where the following occur: No concerns reported THRIVE Score: 1 AUDIT C Alcohol Use Questionnaire (AUDIT-C) 1. How often do you have a drink containing alcohol?: Never 2. How many drinks containing alcohol do you have on a typical day when you are drinking?: 1 or 2 3. How often do you have six or more drinks on one occasion?: Never Total Score: 0 Score Reviewed/Action Taken: Yes JULIA-7 AMB Questionnaire JULIA-7 Date JULIA - 7 assessed: 11/28/23 Feeling nervous, anxious, or on edge: 0 = Not at all Not being able to stop or control worryin = Not at all Worrying too much about different things: 0 = Not at all Trouble relaxin = Not at all Being so restless that it is hard to sit still: 0 = Not at all Becoming easily annoyed or irritable: 0 = Not at all Feeling afraid as if something awful might happen: 0 = Not at all Total JULIA-7 score (0-4 normal; 5-9 mild; 10-14 moderate; 15-21 severe): 0 Source: Developed by Drs. Braulio Durand, Kathryn Martinez, Javier Hodgson and colleagues, with an educational jefrfy from [employer] JULIA-7 Assessment Billing JULIA-7 Assessment Tool: JULIA-7 Assessment 89658 Review of Systems Const Denies headache(s) and Denies weakness Eyes Details: Currently being followed by the [facility] and also goes to the [facility] in [place] for her macular degeneration ENT Denies dizziness, Denies headache(s), Denies nasal discharge, Denies disequilibrium and Denies post nasal drip Card Denies chest pain, Denies chest pain with activity, Denies syncope, Denies rapid heart rate, Denies pedal edema, Denies leg edema, Denies lightheadedness, Denies dyspnea and Denies dyspnea on exertion Resp Denies cough, Denies dyspnea and Denies dyspnea on exertion GI Denies abdominal pain, Denies melena, Denies bloating, Denies hematochezia, Denies change in bowel habits, Denies change in stool character and Denies heartburn Reports no additional complaints Musc Reports no additional complaints Skin/Breast Denies breast pain, Denies breast mass, Denies lesions and Denies rash Neuro Denies dizziness, Denies syncope, Denies headache(s), Denies disequilibrium and Denies weakness Psych Reports no additional complaints and Reports as per HPI Endo Reports no additional complaints Jorge/Lymph Reports no additional complaints Aller/Immun Reports no additional complaints Physical exam (Primary Care) Vital Signs: Last Vital Signs Pulse 67 11/28/23 08:28 BP 122/60 11/28/23 08:28 Pulse Ox 98 11/28/23 08:28 Oxygen Delivery Method Room Air 11/28/23 08:28 BMI result Body Mass Index 23.2 Tobacco/Smoking Status: Tobacco use Status Tobacco use date assessed 06/06/23 11/28/23 08:29 Patient Tobacco Use Status Never used Tobacco 11/28/23 08:29 e-Cigarette/Vaping Use Never Used 11/28/23 08:29 PHQ-9: PHQ-9 Score PHQ-9: Total score 2 11/28/23 09:45 Depression Screening Interpretation: Negative Thrive Assessment: Date of Thrive Assessment Date Thrive assessed 11/28/23 11/28/23 08:34 Currently or been in a relationship where the following occur: No concerns reported Const Other: Alert oriented x3 no acute distress noted normal gait Orientation/consciousness: patient oriented x3 HENMT Head: Yes normocephalic Ears: TM's normal bilaterally General nose exam: Normal external nose present Face and sinus: Yes face symmetric Mouth: moist mucous membranes Eyes General: appearance normal, both eyes and all related structures Neck Neck: Yes full ROM, Yes no lymphadenopathy and Yes supple Resp Auscultation: clear to auscultation bilaterally Cardio Other: S1-S2 present regular rate and rhythm GI Palpation (GI): Soft to palpation, nontender and no guarding Auscultation: normal bowel sounds Back/Spine/Pelvis Back: No back tenderness Skin Other: Wound on left leg covered with bandages, patient declined getting it removed as this was just recently placed by her career placement specialist Neuro General: patient oriented x3, gait normal, tone normal, moves all extremities and no focal motor deficits Extrem General: Yes full ROM, Yes no joint enlargement, Yes no pedal edema, Yes no calf tenderness and Yes normal gait Psych Appearance: grossly normal and well kempt Mental Status: mental status grossly normal Speech and movement: Normal speech and movement present Affect: normal affect Attitude: cooperative Thought process: Normal thought process present Results Reviewed Results Reviewed: Name: Rissa Betancur Age/Sex: 67/F : 1955 [id number] Unit#: [id number] Attend Dr: Elsa Barrera MD Re11/25/23 Status: DEP REF Location: [facility] Disch: SPEC : [id number] DUSTIN: 11/25/23 STATUS: COMP REQ : [id number] RECD: 11/25/23-[address]: Elsa Barrera MD COMP: 11/25/23 ENTERED: 11/25/[address]: ORDERED: CBC Auto Diff Test Result Flag Reference WBC 3.5 L 4.8-10.8 X10*3/uL RBC 3.72 # L 4.20-5.50 X10*6/uL Test was verified by repeat analysis. HGB 11.0 L 12.0-16.0 g/dl HCT 34.6 L 37.0-47.0 % MCV 93.0 80.0-98.0 fL MCH 29.6 27.0-33.0 pg MCHC 31.8 31.0-35.0 g/dl RDW 14.0 11.0-16.0 % PLT 109 L 160-400 X10*3/uL MPV 11.9 9.4-12.3 fL Neut Pct Auto 74.7 H 45-73 % ImGran Pct Auto 0.6 H 0.0-0.4 % Lymp Pct Auto 19.3 L 20-40 % [place] Pct Auto 4.8 2-11 % Eos Pct Auto 0.3 0-4 % Baso Pct Auto 0.3 0-2 % NRBC Pct Auto 0.0 0.0-0.2 /100WBC ANC Neut Abs # 2.6 2.0-8.3 x10*3/uL ImGran Abs Auto 0.02 0.00-0.03 X10*3/uL Lymph Abs Auto 0.7 L 1.2-4.9 X10*3/uL [place] Abs Auto 0.2 0.1-1.2 X10*3/uL Eos Abs Auto 0.0 0.0-0.4 X10*3/uL Baso Abs Auto 0.0 0.0-0.2 X10*3/uL NRBC Abs Auto 0.000 0.0-0.012 X10*3/uL Name: Rissa Betancur Age/Sex: 67/F : 1955 Unit#: [id number] Attend Dr: Elsa Barrera MD Re11/25/23 Status: DEP REF Location: [facility] Disch: SPEC : [id number] DUSTIN: 11/25/23 STATUS: COMP REQ : [id number] RECD: 11/25/[address]: Elsa Barrera MD COMP: 11/25/23 ENTERED: 11/25/[address] [facility] [address]: ORDERED: Met Prof Fast, IRON PROF, AST, ALT, Lipid Panel, Vitamin D 25-OH Test Result Flag Reference Sodium 141 135-145 mmol/L Potassium 4.0 3.3-5.1 mmol/L CL 107 96-108 mmol/L CO2 22 22-29 mmol/L Gap 16 12-20 BUN 15 9-16 mg/dL Creat 0.77 0.5-1.4 mg/dL EGFR > 60 NOTE: For -[place] individuals, multiply the result by 1.210. Chronic Kidney Disease: Estimated GFR < 60 mL/min/1.73m2 Severe Kidney Disease: Estimated GFR < 15 mL/min/1.73m2 FBS 101 H 60-99 mg/dL A fasting glucose from 100-125 mg/dl is considered impaired (pre-diabetes). CA 9.9 # 8.4-10.2 mg/dL Iron 37 30-160 mcg/dL TIBC 300 228-428 mcg/dL Saturation 12 L 15-50 % UIBC 263 ug/dL AST (GOT) 12 5-31 U/L ALT (GPT) 9 0-31 U/L Triglyceride 58 <150 mg/dL Desirable Triglyceride: less than 150 mg/dL Borderline High Triglyceride 150-199 mg/dL High Triglyceride: 200-499 mg/dL Very High Triglyceride: greater than or equal to 5OO mg/dL Cholesterol 96 <200 mg/dL Desirable Cholesterol: less than 200 mg/dL Borderline High Cholesterol: 200-239 mg/dL High Cholesterol: greater than 239 mg/dL LDL Calculated 46 <100 mg/dL Desirable LDL: less than 100 mg/dL Near Optimal/Above Optimal LDL: 110-129 mg/dL Borderline High LDL: 130-159 mg/dL High LDL: 160-189 mg/dL Very High LDL: greater than or equal to 190 mg/dL HDL 39 L >40 mg/dL Desirable HDL: greater than 40 mg/dL Note: This HDL assay may give artificially low results in patients with liver disease. Vit D 25-OH Tot 64.3 >30 ng/mL Health Based Reference Values* < 20 ng/mL Deficient 20-30 ng/mL Insufficient > 30 ng/mL Sufficient Laboratory Tests 11/25/23 11:55 Estimat Average Glucose 85 Hemoglobin A1c % 4.6 Urine Creatinine 114.69 Urine Microalbumin 27.0 Microalb/Creat Ratio 23.5 Assessment and Plan Assessment & Plan (1) Mixed dyslipidemia: Code(s): E78.2 - Mixed hyperlipidemia Plan: Reviewed recent fasting lipid profile with patient with levels within normal limits . Continue atorvastatin, but dose decreased to 1 tablet every other day , continue with adherence to low-cholesterol diet and regular exercise, at least 30 minutes 3 to 4 times a week. Advised patient to make healthy food choices, eat more fruits, vegetables, whole grains, wild caught fish and low-fat dairy. Limit amount of meat and fried or fatty food products, as well as processed foods and fast foods. Follow-up scheduled with repeat fasting lipid panel in 3 months. (2) Controlled diabetes mellitus without long-term current use of insulin: Code(s): E11.9 - Type 2 diabetes mellitus without complications Qualifiers: Diabetes mellitus complication status: without complication Diabetes mellitus type: type 2 Qualified Code(s): E11.9 - Type 2 diabetes mellitus without complications Plan: Diabetes mellitus stable and controlled on metformin 500 mg taken 1 tablet at night with supper (3) HTN (hypertension): Code(s): I10 - Essential (primary) hypertension Qualifiers: Hypertension type: essential hypertension Qualified Code(s): I10 - Essential (primary) hypertension Plan: Blood pressure at goal of less than 130/80. Continue metoprolol succinate ER 100 mg daily and lisinopril 2.5 mg at night. Reinforced importance of following a low sodium diet, getting regular exercise, and lowering stress levels. (4) Multinodular thyroid: Code(s): E04.2 - Nontoxic multinodular goiter Plan: Ultrasound showed low risk nodules small in size. Clinically biochemically euthyroid. As per strand galvanizer, based on imaging characteristics, there is no need for any follow-up thyroid ultrasound or endocrine follow-up at this point. Will repeat another TSH and free T4 level in 4 months (5) Bipolar disorder: Comment: followed by Monica Mayer q 3 months in [facility] Code(s): F31.9 - Bipolar disorder, unspecified Plan: Followed by psychiatry (6) nursing home current use of anticoagulant therapy: Comment: x 5 years- no issues Code(s): Z79.01 - nursing home (current) use of anticoagulants (7) Thrombocytopathia: Comment: reviewed noted- from 2019 Code(s): D69.1 - Qualitative platelet defects Plan: Currently asymptomatic will repeat another CBC with differential in 3 months (8) Chronic constipation: Code(s): K59.09 - Other constipation Plan: Currently on Colace 200 mg daily and has polyethylene glycol at home to take as needed (9) Acute blood loss anemia: Code(s): D62 - Acute posthemorrhagic anemia Plan: Advised to continue taking apsb-jnf-pfuryzh ferrous sulfate 325 mg 1 daily, still noted to be mildly anemic on latest CBC. Repeat CBC and iron profile in 3 months (10) Leg wound, left: Code(s): S81.802A - Unspecified open wound, left lower leg, initial encounter Plan: Currently followed [place] [facility] [place] [facility], has VNA during dressing changes Orders: Orders TSH reflex Free T4 02/04/24 D62 - Acute posthemorrhagic anemia, D69.1 - Qualitative platelet defects, E04.2 - Nontoxic multinodular goiter, E11.9 - Type 2 diabetes mellitus without complications, E55.9 - Vitamin D deficiency, unspecified, E78.2 - Mixed hyperlipidemia, I10 - Essential (primary) hypertension, K59.09 - Other constipation, K76.0 - Fatty (change of) liver, not elsewhere classified, Z79.01 - nursing home (current) use of anticoagulants Complete Blood Count Auto Diff 02/04/24 D62 - Acute posthemorrhagic anemia, D69.1 - Qualitative platelet defects, E04.2 - Nontoxic multinodular goiter, E11.9 - Type 2 diabetes mellitus without complications, E55.9 - Vitamin D deficiency, unspecified, E78.2 - Mixed hyperlipidemia, I10 - Essential (primary) hypertension, K59.09 - Other constipation, K76.0 - Fatty (change of) liver, not elsewhere classified, Z79.01 - nursing home (current) use of anticoagulants Vitamin D 25-OH Total 02/04/24 D62 - Acute posthemorrhagic anemia, D69.1 - Qualitative platelet defects, E04.2 - Nontoxic multinodular goiter, E11.9 - Type 2 diabetes mellitus without complications, E55.9 - Vitamin D deficiency, unspecified, E78.2 - Mixed hyperlipidemia, I10 - Essential (primary) hypertension, K59.09 - Other constipation, K76.0 - Fatty (change of) liver, not elsewhere classified, Z79.01 - nursing home (current) use of anticoagulants Lipid Panel 02/04/24 D62 - Acute posthemorrhagic anemia, D69.1 - Qualitative platelet defects, E04.2 - Nontoxic multinodular goiter, E11.9 - Type 2 diabetes mellitus without complications, E55.9 - Vitamin D deficiency, unspecified, E78.2 - Mixed hyperlipidemia, I10 - Essential (primary) hypertension, K59.09 - Other constipation, K76.0 - Fatty (change of) liver, not elsewhere classified, 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 (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) use of anticoagulants Alanine Aminotransferase 02/04/24 D62 - Acute posthemorrhagic anemia, D69.1 - Qualitative platelet defects, E04.2 - Nontoxic multinodular goiter, E11.9 - Type 2 diabetes mellitus without complications, E55.9 - Vitamin D deficiency, unspecified, E78.2 - Mixed hyperlipidemia, I10 - Essential (primary) hypertension, K59.09 - Other constipation, K76.0 - Fatty (change of) liver, not elsewhere classified, 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 (current) use of anticoagulants Aspartate Amino Transferase 02/04/24 D62 - Acute posthemorrhagic anemia, D69.1 - Qualitative platelet defects, E04.2 - Nontoxic multinodular goiter, E11.9 - Type 2 diabetes mellitus without complications, E55.9 - Vitamin D deficiency, unspecified, E78.2 - Mixed hyperlipidemia, I10 - Essential (primary) hypertension, K59.09 - Other constipation, K76.0 - Fatty (change of) liver, not elsewhere classified, 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 (current) use of anticoagulants Hemoglobin A1c 02/04/24 D62 - Acute posthemorrhagic anemia, D69.1 - Qualitative platelet defects, E04.2 - Nontoxic multinodular goiter, E11.9 - Type 2 diabetes mellitus without complications, E55.9 - Vitamin D deficiency, unspecified, E78.2 - Mixed hyperlipidemia, I10 - Essential (primary) hypertension, K59.09 - Other constipation, K76.0 - Fatty (change of) liver, not elsewhere classified, Z79.01 - nursing home (current) use of anticoagulants Basic Metabolic Panel Fasting 02/04/24 D62 - Acute posthemorrhagic anemia, D69.1 - Qualitative platelet defects, E04.2 - Nontoxic multinodular goiter, E11.9 - Type 2 diabetes mellitus without complications, E55.9 - Vitamin D deficiency, unspecified, E78.2 - Mixed hyperlipidemia, I10 - Essential (primary) hypertension, K59.09 - Other constipation, K76.0 - Fatty (change of) liver, not elsewhere classified, 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 (current) use of anticoagulants IRON PROFILE 02/04/24 D62 - Acute posthemorrhagic anemia, D69.1 - Qualitative platelet defects, E04.2 - Nontoxic multinodular goiter, E11.9 - Type 2 diabetes mellitus without complications, E55.9 - Vitamin D deficiency, unspecified, E78.2 - Mixed hyperlipidemia, I10 - Essential (primary) hypertension, K59.09 - Other constipation, K76.0 - Fatty (change of) liver, not elsewhere classified, Z79.01 - nursing home (current) use of anticoagulants Medications: New docusate sodium (Colace) 200 mg (2 x 100 mg) PO BEDTIME 60 caps 2RF Constipation polyethylene glycol 3350 (Miralax) 17 grams PO DAILY PRN 30 ea 0RF constipation MDD Constipation Changed From atorvastatin 80 mg PO BEDTIME 90 tabs 2RF To atorvastatin 80 mg PO Q2D 3 months 45 tabs 2RF From metformin 500 mg PO BID 180 tabs 2RF To metformin 500 mg PO QPM 3 months 90 tabs 2RF Coding Level of Care Code Est Pt Level 4 (80086) Complex EM visit Add On G2211 Diagnoses Mixed dyslipidemia E78.2 Controlled type 2 diabetes mellitus without complication, without long-term current use of insulin E11.9 Diabetes mellitus complication status: without complication Diabetes mellitus type: type 2 Essential hypertension I10 Hypertension type: essential hypertension Multinodular thyroid E04.2 Bipolar disorder F31.9 nursing home current use of anticoagulant therapy Z79.01 Thrombocytopathia D69.1 Chronic constipation K59.09 Acute blood loss anemia D62 Leg wound, left S81.802A Additional Codes JULIA-7 Assessment Billing - JULIA-7 Assessment Tool: JULIA-7 Assessment 00130 ([id number])
== END 2023-11-28 09:49 | disposition home or self-care (01) ==
PROVIDERS: PCP Internal Medicine; Visit Provider Internal Medicine
DX: E78.2 Mixed hyperlipidemia (principal); E11.9 Type 2 diabetes mellitus without complications; I10 Essential (primary) hypertension; E04.2 Nontoxic multinodular goiter; F31.9 Bipolar disorder, unspecified; Z79.01 Long term (current) use of anticoagulants; D69.1 Qualitative platelet defects; K59.09 Other constipation; D62 Acute posthemorrhagic anemia; S81.802A Unspecified open wound, left lower leg, initial encounter
CPT/HCPCS: 96127; 99214; G2211

== ENCOUNTER 2023-12-04 13:59 | Emergency (ER) | payer MEDICARE, SELFPAY ==
--- NOTE | ~2023-12-04 | XR_ITS ---
EXAMINATION: XR TIBIA AND FIBULA, LEFT CLINICAL INFORMATION: Overlying wound to anterior alejandra. COMPARISON: Radiographs dated 10/28/2023. TECHNIQUE: AP and lateral views of the left tibia and fibula were obtained. FINDINGS: There is a cutaneous defect along the anterior upper alejandra. The adjacent skin appears thickened. No focal bone lesion or bone destruction is identified. No periosteal reaction. No radiographic evidence of osteomyelitis. No fracture or dislocation. There are vascular calcifications. XR/XR tibia fibula LT 2V IMPRESSION: No radiographic evidence of osteomyelitis.
[2023-12-04 14:06] VITALS: BP 115/93; PULSE 61; RESP 16; TEMP 36.8; O2SAT 98; BMI 23.5
--- NOTE | 2023-12-04 14:06 | ED.SKABFB ---
HPI - Skin/Abscess/Foreign Bdy General Chief complaint: Wound/Laceration Stated complaint: l leg wound check Time Seen by Provider: 12/04/23 14:55 History of Present Illness HPI narrative: Patient complains of a redness pain and swelling around a chronic wound in her left lower leg which began 2 months ago when she scraped it on a stair It became infected and she was admitted to the hospital and that surgical debridement about a month ago She has been getting follow-up with the wound care clinic and home nurse and home nurse came today and thought it looked worse and infected and she comes to the ER She denies fever chills nausea vomiting and has felt in her otherwise normal state of health Related Data Home Medications ?Medication ?Instructions ?Recorded ?Confirmed ziprasidone HCl 80 mg capsule 80 mg PO BID 06/14/21 10/29/23 vit C 250 mg-vit E 90 mg-zinc 40 1 tab PO BID 06/29/22 10/29/23 mg-copper 1 [id number] capsule (PreserVision AREDS-2) bevacizumab 25 mg/mL intravenous 25 mg IV DIRECTED 10/10/23 10/29/23 solution (Avastin) lisinopril 2.5 mg tablet 2.5 mg PO BEDTIME 10/10/23 10/29/23 Previous Rx's ?Medication ?Instructions ?Recorded terazosin 1 mg capsule 3 mg (3 x 1 mg) PO BEDTIME 90 days 08/27/23 #270 caps oxybutynin chloride 10 mg 20 mg (2 x 10 mg) PO BEDTIME OAB 09/06/23 tablet,extended release 24 hr 90 days #180 tabs metoprolol succinate 100 mg 100 mg PO DAILY #90 tabs 11/08/23 tablet,extended release 24 hr apixaban 5 mg tablet (Eliquis) 5 mg PO BID 90 days #180 tabs 11/18/23 atorvastatin 80 mg tablet 80 mg PO Q2D 3 months #45 tabs 11/28/23 docusate sodium 100 mg capsule 200 mg (2 x 100 mg) PO BEDTIME 11/28/23 (Colace) Constipation #60 caps metformin 500 mg tablet 500 mg PO QPM 3 months #90 tabs 11/28/23 polyethylene glycol 3350 17 gram 17 g PO DAILY PRN constipation #30 11/28/23 oral powder packet (Miralax) ea amoxicillin 875 mg-potassium 1 tab PO BID 7 days #14 tabs 12/04/23 clavulanate 125 mg tablet doxycycline hyclate 100 mg capsule 100 mg PO BID 7 days #14 caps 12/04/23 Allergies Allergy/AdvReac Type Severity Reaction Status Date / Time No Known Allergies Allergy Verified 12/04/23 14:07 [No Known Allergies*] [facility] Past Medical History Source: nursing notes reviewed Medical History (Updated 12/04/23 @ 18:34 by ZHANG Beach) 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 Age-related macular degeneration, wet, right eye Traumatic hematoma Anemia Bipolar disorder Morbid obesity Benign familial tremor Colon cancer screening Ventral hernia Multinodular thyroid Umbilical hernia with obstruction CVID (common variable immunodeficiency) Vitamin D deficiency HLD (hyperlipidemia) HTN (hypertension) Cardiomyopathy Elevated parathyroid hormone Urinary incontinence Controlled diabetes mellitus without long-term current use of insulin Mixed dyslipidemia Surgical History History of umbilical hernia repair (07/06/22) Hx of wisdom tooth extraction History of cardiac catheterization (~2016) Hx of biopsy H/O colonoscopy History of hysteroscopy History of adenoidectomy Family History Family History Father Diabetes mellitus Depression Mental health disorder Mother Diabetes mellitus Colon cancer Breast cancer Familial tremor Sister Colon cancer Maternal Aunt Familial tremor Sister No problems noted. Social History Social History Household Members: None Housing: Condominium Are you a primary plant health care technician to a significant other at home: No Do you presently have visiting nurse or other home services: Yes ([facility]NA) Alcohol intake: never Comment: COUNT CORRECT Patient Tobacco Use Status: Never used Tobacco e-Cigarette/Vaping Use: Never Used Advance Directives: No Advance Directives Information Provided: No service: No Current occupational status: disabled Cognitive needs: No Hearing needs: No Vision needs: Yes Physical Exam Vital Signs: Vital Signs: Last Vital Signs Temp 97.6 F 12/04/23 18:06 Pulse 61 12/04/23 14:06 Resp 18 12/04/23 18:06 BP 136/70 12/04/23 18:06 Pulse Ox 98 12/04/23 18:06 O2 Del Method Room Air 12/04/23 18:06 BMI result Body Mass Index 23.5 General appearance no distress Normocephalic atraumatic Neck is supple Respiratory no distress Lungs clear to auscultation bilateral Abdomen soft nontender Extremities full range motion x4 Left leg exam there is an open wound about 8-10 cm vertical on the mid lateral left lower leg, there is watery discharge coming from it and there is surrounding warmth tenderness and erythema but no fluctuant abscess, there is no pus coming from the wound, no obvious necrotic tissue The left leg has a full range of motion no posterior tenderness no calf swelling and is neurovascular intact distal Course Course Course Narrative: This is a Rapid Medical Examination (RME) performed by Milton Yanes PA-C in triage. Full HPI, ROS, assessment and treatment plan per primary provider in the Main ED. 67 yo female hx of DM here for eval of left LE wound. reports fall on 10/10/23 resulting in nonhealing wound to anterior aspect of left alejandra. follows w/ wound care. not currently on ABX. associate today noted concern for increased bleeding, swelling, redness to the area, advised to come to ED. patient denies pain at present. denies fever/chills. + linear open wound noted to left anterior alejandra w/ noted swelling to lateral aspect and surrounding erythema. ttp. warm. no active bleeding/ discharge. wound re-dressed in triage. Plan: labs, xr Case was discussed with Dr. Redding who examined the patient and felt like a dose of antibiotic here and trial of oral antibiotics in a patient with no sign of sepsis no systemic illness and a new onset of cellulitis around her wound could be trial of home antibiotics Dr. Andrade came down to see the patient and he fully agreed that home treatment is the best way to go for now no urgent surgical treatment is needed Patient was given IV Zosyn 1 dose and sent home on Augmentin and doxycycline Medications Administered Discontinued Medications Generic Name Dose Route Start Last Admin Trade Name Freq PRN Reason Stop Dose Admin Piperacillin Sod/Tazobactam 50 mls @ 100 mls/hr 12/04/23 16:33 12/04/23 17:30 Sod 3.375 gm/ Sodium Chloride IV 12/04/23 17:02 Infused ONCE ONE Infusion Medical Decision Making Lab Data 12/04/23 14:29 12/04/23 14:29 Labs: Lab Results 12/04/23 Range/Units 14:29 WBC 4.7 L (4.8-10.8) X10*3/uL RBC 3.76 L (4.20-5.50) X10*6/uL Hgb 11.1 L (12.0-16.0) g/dl Hct 34.6 L (37.0-47.0) % MCV 92.0 (80.0-98.0) fL MCH 29.5 (27.0-33.0) pg MCHC 32.1 (31.0-35.0) g/dl RDW 13.6 (11.0-16.0) % Plt Count 110 L (160-400) X10*3/uL MPV 11.6 (9.4-12.3) fL Immature Gran % (Auto) 0.2 (0.0-0.4) % Neut % (Auto) 78.8 H (45-73) % Lymph % (Auto) 14.9 L (20-40) % [place] % (Auto) 5.5 (2-11) % Eos % (Auto) 0.2 (0-4) % Baso % (Auto) 0.4 (0-2) % Lymph # (Auto) 0.7 L (1.2-4.9) X10*3/uL [place] # (Auto) 0.3 (0.1-1.2) X10*3/uL Eos # (Auto) 0.0 (0.0-0.4) X10*3/uL Baso # (Auto) 0.0 (0.0-0.2) X10*3/uL Abs Immat Gran (auto) 0.01 (0.00-0.03) X10*3/uL Absolute Neuts (auto) 3.7 (2.0-8.3) x10*3/uL Absolute Nucleated RBC 0.000 (0.0-0.012) X10*3/uL Nucleated RBC % (auto) 0.0 (0.0-0.2) /100WBC ESR 9 (0-20) MM/HR Sodium 141 (135-145) mmol/L Potassium 3.5 (3.3-5.1) mmol/L Chloride 110 H (96-108) mmol/L Carbon Dioxide 23 (22-29) mmol/L Anion Gap 12 (12-20) BUN 15 (9-16) mg/dL Creatinine 0.73 (0.5-1.4) mg/dL Estim Creat Clear Calc 73.7 Estimated GFR > 60 Random Glucose 99 (60-115) mg/dL Calcium 9.7 (8.4-10.2) mg/dL Magnesium 2.0 (1.6-2.6) mg/dL Total Bilirubin 0.4 (0.0-1.0) mg/dL AST 9 (5-31) U/L ALT 8 (0-31) U/L Alkaline Phosphatase 99 (39-117) U/L C-Reactive Protein 0.21 (< or = 0.50) mg/dL Total Protein 6.5 (6.5-8.0) g/dL Albumin 4.2 (3.5-5.0) g/dL Discharge Plan Discharge Clinical Impression: Cellulitis Patient Disposition: Home, Self-Care Additional Instructions: Call Dr. Andrade office tomorrow to make an appointment for next week It is very important to follow hit them to be sure it does not need any special surgical treatment, he is the expert Keep all regular wound care and other medical appointments as scheduled Most important return to the ER any time for spreading redness worse pain and swelling fever any sign of worsening infection any worse condition or any concerns Make sure to change dressing daily so you can see if infection is worsening Prescriptions: New amoxicillin-pot clavulanate 875-125 mg tablet 1 tab PO BID 7 Days Qty: 14 0RF doxycycline hyclate 100 mg capsule 100 mg PO BID 7 Days Qty: 14 0RF No Action terazosin 1 mg capsule 3 mg PO BEDTIME 90 Days Qty: 270 3RF oxybutynin chloride 10 mg tablet extended release 24hr 20 mg PO BEDTIME 90 Days Qty: 180 2RF metoprolol succinate 100 mg tablet extended release 24 hr 100 mg PO DAILY Qty: 90 3RF Eliquis 5 mg tablet 5 mg PO BID 90 Days Qty: 180 2RF PreserVision AREDS-2 250-90-40-1 mg Capsule 1 tab PO BID lisinopril 2.5 mg tablet 2.5 mg PO BEDTIME Avastin 25 mg/mL Solution 25 mg IV DIRECTED Rx Instructions: Every 11 weeks, next dose in two weeks atorvastatin 80 mg tablet 80 mg PO Q2D 90 Days Qty: 45 2RF metformin 500 mg tablet 500 mg PO QPM 90 Days Qty: 90 2RF docusate sodium [Colace] 100 mg capsule 200 mg PO BEDTIME Qty: 60 2RF polyethylene glycol 3350 [Miralax] 17 gram powder in packet 17 g PO DAILY MDD Constipation PRN (Reason: constipation) Qty: 30 0RF ziprasidone HCl 80 mg capsule 80 mg PO BID Print Language: Tongan
[2023-12-04 14:42] LABS: MANUAL DIFF FLAG NO
[2023-12-04 14:59] LABS: Basophils Percent Auto 0.4 % (0-2); Eosinophils Percent Auto 0.2 % (0-4); Hematocrit 34.6 % (37.0-47.0); Hemoglobin 11.1 g/dl (12.0-16.0); Imm Gran Abs Auto 0.01 X10*3/uL (0.00-0.03); Imm Gran Pct Auto 0.2 % (0.0-0.4); Lymphocytes Absolute Auto 0.7 X10*3/uL (1.2-4.9); Lymphocytes Percent Auto 14.9 % (20-40); Mean Corpuscular HGB Conc 32.1 g/dl (31.0-35.0); Mean Corpuscular Hemoglobin 29.5 pg (27.0-33.0); Mean Platelet Volume 11.6 fL (9.4-12.3); Monocytes Absolute Auto 0.3 X10*3/uL (0.1-1.2); Monocytes Percent Auto 5.5 % (2-11); Neutrophils Absolute Auto 3.7 x10*3/uL (2.0-8.3); Neutrophils Percent Auto 78.8 % (45-73); Platelet Count 110 X10*3/uL (160-400); Red Blood Count 3.76 X10*6/uL (4.20-5.50); Red Cell Distribution Width 13.6 % (11.0-16.0); White Blood Count 4.7 X10*3/uL (4.8-10.8)
[2023-12-04 15:00] LABS: Alanine Aminotransferase 8 U/L (0-31); Albumin Level 4.2 g/dL (3.5-5.0); Alkaline Phosphatase 99 U/L (39-117); Anion Gap 12 (12-20); Aspartate Amino Transferase 9 U/L (5-31); Bilirubin Total 0.4 mg/dL (0.0-1.0); Blood Urea Nitrogen 15 mg/dL (9-16); C Reactive Protein 0.21 mg/dL (< or = 0.50); Calcium 9.7 mg/dL (8.4-10.2); Carbon Dioxide 23 mmol/L (22-29); Chloride 110 mmol/L (96-108); Creatinine Clr Calc Pharmacy 73.7; Estimated Glomerular Filt Rate > 60; Glucose Random 99 mg/dL (60-115); Potassium 3.5 mmol/L (3.3-5.1); Sodium 141 mmol/L (135-145); Total Protein 6.5 g/dL (6.5-8.0)
[2023-12-04 15:30] LABS: Erythrocyte Sedimentation Rate 9 MM/HR (0-20)
--- NOTE | 2023-12-04 16:26 | MHC.CM.ED ---
Received notification from [facility] that patient is active with their agency. Return referral made in [facility].
[2023-12-04] MEDS: Piperacillin Sodium/Tazobactam 3.375 GM in 0.9 % Sodium Chloride 50 ML IV (16:56)
[2023-12-04 18:06] VITALS: BP 136/70; RESP 18; TEMP 36.4; O2SAT 98
[2023-12-04 18:51] VITALS: BP 136/70; PULSE 84; RESP 18; TEMP 36.4; O2SAT 98
== END 2023-12-04 18:51 | disposition home or self-care (01) ==
PROVIDERS: Physician Assistant Medical; Emergency Provider Emergency Medicine; PCP Internal Medicine
DX: L03.116 Cellulitis of left lower limb (principal); Z79.899 Other long term (current) drug therapy
CPT/HCPCS: 36415; 73590; 80053; 83735; 85025; 85652; 86140; 87070; 87077; 87186; 87205; 96365; 99283; 99284; J2543

== ENCOUNTER 2023-12-12 08:24 | Outpatient (AMB) | payer MEDICARE, SELFPAY ==
--- NOTE | 2023-12-12 08:27 | MHC.OFFVIS ---
Vital Signs 12/12/23 08:32 Height 5 ft 7 in Weight 150 lb BMI 23.5 Intake Visit Reasons: wound issues Intake Note: This patient presents for wound check, hospital follow-up. Pt c/o; reports no complaints. [place] Helper Required: No Accompanied by: Self / Same As Patient Allergies No Known Allergies [No Known Allergies*] Allergy (Verified 12/12/23 08:33) Medication List - Last Reconciled 12/12/23 by Freedom Andrade MD apixaban (Eliquis) 5 mg PO BID 90 days atorvastatin 80 mg PO Q2D 3 months bevacizumab (Avastin) 25 mg IV DIRECTED clindamycin HCl 300 mg PO TID 7 days docusate sodium (Colace) 200 mg (2 x 100 mg) PO BEDTIME levofloxacin 500 mg PO DAILY 7 days lisinopril 2.5 mg PO BEDTIME metformin 500 mg PO QPM 3 months metoprolol succinate ER 100 mg PO DAILY oxybutynin chloride ER 20 mg (2 x 10 mg) PO BEDTIME 90 days polyethylene glycol 3350 (Miralax) 17 grams PO DAILY PRN MDD Constipation terazosin 3 mg (3 x 1 mg) PO BEDTIME 90 days vit C,L-Mx-txuwg-lutein-zeaxan 250-90-40-1 mg (PreserVision AREDS-2) 1 tab PO BID ziprasidone HCl 80 mg PO BID HPI HPI wound issues: Details: She is here for follow-up for an open wound on the left lower leg. She had a traumatic hematoma last October, and required debridement of this area The open wound has decreased in size significantly. She is also being followed by the Wound Clinic. 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 Age-related macular degeneration, wet, right eye Traumatic hematoma Anemia Bipolar disorder Morbid obesity Benign familial tremor Colon cancer screening Ventral hernia Multinodular thyroid Umbilical hernia with obstruction CVID (common variable immunodeficiency) Vitamin D deficiency HLD (hyperlipidemia) HTN (hypertension) Cardiomyopathy Elevated parathyroid hormone Urinary incontinence Controlled diabetes mellitus without long-term current use of insulin Mixed dyslipidemia Surgical History History of umbilical hernia repair (07/06/22) Hx of wisdom tooth extraction History of cardiac catheterization (~2016) Hx of biopsy H/O colonoscopy History of hysteroscopy History of adenoidectomy Family History Father Diabetes mellitus Depression Mental health disorder Mother Diabetes mellitus Colon cancer Breast cancer Familial tremor Sister Colon cancer Maternal Aunt Familial tremor Sister No problems noted. Social History Household Members: None Housing: Condominium Are you a primary child care team lead to a significant other at home: No Do you presently have visiting nurse or other home services: Yes ([facility]NA) Alcohol intake: never Comment: COUNT CORRECT Patient Tobacco Use Status: Never used Tobacco e-Cigarette/Vaping Use: Never Used service: No Current occupational status: disabled Cognitive needs: No Hearing needs: No Vision needs: Yes Review of Systems Const Denies chills and Denies fever(s) Card Denies chest pain Resp Denies cough GI Denies abdominal pain Neuro Details: Has tremors Physical Exam Vital Signs: BMI result Body Mass Index 23.5 Const Other: Ambulating with a walker General: comfortable and no acute distress Resp Effort & Inspection: normal respiratory effort Cardio Other: Has atrial fibrillation GI Palpation (GI): Soft to palpation Extrem Other: Open wound on the left anterior lower leg clean, good granulation, no signs of infection, no cellulitis, area about 8 cm x 1.2 cm Assessment & Plan Assessment & Plan (1) Leg wound, left: Code(s): S81.802A - Unspecified open wound, left lower leg, initial encounter Category: Surgical Plan: The wound looks clean and is granulating well. The area has contracted significantly. I have changes dressings. I have applied wet-to-dry She is to continue with the same wound care regimen as per the Wound Clinic. She has a follow up with the wound clinic next week I can see her in the office on a p.r.n. basis. Coding Level of Care Code Est Pt Level 2 (08575) Diagnoses Leg wound, left S81.802A
[2023-12-12 08:32] VITALS: BMI 23.5
== END 2023-12-12 08:41 | disposition home or self-care (01) ==
PROVIDERS: PCP Internal Medicine; Visit Provider Surgery
DX: S81.802A Unspecified open wound, left lower leg, initial encounter (principal)
CPT/HCPCS: 99024

== ENCOUNTER → 2023-12-12 08:24 | Outpatient (BNVA) | payer MEDICARE, SELFPAY | PROVIDERS: PCP Internal Medicine; Visit Provider Surgery | DX: S81.802A Unspecified open wound, left lower leg, initial encounter (principal); X58.XXXA Exposure to other specified factors, initial encounter; Y93.9 Activity, unspecified; Y92.9 Unspecified place or not applicable; Y99.9 Unspecified external cause status | CPT/HCPCS: 99212 ==

== ENCOUNTER 2024-01-01 07:50 | Day surgery (SDC) | payer MEDICARE, SELFPAY ==
[2023-12-17 13:10] VITALS: BMI 2152.0
--- NOTE | 2023-12-31 10:12 | P.CONAN_ITS ---
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 (Acute) Age-related macular degeneration, wet, right eye (Acute) Bipolar disorder (Acute) Morbid obesity (Acute) Benign familial tremor (Acute) Multinodular thyroid (Acute) CVID (common variable immunodeficiency) (Acute) HTN (hypertension) (Acute) Cardiomyopathy (Acute) Urinary incontinence (Acute) Controlled diabetes mellitus without long-term current use of insulin (Acute) Mixed dyslipidemia (Acute) Past Medical History Medical History Constipation 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 Age-related macular degeneration, wet, right eye Traumatic hematoma Anemia Bipolar disorder Morbid obesity Benign familial tremor Colon cancer screening Ventral hernia Multinodular thyroid Umbilical hernia with obstruction CVID (common variable immunodeficiency) Vitamin D deficiency HLD (hyperlipidemia) HTN (hypertension) Cardiomyopathy Elevated parathyroid hormone Urinary incontinence Controlled diabetes mellitus without long-term current use of insulin Mixed dyslipidemia Family History Family History Father Diabetes mellitus Depression Mental health disorder Mother Diabetes mellitus Colon cancer Breast cancer Familial tremor Sister Colon cancer Maternal Aunt Familial tremor Sister No problems noted. Family history of problems with anesthesia: No Surgical History Surgical History S/P evacuation of hematoma (10/11/23) S/P debridement (10/29/23) History of umbilical hernia repair (07/06/22) Hx of wisdom tooth extraction History of cardiac catheterization (~2016) Hx of biopsy H/O colonoscopy History of hysteroscopy History of adenoidectomy History of Problems with Anesthesia: No Social History Social History Household Members: None Housing: Condominium Are you a primary long term care administrator to a significant other at home: No Do you presently have visiting nurse or other home services: Yes ([facility]NA QOD dressing change left leg) Alcohol intake: never Comment: COUNT CORRECT Patient Tobacco Use Status: Never used Tobacco e-Cigarette/Vaping Use: Never Used Use of substances other than those prescribed or required for medical reasons: No Have you been hit, kicked, punched, or otherwise hurt by someone within the past year? If so, by whom?: No Are you DNR?: No Advance Directives: No Advance Directives Information Provided: Yes Advance Directives on File: No Recently lost weight without trying: No Nutrition Risks: No Nutritional Risk Poor oral hygiene: No service: No Current occupational status: disabled Cognitive needs: No Hearing needs: No Vision needs: Yes Meds Allergies Allergy/AdvReac Type Severity Reaction Status Date / Time No Known Allergies Allergy Verified 12/17/23 13:05 [No Known Allergies*] Home Medications ?Medication ?Instructions ?Recorded ?Confirmed ?Last Taken ?Type ziprasidone HCl 80 mg capsule 80 mg PO BID 06/14/21 01/01/24 01/01/24 07:00 History vit C 250 mg-vit E 90 mg-zinc 40 1 tab PO BID 06/29/22 12/17/23 10/27/23 21:00 History mg-copper 1 nu-iqxyps-oiuinr capsule (PreserVision AREDS-2) bevacizumab 25 mg/mL intravenous 25 mg IV DIRECTED 10/10/23 12/17/23 9 Weeks Ago History solution (Avastin) ~08/27/23 lisinopril 2.5 mg tablet 2.5 mg PO BEDTIME 10/10/23 12/17/23 10/27/23 21:00 History Exam Height,Weight and Vital Signs: Height 7 in Weight 68.039 kg Pertinent Lab Results Pertinent Lab Results: Laboratory Tests 12/04/23 14:29 WBC 4.7 L Hgb 11.1 L Hct 34.6 L Plt Count 110 L Sodium 141 Potassium 3.5 Chloride 110 H Carbon Dioxide 23 BUN 15 Creatinine 0.73 Narrative Narrative: ECHO 2021 Conclusions: - The left ventricular systolic function is normal. The visually estimated ejection fraction is between 55-60%. - No obvious valvular pathology seen on this study. Assessment and Plan Assessment Anesthesia Assessment: Chart Reviewed Final Anesthetic Review Family History of Problems with Anesthesia: No History of Problems with Anesthesia: No Documented by User: Jacky Robles MD 01/01/24 10:00 [facility] Past Medical History Medical History Constipation 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 Age-related macular degeneration, wet, right eye Traumatic hematoma Anemia Bipolar disorder Morbid obesity Benign familial tremor Colon cancer screening Ventral hernia Multinodular thyroid Umbilical hernia with obstruction CVID (common variable immunodeficiency) Vitamin D deficiency HLD (hyperlipidemia) HTN (hypertension) Cardiomyopathy Elevated parathyroid hormone Urinary incontinence Controlled diabetes mellitus without long-term current use of insulin Mixed dyslipidemia Family History Family History Father Diabetes mellitus Depression Mental health disorder Mother Diabetes mellitus Colon cancer Breast cancer Familial tremor Sister Colon cancer Maternal Aunt Familial tremor Sister No problems noted. Surgical History Surgical History S/P evacuation of hematoma (10/11/23) S/P debridement (10/29/23) History of umbilical hernia repair (07/06/22) Hx of wisdom tooth extraction History of cardiac catheterization (~2016) Hx of biopsy H/O colonoscopy History of hysteroscopy History of adenoidectomy Social History Social History Household Members: None Housing: Condominium Are you a primary long term care administrator to a significant other at home: No Do you presently have visiting nurse or other home services: Yes ([facility]NA QOD dressing change left leg) Alcohol intake: never Comment: COUNT CORRECT Patient Tobacco Use Status: Never used Tobacco e-Cigarette/Vaping Use: Never Used Use of substances other than those prescribed or required for medical reasons: No Have you been hit, kicked, punched, or otherwise hurt by someone within the past year? If so, by whom?: No Are you DNR?: No Advance Directives: No Advance Directives Information Provided: Yes Advance Directives on File: No Recently lost weight without trying: No Nutrition Risks: No Nutritional Risk Poor oral hygiene: No service: No Current occupational status: disabled Cognitive needs: No Hearing needs: No Vision needs: Yes Meds Allergies Allergy/AdvReac Type Severity Reaction Status Date / Time No Known Allergies Allergy Verified 12/17/23 13:05 [No Known Allergies*] Home Medications ?Medication ?Instructions ?Recorded ?Confirmed ?Last Taken ?Type ziprasidone HCl 80 mg capsule 80 mg PO BID 06/14/21 01/01/24 01/01/24 07:00 History vit C 250 mg-vit E 90 mg-zinc 40 1 tab PO BID 06/29/22 12/17/23 10/27/23 21:00 History mg-copper 1 [id number]-bnbmjk capsule (PreserVision AREDS-2) bevacizumab 25 mg/mL intravenous 25 mg IV DIRECTED 10/10/23 12/17/23 9 Weeks Ago History solution (Avastin) ~08/27/23 lisinopril 2.5 mg tablet 2.5 mg PO BEDTIME 10/10/23 12/17/23 10/27/23 21:00 History Exam Airway Mallampati Class: I TM Dist: <=3cm Neck ROM: Full Loose/Missing/Broken Teeth: Yes and Upper Heart: h/o CMOP. Seeabove. Last echo pretty normal. Last seenby cardiology 2021. Stable. HR gets into 30s. asx. Lungs: ok Assessment and Plan Assessment Anesthesia Assessment: Anesthesia Plan Discussed Final Anesthetic Review NPO: Yes ASA Class: IV Final Preanesthetic Review: No Changes in Pt Med Stat, Meds/Allgs Chart Reviewed, Consent Obtained/Reviewed and Anes Risks/Benef Reviewed Patient Risk: Intermediate Procedure Risk: Intermediate Anesthetic Plan Anesthetic Plan: Agree w/ Assess. and Plan and TIVA Disposition: Standard PACU
[2024-01-01 08:47] VITALS: BMI 22.3
[2024-01-01 09:06] VITALS: BP 109/68; PULSE 40; RESP 18; TEMP 36.1; O2SAT 98
--- NOTE | 2024-01-01 09:15 | MHC.SHP ---
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 Age-related macular degeneration, wet, right eye Traumatic hematoma Anemia Bipolar disorder Morbid obesity Benign familial tremor Colon cancer screening Ventral hernia Multinodular thyroid Umbilical hernia with obstruction CVID (common vari) History of Previous Operations: Relevant previous surgery/procedure and date(s) (S/P evacuation of hematoma (10/11/23) S/P debridement (10/29/23) History of umbilical hernia repair (07/06/22) Hx of wisdom tooth extraction History of cardiac catheterization (~2016) Hx of biopsy H/O colonoscopy History of hysteroscopy History of adenoidectomy) Allergies: Allergies Allergy/AdvReac Type Severity Reaction Status Date / Time No Known Allergies Allergy Verified 12/17/23 13:05 [No Known Allergies*] Review of Systems Sugical H&P ROS: Negative: Constitution, Cardiovascular, Respiratory, Neurological, Psychiatric, Hem-Onc, Allergic/Immunologic, Gastrointestinal, Genitourinary, Musculoskeletal, Integumentary, Endocrine and Eyes/Ears/Nose/Throat Exam Surgical H&P Exam: Normal: HEENT, Normal: Heart, Normal: Lungs, Normal: Extremities, Normal: Abdomen, Normal: Skin and Normal: Neurological Exam Comment: a-flutter with variabel block on monitor -no sx -not new Plan Diagnosis/Plan: Unchanged I have reviewed the history and physical and performed a pertinent physical examination on my patient. No changes have occurred unless specified. Time Spent With Patient Time: Total time managing care of this patient today ____ minutes.
[2024-01-01] MEDS: Lactated Ringers 1,000 ML 100 ML IVCONT (09:24)
--- NOTE | 2024-01-01 09:29 | ECG_ITS ---
Test Reason : ? afib, HR 30-40's Blood Pressure : / mmHG Vent. Rate : 040 BPM Atrial Rate : 040 BPM P-R Int : 220 ms QRS Dur : 134 ms QT Int : 524 ms P-R-T Axes : 000 -43 017 degrees QTc Int : 427 ms Marked sinus bradycardia with 1st degree A-V block Left axis deviation Left ventricular hypertrophy with QRS widening ( R in aVL , Edvin product ) Nonspecific T wave abnormality Abnormal ECG When compared with ECG of 06-JUL-2022 08:13, Sinus rhythm has replaced Atrial fibrillation Vent. rate has decreased BY 62 BPM (RBBB and left anterior fascicular block) is no longer Present Referred By: Jacky Robles Electronically Signed By:STEVEN MARKS
--- NOTE | 2024-01-01 09:29 | PC.NURSE ---
Cardiac rhythm afib/flutter at 38-42 bpm, (Kayla and Travis) aware. 12 lead EKG done
--- NOTE | 2024-01-01 09:53 | HO.OPN-COLON ---
Colonoscopy Operative Note Operative Note Date of Service: 01/01/24 Narrative: Operative Information Procedure Description: EGD, Colonoscopy Indication: anemia (cirrhosis noted on prior imaging) Anesthesia: MAC FLEXIBLE TRANSORAL UPPER GASTROINTESTINAL ENDOSCOPY AND COLONOSCOPY PROCEDURE NOTE UPPER ENDOSCOPY Consent: Indications for the procedure and potential complications of bleeding, perforation, reaction to medications and missed diagnosis were discussed with the patient and informed consent was obtained. Instrument: Olympus GIF H 190 J mid size upper endoscope Monitoring: Vital signs and clinical assessment, continuous EKG monitoring, Pulse oximetry, Carbon Dioxide monitoring and blood pressure monitoring were done throughout the procedure. Procedure: The patient was placed in the left lateral decubitis position and pre-procedure medications were administered and a bite block was placed. The endoscope was inserted into the mouth and advanced under direct vision to the third part of duodenum. A careful inspection was made as the upper endoscope was withdrawn including a retroflexed examination of the proximal stomach; Findings and interventions are described below. Findings: Larynx:normal Esophagus: GE junction at 38 cm, diaphragm hiatus at 38 cm, erosive esophagitis with small varices without high risk stigmata and which collapsed with air insufflation Stomach: mild erythematous mucosa. Biopsies were obtained. Grade 2 flap valve on retroflexed examination of the cardia. No gastric varices seen Duodenum: Normal bulb and descending duodenum, bx taken Intervention: Biopsies as noted above, COLONOSCOPY Instrument: Olympus variable stiffness pediatric scope 190L Colonoscopy Monitoring: Vital signs and clinical assessment, continuous EKG monitoring, Pulse oximetry, Carbon Dioxide monitoring and blood pressure monitoring were done throughout the procedure. Procedure: The patient was placed in the left lateral decubitis position and pre-procedure medications were administered. After a digital rectal examination of the ano-rectum, the video colonoscope was inserted into the rectum and advanced through the colon to the hepatic flexure The colonoscope was slowly withdrawn in a retrograde panoramic fashion and the colon mucosa was carefully. Findings and interventions are described below. Procedure Difficulty: v difficult Findings: Terminal Ileum-not reached Cecum:not reached Ascending Colon: not reached Transverse Colon -narrowing at hepatic flexure, unable to get scope past here Descending Colon:normal Sigmoid Colon: moderate severe diverticulosis Rectum: Retroflexion not done due to poor prep, small internal hemorrhoids on anterior view Anorectum - normal Colon preparation: [place] Bowel Preparation Scale Right colon; n/a Transverse colon: 1-2 Left colon; 1-2 (0 = Unprepared colon segment with mucosa not seen due to solid stool that cannot be cleared. 1 = Portion of mucosa of the colon segment seen, but other areas of the colon segment not well seen due to staining, residual stool and/or opaque liquid. 2 = Minor amount of residual staining, small fragments of stool and/or opaque liquid, but mucosa of colon segment seen well. 3 = Entire mucosa of colon segment seen well with no residual staining, small fragments of stool or opaque liquid) Impression and Post Procedure Diagnosis: Endoscopy Findings: esophageal varices erosive esophagitis gastritis Colonoscopy Findings: narrowing transverse colon 2/2 to known ventral hernia diverticulosis Plan: Await Pathology results Repeat Colonoscopy in 5 years or earlier if clinically indicated High fiber diet leaflet avoid straining at stool, epsom salts and sitz bath, anusol supps or cream Ct colonography Above findings were reviewed with the patient and relevant handouts were provided if indicated.
[2024-01-01 10:45] VITALS: BP 100/59; PULSE 38; RESP 20; TEMP 36.8; O2SAT 100
[2024-01-01 10:50] VITALS: BP 101/49; PULSE 43; RESP 18; O2SAT 100
[2024-01-01 10:55] VITALS: BP 107/80; PULSE 48; RESP 16; O2SAT 100
[2024-01-01 11:00] VITALS: BP 105/80; PULSE 49; RESP 18; TEMP 36.6; O2SAT 100
[2024-01-01 12:18] LABS: Glucose, Whole Blood 98 mg/dL (60-115)
== END 2024-01-01 11:39 | disposition home or self-care (01) ==
PROVIDERS: PCP Internal Medicine; Visit Provider Internal Medicine Gastroenterology
PROC: (CPT 45378; principal; 2024-01-01 10:00)
DX: D64.9 Anemia, unspecified (principal); Z80.0 Family history of malignant neoplasm of digestive organs; D69.1 Qualitative platelet defects; K56.699 Other intestinal obstruction unspecified as to partial versus complete obstruction; K43.9 Ventral hernia without obstruction or gangrene; K57.30 Diverticulosis of large intestine without perforation or abscess without bleeding; K64.8 Other hemorrhoids; K74.60 Unspecified cirrhosis of liver; I85.00 Esophageal varices without bleeding; K22.10 Ulcer of esophagus without bleeding; K29.70 Gastritis, unspecified, without bleeding; I48.91 Unspecified atrial fibrillation; I10 Essential (primary) hypertension; E11.9 Type 2 diabetes mellitus without complications; G47.33 Obstructive sleep apnea (adult) (pediatric); Z79.01 Long term (current) use of anticoagulants; Z79.84 Long term (current) use of oral hypoglycemic drugs; Z79.899 Other long term (current) drug therapy
CPT/HCPCS: 45378; 43239; 82947; 88305; 88313; 88342; 93005; J2704

== ENCOUNTER → 2024-01-01 07:50 | Outpatient (BNV) | payer MEDICARE, SELFPAY | PROVIDERS: PCP Internal Medicine; Visit Provider Internal Medicine Gastroenterology | DX: D64.9 Anemia, unspecified (principal); K20.90 Esophagitis, unspecified without bleeding; I85.00 Esophageal varices without bleeding; K29.70 Gastritis, unspecified, without bleeding; K57.90 Diverticulosis of intestine, part unspecified, without perforation or abscess without bleeding | CPT/HCPCS: 43239; 45378 ==

== ENCOUNTER 2024-02-06 10:13 | Outpatient (AMB) | payer MEDICARE, SELFPAY ==
[2024-02-06 10:24] VITALS: BP 106/50; PULSE 57; BMI 23.5
--- NOTE | 2024-02-06 10:24 | A.OFFVIS_ITS ---
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 Manager Required: No Accompanied by: Self / Same As Patient Allergies No Known Allergies [No Known Allergies*] Allergy (Verified 12/17/23 13:05) Medication List - Last Reconciled 02/06/24 by Maycol Wolfe MD apixaban (Eliquis) 5 mg PO BID 90 days atorvastatin 80 mg PO Q2D 3 months bevacizumab (Avastin) 25 mg IV DIRECTED blood sugar diagnostic (Simtrol Verio test strips) test blood sugar twice a day blood-glucose meter (CampEasyio Reflect kit) Check blood sugar twice daily as directed docusate sodium (Colace) 200 mg (2 x 100 mg) PO BEDTIME lancets (whistleBoxTouch Delica Plus Lancet) Test blood sugar once a day lisinopril 2.5 mg PO BEDTIME metformin 500 mg PO QPM 3 months metoprolol succinate ER 100 mg PO DAILY oxybutynin chloride ER 20 mg (2 x 10 mg) PO BEDTIME 90 days pantoprazole 20 mg PO DAILY polyethylene glycol 3350 (Miralax) 17 grams PO DAILY PRN MDD Constipation terazosin 3 mg (3 x 1 mg) PO BEDTIME 90 days vit C,T-Ae-mdshw-lutein-zeaxan 250-90-40-1 mg (PreserVision AREDS-2) 1 tab PO BID ziprasidone HCl 80 mg PO BID HPI Comments Details: Rissa returns for follow-up regarding atrial fibrillation. Previously seen by Dr. Gamez. Previously, treated by rate control only. However, over the last year or so, she has lost a substantial amount of weight, more than 100 lb. After this, her rhythm has converted to sinus rhythm and it seems like she is probably mostly in sinus. In the Holter from last year, there was some atrial fibrillation but mostly sinus. In a recent EKG, shows sinus bradycardia. Overall, she states she feels fine. Her weight was as much as 279 lb but currently at 150 lb. Hence she has lost about 130 lb total. Drastic weight loss might be the reason why she is able to maintain sinus rhythm. [facility] Medical History (Updated 02/06/24 @ 11:49 by Maycol Wolfe MD) Colon cancer screening Constipation 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 Age-related macular degeneration, wet, right eye Traumatic hematoma Anemia Bipolar disorder Morbid obesity Benign familial tremor Ventral hernia Multinodular thyroid Umbilical hernia with obstruction CVID (common variable immunodeficiency) Vitamin D deficiency HLD (hyperlipidemia) HTN (hypertension) Cardiomyopathy Elevated parathyroid hormone Urinary incontinence Controlled diabetes mellitus without long-term current use of insulin Mixed dyslipidemia Surgical History S/P evacuation of hematoma (10/11/23) S/P debridement (10/29/23) History of umbilical hernia repair (07/06/22) Hx of wisdom tooth extraction History of cardiac catheterization (~2016) Hx of biopsy H/O colonoscopy History of hysteroscopy History of adenoidectomy Family History Father Diabetes mellitus Depression Mental health disorder Mother Diabetes mellitus Colon cancer Breast cancer Familial tremor Sister Colon cancer Maternal Aunt Familial tremor Sister No problems noted. Social History Household Members: None Housing: Condominium Are you a primary client care specialist to a significant other at home: No Do you presently have visiting nurse or other home services: Yes ([facility] QOD dressing change left leg) Alcohol intake: never Comment: COUNT CORRECT Patient Tobacco Use Status: Never used Tobacco e-Cigarette/Vaping Use: Never Used service: No Current occupational status: disabled Cognitive needs: No Hearing needs: No Vision needs: Yes Review of Systems Const Denies chills, Denies fatigue, Denies fever(s), Denies weight gain and Denies weight loss ENT Denies dizziness Card Denies chest pain, Denies leg edema, Denies lightheadedness, Denies palpitations, Denies dyspnea on exertion, Denies orthopnea and Denies other Resp Denies cough and Denies dyspnea on exertion GI Denies hematochezia and Denies change in stool character Musc Denies abnormal gait, Denies muscle weakness, Denies numbness, Denies radiating pain into limb and Denies tingling Neuro Denies abnormal gait, Denies dizziness, Denies numbness and Denies tingling Endo Denies fatigue and Denies palpitations Physical Exam Vital Signs: Last Vital Signs Pulse 57 02/06/24 10:24 BP 106/50 L 02/06/24 10:24 BMI result Body Mass Index 23.5 Const General: comfortable and no acute distress Orientation/consciousness: patient oriented x3 HEENT Other: Unremarkable Head: Yes normal to inspection Neck Neck: Yes normal visual inspection Chest Chest palpation & inspection: normal inspection of the chest Resp Auscultation: clear to auscultation bilaterally Cardio Palpation: normal PMI Heart sounds: S1 normal heart sound present, S2 normal heart sound present, no gallops, no murmurs and no rubs GI Palpation (GI): Soft to palpation Back/Spine/Pelvis Other: unremarkable Skin General skin exam: no rashes or lesions noted Neuro General: patient oriented x3 Extrem General: Yes normal to inspection Psych Mental Status: mental status grossly normal Assessment & Plan Assessment & Plan (1) PAF (paroxysmal atrial fibrillation): Code(s): I48.0 - Paroxysmal atrial fibrillation Category: Medical (2) Bradycardia: Code(s): R00.1 - Bradycardia, unspecified Category: Medical (3) Cardiomyopathy: Code(s): I42.9 - Cardiomyopathy, unspecified Category: Medical Qualifiers: Cardiomyopathy type: unspecified Qualified Code(s): I42.9 - Cardiomyopathy, unspecified Plan In the last echocardiogram, LVEF is 55-60%. In the past, reported to have cardiomyopathy in the 40-45% range. Hence seems resolved. She has been in atrial fibrillation in the past but over the last year, mostly sinus which may be related to weight loss. As she has had bradycardia on the last EKG, we will check a Holter. If any significant or profound bradycardia, then we could cut back on her beta- musa dosing. Remains on anticoagulation otherwise. If any other concerns or cardiac symptoms, she will contact us. Follow-up in a year. Total time spent including review of data, counseling, documentation, coordination of care-31 minutes. Orders: Orders ECG 3 day holter monitor Today I48.0 - Paroxysmal atrial fibrillation Coding Level of Care Code Est Pt Level 4 (44230) Diagnoses PAF (paroxysmal atrial fibrillation) I48.0 Bradycardia R00.1 Cardiomyopathy, unspecified type I42.9 Cardiomyopathy type: unspecified
== END 2024-02-06 10:42 | disposition home or self-care (01) ==
PROVIDERS: PCP Internal Medicine; Visit Provider Internal Medicine
DX: I48.0 Paroxysmal atrial fibrillation (principal); R00.1 Bradycardia, unspecified; I42.9 Cardiomyopathy, unspecified
CPT/HCPCS: 99214

== ENCOUNTER → 2024-02-06 10:13 | Outpatient (BNVA) | payer MEDICARE, SELFPAY | PROVIDERS: PCP Internal Medicine; Visit Provider Internal Medicine | DX: I48.0 Paroxysmal atrial fibrillation (principal); I42.9 Cardiomyopathy, unspecified; R00.1 Bradycardia, unspecified | CPT/HCPCS: 99212 ==

== ENCOUNTER 2024-02-19 10:50 | Outpatient (REF) | payer MEDICARE, SELFPAY ==
[2024-02-19 13:16] LABS: MANUAL DIFF FLAG NO
[2024-02-19 13:36] LABS: Basophils Percent Auto 0.3 % (0-2); Eosinophils Percent Auto 0.3 % (0-4); Hematocrit 40.9 % (37.0-47.0); Hemoglobin 13.2 g/dl (12.0-16.0); Imm Gran Abs Auto 0.02 X10*3/uL (0.00-0.03); Imm Gran Pct Auto 0.6 % (0.0-0.4); Lymphocytes Absolute Auto 1.1 X10*3/uL (1.2-4.9); Mean Corpuscular HGB Conc 32.3 g/dl (31.0-35.0); Mean Corpuscular Hemoglobin 28.6 pg (27.0-33.0); Mean Corpuscular Volume 88.5 fL (80.0-98.0); Mean Platelet Volume 11.9 fL (9.4-12.3); Monocytes Absolute Auto 0.2 X10*3/uL (0.1-1.2); Monocytes Percent Auto 5.7 % (2-11); Neutrophils Percent Auto 59.1 % (45-73); Platelet Count 111 X10*3/uL (160-400); Red Blood Count 4.62 X10*6/uL (4.20-5.50); Red Cell Distribution Width 15.5 % (11.0-16.0); White Blood Count 3.3 X10*3/uL (4.8-10.8)
[2024-02-19 14:01] LABS: Estimated Average Glucose 111 mg/dL; Hemoglobin A1c % 5.5 % (<6.0); Total Hemoglobin (HGBA1C) 3172.9001 umol/L
[2024-02-19 14:23] LABS: Alanine Aminotransferase 12 U/L (0-31); Anion Gap 14 (12-20); Aspartate Amino Transferase 12 U/L (5-31); Blood Urea Nitrogen 17 mg/dL (9-16); Calcium 10.1 mg/dL (8.4-10.2); Carbon Dioxide 24 mmol/L (22-29); Chloride 110 mmol/L (96-108); Cholesterol 114 mg/dL (<200); Estimated Glomerular Filt Rate > 60; Glucose Fasting 98 mg/dL (60-99); HDL Cholesterol 46 mg/dL (>40); Iron 114 mcg/dL (30-160); LDL Cholesterol Calculated 55 mg/dL (<100); Percent Iron Saturation 36 % (15-50); Potassium 4.3 mmol/L (3.3-5.1); Sodium 144 mmol/L (135-145); TSH reflex Free T4 1.01 uIU/mL (0.32-4.0); Total Iron Binding Capacity 315 mcg/dL (228-428); Triglycerides 66 mg/dL (<150); Unsaturated Iron Binding 201 ug/dL; Vitamin D 25-OH Total 60.9 ng/mL (>30)
== END 2024-02-19 10:51 | disposition home or self-care (01) ==
LOC: HO.HMGCLDS 10:50
PROVIDERS: PCP Internal Medicine; Visit Provider Internal Medicine
DX: K59.09 Other constipation (principal); D62 Acute posthemorrhagic anemia; K76.0 Fatty (change of) liver, not elsewhere classified; D69.1 Qualitative platelet defects; Z79.01 Long term (current) use of anticoagulants; E04.2 Nontoxic multinodular goiter; E55.9 Vitamin D deficiency, unspecified; I10 Essential (primary) hypertension; E11.9 Type 2 diabetes mellitus without complications; E78.2 Mixed hyperlipidemia
CPT/HCPCS: 36415; 80048; 80061; 82306; 83036; 83540; 84443; 84450; 84460; 85025

== ENCOUNTER 2024-02-27 11:14 | Outpatient (AMB) | payer MEDICARE, SELFPAY ==
--- NOTE | 2024-02-27 11:38 | A.OFFPC_ITS ---
Vital Signs 02/27/24 11:39 Height 5 ft 7 in Weight 150 lb BMI 23.5 BP 100/50 L Blood Pressure Location Rt brachial Position Sitting Pulse 52 Pulse Source Pulse Oximeter Pulse Oximetry (%) 99 Oxygen Delivery Method Room Air Intake Visit Reasons: 3M F/u Intake Note: Pt is here today for her 3mo. f/u labs Allergies No Known Allergies [No Known Allergies*] Allergy (Verified 02/27/24 11:57) Medication List - Last Reconciled 02/27/24 by Elsa Barrera MD apixaban (Eliquis) 5 mg PO BID 90 days atorvastatin 80 mg PO Q2D 3 months bevacizumab (Avastin) 25 mg IV DIRECTED blood sugar diagnostic ([place] Ver[employer] test strips) test blood sugar twice a day blood-glucose meter ([place] Ver[employer] Reflect kit) Check blood sugar twice daily as directed docusate sodium (Colace) 200 mg (2 x 100 mg) PO BEDTIME lancets ([employer] Delica Plus Lancet) Test blood sugar once a day lisinopril 2.5 mg PO BEDTIME metformin 500 mg PO QPM 3 months metoprolol succinate ER 100 mg PO DAILY oxybutynin chloride ER 20 mg (2 x 10 mg) PO BEDTIME 90 days pantoprazole 20 mg PO DAILY polyethylene glycol 3350 (Miralax) 17 grams PO DAILY PRN MDD Constipation terazosin 3 mg (3 x 1 mg) PO BEDTIME 90 days vit C,L-Qd-kpioo-lutein-zeaxan 250-90-40-1 mg (Preser[employer]ision AREDS-2) 1 tab PO BID ziprasidone HCl 80 mg PO BID Tobacco use date assessed: 02/27/24 Fall risk assessment: 1 Fall in past year Last assessed Fall Risk: 02/27/24 Dental Screening Dental Screen Date: 02/27/24 Did you have a dental visit in the last 12 months?: No Did you have a dental problem in the last 6 months where you did not have access to dental care?: No Was dental information given to patient?: Patient declined HPI 3M F/u HPI Details 68 year-old lady with past medical histo ry of bipolar disorder currently followed by psych, persistent atrial fibrillation currently on apixaban, has benign familial tremor, diabetes mellitus, mixed dyslipidemia, history of multinodular goiter, currently euthyroid, macular degeneration, here today for her follow-up. Has been feeling well, compliant with medications, complaints at present time. Recent fasting labs showed her fasting glucose, hemoglobin A1c, lipids, thyroid stimulating hormone level within normal limits. [facility] Medical History (Updated 02/27/24 @ 12:07 by Elsa Barrera MD) Colon cancer screening Constipation 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 Age-related macular degeneration, wet, right eye Traumatic hematoma Anemia Bipolar disorder Morbid obesity Benign familial tremor Ventral hernia Multinodular thyroid Umbilical hernia with obstruction CVID (common variable immunodeficiency) Vitamin D deficiency HLD (hyperlipidemia) HTN (hypertension) Cardiomyopathy Elevated parathyroid hormone Urinary incontinence Controlled diabetes mellitus without long-term current use of insulin Mixed dyslipidemia Surgical History (Updated 02/27/24 @ 12:07 by Elsa Barrera MD) S/P evacuation of hematoma (10/11/23) S/P debridement (10/29/23) History of umbilical hernia repair (07/06/22) Hx of wisdom tooth extraction History of cardiac catheterization (~2016) Hx of biopsy H/O colonoscopy History of hysteroscopy History of adenoidectomy Family History Father Diabetes mellitus Depression Mental health disorder Mother Diabetes mellitus Colon cancer Breast cancer Familial tremor Sister Colon cancer Maternal Aunt Familial tremor Sister No problems noted. Social History Household Members: None Housing: Condominium Are you a primary healthcare business analyst to a significant other at home: No Do you presently have visiting nurse or other home services: Yes ([facility] QOD dressing change left leg) Alcohol intake: never Comment: COUNT CORRECT Patient Tobacco Use Status: Never used Tobacco e-Cigarette/Vaping Use: Never Used service: No Current occupational status: disabled Cognitive needs: No Hearing needs: No Vision needs: Yes Questionnaire PHQ-9 Over the last 2 weeks, how often have you been bothered by any of the following problems? Depression Screening Interpretation: Negative Depression Screening Done: Yes Source: Developed by Drs. Braulio Durand, Kathryn Martinez, Javier Hodgson and colleagues, with an educational jeffry from [email or web address]. Thrive Questionnaire Date Thrive assessed: 11/25/23 I am a: Patient What is your living situation today?: I have a steady place to live Within the past 12 months, did the food you bought not last and you didn't have the money to get more?: Never true Within the past 12 months, did you worry whether your food would run out before you got money to buy more?: Never true Do you have trouble paying for medicines?: No Do you have trouble getting transportation to medical appointments?: Yes Do you have trouble paying your heating and electricity bill?: No Do you have trouble taking care of your child, family member or friend?: No Do you have trouble with day-to-day activities such as bathing, preparing meals, shopping, managing finances, etc.?: No Are you currently unemployed and looking for a job?: No Are you interested in more education?: No Please select the resources that you would like help with: None Currently or been in a relationship where the following occur: No concerns reported THRIVE Score: 1 JULIA-7 AMB Questionnaire JULIA-7 Date JULIA - 7 assessed: 11/28/23 Source: Developed by Drs. Braulio Durand, Kahtryn Martinez, Javier Hodgson and colleagues, with an educational jeffry from [email or web address]. Review of Systems Const Denies chills, Denies fatigue, Denies fever(s), Denies weight gain and Denies weight loss ENT Denies dizziness Card Denies chest pain, Denies leg edema, Denies lightheadedness, Denies palpitations and Denies dyspnea on exertion Resp Denies cough and Denies dyspnea on exertion GI Denies abdominal pain, Denies melena, Denies hematochezia, Denies change in bowel habits and Denies change in stool character Musc Denies abnormal gait, Denies muscle weakness, Denies numbness, Denies radiating pain into limb and Denies tingling Neuro Denies abnormal gait, Denies dizziness, Denies numbness and Denies tingling Endo Denies fatigue and Denies palpitations Physical exam (Primary Care) Vital Signs: Last Vital Signs Pulse 52 02/27/24 11:39 BP 100/50 L 02/27/24 11:39 Pulse Ox 99 02/27/24 11:39 Oxygen Delivery Method Room Air 02/27/24 11:39 BMI result Body Mass Index 23.5 Tobacco/Smoking Status: Tobacco use Status Tobacco use date assessed 02/27/24 02/27/24 11:42 Patient Tobacco Use Status Never used Tobacco 02/27/24 11:41 e-Cigarette/Vaping Use Never Used 02/27/24 11:41 Depression Screening Interpretation: Negative Thrive Assessment: Date of Thrive Assessment Date Thrive assessed 11/25/23 02/27/24 11:41 Currently or been in a relationship where the following occur: No concerns reported Const Other: Alert oriented x3 no acute distress noted normal gait Orientation/consciousness: patient oriented x3 HENMT Head: Yes normocephalic General nose exam: Normal external nose present Face and sinus: Yes face symmetric Mouth: moist mucous membranes Eyes General: appearance normal, both eyes and all related structures Neck Neck: Yes full ROM, Yes no lymphadenopathy and Yes supple Resp Auscultation: clear to auscultation bilaterally Cardio Other: S1-S2 present regular rate and rhythm GI Palpation (GI): Soft to palpation, nontender and no guarding Auscultation: normal bowel sounds Back/Spine/Pelvis Back: No back tenderness Neuro General: patient oriented x3, gait normal, tone normal, moves all extremities and no focal motor deficits Extrem General: Yes full ROM, Yes no joint enlargement, Yes no pedal edema, Yes no calf tenderness and Yes normal gait Results Reviewed Results Reviewed: Name: Rissa Betancur Age/Sex: 68/[facility] 1955 [id number] [id number] Attend Dr: Elsa Barrera MD Re02/19/24 Status: DEP REF Location: [facility] Disch: SPEC : [id number] DUSTIN: 02/19/24 STATUS: COMP REQ : [id number] RECD: 02/19/[address]: Elsa Barrera MD COMP: 02/19/24 ENTERED: 02/19/[address] [facility] [address]: ORDERED: CBC Auto Diff Test Result Flag Reference WBC 3.3 L 4.8-10.8 X10*3/uL RBC 4.62 # 4.20-5.50 X10*6/uL HGB 13.2 12.0-16.0 g/dl HCT 40.9 37.0-47.0 % MCV 88.5 80.0-98.0 fL MCH 28.6 27.0-33.0 pg MCHC 32.3 31.0-35.0 g/dl RDW 15.5 11.0-16.0 % PLT 111 L 160-400 X10*3/uL MPV 11.9 9.4-12.3 fL Neut Pct Auto 59.1 45-73 % ImGran Pct Auto 0.6 H 0.0-0.4 % Lymp Pct Auto 34.0 20-40 % Duval Pct Auto 5.7 2-11 % Eos Pct Auto 0.3 0-4 % Baso Pct Auto 0.3 0-2 % NRBC Pct Auto 0.0 0.0-0.2 /100WBC ANC Neut Abs # 2.0 2.0-8.3 x10*3/uL ImGran Abs Auto 0.02 0.00-0.03 X10*3/uL Lymph Abs Auto 1.1 L 1.2-4.9 X10*3/uL Duval Abs Auto 0.2 0.1-1.2 X10*3/uL Eos Abs Auto 0.0 0.0-0.4 X10*3/uL Baso Abs Auto 0.0 0.0-0.2 X10*3/uL NRBC Abs Auto 0.000 0.0-0.012 X10*3/uL Name: Rissa Betancur Age/Sex: 68/F : 1955 Unit#: [id number] Attend Dr: Elsa Barrera MD Re02/19/24 Status: DEP REF Location: [facility] Disch: SPEC : [id number] DUSTIN: 02/19/24 STATUS: COMP REQ : [id number] RECD: 02/19/[address]: Elsa Barrera MD COMP: 02/19/24 ENTERED: 02/19/[address] [facility] [address]: ORDERED: Met Prof Fast, IRON PROF, AST, ALT, Lipid Panel, Vitamin D 25-OH, TSH Rf Test Result Flag Reference Sodium 144 135-145 mmol/L Potassium 4.3 # 3.3-5.1 mmol/L CL 110 H 96-108 mmol/L CO2 24 22-29 mmol/L Gap 14 12-20 BUN 17 H 9-16 mg/dL Creat 0.84 0.5-1.4 mg/dL EGFR > 60 NOTE: For -[place] individuals, multiply the result by 1.210. Chronic Kidney Disease: Estimated GFR < 60 mL/min/1.73m2 Severe Kidney Disease: Estimated GFR < 15 mL/min/1.73m2 FBS 98 60-99 mg/dL CA 10.1 8.4-10.2 mg/dL Iron 114 30-160 mcg/dL TIBC 315 228-428 mcg/dL Saturation 36 15-50 % UIBC 201 ug/dL AST (GOT) 12 5-31 U/L ALT (GPT) 12 0-31 U/L Triglyceride 66 <150 mg/dL Desirable Triglyceride: less than 150 mg/dL Borderline High Triglyceride 150-199 mg/dL High Triglyceride: 200-499 mg/dL Very High Triglyceride: greater than or equal to 5OO mg/dL Cholesterol 114 <200 mg/dL Desirable Cholesterol: less than 200 mg/dL Borderline High Cholesterol: 200-239 mg/dL High Cholesterol: greater than 239 mg/dL LDL Calculated 55 <100 mg/dL Desirable LDL: less than 100 mg/dL Near Optimal/Above Optimal LDL: 110-129 mg/dL Borderline High LDL: 130-159 mg/dL High LDL: 160-189 mg/dL Very High LDL: greater than or equal to 190 mg/dL HDL 46 >40 mg/dL Desirable HDL: greater than 40 mg/dL Note: This HDL assay may give artificially low results in patients with liver disease. Vit D 25-OH Tot 60.9 >30 ng/mL Health Based Reference Values* < 20 ng/mL Deficient 20-30 ng/mL Insufficient > 30 ng/mL Sufficient *Catia SOUZA. N Engl J Med. 2007;357:266-280 Care must be taken in interpreting Vitamin D results from different laboratories and methodologies. Published data demonstrated that results from patients undergoing hemodialysis may show a negative bias when tested with various automated 25-OH vitamin D assays when compared to LC-MS/MS. When testing samples from patients whose predominant form of Vitamin D is Vitamin D2, such as patients receiving Vitamin D2 supplementation, results that are subtherapeutic should be confirmed with another method such as LC-MS/MS. TSH 1.01 0.32-4.0 uIU/mL Laboratory Tests 11/25/23 02/19/24 11:55 10:54 Estimat Average Glucose 111 Hemoglobin A1c % 5.5 Urine Creatinine 114.69 Urine Microalbumin 27.0 Microalb/Creat Ratio 23.5 Coding Level of Care Code Est Pt Level 4 (33564) Complex EM visit Add On G2211 Diagnoses Essential hypertension I10 Hypertension type: essential hypertension Controlled type 2 diabetes mellitus without complication, without long-term current use of insulin E11.9 Diabetes mellitus complication status: without complication Diabetes mellitus type: type 2 Mixed dyslipidemia E78.2 History of anemia Z86.2 Assessment & Plan Assessment & Plan (1) HTN (hypertension): Code(s): I10 - Essential (primary) hypertension Category: Medical Qualifiers: Hypertension type: essential hypertension Qualified Code(s): I10 - Essential (primary) hypertension Plan: Blood pressure stable controlled. Continued on metoprolol succinate ER 100 mg once a day and lisinopril 2.5 mg daily (2) Controlled diabetes mellitus without long-term current use of insulin: Code(s): E11.9 - Type 2 diabetes mellitus without complications Category: Medical Qualifiers: Diabetes mellitus complication status: without complication Diabetes mellitus type: type 2 Qualified Code(s): E11.9 - Type 2 diabetes mellitus without complications Plan: Recent lab results reviewed with patient, with sugar and hemoglobin A1c stable and at goal . Continue with metformin 500 mg at night with supper . Counseled regarding importance of yearly diabetes retinopathy screening. Patient advised to inspect feet daily, for any signs of injury, callus or infection. Compliance with diet and regular exercise again stressed. Blood pressure goal is less than 130/80, goal LDL is less than 100 and goal hemoglobin A1c is less than 7% follow-up appointment made in-4--months, after fasting labs done. (3) Mixed dyslipidemia: Code(s): E78.2 - Mixed hyperlipidemia Category: Medical Plan: Reviewed recent fasting lipid profile with patient with levels within normal limits . Continue atorvastatin 80 mg every other day , in addition to adhe rence to low-cholesterol diet and regular exercise, at least 30 minutes 3 to 4 times a week. Advised patient to make healthy food choices, eat more fruits, vegetables, whole grains, wild caught fish and low-fat dairy. Limit amount of meat and fried or fatty food products, as well as processed foods and fast foods. Follow-up scheduled with repeat fasting lipid panel in 07/2024 (4) History of anemia: Code(s): Z86.2 - Personal history of diseases of the blood and blood-forming organs and certain disorders involving the immune mechanism Plan: Latest labs showed anemia has resolved Orders: Orders Alanine Aminotransferase 07/04/24 E11.9 - Type 2 diabetes mellitus without complications, E66.01 - Morbid (severe) obesity due to excess calories, E78.2 - Mixed hyperlipidemia, I10 - Essential (primary) hypertension Hemoglobin A1c 07/04/24 E11.9 - Type 2 diabetes mellitus without complications, E66.01 - Morbid (severe) obesity due to excess calories, E78.2 - Mixed hyperlipidemia, I10 - Essential (primary) hypertension Basic Metabolic Panel Fasting 07/04/24 E11.9 - Type 2 diabetes mellitus without complications, E66.01 - Morbid (severe) obesity due to excess calories, E78.2 - Mixed hyperlipidemia, I10 - Essential (primary) hypertension Vitamin D 25-OH Total 07/04/24 E11.9 - Type 2 diabetes mellitus without complications, E66.01 - Morbid (severe) obesity due to excess calories, E78.2 - Mixed hyperlipidemia, I10 - Essential (primary) hypertension Lipid Panel 07/04/24 E11.9 - Type 2 diabetes mellitus without complications, E66.01 - Morbid (severe) obesity due to excess calories, E78.2 - Mixed hyperlipidemia, I10 - Essential (primary) hypertension Aspartate Amino Transferase 07/04/24 E11.9 - Type 2 diabetes mellitus without complications, E66.01 - Morbid (severe) obesity due to excess calories, E78.2 - Mixed hyperlipidemia, I10 - Essential (primary) hypertension Microalbumin, Random (w Creat) 07/04/24 E11.9 - Type 2 diabetes mellitus without complications, E66.01 - Morbid (severe) obesity due to excess calories, E78.2 - Mixed hyperlipidemia, I10 - Essential (primary) hypertension
[2024-02-27 11:39] VITALS: BP 100/50; PULSE 52; O2SAT 99; BMI 23.5
== END 2024-02-27 12:20 | disposition home or self-care (01) ==
PROVIDERS: PCP Internal Medicine; Visit Provider Internal Medicine
DX: I10 Essential (primary) hypertension (principal); E11.9 Type 2 diabetes mellitus without complications; E78.2 Mixed hyperlipidemia; Z86.2 Personal history of diseases of the blood and blood-forming organs and certain disorders involving the immune mechanism

== ENCOUNTER → 2024-02-27 11:14 | Outpatient (BNVA) | payer MEDICARE, SELFPAY | PROVIDERS: PCP Internal Medicine; Visit Provider Internal Medicine | DX: I10 Essential (primary) hypertension (principal); E11.9 Type 2 diabetes mellitus without complications; E78.2 Mixed hyperlipidemia; Z86.2 Personal history of diseases of the blood and blood-forming organs and certain disorders involving the immune mechanism | CPT/HCPCS: 99212 ==

== ENCOUNTER → 2024-03-09 11:22 | Outpatient (REF) | payer MEDICARE, SELFPAY ==
--- NOTE | 2024-03-09 11:24 | HM_ITS ---
* Total monitoring time 3 days. * Underlying rhythm is sinus. Average ventricular rate 47/Min. 86% of the time, rate < 60/Min. * Atrial fibrillation noted with a burden of 16%. Longest episode about 2 hours 23 minutes. Fastest 109/Min. * Rare supraventricular ectopy. * Rare ventricular ectopy. * Pauses noted but do not reach significance. Longest, 3 seconds at 16:31. * No patient markers. Diary not received. MTDD
[2024-03-09 13:13] LABS: Alanine Aminotransferase 15 U/L (0-31); Albumin Level 4.5 g/dL (3.5-5.0); Alkaline Phosphatase 129 U/L (39-117); Anion Gap 14 (12-20); Aspartate Amino Transferase 17 U/L (5-31); Bilirubin Total 0.5 mg/dL (0.0-1.0); Blood Urea Nitrogen 19 mg/dL (9-16); Calcium 10.2 mg/dL (8.4-10.2); Carbon Dioxide 25 mmol/L (22-29); Chloride 109 mmol/L (96-108); Estimated Glomerular Filt Rate > 60; Glucose Random 105 mg/dL (60-115); Potassium 4.5 mmol/L (3.3-5.1); Sodium 143 mmol/L (135-145)
[2024-03-09 13:33] LABS: Vitamin D 25-OH Total 47.5 ng/mL (>30)
== END ==
LOC: HO.CARD 11:22
PROVIDERS: Internal Medicine; PCP Internal Medicine; Visit Provider Internal Medicine
DX: I48.0 Paroxysmal atrial fibrillation (principal); E55.9 Vitamin D deficiency, unspecified; E21.3 Hyperparathyroidism, unspecified
CPT/HCPCS: 36415; 80053; 82306; 93242

== ENCOUNTER → 2024-03-09 11:24 | Outpatient (BNV) | payer MEDICARE, SELFPAY | PROVIDERS: PCP Internal Medicine; Visit Provider Internal Medicine | DX: I48.91 Unspecified atrial fibrillation (principal) | CPT/HCPCS: 93244 ==

== ENCOUNTER 2024-03-16 09:33 | Outpatient (AMB) | payer MEDICARE, SELFPAY ==
--- NOTE | 2024-03-16 10:00 | A.OFFVIS_ITS ---
Intake Visit Reasons: Follow up in one year with PVR Intake Note: Patient presents today for follow up on: urinary incontinence Urology Medications: Oxybutynin,Terazosin Blood Thinner: Apixaban (Eliquis) PVR: Rn Team Leader Required: No Accompanied by: Self / Same As Patient Allergies No Known Allergies [No Known Allergies*] Allergy (Verified 03/16/24 10:33) Medication List - Last Reconciled 03/16/24 by JS Christianson apixaban (Eliquis) 5 mg PO BID 90 days atorvastatin 80 mg PO Q2D 3 months bevacizumab (Avastin) 25 mg IV DIRECTED blood sugar diagnostic ([employer] Verio test strips) test blood sugar twice a day blood-glucose meter ([employer] Verio Reflect kit) Check blood sugar twice daily as directed docusate sodium (Colace) 200 mg (2 x 100 mg) PO BEDTIME lancets ([employer] Delica Plus Lancet) Test blood sugar once a day lisinopril 2.5 mg PO BEDTIME metformin 500 mg PO QPM 3 months metoprolol succinate ER 100 mg PO DAILY mirabegron ER (Myrbetriq) 25 mg PO DAILY 30 days pantoprazole 20 mg PO DAILY polyethylene glycol 3350 (Miralax) 17 grams PO DAILY PRN MDD Constipation terazosin 3 mg (3 x 1 mg) PO BEDTIME 90 days vit C,U-Fe-scqab-lutein-zeaxan 250-90-40-1 mg (PreserVision AREDS-2) 1 tab PO BID ziprasidone HCl 80 mg PO BID HPI Comments Details: Rissa is a pleasant 68-year-old female patient of Dr. Barrera. She has a past medical history of constipation, macular degeneration, anemia, bipolar disorder, benign tremors, vitamin-D deficiency, hyperlipidemia, hypertension, cardiomyopathy, urinary incontinence, diabetes, and dyslipidemia. She presents to the office today for follow-up of her urinary incontinence. In discussion with the patient today she reports feeling lower urinary tract symptoms she had been experiencing are well controlled with oxybutynin and terazosin however continues with issues regarding her constipation. We discussed side effects of urological medication regarding constipation. We discussed trial of different OAB medication. In office urinalysis results reviewed with the patient today. PVR 0 mL. When asked she denies urinary urgency, urinary frequency, incont inence, nocturia, hematuria, dysuria, foul smelling urine, changes to urinary stream, flank pain, fever, and or chills. She is happy with her current voiding parameters. We discussed at length potential causes of lower urinary tract symptoms (urinary incontinence) as well as further treatment options to include in office cystoscopy and or urodynamics for further assessment evaluation. She otherwise offers no other issues or concerns at this time. [facility] Medical History Colon cancer screening Constipation 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 Age-related macular degeneration, wet, right eye Traumatic hematoma Anemia Bipolar disorder Morbid obesity Benign familial tremor Ventral hernia Multinodular thyroid Umbilical hernia with obstruction CVID (common variable immunodeficiency) Vitamin D deficiency HLD (hyperlipidemia) HTN (hypertension) Cardiomyopathy Elevated parathyroid hormone Urinary incontinence Controlled diabetes mellitus without long-term current use of insulin Mixed dyslipidemia Surgical History S/P evacuation of hematoma (10/11/23) S/P debridement (10/29/23) History of umbilical hernia repair (07/06/22) Hx of wisdom tooth extraction History of cardiac catheterization (~2016) Hx of biopsy H/O colonoscopy History of hysteroscopy History of adenoidectomy Family History Father Diabetes mellitus Depression Mental health disorder Mother Diabetes mellitus Colon cancer Breast cancer Familial tremor Sister Colon cancer Maternal Aunt Familial tremor Sister No problems noted. Social History Household Members: None Housing: Condominium Are you a primary career and transition teacher to a significant other at home: No Do you presently have visiting nurse or other home services: Yes ([facility] QOD dressing change left leg) Alcohol intake: never Comment: COUNT CORRECT Patient Tobacco Use Status: Never used Tobacco e-Cigarette/Vaping Use: Never Used service: No Current occupational status: disabled Cognitive needs: No Hearing needs: No Vision needs: Yes Review of Systems Const Reports as per HPI Eyes Reports no additional complaints ENT Reports no additional complaints Card Details: reports following up with cardiology for her atrial fibrillation Reports no additional complaints Resp Reports no additional complaints GI Reports as per HPI Reports as per HPI Musc Reports no additional complaints Neuro Reports as per HPI Psych Reports as per HPI Endo Details: patient reports she is diabetic and attempts to maintain her point of care within normal range Reports as per HPI Jorge/Lymph Reports no additional complaints Aller/Immun Reports no additional complaints Physical Exam Const General: cooperative, comfortable, no acute distress, well developed, alert and awake Orientation/consciousness: patient oriented x3 Limitations: no limitations HEENT Head: Yes normal to inspection, Yes normocephalic and Yes atraumatic Ears: hearing grossly normal bilaterally Eyes General: appearance normal, both eyes and all related structures Neck Neck: Yes normal visual inspection and Yes trachea midline Chest Chest palpation & inspection: normal inspection of the chest Resp Effort & Inspection: normal respiratory effort and able to speak in complete sentences Cardio Rate: regular rate GI Inspection: Yes normal to inspection General: Yes no CVA tenderness Back/Spine/Pelvis Back: no CVA tenderness Skin General skin exam: no rashes or lesions noted Neuro General: patient oriented x3 Extrem General: Yes normal to inspection Psych Appearance: grossly normal and well kempt Mental Status: mental status grossly normal Speech and movement: Normal speech and movement present and Clear speech present Affect: normal affect Attitude: cooperative Thought process: Normal thought process present Thought content: Normal thought content present Insight: Fair insight present (Psych) Judgement: Fair judgement present (Psych) Office Procedures Post Void Residual Post Residual Void Post Void Residual (PVR): 0 [id number] Void Residual by ultrasound Results AMB Urinalysis, Automated UA Leukoctes 0 Darnell/uL Last Edit by William Zazueta on 03/16/24 10:44 UA Nitrite Last Edit by William Zazueta on 03/16/24 10:44 UA Urobilinogen 0.2 mg/dL Last Edit by ShoutWireshannan Zazueta on 03/16/24 10:44 UA Protein 0 mg/dL Last Edit by William Zazueta on 03/16/24 10:44 UA pH 6.0 Last Edit by William Zazueta on 03/16/24 10:44 UA Blood 10 Robert/uL Last Edit by William Zazueta on 03/16/24 10:44 UA Specific [place] 1.010 Last Edit by William Zazueta on 03/16/24 10:44 UA Ketone Negative Last Edit by William Zazueta on 03/16/24 10:44 UA Bilirubin 0 mg/dL Last Edit by William Zazueta on 03/16/24 10:44 UA Glucose 0 mg/dL Last Edit by William Zazueta on 03/16/24 10:44 Results Reviewed Results Reviewed: Laboratory Last Values Urine pH (Auto) 6.0 03/16/24 10:43 Specific [place] (Auto) 1.010 03/16/24 10:43 Urine Protein (Auto) 0 mg/dL 03/16/24 10:43 Glucose (UA)(Auto) 0 mg/dL 03/16/24 10:43 Urine Ketones (Auto) Negative 03/16/24 10:43 Urine Blood (Auto) 10 Robert/uL 03/16/24 10:43 Urine Bilirubin (Auto) 0 mg/dL 03/16/24 10:43 Urine Urobilinogen (Auto) 0.2 mg/dL 03/16/24 10:43 Leukocyte Esterase (Auto) 0 Darnell/uL 03/16/24 10:43 Assessment & Plan Assessment & Plan (1) Urinary incontinence: Code(s): R32 - Unspecified urinary incontinence Category: Medical Qualifiers: Urinary Incontinence type: unspecified incontinence Qualified Code(s): R32 - Unspecified urinary incontinence Plan In office urinalysis results reviewed with the patient today; as noted above. PVR 0 mL. We discussed affects of oxybutynin as well as terazosin in relation to constipation. We discuss trial of other OAB medication as well as oxybutynin regarding BEERS criteria. Stop oxybutynin. Start Myrbetriq as discussed and prescribed. We discussed obtaining retroperitoneal ultrasound for further assessment evaluation however patient declines at this time. Discussed bladder triggers/irritants. Follow-up in 1-3 months with PVR; or sooner with any issues, concerns, and or questions. Orders: Orders AMB Post Void Residual by ultrasound Today R32 - Unspecified urinary incontinence AMB Urinalysis Automated Today Z13.9 - Encounter for screening, unspecified Medications: New mirabegron ER (Myrbetriq) 25 mg PO DAILY 30 days 30 tabs 3RF N32.81 - Overactive bladder, R35.1 - Nocturia, R39.15 - Urgency of urination mirabegron ER (Myrbetriq) 25 mg PO DAILY 30 tabs 3RF 30 days N32.81 - Overactive bladder, R35.1 - Nocturia, R39.15 - Urgency of urination Discontinued oxybutynin chloride ER Discontinued Reason: Doctor's Order 20 mg (2 x 10 mg) PO BEDTIME 90 days 180 tabs 2RF OAB Patient Instructions: The patient had an opportunity to ask questions regarding the treatment plan. All questions were answered. Physical exam, labs, and imaging were discussed and reviewed in detail. As well as risks, benefits, and discussion of treatment choices. No major barriers to understanding were identified. The patient expressed understanding and agreement with the above treatment plan. The patient was made aware they should contact our office by phone for worsening of their current condition, the appearance of new symptoms, or with any questions or concerns. Compliance is encouraged with any medications and follow up testing that is ordered. It is a privilege to be allowed the opportunity to participate in? your urological care.? Again, if you have any questions or concerns If you have any questions or concerns please do not hesitate to contact me. The office is [phone]. This note is constructed using voice recognition software. While every effort has been made to ensure accuracy retail sales merchandiser development errors may have been included. Yours sincerely, JS Christianson Coding Level of Care Code Est Pt Level 4 (86868) Diagnoses Urinary incontinence, unspecified type R32 Urinary Incontinence type: unspecified incontinence CPT Codes Post Residual Void - PVR CPT Code: 29376-Kcpl Void Residual by ultrasound ([id number])
== END 2024-03-16 10:40 | disposition home or self-care (01) ==
PROVIDERS: PCP Internal Medicine; Visit Provider Nurse Practitioner Family
DX: R32 Unspecified urinary incontinence (principal); Z13.9 Encounter for screening, unspecified
CPT/HCPCS: 99214

== ENCOUNTER → 2024-03-16 09:33 | Outpatient (BNVA) | payer MEDICARE, SELFPAY | PROVIDERS: PCP Internal Medicine; Visit Provider Nurse Practitioner Family | DX: R32 Unspecified urinary incontinence (principal); N32.81 Overactive bladder; R35.1 Nocturia; R39.15 Urgency of urination | CPT/HCPCS: 51798; 81003; 99212 ==

== ENCOUNTER 2024-05-12 09:05 | Outpatient (AMB) | payer MEDICARE, SELFPAY ==
--- NOTE | 2024-05-12 09:06 | A.OFFVIS_ITS ---
Intake Visit Reasons: 2m/PVR Intake Note: Patient is Present for PVR/Med Review Urology Med: Myrbetriq Antibiotic Allergy:None Blood Thinner: Eliquis Last PVR: 0ml Todays PVR: 0ml Patient states that the Myrbetriq is okay but not as good as Oxybutynin she was previously on. Reports no recent UTI Symptoms Allergies No Known Allergies [No Known Allergies*] Allergy (Verified 03/16/24 10:33) Medication List - Last Reconciled 05/12/24 by JS Christianson apixaban (Eliquis) 5 mg PO BID 90 days atorvastatin 80 mg PO Q2D 3 months bevacizumab (Avastin) 25 mg IV DIRECTED blood sugar diagnostic ([employer] Verio test strips) test blood sugar twice a day blood-glucose meter ([employer] Verio Reflect kit) Check blood sugar twice daily as directed docusate sodium (Colace) 200 mg (2 x 100 mg) PO BEDTIME lancets ([employer] Delica Plus Lancet) Test blood sugar once a day lisinopril 2.5 mg PO BEDTIME metformin 500 mg PO QPM 3 months metoprolol succinate ER 50 mg (1/2 x 100 mg) PO DAILY mirabegron ER (Myrbetriq) 25 mg PO DAILY 30 days pantoprazole 20 mg PO DAILY polyethylene glycol 3350 (Miralax) 17 grams PO DAILY PRN MDD Constipation terazosin 3 mg (3 x 1 mg) PO BEDTIME 90 days vit C,R-As-hoxbr-lutein-zeaxan 250-90-40-1 mg (PreserVision AREDS-2) 1 tab PO BID ziprasidone HCl 80 mg PO BID HPI Comments Details: Rissa is a pleasant 68-year-old female patient of Dr. Barrera. She has a past medical history of constipation, macular degeneration, anemia, bipolar disorder, benign tremors, vitamin-D deficiency, hyperlipidemia, hypertension, cardiomyopathy, urinary incontinence, diabetes, and dyslipidemia. She presents to the office today for follow-up of her urinary incontinence. Of note, patient was seen approximately 2 months ago at which time her oxybutynin was switched to 25 mg of Myrbetriq as patient had been experiencing issues with constipation. In discussion with the patient today she reports feeling oxybutynin was more helpful in her lower urinary tract symptoms however she has noted a significant improvement in her constipation she had been experiencing. She does feel Myrbetriq has been helpful however feels oxybutynin was more beneficial to her. We discussed other treatment options and risks and benefits of these treatment options. We discussed trial of different OAB medication verses increase in Myrbetriq as patient does report somewhat improvement in overactive bladder symptoms she had been experiencing. In office urinalysis results reviewed with the patient today. When asked she denies urinary urgency, urinary frequency, incontinence, nocturia, hematuria, dysuria, foul smelling urine, changes to urinary stream, flank pain, fever, and or chills. We discussed potential near future in office cystoscopy and or urodynamics for further assessment evaluation. She otherwise offers no other issues or concerns at this time. [facility] Medical History Colon cancer screening Constipation 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 Age-related macular degeneration, wet, right eye Traumatic hematoma Anemia Bipolar disorder Morbid obesity Benign familial tremor Ventral hernia Multinodular thyroid Umbilical hernia with obstruction CVID (common variable immunodeficiency) Vitamin D deficiency HLD (hyperlipidemia) HTN (hypertension) Cardiomyopathy Elevated parathyroid hormone Urinary incontinence Controlled diabetes mellitus without long-term current use of insulin Mixed dyslipidemia Surgical History S/P evacuation of hematoma (10/11/23) S/P debridement (10/29/23) History of umbilical hernia repair (07/06/22) Hx of wisdom tooth extraction History of cardiac catheterization (~2016) Hx of biopsy H/O colonoscopy History of hysteroscopy History of adenoidectomy Family History Father Diabetes mellitus Depression Mental health disorder Mother Diabetes mellitus Colon cancer Breast cancer Familial tremor Sister Colon cancer Maternal Aunt Familial tremor Sister No problems noted. Social History Household Members: None Housing: Condominium Are you a primary patient care provider to a significant other at home: No Do you presently have visiting nurse or other home services: Yes ([facility]NA QOD dressing change left leg) Alcohol intake: never Comment: COUNT CORRECT Patient Tobacco Use Status: Never used Tobacco e-Cigarette/Vaping Use: Never Used service: No Current occupational status: disabled Cognitive needs: No Hearing needs: No Vision needs: Yes Review of Systems Const Reports as per [facility] Eyes Reports no additional complaints ENT Reports no additional complaints Card Details: reports following up with cardiology for her atrial fibrillation Reports no additional complaints Resp Reports no additional complaints GI Reports as per [facility] Reports as per [facility] Musc Reports no additional complaints Neuro Reports as per [facility] Psych Reports as per [facility] Endo Details: patient reports she is diabetic and attempts to maintain her point of care within normal range Reports as per HPI Jorge/Lymph Reports no additional complaints Aller/Immun Reports no additional complaints Physical Exam Const General: cooperative, comfortable, no acute distress, well developed, alert and awake Nutritional Appearance: thin Orientation/consciousness: patient oriented x3 Limitations: no limitations HEENT Head: Yes normal to inspection, Yes normocephalic and Yes atraumatic Ears: hearing grossly normal bilaterally Eyes General: appearance normal, both eyes and all related structures Neck Neck: Yes normal visual inspection and Yes trachea midline Chest Chest palpation & inspection: normal inspection of the chest Resp Effort & Inspection: normal respiratory effort and able to speak in complete sentences Cardio Rate: regular rate GI Inspection: Yes normal to inspection General: Yes no CVA tenderness Back/Spine/Pelvis Back: no CVA tenderness Skin General skin exam: no rashes or lesions noted Neuro General: patient oriented x3 Extrem General: Yes normal to inspection Psych Appearance: grossly normal and well kempt Mental Status: mental status grossly normal Speech and movement: Normal speech and movement present and Clear speech present Affect: normal affect Attitude: cooperative Thought process: Normal thought process present Thought content: Normal thought content present Insight: Fair insight present (Psych) Judgement: Fair judgement present (Psych) Office Procedures Post Void Residual Post Residual Void Post Void Residual (PVR): 0 [id number]-[id number] Void Residual by ultrasound Results AMB Urinalysis, Automated UA Leukoctes 0 Darnell/uL Last Edit by ELIUD Wilson on 05/12/24 09:20 UA Nitrite Negative Last Edit by ELIUD Wilson on 05/12/24 09:20 UA Urobilinogen 0.2 mg/dL Last Edit by ELIUD Wilson on 05/12/24 09:2 0 UA Protein 0 mg/dL Last Edit by ELIUD Wilson on 05/12/24 09:20 UA pH 6.0 Last Edit by Katia Bran A on 05/12/24 09:20 UA Blood 0 Robert/uL Last Edit by GITA WilsonA on 05/12/24 09:20 UA Specific [place] 1.015 Last Edit by Katia Bran A on 05/12/24 09: 20 UA Ketone Negative Last Edit by Katia Bran A on 05/12/24 09:20 UA Bilirubin 0 mg/dL Last Edit by Katia Bran RMA on 05/12/24 09:20 UA Glucose 0 mg/dL Last Edit by Katia Bran A on 05/12/24 09:20 Results Reviewed Results Reviewed: Laboratory Last Values Urine pH (Auto) 6.0 05/12/24 09:19 Specific [place] (Auto) 1.015 05/12/24 09:19 Urine Protein (Auto) 0 mg/dL 05/12/24 09:19 Glucose (UA)(Auto) 0 mg/dL 05/12/24 09:19 Urine Ketones (Auto) Negative 05/12/24 09:19 Urine Blood (Auto) 0 Robert/uL 05/12/24 09:19 Urine Nitrite (Auto) Negative 05/12/24 09:19 Urine Bilirubin (Auto) 0 mg/dL 05/12/24 09:19 Urine Urobilinogen (Auto) 0.2 mg/dL 05/12/24 09:19 Leukocyte Esterase (Auto) 0 Darnell/uL 05/12/24 09:19 Assessment & Plan Assessment & Plan (1) Urinary incontinence: Code(s): R32 - Unspecified urinary incontinence Category: Medical Qualifiers: Urinary Incontinence type: unspecified incontinence Qualified Code(s): R32 - Unspecified urinary incontinence Plan In office urinalysis results reviewed with the patient today; as noted above. Will continue Myrbetriq however increase to 50 mg daily. We discussed obtaining retroperitoneal ultrasound for further assessment evaluation however patient declines at this time. Discussed bladder triggers/irritants. We discussed potential for near future in office cystoscopy and or urodynamics for further assessment evaluation. Follow-up in 6 weeks; or sooner with any issues, concerns, and or questions. Orders: Orders AMB Post Void Residual by ultrasound Today R32 - Unspecified urinary incontinence AMB Urinalysis Automated Today Z13.9 - Encounter for screening, unspecified Patient Instructions: The patient had an opportunity to ask questions regarding the treatment plan. All questions were answered. Physical exam, labs, and imaging were discussed and reviewed in detail. As well as risks, benefits, and discussion of treatment choices. No major barriers to understanding were identified. The patient expressed understanding and agreement with the above treatment plan. The patient was made aware they should contact our office by phone for worsening of their current condition, the appearance of new symptoms, or with any questions or concerns. Compliance is encouraged with any medications and follow up testing that is ordered. It is a privilege to be allowed the opportunity to participate in? your urological care.? Again, if you have any questions or concerns If you have any questions or concerns please do not hesitate to contact me. The office is [phone]. This note is constructed using voice recognition software. While every effort has been made to ensure accuracy metal framer errors may have been included. Yours sincerely, JS Christianson Coding Level of Care Code Est Pt Level 3 (47261) Complex EM visit Add On G2211 Diagnoses Urinary incontinence, unspecified type R32 Urinary Incontinence type: unspecified incontinence CPT Codes Post Residual Void - PVR CPT Code: 01514-Yfxz Void Residual by ultrasound ([id number])
--- OUTSIDE RECORDS SUMMARY | 2024-05-12 09:25 | XMS_ITS ---
Author Organization [facility] Address [address] [place] [address] Care Team Providers Care Electric Meter Setter Name Role Phone Bruce WINSTON, Elsa Ortiz Primary Care Provider Un available Ean Carvalho Unavailable [phone] REASON FOR VISIT cx 10/18/23 appt Encounters Encounter Location Date Provider Diagnosis [facility] [address] [place] [address] 10/15/2023 Ean Carvalho Plan Of Treatment No Information Progress Notes * Rissa LR ADOB:1955 (67 yo F)Acc No.[id number]:10/15/2023 Patient:?Rissa Lr :1955???Age:67 Y???Sex:Female [address]: [place], [address] * true * Date:? Generated for Printi ng/Faevag/eTransmitting on:?05/12/2024 09:25 AM EST
--- OUTSIDE RECORDS SUMMARY | 2024-05-12 09:25 | XMS_ITS ---
Author Organization [facility] Address [address] [place] [address] Care Team Providers Care Prestressed Concrete Laborer Name Role Phone Bruce WINSTON, Elsa Ortiz Primary Care Provider Un available Ean Carvalho Unavailable [phone] sim Encounters Encounter Location Date Provider Diagnosis [facility] [address] [place] [address] 09/20/2023 Ean Carvalho Plan Of Treatment No Information Progress Notes * Rissa LR ADOB:1955 (68 yo F)Acc No.[id number]:09/20/2023 Progress Note Patient:?Rissa LR Provider:?Ean Carvalho DPM :1955???Age:67 Y???Sex:Female D ate:09/20/2023 Address:[address] [place], [place] [id number] Pcp:Claudia Lockwood Subjective: * Chief Complaints: * ???1. Dr sim. * Medical History:? Objective: * Vitals:? Assessment: Plan: * Treatment: * Images: * The named appointment provid er may or may not be the originator of this progress note, and it is not deemed complete until electronically signed by the appointment provider. Sign off status: Pending * Provider:?Ean Carvalho DPM Date:?2023 Generated for Haile ingram/Coco/Audra on:?05/12/2024 09:25 AM EST
--- OUTSIDE RECORDS SUMMARY | 2024-05-12 09:25 | XMS_ITS ---
Author Organization [facility] Address [address] [place] [address] Care Team Providers Care Distribution Spec Name Role Phone Bruce WINSTON, Elsa Ortiz Primary Care Provider Un available Ean Carvalho Unavailable [phone] Encounters Encounter Location Date Provider Diagnosis [facility] [address] [place] [address] 10/18/2023 Ean Carvalho Plan Of Treatment No Information Progress Notes * PHILBRIDGETTERissa ADOB:1955 (68 yo F)Acc No.[id number]:10/18/2023 Progress Note Patient:Rissa CASANOVA Provider:?Ean Carvalho DPM :1955???Age:67 Y???Sex:Female D ate:10/18/2023 Address:[address] [place] [address] [id number] Pcp:Claudia Lockwood Subjective: * Chief Complaints: * ??? * Medical History:? Objective: * Vitals:? Assessment: Plan: * Treatment: * Images: * The named appointment provid er may or may not be the originator of this progress note, and it is not deemed complete until electronically signed by the appointment provider. Sign off status: Pending * Provider:?Ean Carvalho DPM Date:?06/14/ 2024 Generated for Haile ingram/Coco/Audra on:?05/12/2024 09:25 AM EST
--- OUTSIDE RECORDS SUMMARY | 2024-05-12 09:25 | XMS_ITS | Patient Health Record ---
[facility] Organization [facility] Address [address] [place] [address] Care Team Providers Care Guard Driver Name Role Phone Bruce WINSTON, Elsa Ortiz Primary Care Provider Un available Deven, Ean Unavailable [phone] Allergies No Known Allergies Reason For Referral No Information Medications Medication SIG (Take, Route, Frequency, Duration) Notes Start Date End Date Status metFORMIN HCl ER 500 MG 1 tablet with ev ening meal Orally twice a day Active Lisinopril 2.5 MG as directed Orally Active Latrix Not-Taking Atorvastatin Calcium 80 MG as directed Orally Active Gamunex-C Not-Taking Ammonium Lactate 12 % 1 application to affected area Externally to feet Twice a day for 30 days Active Extra Depth Orthopedic Shoes (1 Pair) with Customized Heat Molded Multidensity Innersoles (3 Pair) as directed Dx: NIDDM/Polyneuropathy (E11.42), Hammertoe Foot Deformity (M20.41,M20.42), Preulcerative Skin Lesion(s) (L85.1 12/04/2022 Active Furosemide Active Vitamin D3 Super Strength Not-Taking eliquis 5 mg twice a day Activ e Vitamin B 12 Not-Abe ing PreserVision AREDS 2 - Orally twice a day Active Fluoxetine Not-Takin g oxyBUTYnin Chloride Active Doxepin HCl 10 MG/ML Orally Not-Taking Avastin Active Ziprasidone HCl 40 MG 1 capsule with pamela d Orally Active Terazosin HCl 1 MG 1 capsule at bedtime Orally Active lamoTRIgine 200 MG 1 tablet on the tong ue and allow to dissolve Orally Once a day Not-Taking Metoprolol Succinate 100 MG Orally Active QUEtiapine Fumarate Not-Taking Oketo Carbonate 300 MG 1 tablet at bed time Orally three times a day Not-Abe ing Immunizations Vaccine Route Administration Date Status Comme nts COVID-19 Pfizer BioNTech Vaccine Unknown 04/27/2021 Administered 1st 04/06/2021 2nd 04/27/2021 Influenza Unknown 05/16/2021 Refused Social History Tobacco Use: Social History Observation Description Date Details (start date - stop date) Never Smoker NA - NA Tobacco Use/Smoking Question Answer Notes Are you a: nonsmoker Additional Findings: Tobacco Non-User Current no n-smoker Alcohol Screen Question Answer Notes Did you have a drink containing alcohol in the p ast year? No Points 0 Interpretation Negative Tobacco use other than smoking: Question Answer Notes Are you an other tobacco user? No Problems Problem Type SNOMED Code ICD Code Onset Dates Problem Status W/U Status Risk Notes Problem Acquired hammer toe of right foot (3153003426177862 ) Other hammer toe(s) (acquired), right foot (M20.41) Active confirmed Response to treatment, Improvemen t Problem Acquired hammer toe of left foot (0557380650916481 ) Other hammer toe(s) (acquired), left foot (M20.42) Active confirmed Response to treatment, Improvemen t Problem Polyneuropathy due to type 2 diabetes mellitus (532565256) Type 2 diabetes mellitus with diabetic polyneuropathy (E11.42) Active confirmed Vital Signs Blood pressure diastolic 80 mm Hg 06/21/2023 Height 5ft 6in in 06/21/2023 Blood pressure systolic 120 mm Hg 06/21/2023 Weight 158 lbs 06/21/2023 BMI 25.50 kg/m2 06/21/2023 Procedures Procedure Date Ordered Date Performed Result Body Sit e 77267-IKLXOYC NAIL, 6 OR MORE 06/21/2023 N/A 91216-TNNW SKIN LESIONS, OVER 4 06/21/2023 N/A Encounters Encounter Location Date Provider Diagnosis [facility] [address] [address] 06/21/2023 Ean Carvalho Type 2 diabetes mellitus with diabetic polyneuropathy E11.42 and Tinea unguium B35.1 [facility] [address] [address] 10/15/2023 Ean Carvalho Assessments Encounter Date Diagnosis (ICD Code) Assessment Notes Treatment Notes Treatment Clinical Notes Section Notes 06/21/2023 Type 2 diabetes mellitus with diabetic polyneuropathy (ICD-10 - E11.42) 06/21/2023 Tinea unguium (ICD-10 - B35.1) Plan Of Treatment Pending Test Test Name Order Date 42715-BXIFQIY NAIL, 6 OR MORE 03/17/2019 28271-IWMYKJJ NAIL, 6 OR MORE 06/02/2019 57356-APAMYSR NAIL, 6 OR MORE 05/16/2021 64904-EYZGPHR NAIL, 6 OR MORE 08/15/2021 99226-QXBELML NAIL, 6 OR MORE 11/14/2021 24057-FPRLAFR NAIL, 6 OR MORE 02/27/2022 02909-IVCYSRL NAIL, 6 OR MORE 06/05/2022 50756-KEQXASG NAIL, 6 OR MORE 09/04/2022 37783-WJJBFWT NAIL, 6 OR MORE 12/04/2022 73192-APTXERP NAIL, 6 OR MORE 03/08/2023 64924-LCOQWHV NAIL, 6 OR MORE 06/21/2023 60941-Fwrujesg Plate 06/05/2022 51913-EXFN SKIN LESIONS, OVER 4 06/21/19 24 66286-UILH SKIN LESIONS, 2 TO 4 03/08/20 23 04416-ZYJM SKIN LESIONS, 2 TO 4 12/05/19 23 10586-UWEF SKIN LESIONS, 2 TO 4 09/05/19 23 56777-SMNV SKIN LESIONS, 2 TO 4 06/05/19 23 71899-YXCB SKIN LESIONS, 2 TO 4 02/28/20 22 11240-LVJU SKIN LESIONS, 2 TO 4 11/15/19 22 56649-DQXN SKIN LESIONS, 2 TO 4 08/16/19 22 83173-CZXT SKIN LESIONS, 2 TO 4 05/16/19 22 59852-URUY SKIN LESIONS, 2 TO 4 06/02/19 20 13108-IYYX SKIN LESIONS, 2 TO 4 03/17/20 19 Insurance Providers Payer Name Payer Address Payer Phone Subscriber Number Group Number Insured Name Patient Relationship to Insured Coverage Start Date Coverage End Date [employer] Medicare Complete [address] [address] [place], [place] [id number] Micahel ayoubRissa Self - patient is the insured Medical (General) History Medical History History ICD Code Back,Hip,and Knee pain CAD (Cholesterol) Depression Fibromyalgia High blood pressure Macular degeneration Psychiatric disorder Measles Mumps Chicken pox A-Fib Pagets Disease type II diabetes Surgical History Surgery Date(Month/Year) tonsillectomy and adenoidectomy 1951 wisdom teeth extraction D&C 05/08/2019 Hernia Repair 08/06/2022 Hospitalization History Reason Date(Month/Year) sepsis 1 month-Dragan Staples May 2016
== END 2024-05-12 09:28 | disposition home or self-care (01) ==
PROVIDERS: PCP Internal Medicine; Visit Provider Nurse Practitioner Family
DX: Z13.9 Encounter for screening, unspecified (principal); R32 Unspecified urinary incontinence
CPT/HCPCS: 99213; G2211

== ENCOUNTER → 2024-05-12 09:05 | Outpatient (BNVA) | payer MEDICARE, SELFPAY | PROVIDERS: PCP Internal Medicine; Visit Provider Nurse Practitioner Family | DX: R32 Unspecified urinary incontinence (principal) | CPT/HCPCS: 51798; 81003; 99212 ==

== ENCOUNTER 2024-07-01 12:57 | Outpatient (AMB) | payer MEDICARE, SELFPAY ==
--- NOTE | 2024-07-01 12:44 | A.OFFVIS_ITS ---
Intake Visit Reasons: 6w follow up Allergies No Known Allergies [No Known Allergies*] Allergy (Verified 03/16/24 10:33) Medication List - Last Reconciled 07/01/24 by ALEX Christianson- apixaban (Eliquis) 5 mg PO BID 90 days atorvastatin 80 mg PO Q2D 3 months bevacizumab (Avastin) 25 mg IV DIRECTED blood sugar diagnostic ([employer] Verio test strips) test blood sugar twice a day blood-glucose meter ([employer] Verio Reflect kit) Check blood sugar twice daily as directed docusate sodium (Colace) 200 mg (2 x 100 mg) PO BEDTIME lancets ([employer] Delica Plus Lancet) Test blood sugar once a day lisinopril 2.5 mg PO BEDTIME metformin 500 mg PO QPM 3 months metoprolol succinate ER 50 mg (1/2 x 100 mg) PO DAILY mirabegron ER (Myrbetriq) 50 mg PO DAILY pantoprazole 20 mg PO DAILY polyethylene glycol 3350 (Miralax) 17 grams PO DAILY PRN MDD Constipation terazosin 3 mg (3 x 1 mg) PO BEDTIME 90 days vit C,B-Sk-rrjuu-lutein-zeaxan 250-90-40-1 mg (PreserVision AREDS-2) 1 tab PO BID ziprasidone HCl 80 mg PO BID HPI Comments Details: Rissa is a pleasant 68-year-old female patient of Dr. Barrera. She has a past medical history of constipation, macular degeneration, anemia, bipolar disorder, benign tremors, vitamin-D deficiency, hyperlipidemia, hypertension, cardiomyopathy, urinary incontinence, diabetes, and dyslipidemia. She is being followed up on today via video telehealth for urinary incontinence. In discu ssion with the patient today she reports to be doing and feeling well. She reports noting no improvement in overactive bladder symptoms she had been experiencing with increase in Myrbetriq to 50 mg daily. She otherwise denies any bothersome urinary issues. We discussed potential causes of these lower urinary tract symptoms as well as further treatment options and risks and benefits of these treatment options. She had previously trialed oxybutynin however experience issues with constipation. She denies gross/visible hematuria, dysuria, foul smelling urine, changes to urinary stream, flank pain, fever, and or chills. We discussed potential near future in office cystoscopy and or urodynamics for further assessment evaluation. She otherwise offers no other issues or concerns at this time. [facility] Medical History Colon cancer screening Constipation 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 Age-related macular degeneration, wet, right eye Traumatic hematoma Anemia Bipolar disorder Morbid obesity Benign familial tremor Ventral hernia Multinodular thyroid Umbilical hernia with obstruction CVID (common variable immunodeficiency) Vitamin D deficiency HLD (hyperlipidemia) HTN (hypertension) Cardiomyopathy Elevated parathyroid hormone Urinary incontinence Controlled diabetes mellitus without long-term current use of insulin Mixed dyslipidemia Surgical History S/P evacuation of hematoma (10/11/23) S/P debridement (10/29/23) History of umbilical hernia repair (07/06/22) Hx of wisdom tooth extraction History of cardiac catheterization (~2016) Hx of biopsy H/O colonoscopy History of hysteroscopy History of adenoidectomy Family History Father Diabetes mellitus Depression Mental health disorder Mother Diabetes mellitus Colon cancer Breast cancer Familial tremor Sister Colon cancer Maternal Aunt Familial tremor Sister No problems noted. Social History Household Members: None Housing: Condominium Are you a primary livestock caretaker to a significant other at home: No Do you presently have visiting nurse or other home services: Yes ([facility] QOD dressing change left leg) Alcohol intake: never Comment: COUNT CORRECT Patient Tobacco Use Status: Never used Tobacco e-Cigarette/Vaping Use: Never Used service: No Current occupational status: disabled Cognitive needs: No Hearing needs: No Vision needs: Yes Review of Systems Const Reports as per HPI Eyes Reports no additional complaints ENT Reports no additional complaints Card Details: reports following up with cardiology for her atrial fibrillation Reports no additional complaints Resp Reports no additional complaints GI Reports as per HPI Reports as per HPI Musc Reports no additional complaints Neuro Reports as per HPI Psych Reports as per HPI Endo Details: patient reports she is diabetic and attempts to maintain her point of care within normal range Reports as per HPI Jorge/Lymph Reports no additional complaints Aller/Immun Reports no additional complaints Physical Exam Const General: cooperative, healthy appearing, comfortable, no acute distress, well developed, alert and awake Orientation/consciousness: patient oriented x3 Resp Effort & Inspection: normal respiratory effort and able to speak in complete sentences Neuro General: patient oriented x3 Psych Affect: normal affect Attitude: cooperative Thought process: Normal thought process present Thought content: Normal thought content present Insight: Fair insight present (Psych) Judgement: Fair judgement present (Psych) Telehealth Telehealth Telehealth Platform: [employer] Location of provider rendering services: practice address Location of patient: address on file Patient Identification confirmed using: Name, : Yes Telehealth method: video Patient verbally consented to treatment: Yes Patient verbally consented to billing insurance company: Yes Patient informed of any privacy concerns related to visit: Yes Minutes spent on Phone/Video with Pt.: 20 Assessment & Plan Assessment & Plan (1) Urinary incontinence: Code(s): R32 - Unspecified urinary incontinence Category: Medical Qualifiers: Urinary Incontinence type: unspecified incontinence Qualified Code(s): R32 - Unspecified urinary incontinence Plan Stop Myrbetriq Start Gemtesa as discussed and prescribed. We discussed potential causes of lower urinary tract symptoms patient was experiencing as well as further treatment options and risks and benefits of these treatment options. Discussed bladder triggers/irritants. We discussed obtaining retroperitoneal ultrasound for further assessment evaluation however patient declines at this time; we discussed importance in doing so for further assessment. We discussed potential for near future in office cystoscopy and or urodynamics for further assessment evaluation. Follow-up in 1-3 months with [facility]; or sooner with any issues, concerns, and or questions. Medications: New vibegron (Gemtesa) 75 mg PO DAILY 30 tabs 3RF 30 days N32.81 - Overactive bladder Patient Instructions: The patient had an opportunity to ask questions regarding the treatment plan. All questions were answered. Physical exam, labs, and imaging were discussed and reviewed in detail. As well as risks, benefits, and discussion of treatment choices. No major barriers to understanding were identified. The patient expressed understanding and agreement with the above treatment plan. The patient was made aware they should contact our office by phone for worsening of their current condition, the appearance of new symptoms, or with any questions or concerns. Compliance is encouraged with any medications and follow up testing that is ordered. It is a privilege to be allowed the opportunity to participate in? your urological care.? Again, if you have any questions or concerns If you have any questions or concerns please do not hesitate to contact me. The office is [phone]. This note is constructed using voice recognition software. While every effort has been made to ensure accuracy fitting supervisor errors may have been included. Yours sincerely, JS Christianson Coding Level of Care Code Tele Est Pt Level 4 (59942) Diagnoses Urinary incontinence, unspecified type R32 Urinary Incontinence type: unspecified incontinence
--- OUTSIDE RECORDS SUMMARY | 2024-07-01 15:53 | XMS_ITS | Data Portability ---
Author Organization [facility] [place] Address [address] [place] [address] Assessment No assessment recorded. Plan of Treatment Reminders Order Date Submit Date Provider Last Modified By Organization Details Last Modified Time Details Appointments None recorded. Lab lipid panel, serum 2017 018 [facility], [address] [place], [address], 8 08:46:59 vitamin D, 25-hydroxy , total, serum 2017 018 [facility] [address] [place], [address], 8 08:47:01 HbA1c (hemoglobi n A1c), blood 2017 018 [facility], [address] [place], [address], 8 08:47:00 CMP, serum or plasma 2017 018 [facility] [address] [place], [address], 8 08:46:59 vitamin B12 + folate, serum or blood 2017 018 [facility], [address] [place], [address], 8 08:47:00 CBC w/ auto diff 2017 018 [facility] [address] [facility], [place], [address], 8 08:46:58 Referral None recorded. Procedures None recorded. Surgeries None recorded. Imaging MAMMO, screening, digital, bilateral 2017 018 JAI Not available 8 14:57:31 Medication Orders atorvastat in 20 mg tablet 2017 018 INTERFACE [facility], [address] [place] [address], [address], [place], [place], [id number], 8 13:11:18 FreeStyle Lite Strips 2017 018 [email or web address] 3 Not available 13:14:35 Alcohol Pads 2017 018 [email or web address] 3 Not available 13:14:35 metformin 500 mg tablet 2017 018 INTERFACE [facility], [address] [place] [address], [address], [place], [place], [id number], 8 13:10:32 cyanocobal bradford (vit B-12) 1,000 mcg/mL injection solution 2017 018 [email or web address] Not available 17:21:17 Patient TargetsNo targets recorded. Patient Instructions Encounter Date Encounter Id Patient Instructions Last Modified By Organization Details Last Modified Time 09/25/2017 [id number] mammogram: about this test Not available 09/25/2017 13:12:56 learning about type 2 diabetes Not available 09/25/2017 13:10:30 type 2 diabetes: care instructions Not available 09/25/2017 13:10:30 Reason for Referral None Reported. Results Created Date Observation Date Name Description Value Unit Range Abnormal Flag Note LastModifiedBy Organization Detail LastModifiedTime 09/26/19 18 09/26/2017 CBC w/ auto diff WBC 3.4 x10e3 /uL 3.4-10 .8 Not Available [facility] ([facility]) [address] [facility], [place], [address], 09/26/2017 08:46:58 09/26/19 18 09/26/2017 CBC w/ auto diff RBC 4.54 x10e6 /uL 3.77-5 .28 Not Available [facility] ([facility]) [address] [place], [address], 09/26/2017 08:46:58 09/26/19 18 09/26/2017 CBC w/ auto diff hemoglobin 13.4 g/dL 11.1-1 5.9 Not Available [facility] ([facility]) [address] [place], [address], 09/26/2017 08:46:58 09/26/19 18 09/26/2017 CBC w/ auto diff hematocrit 40.8 % 34.0-4 6.6 Not Available [facility] ([facility]) [address] [place], [address], 09/26/2017 08:46:58 09/26/19 18 09/26/2017 CBC w/ auto diff MCV 90 fL 79-97 Not Available [facility] ([facility]) [address] [place], [address], 09/26/2017 08:46:58 09/26/19 18 09/26/2017 CBC w/ auto diff MCH 29.5 pg 26.6-3 3.0 Not Available [facility] ([facility]) [address] [place], [address], 09/26/2017 08:46:58 09/26/19 18 09/26/2017 CBC w/ auto diff MCHC 32.8 g/dL 31.5-3 5.7 Not Available [facility] ([facility]) [address] [place], [address], 09/26/2017 08:46:58 09/26/19 18 09/26/2017 CBC w/ auto diff RDW 14.8 % 12.3-1 5.4 Not Available [facility] ([facility]) [address] [place], [address], 09/26/2017 08:46:58 09/26/19 18 09/26/2017 CBC w/ auto diff platelets 102 x10e3 /uL 150-37 9 below low normal Not Available [facility] ([facility]) [address] [place], [address], 09/26/2017 08:46:58 09/26/19 18 09/26/2017 CBC w/ auto diff neutrophils 75 % not estab. Not Available [facility] ([facility]) [address] [place], [address], 09/26/2017 08:46:58 09/26/19 18 09/26/2017 CBC w/ auto diff lymphs 19 % not estab. Not Available [facility] ([facility]) [address] [place], [address], 09/26/2017 08:46:58 09/26/19 18 09/26/2017 CBC w/ auto diff monocytes 5 % not estab. Not Available [facility] ([facility]) [address] [place], [address], 09/26/2017 08:46:58 09/26/19 18 09/26/2017 CBC w/ auto diff eos 1 % not estab. Not Available [facility] ([facility]) [address] [place], [address], 09/26/2017 08:46:58 09/26/19 18 09/26/2017 CBC w/ auto diff basos 0 % not estab. Not Available [facility] ([facility]) [address] [place], [address], 09/26/2017 08:46:58 09/26/19 18 09/26/2017 CBC w/ auto diff immature cells YEAST PUSHER Not Available [facility] ([facility]) [address] [place], [address], 09/26/2017 08:46:58 09/26/19 18 09/26/2017 CBC w/ auto diff neutrophils (absolute) 2.5 x10e3 /uL 1.4-7. 0 Not Available [facility] ([facility]) [address] [facility], [place], [address], 09/26/2017 08:46:58 09/26/19 18 09/26/2017 CBC w/ auto diff lymphs (absolute) 0.7 x10e3 /uL 0.7-3. 1 Not Available [facility] ([facility]) [address] [place], [address], 09/26/2017 08:46:58 09/26/19 18 09/26/2017 CBC w/ auto diff monocytes(ab solute) 0.2 x10e3 /uL 0.1-0. 9 Not Available [facility] ([facility]) [address] [place], [address], 09/26/2017 08:46:58 09/26/19 18 09/26/2017 CBC w/ auto diff eos (absolute) 0.0 x10e3 /uL 0.0-0. 4 Not Available [facility] ([facility]) [address] [facility], [place], [address], 09/26/2017 08:46:58 09/26/19 18 09/26/2017 CBC w/ auto diff baso (absolute) 0.0 x10e3 /uL 0.0-0. 2 Not Available [facility] ([facility]) [address] [place], [address], 09/26/2017 08:46:58 09/26/19 18 09/26/2017 CBC w/ auto diff immature granulocytes 0 % not estab. Not Available [facility] ([facility]) [address] [place], [address], 09/26/2017 08:46:58 09/26/19 18 09/26/2017 CBC w/ auto diff immature grans (abs) 0.0 x10e3 /uL 0.0-0. 1 Not Available [facility] ([facility]) [address] [facility] [place], [address], 09/26/2017 08:46:58 09/26/19 18 09/26/2017 CBC w/ auto diff NRBC YEAST PUSHER Not Available [facility] ([facility]) [address] [facility] [place], [address], 09/26/2017 08:46:58 09/26/19 18 09/26/2017 CBC w/ auto diff hematology comments: YEAST PUSHER Not Available [facility] ([facility]) [address] [facility] [place], [address], 09/26/2017 08:46:58 09/26/19 18 09/26/2017 CMP, serum or plasm a glucose 95 mg/dL 65-99 Not Available [facility] ([facility]) [address] [facility] [place], [address], 09/26/2017 08:46:58 09/26/19 18 09/26/2017 CMP, serum or plasm a BUN 14 mg/dL 8-27 Not Available [facility] ([facility]) [address] [facility] [place], [address], 09/26/2017 08:46:58 09/26/1909/26/2017 CMP, serum or plasm a creatinine 0.88 mg/dL 0.57-1 .00 Not Available [facility] ([facility]) [address] [facility] [place], [address], 09/26/2017 08:46:58 09/26/1909/26/2017 CMP, serum or plasm a eGFR if nonafricn AM 72 mL/mi n/1.7 3 >59 Not Available [facility] ([facility]) [address] [facility] [place], [address], 09/26/2017 08:46:58 09/26/19 18 09/26/2017 CMP, serum or plasm a eGFR if africn AM 83 mL/mi n/1.7 3 >59 Not Available [facility] ([facility]) [address] [facility] [place], [address], 09/26/2017 08:46:58 09/26/19 18 09/26/2017 CMP, serum or plasm a BUN/creatini ne ratio 16 12-28 Not Available [facility] ([facility]) [address] [facility] [place], [address], 09/26/2017 08:46:58 09/26/19 18 09/26/2017 CMP, serum or plasm a sodium 142 mmol/ L 134-14 4 Not Available [facility] ([facility]) [address] [facility] [place], [address], 09/26/2017 08:46:58 09/26/19 18 09/26/2017 CMP, serum or plasm a potassium 4.6 mmol/ L 3.5-5. 2 Not Available [facility] ([facility]) [address] [facility] [place], [address], 09/26/2017 08:46:58 09/26/19 18 09/26/2017 CMP, serum or plasm a chloride 103 mmol/ L 96-106 Not Available [facility] ([facility]) [address] [facility] [place], [address], 09/26/2017 08:46:58 09/26/19 18 09/26/2017 CMP, serum or plasm a carbon dioxide, total 22 mmol/ L 18-29 Not Available [facility] ([facility]) [address] [facility] [place], [address], 09/26/2017 08:46:58 09/26/19 18 09/26/2017 CMP, serum or plasm a calcium 9.8 mg/dL 8.7-10 .3 Not Available [facility] ([facility]) [address] [place], [address], 09/26/2017 08:46:58 09/26/19 18 09/26/2017 CMP, serum or plasm a protein, total 6.8 g/dL 6.0-8. 5 Not Available [facility] ([facility]) [address] [facility] [place], [address], 09/26/2017 08:46:58 09/26/19 18 09/26/2017 CMP, serum or plasm a albumin 4.4 g/dL 3.6-4. 8 Not Available [facility] ([facility]) [address] [facility] [place], [address], 09/26/2017 08:46:58 09/26/1909/26/2017 CMP, serum or plasm a globulin, total 2.4 g/dL 1.5-4. 5 Not Available [facility] ([facility]) [address] [facility] [place], [address], 09/26/2017 08:46:58 09/26/1909/26/2017 CMP, serum or plasm a A/G ratio 1.8 1.2-2. 2 Not Available [facility] ([facility]) [address] [facility] [place], [address], 09/26/2017 08:46:58 09/26/19 18 09/26/2017 CMP, serum or plasm a bilirubin, total 0.4 mg/dL 0.0-1. 2 Not Available [facility] ([facility]) [address] [facility] [place], [address], 09/26/2017 08:46:58 09/26/1909/26/2017 CMP, serum or plasm a alkaline phosphatase 178 IU/L 39-117 above high normal Not Available [facility] ([facility]) [address] [facility] [place], [address], 09/26/2017 08:46:58 09/26/19 18 09/26/2017 CMP, serum or plasm a AST (SGOT) 20 IU/L 0-40 Not Available [facility] ([facility]) [address] [place], [address], 09/26/2017 08:46:58 09/26/19 18 09/26/2017 CMP, serum or plasm a ALT (SGPT) 18 IU/L 0-32 Not Available [facility] ([facility]) [address] [facility] [place], [address], 09/26/2017 08:46:58 09/26/19 18 09/26/2017 lipid panel , serum cholesterol, total 221 mg/dL 100-19 9 above high normal Not Available [facility] ([facility]) [address] [facility] [place], [address], 09/26/2017 08:46:59 09/26/19 18 09/26/2017 lipid panel , serum triglyceride s 169 mg/dL 0-149 above high normal Not Available [facility] ([facility]) [address] [facility] [place], [address], 09/26/2017 08:46:59 09/26/19 18 09/26/2017 lipid panel , serum HDL cholesterol 49 mg/dL >39 Not Available [facility] ([facility]) [address] [facility] [place], [address], 09/26/2017 08:46:59 09/26/19 18 09/26/2017 lipid panel , serum VLDL cholesterol adrienne 34 mg/dL 5-40 Not Available [facility] ([facility]) [address] [facility] [place], [address], 09/26/2017 08:46:59 09/26/19 18 09/26/2017 lipid panel , serum LDL cholesterol calc 138 mg/dL 0-99 above high normal Not Available [facility] ([facility]) [address] [facility] [place], [address], 09/26/2017 08:46:59 09/26/19 18 09/26/2017 lipid panel , serum comment: YEAST PUSHER Not Available [facility] ([facility]) [address] [facility], [place], [address], 09/26/2017 08:46:59 09/26/19 18 09/26/2017 vitam in B12 + folat e, serum or blood vitamin B12 >2000 pg/mL 232-12 45 above high normal Not Available [facility] ([facility]) [address] [facility], [place], [address], 09/26/2017 08:46:59 09/26/19 18 09/26/2017 vitam in B12 + folat e, serum or blood folate (folic acid), serum 9.9 NG/mL >3.0 A serum folat e karoline ntrat ion of less than 3.1 ng/mL is consi dered to repre sent clini adrienne defic iency . Not Available [facility] ([facility]) [address] [facility], [place], [address], 09/26/2017 08:46:59 09/26/19 18 09/26/2017 HbA1c (hemo globi n A1c), blood hemoglobin A1C 5.3 % 4.8-5. 6 Pre-d iabet es: 5.7 - 6.4 Diabe jeanna: >6.4 [facility] for adult s with diabe jeanna: <7.0 Not Available [facility] ([facility]) [address] [facility], [place], [address], 09/26/2017 08:47:00 09/26/19 18 09/26/2017 vitam in D, 25-hy droxy , total , serum vitamin D, 25-hydroxy 42.0 NG/mL 30.0-1 00.0 Vitam in D defic iency has been defin ed by the Insti daksha of Medic ine and an Endoc cas Socishannan ty pract ice guide line as a level of serum 25-OH vitam in D less than 20 ng/mL (1,2) . The Endoc kylee Socishannan ty went on to furth er defin e vitam in D insuf ficie ncy as a level betwe en 21 and 29 ng/mL (2). 1. IOM (Inst itute of Medic ine). 2010. Hudsona ry refer ence intale es for calci um and D. Swathi eduardo [place]: The [facility] . 2. Román k MF, Binkl ey [place], Bisch off-F errar i GAO, et al. Evalu ation , treat ment, and preve ntion of vitam in D defic iency : an Endoc rine Socie ty clini adrienne pract ice guide line. JCEM. 2010; 96(7) :1911 -30. Not Available [facility] ([facility]) [address] [facility], [place], [address], 09/26/2017 08:47:00 10/09/19 18 10/04/2017 MAMMO , scree sj, digit al, bilat eral No observ ation record ed. [email or web address] [facility] [address], [place], [address], 10/08/2017 17:14:28 Result Notes None recorded. Problems Name Problem SNOMED Code Status Onset Date Resolution Date Notes Provider Name and Address Organization Details Recorded Time Type 2 diabetes mellitus 51279979 [facility] 12:[facility]02 Hyperlipidemia 11221473 Active 2017 [facility] 8 12:46:08 Common variable agammaglobulin emia 55911432 Active 2017 Malini Hernandez MD [address] [place], [address], [facility] 8 12:57:19 Pagets disease - hip 057246637 Active 2017 Malini Hernandez MD [address] [place], [address], [facility] 8 12:57:48 Atrial fibrillation 55990137 Active 2017 Malini Hernandez MD [address] [facility] [place], [address], [facility] 8 12:58:00 Bipolar disorder 53774142 Active 2017 Malini Hernandez MD [address] [facility] [place], [address], [facility] 8 12:59:29 Problem Notes None recorded. Procedures Surgical History Date Name Laterality Status Provider Name and Address Organization Details Recorded Time None Reported completed Frankie Amin [facility] 09/25/2017 12:46:18 Imaging Results Imaging Date Name Status LastModified by Organiz ation Details LastModified Time 10/04/2017 MAMMO, screening, digital, bilateral completed [email or web address] [facility] [address], [address], 10/08/2017 17:14:28 Procedure Notes None recorded. Medical Equipment None Reported. Allergies No known drug allergies Medications Name Sig Start Date Stop Date Status Note LastModified by Organization Details LastModified Time atorvastati n 40 mg tablet TAKE 1 TABLET BY MOUTH EVERY DAY AT BEDTIME active Not Available Not Available No t Available lamotrigine 150 mg tablet active Not Available Not Available Not Available metformin 500 mg tablet Take 1 tablet(s) twice a day by oral route. active Not Available Not Available No t Available atorvastati n 20 mg tablet Take 1 tablet twice a day by oral route. 2017 active Not Available Not Available Not Avai lable lamotrigine 200 mg tablet 09/25 completed Not Available Not Available Not Available quetiapine 300 mg tablet 09/25 completed Not Available Not Available Not Available metoprolol succinate ER 50 mg tablet,exte nded release 24 hr active Not Available Not Available Not Available Alcohol Pads Apply 1 pad twice a day by topical route. 2017 active Not Available Not Available Not Avai lable quetiapine 200 mg tablet active Not Available Not Available Not Available quetiapine 100 mg tablet 09/25 completed Not Available Not Available Not Available spironolact one 25 mg tablet active Not Available Not Available Not Available lithium carbonate ER 450 mg tablet,exte nded release active Not Available Not Available Not Available lamotrigine 25 mg tablet 09/25 completed Not Available Not Available Not Available cyanocobala min (vit B-12) 1,000 mcg/mL injection solution Inject 1 mL every month by intramusc ular route. 2017 active Not Available Not Available Not Avai lable trazodone 150 mg tablet active Not Available Not Available Not Available ergocalcife rol (vitamin D2) 1,250 mcg (50,000 unit) capsule active Not Available Not Available Not Available FreeStyle Lite Strips use as directed to test blood sugar BID 2017 active Not Available Not Available Not Avai lable Eliquis 5 mg tablet active Not Available Not Available No t Available Vitals Date Recorded Body weight Heart rate Oxygen saturation Oxygen saturation in Arterial blood by Pulse oximetry Body temperature Systolic blood pressure Diastolic blood pressure Provider Name and Address Organization Details Last Updated DateTime 8 368316. 68 g 90 /min 98 % 98 % 98 [degF] 138 mm[Hg] 78 mm[Hg] Frankie Amin [facility] 8 12:48:01 Social History Question Answer Notes LastModified by Organizat ion Details LastModified Time Tobacco Smoking Status Never Smoker Frankie Amin [facility] 09/25/2017 12:46:13 What Was The Date Of Your Most Recent Tobacco Screening? 09/25/2017 Information n ot available 11/26/2018 Sex: Unknown Functional Status None recorded. Mental Status None recorded. Family History Relationship Description Onset Age of this Age Resolved Age Notes LastModified by Organization Details LastModified Time Father No current problems or disability [email or web address] Not available 09/25 12:46:26 Mother No current problems or disability [email or web address] Not available 09/25 12:46:26 Medical History Condition Response Heart Problems N Mental Illness N Lung Disease N Kidney Disease N Gynecological HistoryNo gynecological history recorded. Obstetrics History GPAL:G 0 P 0 0 0 0 Past Encounters Encounter ID Performer Location Encounter Start Date Encounter Closed Date Diagnosis/Indication Diagnosis SNOMED-CT Code Diagnosis ICD10 Code Diagnosis Note [id number] Malini Hernandez MD [facility] [address] [place] [address],[address] [place] [address] 09/25/2017 12:35:12 09/25/2017 14:32:02 Type 2 diabetes mellitus 83102756 E11.9 Mixed hyperlipidemia 267 461603 E78.2 Vitamin D deficiency 347 52858 E55.9 Cobalamin deficiency 190 101559 E53.8 Screening mammography 24 973700 Z12.31 Health Concerns Section Related Observation LastModified by Organization Detai ls LastModified Time None Recorded Concern Status LastModified by Organization Details LastModified Time None Recorded Advance Directives Directive None Recorded Payers Encounter Date Sequence Insurance Name Policy Number Policy Fitzgerald Covered Member ID Fitzgerald Member ID Guarantor Name 09/25/2017 1 [facility] Rissa Betancur [id number] Rissa Rosenthalminerva Notes Date Note Type Note Provider Name and Address Organization Details Recorded Time 09/25/2017 text/html Patient has been doing well with her chronic medical issues. She is looking for a PCP in [facility]. She needs refills on cholesterol meds and diabetes meds. She also needs supplies for diabetes testing. Malini Hernandez MD [address] [facility] [place], [address], [facility] 09/25/2017 13:38:43 OBGyn Episode No OBEpisode recorded.
--- OUTSIDE RECORDS SUMMARY | 2024-07-01 15:53 | XMS_ITS ---
Author Organization [facility] Address [address] [place] [address] Care Team Providers Care Industrial Illuminating Engineer Name Role Phone Bruce WINSTON, Elsa Ortiz Primary Care Provider Un available Ean Carvalho Unavailable [phone] REASON FOR VISIT cx 10/18/23 appt Encounters Encounter Location Date Provider Diagnosis [facility] [address] [place] [address] 10/15/2023 Ean Carvalho Plan Of Treatment No Information Progress Notes * Rissa LR ADOB:1955 (67 yo F)Acc No.[id number]:10/15/2023 Patient:?Rissa Lr :1955???Age:67 Y???Sex:Female [place]: [place], [address] * true * Date:? Generated for Printi ng/Faevag/eTransmitting on:?07/01/2024 03:53 PM EST
--- OUTSIDE RECORDS SUMMARY | 2024-07-01 15:53 | XMS_ITS | Patient Health Record ---
Author Organization [facility] Address [address] [facility] [place] [address] Care Team Providers Care Aviation Electrical Technician Name Role Phone Bruce WINSTON, Elsa Ortiz Primary Care Provider Un available Deven, Ean Unavailable [phone] Allergies No Known Allergies Reason For Referral [...] 100 MG Orally Active QUEtiapine Fumarate Not-Taking [place] Carbonate 300 MG 1 tablet at bed [...] Problem Acquired hammer toe of right foot (3181781966497867 ) Other hammer toe(s) (acquired), right foot (M20.41) Active confirmed Response to treatment, Improvemen t Problem Acquired hammer toe of left foot (7659791911358099 ) Other hammer toe(s) (acquired), left foot (M20.42) Active [facility] Problem Polyneuropathy due to type 2 diabetes mellitus (710740605) Type 2 diabetes mellitus with diabetic polyneuropathy (E11.42) Active confirmed Encounters Encounter Location Date Provider Diagnosis [facility] [address] [place] [address] 10/15/2023 Ean Carvalho Plan Of Treatment Pending Test Test Name Order Date 69071-JYUVGTY NAIL, 6 OR MORE 03/17/2019 24864-NLQMPAB NAIL, 6 OR MORE 06/02/2019 22885-RBSCVQX NAIL, 6 OR MORE 05/16/2021 46463-VEMIAIC NAIL, 6 OR MORE 08/15/2021 07233-MZHLSJY NAIL, 6 OR MORE 11/14/2021 33566-MRPSPLD NAIL, 6 OR MORE 02/27/2022 75630-LCBWIFH NAIL, 6 OR MORE 06/05/2022 13818-CZVDNQW NAIL, 6 OR MORE 09/04/2022 24853-ZWQNXIW NAIL, 6 OR MORE 12/04/2022 88478-GIOZPFU NAIL, 6 OR MORE 03/08/2023 81692-QVHIRRT NAIL, 6 OR MORE 06/21/2023 88338-Qztrwfhg Plate 06/05/2022 65682-TIKY SKIN LESIONS, OVER 4 06/21/19 24 70994-ZRPM SKIN LESIONS, 2 TO 4 03/08/20 23 58001-DJFH SKIN LESIONS, 2 TO 4 12/05/19 23 17121-CKPF SKIN LESIONS, 2 TO 4 09/05/19 23 27795-ZWIR SKIN LESIONS, 2 TO 4 06/05/19 23 28397-NXLA SKIN LESIONS, 2 TO 4 02/28/20 22 10399-ZPPT SKIN LESIONS, 2 TO 4 11/15/19 22 79283-BSZE SKIN LESIONS, 2 TO 4 08/16/19 22 53844-ZUKE SKIN LESIONS, 2 TO 4 05/16/19 22 51929-EMJE SKIN LESIONS, 2 TO 4 06/02/19 20 22445-ZZFV SKIN LESIONS, 2 TO 4 03/17/20 19 Insurance Providers Payer Name Payer Address Payer Phone Subscriber Number Group Number Insured Name Patient Relationship to Insured Coverage Start Date Coverage End Date [employer] Medicare Complete [address] [address] [place] [address] [phone] [id number] Rissa Rodríguez Self - patient is the insured Medical [...]
--- OUTSIDE RECORDS SUMMARY | 2024-07-01 15:53 | XMS_ITS ---
Author Organization [facility] Address [address] [place] [id number] Care Team Providers Care Speaking Unit Assembler Name Role Phone Bruce WINSTON, Elsa Ortiz Primary Care Provider Un available Ean Carvalho Unavailable [phone] Encounters Encounter Location Date Provider Diagnosis [facility] [address] [place] [address] 10/18/2023 Ean Carvalho Plan Of Treatment No Information Progress Notes * CELSOEDINBRIDGETTERissa ADOB:1955 (68 yo F)Acc No.[id number]:10/18/2023 Progress Note Patient:Rissa ACSANOVA Provider:?Ean Carvalho DPM :1955???Age:67 Y???Sex:Female D ate:10/18/2023 Address:[address] [place] [address] [id number] Pcp:Claudia Lockwood Subjective: * Chief Complaints: * [...] DPM Date:?06/14/ 2024 Generated for Haile ingram/Coco/Audra on:?07/01/2024 03:53 PM EST
--- OUTSIDE RECORDS SUMMARY | 2024-07-01 15:54 | XMS_ITS ---
Author Organization [facility] Address [address] [place] [address] Care Team Providers Care Outdoor Emergency Care Technician Name Role Phone Bruce WINSTON, Elsa Ortiz Primary Care Provider Un available Ean Carvalho Unavailable [phone] sim Encounters Encounter Location Date Provider Diagnosis [facility] [address] [place] [address] 09/20/2023 Ean Carvalho Plan Of Treatment No Information Progress Notes * DELANOMARKRissa ADOB:1955 (68 yo F)Acc No.[id number]:09/20/2023 Progress Note Patient:?Rissa LR Provider:?Ean Carvalho DPM :1955???Age:67 Y???Sex:Female D ate:09/20/2023 Address:[address] [place], [place] [id number] Pcp:Claudia Lockwood Subjective: * Chief Complaints: * [...] Carvalho DPM Date:?2023 Generated for Haile ingram/Coco/Audra on:?07/01/2024 03:53 PM EST
== END 2024-07-01 13:06 | disposition home or self-care (01) ==
LOC: HO.HUSH 12:57
PROVIDERS: PCP Internal Medicine; Visit Provider Nurse Practitioner Family
DX: R32 Unspecified urinary incontinence (principal)
CPT/HCPCS: 99214

== ENCOUNTER → 2024-07-01 12:57 | Outpatient (BNVA) | payer MEDICARE, SELFPAY | PROVIDERS: PCP Internal Medicine; Visit Provider Nurse Practitioner Family | DX: N32.81 Overactive bladder (principal); R32 Unspecified urinary incontinence ==

== ENCOUNTER 2024-07-21 09:30 | Outpatient (REF) | payer MEDICARE, SELFPAY ==
[2024-07-21 13:35] LABS: Estimated Average Glucose 105 mg/dL; Hemoglobin A1c % 5.3 % (<6.0); Total Hemoglobin (HGBA1C) 3489.2398 umol/L
[2024-07-21 13:37] LABS: Alanine Aminotransferase 13 U/L (0-31); Anion Gap 16 (12-20); Aspartate Amino Transferase 21 U/L (5-31); Blood Urea Nitrogen 20 mg/dL (9-16); Carbon Dioxide 23 mmol/L (22-29); Chloride 108 mmol/L (96-108); Cholesterol 123 mg/dL (<200); Estimated Glomerular Filt Rate > 60; Glucose Fasting 119 mg/dL (60-99); HDL Cholesterol 49 mg/dL (>40); LDL Cholesterol Calculated 59 mg/dL (<100); Potassium 3.7 mmol/L (3.3-5.1); Sodium 143 mmol/L (135-145); Triglycerides 78 mg/dL (<150)
[2024-07-21 13:53] LABS: Vitamin D 25-OH Total 45.2 ng/mL (>30)
[2024-07-21 14:10] LABS: Creatinine Urine 33.35 mg/dL; Microalbum/Creatinine Ratio Ur 26.9 ug/mg cr (<30)
== END 2024-07-21 09:31 | disposition home or self-care (01) ==
LOC: HO.HMGCLDS 09:30
PROVIDERS: PCP Internal Medicine; Visit Provider Internal Medicine
DX: E66.01 Morbid (severe) obesity due to excess calories (principal); I10 Essential (primary) hypertension; E11.9 Type 2 diabetes mellitus without complications; E78.2 Mixed hyperlipidemia
CPT/HCPCS: 36415; 80048; 80061; 82043; 82306; 82570; 83036; 84450; 84460

== ENCOUNTER 2024-07-29 09:16 | Outpatient (AMB) | payer MEDICARE, SELFPAY ==
--- NOTE | 2024-07-29 10:29 | A.OFFPC_ITS ---
Vital Signs 07/29/24 10:31 Height 5 ft 7 in Weight 157 lb BMI 24.6 BP 100/74 Blood Pressure Location Rt brachial Position Sitting Respiration 16 Pulse 46 L Pulse Source Pulse Oximeter Temp 98.1 F Temp Source Oral Pulse Oximetry (%) 98 Oxygen Delivery Method Room Air Intake Visit Reasons: Annual Physical Intake Note: Pt is here today for her PE: Last mammogram 12/17/22, bone density scan 06/12/22, colonoscopy 01/01/24 Allergies No Known Allergies [No Known Allergies*] Allergy (Verified 07/29/24 10:56) Medication List - Last Reconciled 07/29/24 by Elsa Barrera MD apixaban (Eliquis) 5 mg PO BID 90 days atorvastatin 80 mg PO Q2D 3 months bevacizumab (Avastin) 25 mg IV DIRECTED blood sugar diagnostic (Initiative Gaminguch Verio test strips) test blood sugar twice a day blood-glucose meter (XanEdu Verio Reflect kit) Check blood sugar twice daily as directed docusate sodium (Colace) 200 mg (2 x 100 mg) PO BEDTIME lancets (24x7 LearningTouch Delica Plus Lancet) Test blood sugar once a day lisinopril 2.5 mg PO BEDTIME metformin 500 mg PO QPM 3 months metoprolol succinate ER 100 mg PO DAILY pantoprazole 20 mg PO DAILY polyethylene glycol 3350 (Miralax) 17 grams PO DAILY PRN MDD Constipation terazosin 3 mg (3 x 1 mg) PO BEDTIME 90 days vibegron (Gemtesa) 75 mg PO DAILY 30 days vit C,S-Gw-knyug-lutein-zeaxan 250-90-40-1 mg (PreserVision AREDS-2) 1 tab PO BID ziprasidone HCl 80 mg PO BID Tobacco use date assessed: 07/29/24 Fall risk assessment: No Falls in past year Last assessed Fall Risk: 07/29/24 Dental Screening Dental Screen Date: 07/29/24 Did you have a dental visit in the last 12 months?: No Did you have a dental problem in the last 6 months where you did not have access to dental care?: No Was dental information given to patient?: No HPI Annual Physical HPI Details 68 year-old lady with past medical histo ry of bipolar disorder currently followed by psych, persistent atrial fibrillation currently on apixaban, has benign familial tremor, diabetes mellitus, mixed dyslipidemia, history of multinodular goiter, currently euthyroid, macular degeneration, CVID, urinary incontinence currently controlled on Gemtesa, here today for her physical exam. She is overdue for her screening mammogram, last done in 2022, had a bone density scan done in the same year which showed normal findings. She had a colonoscopy done last year with Dr. Garza, but was incomplete due to poor prep, and had an upper endoscopy done same time which showed presence of esophageal varices, esophagitis and gastritis. She was placed on pantoprazole 20 mg daily. [facility] Medical History Dry age-related macular degeneration of left eye Colon cancer screening Constipation Age-related macular degeneration, wet, right eye Traumatic hematoma Anemia Bipolar disorder Morbid obesity Benign familial tremor Ventral hernia Multinodular thyroid Umbilical hernia with obstruction CVID (common variable immunodeficiency) Vitamin D deficiency HLD (hyperlipidemia) HTN (hypertension) Cardiomyopathy Elevated parathyroid hormone Urinary incontinence Controlled diabetes mellitus without long-term current use of insulin Mixed dyslipidemia Surgical History S/P evacuation of hematoma (10/11/23) S/P debridement (10/29/23) History of umbilical hernia repair (07/06/22) Hx of wisdom tooth extraction History of cardiac catheterization (~2016) Hx of biopsy H/O colonoscopy History of hysteroscopy History of adenoidectomy Family History Father Diabetes mellitus Depression Mental health disorder Mother Diabetes mellitus Colon cancer Breast cancer Familial tremor Sister Colon cancer Maternal Aunt Familial tremor Sister No problems noted. Social History Household Members: None Housing: Condominium Are you a primary medicare coordinator to a significant other at home: No Do you presently have visiting nurse or other home services: Yes ([facility] QOD dressing change left leg) Alcohol intake: never Comment: COUNT CORRECT Patient Tobacco Use Status: Never used Tobacco e-Cigarette/Vaping Use: Never Used service: No Current occupational status: disabled Cognitive needs: No Hearing needs: No Vision needs: Yes Questionnaire PHQ-9 Over the last 2 weeks, how often have you been bothered by any of the following problems? 1. Little interest or pleasure in doing things: several days 2. Feeling down, depressed, or hopeless: not at all 3. Trouble falling or staying asleep, or sleeping too much: several days 4. Feeling tired or having little energy: not at all 5. Poor appetite or overeating: not at all 6. Feeling bad about yourself - or that you are a failure or have let yourself or your family down: not at all 7. Trouble concentrating on things, such as reading the newspaper or watching television: not at all 8. Moving or speaking so slowly that other people could have noticed. Or the opposite - being so fidgety or restless that you have been moving around a lot more than usual: not at all 9. Thoughts that you would be better off or of hurting yourself in some way: not at all Total score: 2 Depression Screening Interpretation: Positive (Has bipolar disorder, currently followed by Stephanie Mayer , her psychiatrist) Depression Screening Follow-up: Existing condition, In treatment and Community Mental Health Worker F/U Depression Screening Done: Yes 62815 - PHQ-9 Billing: Yes Source: Developed by Drs. Braulio Durand, Kathryn Martinez, Javier Hodgson and colleagues, with an educational jeffry from [employer]. Thrive Questionnaire Date Thrive assessed: 07/22/24 I am a: Patient What is your living situation today?: I have a steady place to live Within the past 12 months, did the food you bought not last and you didn't have the money to get more?: Never true Within the past 12 months, did you worry whether your food would run out before you got money to buy more?: Never true Do you have trouble paying for medicines?: No Do you have trouble getting transportation to medical appointments?: Yes Do you have trouble paying your heating and electricity bill?: No Do you have trouble taking care of your child, family member or friend?: No Do you have trouble with day-to-day activities such as bathing, preparing meals, shopping, managing finances, etc.?: No Are you currently unemployed and looking for a job?: No Are you interested in more education?: No Please select the resources that you would like help with: None Currently or been in a relationship where the following occur: No concerns reported THRIVE Score: 1 AUDIT C Alcohol Use Questionnaire (AUDIT-C) 1. How often do you have a drink containing alcohol?: Never 2. How many drinks containing alcohol do you have on a typical day when you are drinking?: 1 or 2 3. How often do you have six or more drinks on one occasion?: Never Total Score: 0 JULIA-7 AMB Questionnaire JULIA-7 Date JULIA - 7 assessed: 11/28/23 Feeling nervous, anxious, or on edge: 0 = Not at all Not being able to stop or control worryin = Not at all Worrying too much about different things: 0 = Not at all Trouble relaxin = Several days Being so restless that it is hard to sit still: 1 = Several days Becoming easily annoyed or irritable: 0 = Not at all Feeling afraid as if something awful might happen: 0 = Not at all Total JULIA-7 score (0-4 normal; 5-9 mild; 10-14 moderate; 15-21 severe): 2 Source: Developed by Drs. Braulio Durand, Kathryn Martinez, Javier Hodgson and colleagues, with an educational jeffry from [employer]. Review of Systems Const Denies chills, Denies fatigue, Denies fever(s), Denies weight gain and Denies weight loss Eyes Details: Followed by [facility] macular degeneration ENT Denies dizziness Card Denies chest pain, Denies leg edema, Denies lightheadedness, Denies palpitations and Denies dyspnea on exertion Resp Denies cough and Denies dyspnea on exertion GI Denies abdominal pain, Denies melena, Denies hematochezia, Denies change in bowel habits and Denies change in stool character Reports as per HPI Musc Denies abnormal gait, Denies muscle weakness, Denies numbness, Denies radiating pain into limb and Denies tingling Skin/Breast Denies breast mass, Denies change in hair and Denies rash Neuro Denies abnormal gait, Denies dizziness, Denies numbness and Denies tingling Psych Reports no additional complaints Endo Denies fatigue and Denies palpitations Jorge/Lymph Reports no additional complaints Aller/Immun Reports no additional complaints Physical exam (Primary Care) Vital Signs: Last Vital Signs Temp 98.1 F 07/29/24 10:31 Pulse 46 L 07/29/24 10:31 Resp 16 07/29/24 10:31 BP 100/74 07/29/24 10:31 Pulse Ox 98 07/29/24 10:31 Oxygen Delivery Method Room Air 07/29/24 10:31 BMI result Body Mass Index 24.6 Tobacco/Smoking Status: Tobacco use Status Tobacco use date assessed 07/29/24 07/29/24 10:39 Patient Tobacco Use Status Never used Tobacco 07/29/24 10:29 e-Cigarette/Vaping Use Never Used 07/29/24 10:29 PHQ-9: PHQ-9 Score PHQ-9: Total score 2 07/29/24 11:15 Depression Screening Interpretation: Positive (Has bipolar disorder, currently followed by Stephanie Mayer , her psychiatrist) Depression Screening Follow-up: Existing condition, In treatment and Community Mental Health Worker F/U Thrive Assessment: Date of Thrive Assessment Date Thrive assessed 07/22/24 07/29/24 10:29 Currently or been in a relationship where the following occur: No concerns reported Advance Care Planning discussion: Completed/Scanned Date of discussion: 07/29/24 Who was present: Patient Forms completed: Health Care Proxy Time spent: 16-45 minutes Actual minutes spent: 3 Const Other: Alert oriented x3 no acute distress noted normal gait Orientation/consciousness: patient oriented x3 HENMT Head: Yes normocephalic General nose exam: Normal external nose present Face and sinus: Yes face symmetric Mouth: moist mucous membranes Eyes General: appearance normal, both eyes and all related structures Neck Neck: Yes full ROM, Yes no lymphadenopathy and Yes supple Chest Breast/axilla palpation: normal palpation of the breasts Resp Auscultation: clear to auscultation bilaterally Cardio Other: S1-S2 present regular rate and rhythm GI Palpation (GI): Soft to palpation, nontender and no guarding Auscultation: normal bowel sounds General: Yes deferred Back/Spine/Pelvis Back: No back tenderness Skin General skin exam: no rashes or lesions noted Neuro General: patient oriented x3, gait normal, tone normal, moves all extremities and no focal motor deficits Extrem General: Yes full ROM, Yes no joint enlargement, Yes no pedal edema, Yes no calf tenderness and Yes normal gait Psych Appearance: grossly normal and well kempt Mental Status: mental status grossly normal Speech and movement: Normal speech and movement present Affect: normal affect Coding Level of Care Code Est Pt Prev Care >65y(43459) Diagnoses Annual visit for general adult medical examination with abnormal findings Z00.01 Mixed dyslipidemia E78.2 Controlled type 2 diabetes mellitus without complication, without long-term current use of insulin E11.9 Diabetes mellitus complication status: without complication Diabetes mellitus type: type 2 Essential hypertension I10 Hypertension type: essential hypertension NAFLD (nonalcoholic fatty liver disease) K76.0 Advanced directives, counseling/discussion Z71.89 Dry age-related macular degeneration of left eye H35.3120 Bipolar disorder F31.9 Age-related macular degeneration, wet, right eye H35.3210 PAF (paroxysmal atrial fibrillation) I48.0 Urinary incontinence, unspecified type R32 Urinary Incontinence type: unspecified incontinence Additional Codes PHQ-9 - 06896 - PHQ-9 Billing: Yes ([id number]) Vital Signs *Quality* - Advance Care Planning discussion: Completed/Scanned ([id number]) Vital Signs *Quality* - Time spent: 16-45 minutes ([id number]) Assessment & Plan Assessment & Plan (1) Annual visit for general adult medical examination with abnormal findings: Code(s): Z00.01 - Encounter for general adult medical examination with abnormal findings Plan: Fasting lab results discussed with patient. Goes to [facility] for her with her retinopathy screening & regular eye exam, and [facility] and treatment of her macular degeneration. Take adequate calcium in diet and vitamin-D 3 at 2000 IU per cap once a day, in addition to weight-bearing exercises to help maintain good muscle tone and weight control. Ordered screening mammogram and bone density scan, to be done together, last bone density scan and mammogram were within normal limits done in 2022. Up-to-date with her screening colonoscopy done in 2023, repeat due again in [address] Garza due to positive family history for colon cancer . Does not want to get flu shots, patient states that she received her COVID booster in March 2024 at [email or web address], up-to-date with her pneumonia vaccine and Tdap. Reminded to get her shingles vaccination (2) Mixed dyslipidemia: Code(s): E78.2 - Mixed hyperlipidemia Category: Medical Plan: Reviewed recent fasting lipid profile with patient with levels . Continue atorvastatin 80 mg every other day , in addition to adherence to low- cholesterol diet and regular exercise, at least 30 minutes 3 to 4 times a week. Advised patient to make healthy food choices, eat more fruits, vegetables, whole grains, wild caught fish and low-fat dairy. Limit amount of meat and fried or fatty food products, as well as processed foods and fast foods. Follow-up scheduled with repeat fasting lipid panel in January 2025 (3) Controlled diabetes mellitus without long-term current use of insulin: Code(s): E11.9 - Type 2 diabetes mellitus without complications Category: Medical Qualifiers: Diabetes mellitus complication status: without complication Diabetes mellitus type: type 2 Qualified Code(s): E11.9 - Type 2 diabetes mellitus without complications Plan: Hemoglobin A1c at 5.9%, continue with metformin 500 mg at bedtime. Continue with adherence to healthy eating habits and regular exercise. Up-to-date with her diabetes retinopathy screening, goes to [facility] and also [facility]-up and treatment of her macular degeneration (4) HTN (hypertension): Code(s): I10 - Essential (primary) hypertension Category: Medical Qualifiers: Hypertension type: essential hypertension Qualified Code(s): I10 - Essential (primary) hypertension Plan: Blood pressure stable and controlled on lisinopril 2.5 mg at bedtime and also taking metoprolol succinate 50 mg daily (5) NAFLD (nonalcoholic fatty liver disease): Code(s): K76.0 - Fatty (change of) liver, not elsewhere classified Category: Medical Plan: Reinforced importance of following a low-cholesterol diet and avoidance of alcohol (6) Advanced directives, counseling/discussion: Code(s): Z71.89 - Other specified counseling Plan: Initiated the conversation about Advanced Directives. Advanced Directives help patients prepare for current and future decisions about their medical treatment and place of care. Discussed with patient that it is a process where a patients current condition and prognosis are reviewed, their wishes for information regarding their illness are elicited, and likely medical dilemmas are presented and options discussed. Healthcare proxy form completed today. The form can be amended as needed, reviewed yearly and make changes as needed (7) Dry age-related macular degeneration of left eye: Comment: Currently on Avastin followed by Dr. Bernardo at the [facility] [place] Code(s): H35.3120 - Nonexudative age-related macular degeneration, left eye, stage unspecified Category: Medical Plan: Followed at the [facility], currently on Avastin (8) Bipolar disorder: Comment: followed by Monica Mayer q 3 months in [facility] Code(s): F31.9 - Bipolar disorder, unspecified Category: Medical Plan: Followed by Monica Mayer (9) Age-related macular degeneration, wet, right eye: Comment: ff'd by Dr Bernardo , [facility], on Avastin Code(s): H35.3210 - Exudative age-related macular degeneration, right eye, stage unspecified Category: Medical Plan: Currently on PreserVision [facility] (10) PAF (paroxysmal atrial fibrillation): Code(s): I48.0 - Paroxysmal atrial fibrillation Category: Medical Plan: Currently on metoprolol 50 mg daily and apixaban 5 mg twice a day, followed by cardiology yearly (11) Urinary incontinence: Code(s): R32 - Unspecified urinary incontinence Category: Medical Qualifiers: Urinary Incontinence type: unspecified incontinence Qualified Code(s): R32 - Unspecified urinary incontinence Plan: Currently followed by Urology on Gemtesa and terazosin Orders: Orders XR DEXA axial skeleton 07/29/24 Z12.31 - Encounter for screening mammogram for malignant neoplasm of breast, Z13.820 - Encounter for screening for osteoporosis, Z78.0 - Asymptomatic menopausal state Hemoglobin A1c 01/04/25 E11.9 - Type 2 diabetes mellitus without complications, E78.2 - Mixed hyperlipidemia, I10 - Essential (primary) hypertension, K76.0 - Fatty (change of) liver, not elsewhere classified Alanine Aminotransferase 01/04/25 E11.9 - Type 2 diabetes mellitus without complications, E78.2 - Mixed hyperlipidemia, I10 - Essential (primary) hypertension, K76.0 - Fatty (change of) liver, not elsewhere classified Aspartate Amino Transferase 01/04/25 E11.9 - Type 2 diabetes mellitus without complications, E78.2 - Mixed hyperlipidemia, I10 - Essential (primary) hypertension, K76.0 - Fatty (change of) liver, not elsewhere classified Basic Metabolic Panel Fasting 01/04/25 E11.9 - Type 2 diabetes mellitus without complications, E78.2 - Mixed hyperlipidemia, I10 - Essential (primary) hypertension, K76.0 - Fatty (change of) liver, not elsewhere classified Vitamin D 25-OH Total 01/04/25 E11.9 - Type 2 diabetes mellitus without complications, E78.2 - Mixed hyperlipidemia, I10 - Essential (primary) hypertension, K76.0 - Fatty (change of) liver, not elsewhere classified Lipid Panel 01/04/25 E11.9 - Type 2 diabetes mellitus without complications, E78.2 - Mixed hyperlipidemia, I10 - Essential (primary) hypertension, K76.0 - Fatty (change of) liver, not elsewhere classified MM tomosynthesis screening BI 07/29/24 Z12.31 - Encounter for screening mammogram for malignant neoplasm of breast, Z13.820 - Encounter for screening for osteoporosis, Z78.0 - Asymptomatic menopausal state Medications: Refilled atorvastatin 80 mg PO Q2D 3 months 45 tabs 2RF
[2024-07-29 10:31] VITALS: BP 100/74; PULSE 46; RESP 16; TEMP 36.7; O2SAT 98; BMI 24.6
== END 2024-07-29 11:16 | disposition home or self-care (01) ==
LOC: HO.HMCC 09:17
PROVIDERS: PCP Internal Medicine; Visit Provider Internal Medicine
DX: Z00.01 Encounter for general adult medical examination with abnormal findings (principal); E78.2 Mixed hyperlipidemia; E11.9 Type 2 diabetes mellitus without complications; I10 Essential (primary) hypertension; K76.0 Fatty (change of) liver, not elsewhere classified; Z71.89 Other specified counseling; H35.3120 Nonexudative age-related macular degeneration, left eye, stage unspecified; F31.9 Bipolar disorder, unspecified; H35.3210 Exudative age-related macular degeneration, right eye, stage unspecified; I48.0 Paroxysmal atrial fibrillation; R32 Unspecified urinary incontinence; Z00.00 Encounter for general adult medical examination without abnormal findings

== ENCOUNTER → 2024-07-29 09:16 | Outpatient (BNVA) | payer MEDICARE, SELFPAY | PROVIDERS: PCP Internal Medicine; Visit Provider Internal Medicine | DX: Z00.01 Encounter for general adult medical examination with abnormal findings (principal); E78.2 Mixed hyperlipidemia; E11.9 Type 2 diabetes mellitus without complications; I10 Essential (primary) hypertension; K46.0 Unspecified abdominal hernia with obstruction, without gangrene; F31.9 Bipolar disorder, unspecified; H35.3210 Exudative age-related macular degeneration, right eye, stage unspecified; I48.0 Paroxysmal atrial fibrillation; R32 Unspecified urinary incontinence; Z91.89 Other specified personal risk factors, not elsewhere classified | CPT/HCPCS: 96127; 99397; 99497 ==

== ENCOUNTER 2024-09-23 12:03 | Outpatient (REF) | payer MEDICARE, SELFPAY ==
--- OUTSIDE RECORDS SUMMARY | 2024-09-23 14:03 | XMS_ITS | Data Portability ---
Author Organization [facility], [place] Address [address] [place] [place] [address] Assessment No assessment recorded. Plan of Treatment Reminders Order Date Submit Date Provider Last Modified By Organization Details Last Modified Time Details Appointments None recorded. Lab lipid panel, serum 2017 [facility]18 [facility], [address] [place], [address], 8 08:46:59 vitamin D, 25-hydroxy , total, serum 2017 018 [facility] [address] [place], [address], 8 08:47:01 HbA1c (hemoglobi n A1c), blood 2017 018 [facility] [address] [place], [address], 8 08:47:00 CMP, serum or plasma 2017 018 [facility] [address] [place], [address], 8 08:46:59 vitamin B12 + folate, serum or blood 2017 018 [facility], [address] [place], [address], 8 08:47:00 CBC w/ auto diff 2017 018 [facility] [address] [facility], [place], [address], 8 08:46:58 Referral None recorded. Procedures None recorded. Surgeries None recorded. Imaging MAMMO, screening, digital, bilateral 2017 018 JAI Not available 8 14:57:31 Medication Orders atorvastat in 20 mg tablet 2017 018 INTERFACE [facility], [address] [place] [address], [address], [place], [place], [id number], 8 13:11:18 FreeStyle Lite Strips 2017 018 [email or web address] Not available 13:14:35 Alcohol Pads 2017 018 [email or web address] Not available 13:14:35 metformin 500 mg tablet 2017 018 INTERFACE [facility], [address] [place] [address], [address], [place], [place], [id number], 8 13:10:32 cyanocobal bradford (vit B-12) 1,000 mcg/mL injection solution 2017 018 [email or web address] Not available 17:21:17 Patient TargetsNo targets recorded. Patient Instructions Encounter Date Encounter Id Patient Instructions Last Modified By Organization Details Last Modified Time 09/25/2017 [id number] mammogram: about this test Not available 09/25/2017 [...] x10e3 /uL 3.4-10 .8 Not Available [facility] ([facility]) [address] [facility], [place], [address], 09/26/2017 08:46:58 09/26/19 18 09/26/2017 CBC w/ auto diff RBC 4.54 x10e6 /uL 3.77-5 .28 Not Available [facility] ([facility]) [address] [place], [address], 09/26/2017 08:46:58 09/26/19 18 09/26/2017 CBC w/ auto diff hemoglobin 13.4 g/dL 11.1-1 5.9 Not Available [facility] ([facility]) [address] [place], [address], 09/26/2017 08:46:58 09/26/19 18 09/26/2017 CBC w/ auto diff hematocrit 40.8 % 34.0-4 6.6 Not Available [facility] ([facility]) [address] [place], [address], 09/26/2017 08:46:58 09/26/19 18 09/26/2017 CBC w/ auto diff MCV 90 fL 79-97 Not Available [facility] ([facility]) [address] [place], [address], 09/26/2017 08:46:58 09/26/19 18 09/26/2017 CBC w/ auto diff MCH 29.5 pg 26.6-3 3.0 Not Available [facility] ([facility]) [address] [place], [address], 09/26/2017 08:46:58 09/26/19 18 09/26/2017 CBC w/ auto diff MCHC 32.8 g/dL 31.5-3 5.7 Not Available [facility] ([facility]) [address] [place], [address], 09/26/2017 08:46:58 09/26/19 18 09/26/2017 CBC w/ auto diff RDW 14.8 % 12.3-1 5.4 Not Available [facility] ([facility]) [address] [place], [address], 09/26/2017 08:46:58 09/26/19 18 09/26/2017 CBC w/ auto diff platelets 102 x10e3 /uL 150-37 9 below low normal Not Available [facility] ([facility]) [address] [place], [address], 09/26/2017 08:46:58 09/26/19 18 09/26/2017 CBC w/ auto diff neutrophils 75 % not estab. Not Available [facility] ([facility]) [address] [place], [address], 09/26/2017 08:46:58 09/26/19 18 09/26/2017 CBC w/ auto diff lymphs 19 % not estab. Not Available [facility] ([facility]) [address] [place], [address], 09/26/2017 08:46:58 09/26/19 18 09/26/2017 CBC w/ auto diff monocytes 5 % not estab. Not Available [facility] ([facility]) [address] [place], [address], 09/26/2017 08:46:58 09/26/19 18 09/26/2017 CBC w/ auto diff eos 1 % not estab. Not Available [facility] ([facility]) [address] [place], [address], 09/26/2017 08:46:58 09/26/19 18 09/26/2017 CBC w/ auto diff basos 0 % not estab. 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 0 Not Available [facility] ([facility]) [address] [facility], [place], [address], 09/26/2017 08:46:58 09/26/19 18 09/26/2017 CBC w/ auto diff lymphs (absolute) 0.7 x10e3 /uL 0.7-3. 1 Not Available [facility] ([facility]) [address] [place], [address], 09/26/2017 08:46:58 09/26/19 18 09/26/2017 CBC w/ auto diff monocytes(ab solute) 0.2 x10e3 /uL 0.1-0. 9 Not Available [facility] ([facility]) [address] [place], [address], 09/26/2017 08:46:58 09/26/19 18 09/26/2017 CBC w/ auto diff eos (absolute) 0.0 x10e3 /uL 0.0-0. 4 Not Available [facility] ([facility]) [address] [facility], [place], [address], 09/26/2017 08:46:58 09/26/19 18 09/26/2017 CBC w/ auto diff baso (absolute) 0.0 x10e3 /uL 0.0-0. 2 Not Available [facility] ([facility]) [address] [place], [address], 09/26/2017 08:46:58 09/26/19 18 09/26/2017 CBC w/ auto diff immature granulocytes 0 % not estab. Not Available [facility] ([facility]) [address] [place], [address], 09/26/2017 08:46:58 09/26/19 18 09/26/2017 CBC w/ auto diff immature grans (abs) 0.0 x10e3 /uL 0.0-0. 1 Not Available [facility] ([facility]) [address] [facility] [place], [address], 09/26/2017 08:46:58 09/26/19 18 09/26/2017 CBC w/ auto diff NRBC MANAGER ANDROID Not Available [facility] ([facility]) [address] [facility] [place], [address], 09/26/2017 08:46:58 09/26/19 18 09/26/2017 CBC w/ auto diff hematology comments: MANAGER ANDROID Not Available [facility] ([facility]) [address] [facility] [place], [address], 09/26/2017 08:46:58 09/26/19 18 09/26/2017 CMP, serum or plasm a glucose 95 mg/dL 65-99 Not Available [facility] ([facility]) [address] [facility] [place], [address], 09/26/2017 08:46:58 09/26/19 18 09/26/2017 CMP, serum or plasm a BUN 14 mg/dL 8-27 Not Available [facility] ([facility]) [address] [facility] [place], [address], 09/26/2017 08:46:58 09/26/1909/26/2017 CMP, serum or plasm a creatinine 0.88 mg/dL 0.57-1 .00 Not Available [facility] ([facility]) [address] [facility] [place], [address], 09/26/2017 08:46:58 09/26/1909/26/2017 CMP, serum or plasm a eGFR if nonafricn AM 72 mL/mi n/1.7 3 >59 Not Available [facility] ([facility]) [address] [facility] [place], [address], 09/26/2017 08:46:58 09/26/19 18 09/26/2017 CMP, serum or plasm a eGFR if africn AM 83 mL/mi n/1.7 3 >59 Not Available [facility] ([facility]) [address] [facility] [place], [address], 09/26/2017 08:46:58 09/26/19 18 09/26/2017 CMP, serum or plasm a BUN/creatini ne ratio 16 12-28 Not Available [facility] ([facility]) [address] [facility] [place], [address], 09/26/2017 08:46:58 09/26/19 18 09/26/2017 CMP, serum or plasm a sodium 142 mmol/ L 134-14 4 Not Available [facility] ([facility]) [address] [facility] [place], [address], 09/26/2017 08:46:58 09/26/19 18 09/26/2017 CMP, serum or plasm a potassium 4.6 mmol/ L 3.5-5. 2 Not Available [facility] ([facility]) [address] [facility] [place], [address], 09/26/2017 08:46:58 09/26/19 18 09/26/2017 CMP, serum or plasm a chloride 103 mmol/ L 96-106 Not Available [facility] ([facility]) [address] [facility] [place], [address], 09/26/2017 08:46:58 09/26/19 18 09/26/2017 CMP, serum or plasm a carbon dioxide, total 22 mmol/ L 18-29 Not Available [facility] ([facility]) [address] [facility] [place], [address], 09/26/2017 08:46:58 09/26/19 18 09/26/2017 CMP, serum or plasm a calcium 9.8 mg/dL 8.7-10 .3 Not Available [facility] ([facility]) [address] [place], [address], 09/26/2017 08:46:58 09/26/19 18 09/26/2017 CMP, serum or plasm a protein, total 6.8 g/dL 6.0-8. 5 Not Available [facility] ([facility]) [address] [facility] [place], [address], 09/26/2017 08:46:58 09/26/19 18 09/26/2017 CMP, serum or plasm a albumin 4.4 g/dL 3.6-4. 8 Not Available [facility] ([facility]) [address] [facility] [place], [address], 09/26/2017 08:46:58 09/26/1909/26/2017 CMP, serum or plasm a globulin, total 2.4 g/dL 1.5-4. 5 Not Available [facility] ([facility]) [address] [facility] [place], [address], 09/26/2017 08:46:58 09/26/1909/26/2017 CMP, serum or plasm a A/G ratio 1.8 1.2-2. 2 Not Available [facility] ([facility]) [address] [facility] [place], [address], 09/26/2017 08:46:58 09/26/19 18 09/26/2017 CMP, serum or plasm a bilirubin, total 0.4 mg/dL 0.0-1. 2 Not Available [facility] ([facility]) [address] [facility] [place], [address], 09/26/2017 08:46:58 09/26/1909/26/2017 CMP, serum or plasm a alkaline phosphatase 178 IU/L 39-117 above high normal Not Available [facility] ([facility]) [address] [facility] [place], [address], 09/26/2017 08:46:58 09/26/19 18 09/26/2017 CMP, serum or plasm a AST (SGOT) 20 IU/L 0-40 Not Available [facility] ([facility]) [address] [place], [address], 09/26/2017 08:46:58 09/26/19 18 09/26/2017 CMP, serum or plasm a ALT (SGPT) 18 IU/L 0-32 Not Available [facility] ([facility]) [address] [place], [address], 09/26/2017 08:46:58 09/26/19 18 09/26/2017 lipid panel , serum cholesterol, total 221 mg/dL 100-19 9 above high normal Not Available [facility] ([facility]) [address] [facility] [place], [address], 09/26/2017 08:46:59 09/26/19 18 09/26/2017 lipid panel , serum triglyceride s 169 mg/dL 0-149 above high normal Not Available [facility] ([facility]) [address] [facility] [place], [address], 09/26/2017 08:46:59 09/26/19 18 09/26/2017 lipid panel , serum HDL cholesterol 49 mg/dL >39 Not Available [facility] ([facility]) [address] [facility] [place], [address], 09/26/2017 08:46:59 09/26/19 18 09/26/2017 lipid panel , serum VLDL cholesterol adrienne 34 mg/dL 5-40 Not Available [facility] ([facility]) [address] [facility] [place], [address], 09/26/2017 08:46:59 09/26/19 18 09/26/2017 lipid panel , serum LDL cholesterol calc 138 mg/dL 0-99 above high normal Not Available [facility] ([facility]) [address] [facility] [place], [address], 09/26/2017 08:46:59 09/26/19 18 09/26/2017 lipid panel , serum comment: MANAGER ANDROID Not Available [facility] ([facility]) [address] [facility], [place], [address], 09/26/2017 08:46:59 09/26/19 18 09/26/2017 vitam in B12 + folat e, serum or blood vitamin B12 >2000 pg/mL 232-12 45 above high normal Not Available [facility] ([facility]) [address] [facility], [place], [address], 09/26/2017 08:46:59 09/26/19 18 09/26/2017 vitam in B12 + folat e, serum or blood folate (folic acid), serum 9.9 NG/mL >3.0 A serum folat e karoline ntrat ion of less than 3.1 ng/mL is consi dered to repre sent clini adrienne defic iency . Not Available [facility] ([facility]) [address] [facility], [place], [address], 09/26/2017 08:46:59 09/26/19 18 09/26/2017 HbA1c (hemo globi n A1c), blood hemoglobin A1C 5.3 % 4.8-5. 6 Pre-d iabet es: 5.7 - 6.4 Diabe jeanna: >6.4 [facility]ce [facility] ol for adult s with diabe jeanna: <7.0 Not Available [facility] ([facility]) [address] [facility], [place], [address], 09/26/2017 08:47:00 09/26/19 18 09/26/2017 vitam in [...] um and D. Swathi eduardo [place]: [facility] . 2. Román k MF, Bink[place] ey [place], Bisch off-F errar i GAO, et al. Evalu ation , treat ment, and preve ntion of vitam in D defic iency : an Endoc rine Socie ty clini adrienne pract ice guide line. JCEM. 2010; 96(7) :1911 -30. Not Available [facility] ([facility]) [address] [facility], [place], [address], 09/26/2017 08:47:00 10/09/19 18 10/04/2017 MAMMO , scree sj, digit al, bilat eral No observ ation record ed. [email or web address] [employer] [facility] [employer] [facility] [address], [place], [address], 10/08/2017 17:14:28 Result Notes None recorded. Problems Name Problem SNOMED Code Status Onset Date Resolution Date Notes Provider Name and Address Organization Details Recorded Time Type 2 diabetes mellitus 00684677 [facility] 12:[facility]02 Hyperlipidemia 29920887 Active 2017 [facility] 8 12:46:08 Common variable agammaglobulin emia 33705256 Active 2017 Malini Hernandez MD [address] [facility] [address] [place], [address], [facility] 8 12:57:19 Pagets disease - hip 497995596 Active 2017 Malini Hernandez MD [address] [place], [address], [facility] 8 12:57:48 Atrial fibrillation 40303240 Active 2017 Malini Hernandez MD [address] [facility] [place], [address], [facility] 8 12:58:00 Bipolar disorder 99482090 Active 2017 Malini Hernandez MD [address] [facility] [place], [address], [facility] 8 12:59:29 Problem Notes None recorded. Procedures Surgical History Date Name Laterality Status Provider Name and Address Organization Details Recorded Time None Reported completed Frankie Amin [facility] 09/25/2017 12:46:18 Imaging Results Imaging Date Name Status LastModified by Organiz ation Details LastModified Time 10/04/2017 MAMMO, screening, digital, bilateral completed [email or web address] [facility] [address], [address], 10/08/2017 17:14:28 Procedure Notes None recorded. Medical [...] Address Organization Details Last Updated DateTime 8 577351. 68 g 90 /min 98 % 98 % 98 [degF] 138 mm[Hg] 78 mm[Hg] Frankie Amin [facility] 8 12:48:01 Social History Question Answer Notes LastModified by Organizat ion Details LastModified Time Tobacco Smoking Status Never Smoker Frankie Amin [facility] 09/25/2017 12:46:13 What Was The Date Of Your Most Recent Tobacco Screening? 09/25/2017 Information n ot available 11/26/2018 Sex: Unknown Functional Status None recorded. Mental Status None recorded. Family History Relationship Description Onset Age of this Age Resolved Age Notes LastModified by Organization Details LastModified Time Father No current problems or disability [email or web address] Not available 09/25 12:46:26 Mother No current problems or disability [email or web address] Not available 09/25 12:46:26 Medical History Condition Response Heart Problems N Lung Disease N Mental Illness N Kidney Disease N Gynecological HistoryNo gynecological history recorded. Obstetrics History GPAL:G 0 P 0 0 0 0 Past Encounters Encounter ID Performer Location Encounter Start Date Encounter Closed Date Diagnosis/Indication Diagnosis SNOMED-CT Code Diagnosis ICD10 Code Diagnosis Note [id number] Malini Hernandez MD [facility] [address] [place] [address],[address] [place] [address] 09/25/2017 12:35:12 09/25/2017 14:32:02 Type 2 diabetes mellitus 21768319 E11.9 Mixed hyperlipidemia 267 086969 E78.2 Vitamin D deficiency 347 30786 E55.9 Cobalamin deficiency 190 534102 E53.8 Screening mammography 24 180700 Z12.31 Health Concerns Section Related Observation LastModified by Organization Detai ls LastModified Time None Recorded Concern Status LastModified by Organization Details LastModified Time None Recorded Advance Directives Directive None Recorded Payers Insurance Date Sequence Insurance Name Policy Number Policy Fitzgerald Covered Member ID Fitzgerald Member ID Guarantor Name 09/25/2017 1 [employer] ([facility]) Rissa Betancur [id number] Rissa Betancur 10/11/2017 1 [facility] Rissa Betancur [id number] Rissa Betancur Notes Date Note Type Note Provider Name and Address Organization Details Recorded Time 09/25/2017 text/html Patient has been doing well with her chronic medical issues. She is looking for a PCP in [facility]. She needs refills on cholesterol meds and diabetes meds. She also needs supplies for diabetes testing. Malini Hernandez MD [address] [place], [address], [facility] 09/25/2017 13:38:43 OBGyn Episode No OBEpisode recorded.
[2024-09-23 16:44] LABS: Urine Cytology See Pathology rpt
== END 2024-09-23 12:04 | disposition home or self-care (01) ==
LOC: HO.LNP 12:03
PROVIDERS: PCP Internal Medicine; Visit Provider Nurse Practitioner Family
DX: R32 Unspecified urinary incontinence (principal); R31.29 Other microscopic hematuria
CPT/HCPCS: 51798; 81003; 88112; 99212

== ENCOUNTER 2024-09-23 12:03 | Outpatient (AMB) | payer MEDICARE, SELFPAY ==
--- NOTE | 2024-09-23 12:08 | A.OFFVIS_ITS ---
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 Accompanied by: Self / Same As Patient Allergies No Known Allergies [No Known Allergies*] Allergy (Verified 09/23/24 13:14) Medication List - Last Reconciled 09/23/24 by JS Christianson apixaban (Eliquis) 5 mg PO BID 90 days atorvastatin 80 mg PO Q2D 3 months bevacizumab (Avastin) 25 mg IV DIRECTED blood sugar diagnostic ([employer] Verio test strips) test blood sugar twice a day blood-glucose meter ([employer] Verio Reflect kit) Check blood sugar twice daily as directed docusate sodium (Colace) 200 mg (2 x 100 mg) PO BEDTIME lancets ([employer] Delica Plus Lancet) Test blood sugar once a day lisinopril 2.5 mg PO BEDTIME metformin 500 mg PO QPM 3 months metoprolol succinate ER 100 mg PO DAILY pantoprazole 20 mg PO DAILY polyethylene glycol 3350 (Miralax) 17 grams PO DAILY PRN MDD Constipation terazosin 3 mg (3 x 1 mg) PO BEDTIME 90 days vibegron (Gemtesa) 75 mg PO DAILY 30 days vit C,E-Ko-lxnpt-lutein-zeaxan 250-90-40-1 mg (PreserVision AREDS-2) 1 tab PO BID ziprasidone HCl 80 mg PO BID HPI Comments Details: Rissa is a pleasant 68-year-old female patient of Dr. Barrera. She has a past medical history of constipation, macular degeneration, anemia, bipolar disorder, benign tremors, vitamin-D deficiency, hyperlipidemia, hypertension, cardiomyopathy, urinary incontinence, diabetes, and dyslipidemia. She today for follow-up of her lower urinary tract symptoms. In discussion with the patient today she reports to be doing and feeling well. She denies having had any bothersome urinary issues or concerns since her last visit. She reports compliance with terazosin and Gemtesa as prescribed. She currently denies any bothersome urinary issues or concerns. In office urinalysis results reviewed with the patient today. PVR 7 mL. She had previously trialed oxybutynin as well as Myrbetriq with no improvement. We discussed potential causes of these lower urinary tract symptoms patient was experiencing. She denies gross/visible hematuria, dysuria, foul smelling urine, changes to urinary stream, flank pain, fever, and or chills. We discussed potential near future in office cystoscopy and or urodynamics for further assessment evaluation if symptoms arise. She otherwise offers no other issues or concerns at this time. [facility] Medical History Dry age-related macular degeneration of left eye Colon cancer screening Constipation Age-related macular degeneration, wet, right eye Traumatic hematoma Anemia Bipolar disorder Morbid obesity Benign familial tremor Ventral hernia Multinodular thyroid Umbilical hernia with obstruction CVID (common variable immunodeficiency) Vitamin D deficiency HLD (hyperlipidemia) HTN (hypertension) Cardiomyopathy Elevated parathyroid hormone Urinary incontinence Controlled diabetes mellitus without long-term current use of insulin Mixed dyslipidemia Surgical History S/P evacuation of hematoma (10/11/23) S/P debridement (10/29/23) History of umbilical hernia repair (07/06/22) Hx of wisdom tooth extraction History of cardiac catheterization (~2016) Hx of biopsy H/O colonoscopy History of hysteroscopy History of adenoidectomy Family History Father Diabetes mellitus Depression Mental health disorder Mother Diabetes mellitus Colon cancer Breast cancer Familial tremor Sister Colon cancer Maternal Aunt Familial tremor Sister No problems noted. Social History Household Members: None Housing: Condominium Are you a primary home care assistant to a significant other at home: No Do you presently have visiting nurse or other home services: Yes ([facility] QOD dressing change left leg) Alcohol intake: never Comment: COUNT CORRECT Patient Tobacco Use Status: Never used Tobacco e-Cigarette/Vaping Use: Never Used service: No Current occupational status: disabled Cognitive needs: No Hearing needs: No Vision needs: Yes Review of Systems Const Reports as per HPI Eyes Reports no additional complaints ENT Reports no additional complaints Card Details: reports following up with cardiology for her atrial fibrillation Reports no additional complaints Resp Reports no additional complaints GI Reports as per HPI Reports as per HPI Musc Reports no additional complaints Neuro Reports as per HPI Psych Reports as per HPI Endo Details: patient reports she is diabetic and attempts to maintain her point of care within normal range Reports as per HPI Jorge/Lymph Reports no additional complaints Aller/Immun Reports no additional complaints Physical Exam Const General: cooperative, comfortable, no acute distress, well developed, alert and awake Nutritional Appearance: thin Orientation/consciousness: patient oriented x3 Limitations: no limitations HEENT Head: Yes normal to inspection, Yes normocephalic and Yes atraumatic Ears: hearing grossly normal bilaterally Eyes General: appearance normal, both eyes and all related structures Neck Neck: Yes normal visual inspection and Yes trachea midline Chest Chest palpation & inspection: normal inspection of the chest Resp Effort & Inspection: normal respiratory effort and able to speak in complete sentences Cardio Rate: regular rate GI Inspection: Yes normal to inspection General: Yes no CVA tenderness Back/Spine/Pelvis Back: no CVA tenderness Skin General skin exam: no rashes or lesions noted Neuro General: patient oriented x3 Extrem General: Yes normal to inspection Psych Appearance: grossly normal and well kempt Mental Status: mental status grossly normal Speech and movement: Normal speech and movement present and Clear speech present Affect: normal affect Attitude: cooperative Thought process: Normal thought process present Thought content: Normal thought content present Insight: Fair insight present (Psych) Judgement: Fair judgement present (Psych) Office Procedures Post Void Residual Post Residual Void Post Void Residual (PVR): 7 10002-Ylrm Void Residual by ultrasound Results AMB Urinalysis, Automated UA Leukoctes 125 Darnell/uL Last Edit by William Zazueta on 09/23/24 13:38 UA Nitrite Last Edit by William Zazueta on 09/23/24 13:38 UA Urobilinogen 0.2 mg/dL Last Edit by William Zazueta on 09/23/24 13:38 UA Protein 0 mg/dL Last Edit by William Zazueta on 09/23/24 13:38 UA pH 5.5 Last Edit by William Zazueta on 09/23/24 13:38 UA Blood 10 Robert/uL Last Edit by William Zazueta on 09/23/24 13:38 UA Specific Union 1.015 Last Edit by William Zazueta on 09/23/24 13:38 UA Ketone Last Edit by William Zazueta on 09/23/24 13:38 UA Bilirubin 0 mg/dL Last Edit by William Zazueta on 09/23/24 13:38 UA Glucose 0 mg/dL Last Edit by William Zazueta on 09/23/24 13:38 Assessment & Plan Assessment & Plan (1) Urinary incontinence: Code(s): R32 - Unspecified urinary incontinence Category: Medical Qualifiers: Urinary Incontinence type: unspecified incontinence Qualified Code(s): R32 - Unspecified urinary incontinence Plan In office urinalysis results reviewed with the patient today; as noted above; will send for urine cytology. PVR 7 mL. Patient reports be happy with current voiding parameters on terazosin and Gemtesa; will continue. She currently denies any bothersome urinary issues or concerns. Will continue with surveillance monitoring. Follow-up in 6 months with PVR; or sooner with any issues, concerns, and or questions Orders: Orders Urine Cytology Today R31.29 - Other microscopic hematuria AMB Urinalysis Automated Today R32 - Unspecified urinary incontinence, Z13.9 - Encounter for screening, unspecified AMB Post Void Residual by ultrasound Today R32 - Unspecified urinary incontinence Patient Instructions: The patient had an opportunity to ask questions regarding the treatment plan. All questions were answered. Physical exam, labs, and imaging were discussed and reviewed in detail. As well as risks, benefits, and discussion of treatment choices. No major barriers to understanding were identified. The patient expressed understanding and agreement with the above treatment plan. The patient was made aware they should contact our office by phone for worsening of their current condition, the appearance of new symptoms, or with any questions or concerns. Compliance is encouraged with any medications and follow up testing that is ordered. It is a privilege to be allowed the opportunity to participate in? your urological care.? Again, if you have any questions or concerns If you have any questions or concerns please do not hesitate to contact me. The office is [phone]. This note is constructed using voice recognition software. While every effort has been made to ensure accuracy transportation program director errors may have been included. Yours sincerely, ALEX Christianson-JAMISON Coding Level of Care Code Est Pt Level 3 (59627) Complex EM visit Add On G2211 Diagnoses Urinary incontinence, unspecified type R32 Urinary Incontinence type: unspecified incontinence CPT Codes Post Residual Void - PVR CPT Code: 37298-Geyk Void Residual by ultrasound ([id number])
--- OUTSIDE RECORDS SUMMARY | 2024-09-23 13:05 | XMS_ITS | Data Portability ---
Author Organization [facility], [facility] [facility]* Address [address] [place] [address] Assessment No assessment recorded. Plan of Treatment Reminders Order Date Submit Date Provider Last Modified By Organization Details Last Modified Time Details Appointments None recorded. Lab vitamin D, 25-hydroxy , total, serum 2017 018 [place], [address] [place] [address], [address], [address], 8 11:48:17 HbA1c (hemoglobi n A1c), blood 2017 018 [place] [facility], [address] [place] [address], [place] [address], [place], [address], 8 11:48:16 CMP, serum or plasma 2017 018 [place] [facility], [address] [place] [address], [place] [address], [place], [address], 8 11:48:13 microalbum in/creatin ine, mass ratio, urine 2017 018 [place], [address] [place] [address], [place] [address], [place], [address], 8 11:48:15 lipid panel, serum 2017 018 [place], [address] [place] [address], [address], [address], 8 11:48:14 vitamin B12, serum 2017 018 [facility], [address], [address], [place], [address], 8 11:48:18 vitamin B12, serum 2016 017 [facility] [address] [place], [address], 7 08:49:12 vitamin D, 25-hydroxy , total, serum 2016 017 [facility] [address] [place], [address], 7 08:49:11 HbA1c (hemoglobi n A1c), blood 2016 017 [facility] ([place]), [address] [place], [address], 7 08:49:10 CMP, serum or plasma 2016 017 [facility] ([place]), [address] [place], [address], 7 08:49:08 lipid panel, serum 2016 017 [facility]), [address] [place], [address], 7 08:49:09 microalbum in/creatin ine, mass ratio, urine 2016 017 JAI In-Office Order, Internal Use Only DO Not Attach Compendium DO Not Attach Compendium, Do Not Delete/merge, [id number] 7 13:14:00 urinalysis , dipstick 2016 017 [email or web address] 2 In-Office Order, Internal Use Only DO Not Attach Compendium DO Not Attach Compendium, Do Not Delete/merge, [id number] 7 12:59:26 culture, urine 2016 017 [facility] ([place]), [address] [facility], [place], [address], 7 08:56:40 Referral general surgeon referral 2016 017 [email or web address] 2 David Aragon MD, [address] [facility], [address], [place], [address], 7 14:55:[address] referral - Splenomega ly, lytic/scle rotic process in right iliac (paget's vs malignancy ) 2016 017 JAI Barrios MD, [address] [facility], [address], [place], [address], 7 16:43:[address] referral 2016 017 lrobinette 2 Not available 7 14:55:12 Procedures None recorded. Surgeries None recorded. Imaging US, pelvis, complete 2016 017 lrobinette 2 Not available 7 19:30:50 Medication Orders Glucophage 500 mg tablet 2017 018 INTERFACE [facility], [address] [place] [address], [address], [place], [place], [id number], 8 10:18:21 cyanocobal bradford (vit B-12) 1,000 mcg/mL injection solution 2016 017 lrobinette 2 Not available 7 11:40:19 Glucophage 500 mg tablet 2016 017 ATHENAFAX [facility] [address], [place], [address], 7 12:52:34 enalapril maleate 2.5 mg tablet 2016 017 yrivers [facility] ([facility]), [address], [place], [address], 8 12:39:32 Cipro 500 mg tablet 2016 017 [email or web address] 2 [id number], [address] [place], [address], 7 11:43:38 Patient TargetsNo targets recorded. Patient Instructions Encounter Date Encounter Id Patient Instructions Last Modified By Organization Details Last Modified Time 08/15/2016 [id number] hernia: care instructions JAI Not available 09/16/2016 05:03:39 09/18/2016 [id number] Urinary Tract Infection (UTI) in Women: Care Instructions JAI Not available 10/21/2016 05:03:01 02/04/2017 [id number] type 2 diabetes: care instructions JAI Not available 03/10/2017 05:06:23 06/05/2017 [id number] type 2 diabetes: care instructions Not available 06/05/2017 10:18:18 Reason for Referral General Surgeon Referral for Hernia of anterior abdominal wall large ventral hernia with bowel in hernia Referring Physician: Malini Hernandez [facility], Encounter Date: 08/15/2016 Splenomegaly, lytic/scleroti c process in right iliac (paget's vs malignancy) Referring Physician: Malini Hernandez [facility], Encounter Date: 08/15/2016 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 Referral for Cy st of ovary 4.5cm ovarian cyst Referring Physician: Malini Hernandez [facility], Encounter Date: 08/15/2016 Results Created Date Observation Date Name Description Value Unit Range Abnormal Flag Note LastModifiedBy Organization Detail LastModifiedTime 09/19/19 17 09/18/2016 urina lysis , dipst ick Leukocytes Large Not Available In-Offi ce Order Internal Use Only DO Not Attach Compendium DO Not Attach Compendium, Do Not Delete/merge, [id number] 09/18/2016 12:27:04 09/19/19 17 09/18/2016 urina lysis , dipst ick Nitrite negati ve Not Available In-Office Order Internal Use Only DO Not Attach Compendium DO Not Attach Compendium, Do Not Delete/merge, 09/18/2016 12:27:04 09/19/19 17 09/18/2016 urina lysis , dipst ick Urobilinogen 0.2 Not Available In-Of fice Order Internal Use Only DO Not Attach Compendium DO Not Attach Compendium, Do Not Delete/merge, 09/18/2016 12:27:04 09/19/19 17 09/18/2016 urina lysis , dipst ick Protein 30 Not Available In-Office Order Internal Use Only DO Not Attach Compendium DO Not Attach Compendium, Do Not Delete/merge, 09/18/2016 12:27:04 09/19/19 17 09/18/2016 urina lysis , dipst ick pH 6.0 Not Available In-Office Order Internal Use Only DO Not Attach Compendium DO Not Attach Compendium, Do Not Delete/merge, 09/18/2016 12:27:04 09/19/19 17 09/18/2016 urina lysis , dipst ick Blood Large Not Available In-Office Order Internal Use Only DO Not Attach Compendium DO Not Attach Compendium, Do Not Delete/merge, 09/18/2016 12:27:04 09/19/19 17 09/18/2016 urina lysis , dipst ick Specific Ramah 1.020 Not Available In-Off ice Order Internal Use Only DO Not Attach Compendium DO Not Attach Compendium, Do Not Delete/merge, 09/18/2016 12:27:04 09/19/19 17 09/18/2016 urina lysis , dipst ick Ketone Negati ve Not Available In-Office Order Internal Use Only DO Not Attach Compendium DO Not Attach Compendium, Do Not Delete/merge, 09/18/2016 12:27:04 09/19/19 17 09/18/2016 urina lysis , dipst ick Bilirubin Negati ve Not Available In-Office Order Internal Use Only DO Not Attach Compendium DO Not Attach Compendium, Do Not Delete/merge, [id number] 09/18/2016 12:27:04 09/19/19 17 09/18/2016 urina lysis , dipst ick Glucose Negati ve Not Available In-Office Order Internal Use Only DO Not Attach Compendium DO Not Attach Compendium, Do Not Delete/merge, [id number] 09/18/2016 12:27:04 09/19/19 17 09/18/2016 urina lysis , dipst ick Appearance Slight ly Cloudy Not Available In-Office Order Internal Use Only DO Not Attach Compendium DO Not Attach Compendium, Do Not Delete/merge, [id number] 09/18/2016 12:27:04 09/19/19 17 09/18/2016 urina lysis , dipst ick Color Yellow Not Available In-Office Order Internal Use Only DO Not Attach Compendium DO Not Attach Compendium, Do Not Delete/merge, [id number] 09/18/2016 12:27:04 09/19/19 17 09/24/2016 cultu re, urine urine culture, routine FINAL REPORT Not Available [facility] ([facility]) [address] [place], [address], 09/25/2016 08:56:40 09/19/19 17 09/24/2016 cultu re, urine result 1 COMMEN T MIXED UROGE NITAL JESSICA GREAT ER THAN 100,0 00 COLON Y FORMI NG UNITS PER ML Not Available [facility] ([facility]) [address] [facility], [place], [address], 09/25/2016 08:56:40 02/05/20 17 02/05/2017 CMP, serum or plasm a glucose, serum 94 mg/dL 65-99 Not Available [facility] ([facility]) [address] [place], [address], 02/05/2017 08:49:08 02/05/20 17 02/05/2017 CMP, serum or plasm a BUN 14 mg/dL 8-27 Not Available [facility] ([facility]) [address] [place], [address], 02/05/2017 08:49:08 02/05/20 17 02/05/2017 CMP, serum or plasm a creatinine, serum 0.92 mg/dL 0.57-1 .00 Not Available [facility] ([facility]) [address] [facility] [place], [address], 02/05/2017 08:49:08 02/05/20 17 02/05/2017 CMP, serum or plasm a eGFR if nonafricn AM 68 mL/mi n/1.7 3 >59 Not Available [facility] ([facility]) [address] [facility] [place], [address], 02/05/2017 08:49:08 02/05/20 17 02/05/2017 CMP, serum or plasm a eGFR if africn AM 78 mL/mi n/1.7 3 >59 Not Available [facility] ([facility]) [address] [facility] [place], [address], 02/05/2017 08:49:08 02/05/20 17 02/05/2017 CMP, serum or plasm a BUN/creatini ne ratio 15 12-28 Not Available [facility] ([facility]) [address] [facility] [place], [address], 02/05/2017 08:49:08 02/05/20 17 02/05/2017 CMP, serum or plasm a sodium, serum 146 mmol/ L 134-14 4 above high normal Not Available [facility] ([facility]) [address] [place], [address], 02/05/2017 08:49:08 02/05/20 17 02/05/2017 CMP, serum or plasm a potassium, serum 5.3 mmol/ L 3.5-5. 2 above high normal Not Available [facility] ([facility]) [address] [place], [address], 02/05/2017 08:49:08 02/05/20 17 02/05/2017 CMP, serum or plasm a chloride, serum 103 mmol/ L 96-106 Not Available [facility] ([facility]) [address] [facility], [place], [address], 02/05/2017 08:49:08 02/05/2002/05/2017 CMP, serum or plasm a carbon dioxide, total 24 mmol/ L 18-29 Not Available [facility] ([facility]) [address] [facility] [place], [address], 02/05/2017 08:49:08 02/05/2002/05/2017 CMP, serum or plasm a calcium, serum 10.2 mg/dL 8.7-10 .3 Not Available [facility] ([facility]) [address] [facility] [place], [address], 02/05/2017 08:49:08 02/05/2002/05/2017 CMP, serum or plasm a protein, total, serum 7.1 g/dL 6.0-8. 5 Not Available [facility] ([facility]) [address] [facility] [place], [address], 02/05/2017 08:49:08 02/05/2002/05/2017 CMP, serum or plasm a albumin, serum 4.8 g/dL 3.6-4. 8 Not Available [facility] ([facility]) [address] [facility] [place], [address], 02/05/2017 08:49:08 02/05/2002/05/2017 CMP, serum or plasm a globulin, total 2.3 g/dL 1.5-4. 5 Not Available [facility] ([facility]) [address] [facility] [place], [address], 02/05/2017 08:49:08 02/05/2002/05/2017 CMP, serum or plasm a A/G ratio 2.1 1.2-2. 2 Not Available [facility] ([facility]) [address] [facility] [place], [address], 02/05/2017 08:49:08 02/05/20 17 02/05/2017 CMP, serum or plasm a bilirubin, total 0.4 mg/dL 0.0-1. 2 Not Available [facility] ([facility]) [address] [facility] [place], [address], 02/05/2017 08:49:08 02/05/20 17 02/05/2017 CMP, serum or plasm a alkaline phosphatase, S 195 IU/L 39-117 above high normal Not Available [facility] ([facility]) [address] [facility] [place], [address], 02/05/2017 08:49:08 02/05/2002/05/2017 CMP, serum or plasm a AST (SGOT) 19 IU/L 0-40 Not Available [facility] ([facility]) [address] [facility] [place], [address], 02/05/2017 08:49:08 02/05/2002/05/2017 CMP, serum or plasm a ALT (SGPT) 15 IU/L 0-32 Not Available [facility] ([facility]) [address] [facility] [place], [address], 02/05/2017 08:49:08 02/05/20 17 02/05/2017 lipid panel , serum cholesterol, total 267 mg/dL 100-19 9 above high normal Not Available [facility] ([facility]) [address] [facility] [place], [address], 02/05/2017 08:49:09 02/05/2002/05/2017 lipid panel , serum triglyceride s 149 mg/dL 0-149 Not Available [facility] ([facility]) [address] [facility] [place], [address], 02/05/2017 08:49:09 02/05/20 17 02/05/2017 lipid panel , serum HDL cholesterol 48 mg/dL >39 Not Available [facility] ([facility]) [address] [facility], [place], [address], 02/05/2017 08:49:09 02/05/20 17 02/05/2017 lipid panel , serum VLDL cholesterol adrienne 30 mg/dL 5-40 Not Available [facility]) [address] [facility], [place], [address], 02/05/2017 08:49:09 02/05/2002/05/2017 lipid panel , serum LDL cholesterol calc 189 mg/dL 0-99 above high normal Not Available [facility] ([facility]) [address] [facility], [place], [address], 02/05/2017 08:49:09 02/05/2002/05/2017 lipid panel , serum comment: VENEER SANDER Not Available [facility] ([facility]) [address] [facility], [place], [address], 02/05/2017 08:49:09 02/05/2002/05/2017 HbA1c (hemo globi n A1c), blood hemoglobin A1C 5.2 % 4.8-5. 6 Pre-d iabet es: 5.7 - 6.4 Diabe jeanna: >6.4 [facility]ce [facility] contr ol for adult s with diabe jeanna: <7.0 Not Available [facility] ([facility]) [address] [facility], [place], [address], 02/05/2017 08:49:10 02/05/2002/05/2017 vitam in D, 25-hy droxy , total , serum vitamin D, 25-hydroxy 16.6 NG/mL 30.0-1 00.0 below low normal Vitam in D defic iency has been defin ed by the Insti daksha of Medic ine and an Endoc rine Socie ty pract ice guide line as a level of serum 25-OH vitam in D less than 20 ng/mL (1,2) . The Endoc rine Socie ty [facility] defin e vitam in D insuf ficie ncy as a level betwe en 21 and 29 ng/mL (2). 1. IOM (Inst itute of Medic ine). 2010. Dieta ry refer ence intale es for calci um and D. Swathi eduardo [place]: The [facility] Press . 2. Román childress [place], Bill uribe [place], Mindi off-F errar i GAO, et al. Evalu ation , treat ment, and preve ntion of vitam in D defic iency : an Endoc rine Socie ty clini adrienne pract ice guide line. JCEM. 2010; 96(7) :1911 -30. Not Available [facility] ([facility]) [address] [place], [address], 02/05/2017 08:49:11 02/05/20 17 02/05/2017 vitam in B12, serum vitamin B12 908 pg/mL 211-94 6 Not Available [facility] ([facility]) [address] [place], [address], 02/05/2017 08:49:12 02/05/20 17 02/05/2017 micro album in/cr eatin ine, mass ratio , urine creatinine, urine 129.9 mg/dL not estab. Not Available [facility] ([facility]) [address] [place], [address], 02/05/2017 11:43:59 02/05/20 17 02/05/2017 micro album in/cr eatin ine, mass ratio , urine microalbumin , urine 147.1 ug/mL not estab. Not Available [facility] ([place] [facility]) [address] [place], [address], 02/05/2017 11:43:59 02/05/20 17 02/05/2017 micro album in/cr eatin ine, mass ratio , urine microalb/cre at ratio 113.2 mg/g_ creat 0.0-30 .0 above high normal Not Available [facility] ([place] [facility]) [address] [place], [address], 02/05/2017 11:43:59 06/05/19 18 06/06/2017 CMP, serum or plasm a glucose, serum 109 mg/dL 65-99 above high normal Not Available [facility] ([facility]) [address] [facility] [place], [address], 06/06/2017 11:48:13 06/05/19 18 06/06/2017 CMP, serum or plasm a BUN 10 mg/dL 8-27 Not Available [facility] ([facility]) [address] [facility] [place], [address], 06/06/2017 11:48:13 06/05/19 18 06/06/2017 CMP, serum or plasm a creatinine, serum 1.00 mg/dL 0.57-1 .00 Not Available [facility] ([facility]) [address] [facility] [place], [address], 06/06/2017 11:48:13 06/05/19 18 06/06/2017 CMP, serum or plasm a eGFR if nonafricn AM 61 mL/mi n/1.7 3 >59 Not Available [facility] ([facility]) [address] [facility] [place], [address], 06/06/2017 11:48:13 06/05/19 18 06/06/2017 CMP, serum or plasm a eGFR if africn AM 71 mL/mi n/1.7 3 >59 Not Available [facility] ([facility]) [address] [facility] [place], [address], 06/06/2017 11:48:13 06/05/19 18 06/06/2017 CMP, serum or plasm a BUN/creatini ne ratio 10 12-28 below low normal Not Available [facility] ([facility]) [address] [place] [address] [place], [address], 06/06/2017 11:48:13 06/05/19 18 06/06/2017 CMP, serum or plasm a sodium, serum 142 mmol/ L 134-14 4 Not Available [facility] ([facility]) [address] [facility] [place], [address], 06/06/2017 11:48:13 06/05/19 18 06/06/2017 CMP, serum or plasm a potassium, serum 4.8 mmol/ L 3.5-5. 2 Not Available [facility] ([facility]) [address] [facility], [address], 06/06/2017 11:48:13 06/05/19 18 06/06/2017 CMP, serum or plasm a chloride, serum 100 mmol/ L 96-106 Not Available [facility] ([facility]) [address] [facility] [place], [address], 06/06/2017 11:48:13 06/05/19 18 06/06/2017 CMP, serum or plasm a carbon dioxide, total 24 mmol/ L 18-29 Not Available [facility] ([facility]) [address] [facility] [place], [address], 06/06/2017 11:48:13 06/05/19 18 06/06/2017 CMP, serum or plasm a calcium, serum 9.6 mg/dL 8.7-10 .3 Not Available [facility] ([facility]) [address] [facility] [place], [address], 06/06/2017 11:48:13 06/05/19 18 06/06/2017 CMP, serum or plasm a protein, total, serum 6.7 g/dL 6.0-8. 5 Not Available [facility] ([facility]) [address] [facility] [place], [address], 06/06/2017 11:48:13 06/05/19 18 06/06/2017 CMP, serum or plasm a albumin, serum 4.4 g/dL 3.6-4. 8 Not Available [facility] ([facility]) [address] [place] [address] [place], [address], 06/06/2017 11:48:13 06/05/19 18 06/06/2017 CMP, serum or plasm a globulin, total 2.3 g/dL 1.5-4. 5 Not Available [facility] ([facility]) [address] [facility], [address], 06/06/2017 11:48:13 06/05/19 18 06/06/2017 CMP, serum or plasm a A/G ratio 1.9 1.2-2. 2 Not Available [facility] ([facility]) [address] [facility] [place], [address], 06/06/2017 11:48:13 06/05/19 18 06/06/2017 CMP, serum or plasm a bilirubin, total 0.3 mg/dL 0.0-1. 2 Not Available [facility] ([facility]) [address] [facility] [place], [address], 06/06/2017 11:48:13 06/05/19 18 06/06/2017 CMP, serum or plasm a alkaline phosphatase, S 220 IU/L 39-117 above high normal Not Available [facility] ([facility]) [address] [facility] [place], [address], 06/06/2017 11:48:13 06/05/19 18 06/06/2017 CMP, serum or plasm a AST (SGOT) 21 IU/L 0-40 Not Available [facility] ([facility]) [address] [facility] [place], [address], 06/06/2017 11:48:13 06/05/19 18 06/06/2017 CMP, serum or plasm a ALT (SGPT) 14 IU/L 0-32 Not Available [facility] ([facility]) [address] [facility] [place], [address], 06/06/2017 11:48:13 06/05/19 18 06/06/2017 lipid panel , serum cholesterol, total 152 mg/dL 100-19 9 Not Available [facility] ([facility]) [address] [facility] [place], [address], 06/06/2017 11:48:14 06/05/19 18 06/06/2017 lipid panel , serum triglyceride s 122 mg/dL 0-149 Not Available [facility] ([facility]) [address] [facility] [place], [address], 06/06/2017 11:48:14 06/05/19 18 06/06/2017 lipid panel , serum HDL cholesterol 45 mg/dL >39 Not Available [facility]) [address] [facility] [place], [address], 06/06/2017 11:48:14 06/05/19 18 06/06/2017 lipid panel , serum VLDL cholesterol adrienne 24 mg/dL 5-40 Not Available [facility] ([facility]) [address] [facility] [place], [address], 06/06/2017 11:48:14 06/05/19 18 06/06/2017 lipid panel , serum LDL cholesterol calc 83 mg/dL 0-99 Not Available [facility] ([facility]) [address] [facility] [place], [address], 06/06/2017 11:48:14 06/05/19 18 06/06/2017 lipid panel , serum comment: VENEER SANDER Not Available [facility] ([facility]) [address] [facility] [place], [address], 06/06/2017 11:48:14 06/05/19 18 06/06/2017 micro album in/cr eatin ine, mass ratio , urine creatinine, urine 202.4 mg/dL not estab. Not Available [facility] ([facility]) [address] [facility] [place], [address], 06/06/2017 11:48:15 06/05/19 18 06/06/2017 micro album in/cr eatin ine, mass ratio , urine albumin, urine 94.9 ug/mL not estab. Not Available [facility] ([facility]) [address] [place], [address], 06/06/2017 11:48:15 06/05/19 18 06/06/2017 micro album in/cr eatin ine, mass ratio , urine alb/creat ratio 46.9 mg/g_ creat 0.0-30 .0 above high normal Not Available [facility] ([facility]) [address] [facility], [place], [address], 06/06/2017 11:48:15 06/05/19 18 06/06/2017 HbA1c (hemo globi n A1c), blood hemoglobin A1C 5.6 % 4.8-5. 6 Pre-d iabet es: 5.7 - 6.4 Diabe jeanna: >6.4 [facility] for adult s with diabe jeanna: <7.0 Not Available [facility] ([facility]) [address] [facility], [place], [address], 06/06/2017 11:48:16 06/05/19 18 06/06/2017 vitam in D, 25-hy droxy , total , serum vitamin D, 25-hydroxy 43.8 NG/mL 30.0-1 00.0 Vitam in D defic iency has been defin ed by the Insti tute of Medic ine and an Endoc rine Socie ty pract ice guide line as a level of serum 25-OH vitam in D less than 20 ng/mL (1,2) . The Endoc rine Socie ty went on to furth er defin e vitam in D insuf ficie ncy as a level betwe en 21 and 29 ng/mL (2). 1. IOM (Inst itute of Medic ine). 2009. Dieta ry refer ence intale es for calci um and D. Swathi eduardo [place]: The Natio nal [facility] Press . 2. Román childress MF, Bill uribe [place], Mindi off-F errmat i GAO, et al. Evalu ation , treat ment, and preve ntion of vitam in D defic iency : an Endoc rine Socie ty clini adrienne pract ice guide line. JCEM. 2010; 96(7) :1911 -30. Not Available [facility] ([facility]) [address] [facility], [place], [address], 06/06/2017 11:48:17 06/05/19 18 06/06/2017 vitam in B12, serum vitamin B12 1296 pg/mL 232-12 45 above high normal Not Available [facility] ([facility]) [address] [facility], [place], [address], 06/06/2017 11:48:18 08/11/19 17 08/10/2016 CT, abdom en + pelvi s, w/ contr ast No observ ation record ed. Not Available 08/04 10:18:22 08/11/19 17 08/10/2016 MAMMO , scree sj, bilat eral No observ ation record ed. Not Available 08/04 10:18:22 10/05/19 17 10/04/2016 inter venti onal radio logy, percu taneo us biops y (PROC ) No observ ation record ed. Not Available 05/2016 17:06:57 Result Notes None recorded. Problems Name Problem SNOMED Code Status Onset Date Resolution Date Notes Provider Name and Address Organization Details Recorded Time Hypertensiv e disorder 58499578 Active 2015 MD Denia Inman [address], [place], [address], [facility] 6 10:47:23 Diabetes mellitus 24779711 Completed 201504/04/2016 MD Denia Inman [address], [place], [address], [facility] 6 10:48:15 Hypercholes terolemia 39315283 Active 2015 MD Denia Inman [address], [place], [address], [facility] 6 10:47:44 Bipolar II disorder 20284630 Active 2015 Malini Hernandez MD [address], [place], [place], [address] [place] [address] 3, [facility] 6 10:47:58 Type 2 diabetes mellitus without complicatio n 775211084 Active 2015 Malini Hernandez MD [address], [place], [place], [address] [place] [address] 3, [facility] 6 10:48:16 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 2016 Malini Hernandez MD [address], [place], [place], [address] [place] [address] 3, [facility] 7 11:23:20 Atrial fibrillatio n 33708088 Active 2016 Malini Hernandez MD [address], [place], [address] [place] [address] 3, [facility] 7 11:23:32 Paget's disease of pelvis 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 Procedures Surgical History None recorded. Imaging Results Imaging Date Name Status LastModified by Organization Details LastModified Time 08/10/2016 CT, abdomen + pelvis, w/ contrast completed Information not available 08/14/2016 10:18:22 08/10/2016 MAMMO, screening, bilateral completed Information not available 08/14/2016 10:18:22 10/04/2016 interventional radiology, percutaneous biopsy (PROC) completed Information not available 10/04/2016 17:06:57 Procedure Notes None recorded. Medical Equipment None Reported. Allergies No known drug allergies Medications Name Sig Start Date Stop Date Status Note LastModified by Organization Details LastModified Time amoxicillin 500 mg capsule TAKE ONE CAPSULE BY MOUTH 3 TIMES A DAY 03/01 completed Not Available Not Available Not Available lamotrigine 150 mg tablet active Not Available Not Available Not Available metformin 500 mg tablet Take 1 tablet twice a day by oral route. active Not Available Not Available No t Available atorvastati n 20 mg tablet TAKE 1 TABLET BY MOUTH DAILY active Not Available Not Available No t Available lamotrigine 200 mg tablet TAKE 1 TABLET BY MOUTH EVERY DAY IN THE MORNING active Not Available Not Available No t Available quetiapine 300 mg tablet active Not Available Not Available Not Available diltiazem CD 180 mg capsule,ext ended release 24 hr TK 1 C PO QD 02/04 completed Not Available Not Available Not Available metoprolol succinate ER 50 mg tablet,exte nded release 24 hr active Not Available Not Available Not Available Nystop 100,000 unit/gram topical powder active Not Available Not Available Not Available FreeStyle Lancets 28 gauge TEST BID active Not Available Not Available Not Available enalapril maleate 2.5 mg tablet Take 1 tablet every day by oral route. 06/05 completed Not Available Not Available Not Available valsartan 160 mg-hydrochl orothiazide 12.5 mg tablet TK 1 T PO QD 04/04 completed Not Available Not Available Not Available Klor-Con 20 mEq oral packet Take 1 packet every day by oral route. 06/05 completed Not Available Not Available Not Available ciprofloxac in 500 mg tablet TAKE 1 TABLET BY MOUTH EVERY 12 HOURS 02/04 completed Not Available Not Available Not Available quetiapine 100 mg tablet TAKE 2 TO 3 TABLETS BY MOUTH EVERY DAY AT BEDTIME active Not Available Not Available No t Available spironolact one 25 mg tablet active Not Available Not Available Not Available lithium carbonate ER 450 mg tablet,exte nded release TAKE 2 TABLETS BY MOUTH EVERY DAY AT BEDTIME active Not Available Not Available No t Available lamotrigine 25 mg tablet TAKE 1 TO 3 TABLETS BY MOUTH EVERY MORNING (TO TITRATE BY 25MG PER WEEK DIRECTED) active Not Available Not Available No t Available potassium chloride ER 20 mEq tablet,exte nded release(par t/cryst) 02/04 completed Not Available Not Available Not Available Lidoderm 5 % topical patch APPLY 1 PATCH BY TRANSDERM AL ROUTE ONCE DAILY (MAY WEAR UP TO 12HOURS.) active Not Available Not Available No t Available lithium carbonate 300 mg capsule TK ONE C PO TID 06/05 completed Not Available Not Available Not Available pantoprazol e 40 mg tablet,lainey yed release Take 1 tablet every day by oral route. active Not Available Not Available No t Available cyanocobala min (vit B-12) 1,000 mcg/mL injection solution administe r 1ml monthly 2016 active Not Available Not Available Not Avai lable trazodone 150 mg tablet TK 1 T PO HS active Not Available Not Available No t Available alcohol swabs U UTD 06/05 completed Not Available Not Available Not Available Vitamin D2 1,250 mcg (50,000 unit) capsule active Not Available Not Available Not Available Vitamin B-1 100 mg tablet TK 1 T PO QD active Not Available Not Available No t Available lithium carbonate 300 mg tablet TK 1 T PO TID active Not Available Not Available No t Available lamotrigine 100 mg tablet TAKE 1 TABLET BY MOUTH DAILY active Not Available Not Available No t Available valsartan 320 mg-hydrochl orothiazide 12.5 mg tablet TK 1 T PO QD 02/04 completed Not Available Not Available Not Available quetiapine 50 mg tablet TK 1 T PO HS active Not Available Not Available No t Available FreeStyle Lite Meter kit U TO CHECK BLOOD SUGAR BID active Not Available Not Available No t Available FreeStyle Lite Strips U UTD TO TEST BLOOD SUGARS BID active Not Available Not Available No t Available ferrous sulfate 324 mg (65 mg iron) tablet,lainey yed release TK 1 T PO QAM WITH BREAKFAST active Not Available Not Available No t Available Vicodin ES 7.5 mg-300 mg tablet TK 1 T PO Q 6 H PRN P 03/01 completed Not Available Not Available Not Available Eliquis 5 mg tablet Take 1 tablet twice a day by oral route. active Not Available Not Available No t Available Vitals Date Recorded Body height Body weight Body mass index (BMI) Heart rate Oxygen saturation Oxygen saturation in Arterial blood by Pulse oximetry Systolic blood pressure Diastolic blood pressure Provider Name and Address Organization Details Last Updated DateTime 7 165.1 cm 463792. 76 g 44.6 kg/m2 71 /min 98 % 98 % 125 mm[Hg] 80 mm[Hg] Nury Wilkins MD [address], [place], [address], [facility] 7 15:19:32 Date Recorded Body height Body weight Body mass index (BMI) Oxygen saturation Oxygen saturation in Arterial blood by Pulse oximetry Heart rate Body temperature Provider Name and Address Organization Details Last Updated DateTime 7 165.1 cm 507884. 76 g 44.6 kg/m2 97 % 97 % 74 /min 98.4 [degF] Chaz opal Briones [facility] 7 12:06:43 Date Recorded Body height Body weight Body mass index (BMI) Body temperature Oxygen saturation Oxygen saturation in Arterial blood by Pulse oximetry Heart rate Provider Name and Address Organization Details Last Updated DateTime 7 165.1 cm 387442. 98 g 44.1 kg/m2 98.7 [degF] 97 % 97 % 70 /min [facility] 7 12:28:33 Date Recorded Body height Body mass index (BMI) Body weight Heart rate Oxygen saturation Oxygen saturation in Arterial blood by Pulse oximetry Systolic blood pressure Diastolic blood pressure Provider Name and Address Organization Details Last Updated DateTime 7 165.1 cm 43.6 kg/m2 971707. 9 g 76 /min 98 % 98 % 120 mm[Hg] 78 mm[Hg] [facility] 7 11:13:22 Date Recorded Body height Heart rate Oxygen saturation Oxygen saturation in Arterial blood by Pulse oximetry Body temperature Systolic blood pressure Diastolic blood pressure Provider Name and Address Organization Details Last Updated DateTime 8 165.1 cm 90 /min 99 % 99 % 98.1 [degF] 118 mm[Hg] 80 mm[Hg] [facility] 8 09:53:43 Social History Question Answer Notes LastModified by Organizat ion Details LastModified Time Tobacco Sm[facility] Status [facility] 12:25:41 What Was The Date Of Your Most Recent Tobacco Screening? 06/05/2017 Information n ot available 11/28/2018 Sex: Unknown Functional Status None recorded. Mental Status None recorded. Family History Nothing Reported. Medical History No medical history recorded. Gynecological HistoryNo gynecological history recorded. Obstetrics History GPAL:G 0 P 0 0 0 0 Immunizations Vaccine Type Date Status Note Provider Nam e and Address Organization Details Recorded Time Influenza, MDCK, quadrivalent, PF 7 completed Not Available [facility] 05/23/2019 04:36:17 Influenza, split virus, quadrivalent, preservative 6 completed Not Available [facility] 05/28/[facility] 04:32:10 Tdap 6 completed Not Available [facility] 05/23/2019 04:08:30 Past Encounters Encounter ID Performer Location Encounter Start Date Encounter Closed Date Diagnosis/Indication Diagnosis SNOMED-CT Code Diagnosis ICD10 Code Diagnosis Note [id number] Malini Hernandez MD TERM[facility] [address] [facility],[address] [place] [address] 03/01/2016 11:11:52 03/01/2016 15:29:42 Adult health examination 312747238 Z00.00 Bipolar II disorder 8322 5003 F31.81 Abdominal mass 667998248 R19.00 Essential hypertension 14996550 I10 Screening mammography 24 291905 Z12.31 Active or passive immunization 933531071 Z23 [id number] Malini Hernandez MD [facility] [address] [facility],[address] [place] [address] 04/04/2016 09:54:24 04/04/2016 12:13:34 Type 2 diabetes mellitus without complication 581749610 E11.9 Essential hypertension 69692447 I10 Not controlled yet [id number] Malini Hernandez MD [facility] [address] [facility],[address] [place] [address] 06/05/2016 10:57:36 06/05/2016 14:07:26 Type 2 diabetes mellitus without complication 304071337 E11.9 Atrial fibrillation 4943 6004 I48.91 Bipolar II disorder 8322 5003 F31.81 [id number] Nury Wilkins MD [facility] [address] [place] [address] 08/05/2016 14:28:22 08/05/2016 15:31:16 Injury of head 13127385 S09.90XA impact was low hence no ct scan.ice pack.fu with cardiology [id number] Malini Hernandez MD [facility] [address] [place] [address] 08/15/2016 11:58:19 08/15/2016 13:12:22 Hernia of anterior abdominal wall 024228281 K43.9 Cyst of ovary 19372842 N 83.202 Splenomegaly 74392257 R1 6.1 [id number] Malini Hernandez MD [facility] [address] [place] [address] 09/18/2016 12:09:57 09/18/2016 15:07:49 Dysuria 98555346 R30.0 Acute cystitis 10447831 N30.00 [id number] Malini Hernandez MD [facility] [address] [address] 02/04/2017 10:24:30 02/04/2017 14:45:46 Type 2 diabetes mellitus without complication 674478966 E11.9 Will discuss lipid management after labs return 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 If the same, will give 90 day supply. Cobalamin deficiency 190 658957 E53.8 Health Concerns Section Related Observation LastModified by Organization Detai ls LastModified Time None Recorded Concern Status LastModified by Organization Details LastModified Time None Recorded Advance Directives Directive None Recorded Payers Insurance Date Sequence Insurance Name Policy Number Policy Fitzgerald Covered Member ID Fitzgerald Member ID Guarantor Name 03/13/2017 1 [employer]) [id number] Rissa Betancur [id number] Rissa Betancur 06/07/2017 1 [facility] [id number] Rissa Betancur [id number] Rissa Betancur Notes Date Note Type Note Provider Name and Address Organization Details Recorded Time 08/05/2016 text/html kitchen cabinet door fell on her face, hit her above the right and clavicle. bruised both.no blurred vision.no loss of consciousness.she is on eliquis.cardiac cath done last saturday and labs 1 wk prior to that. MD [address], [place], [address], [facility] 08/05/2016 15:22:48 08/15/2016 text/html Patient is here for follow up for her CT scan. She also can't find a psychiatrist. Either they just do meds or don't have appointments. She really needs to get back in with a psychiatrist. MD [address], [place], [address], [facility] 08/15/2016 13:08:57 09/18/2016 text/html Patient has been having pain, dysuria, frequency for the past 3 days, and got worse last night. She has had some back pain, but not like a kidney stone pain. MD [address], [place], [address], [facility] 09/18/2016 13:35:28 02/04/2017 text/html Patient is here for her diabetes management. She is doing very well for her bipolar disorder (seeing psychiatry and having meds managed and adjusted). 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 She also would like to transfer her B12 deficiency follow up to here. Her oncologist states that all of her issues were not onc related. MD [address], [place], [address], [facility] 02/04/2017 13:33:03 06/05/2017 text/html Patient is here for prescription refill. She needs her metformin, atorvastatin renewed. She also needs her regular lab work. She is doing well. Has no complaints. MD [address], [place], [address], [facility] 06/05/2017 12:26:28 OBGyn Episode No OBEpisode recorded.
== END 2024-09-23 12:24 | disposition home or self-care (01) ==
LOC: HO.HUSH 12:03
PROVIDERS: PCP Internal Medicine; Visit Provider Nurse Practitioner Family
DX: Z13.9 Encounter for screening, unspecified (principal); R32 Unspecified urinary incontinence
CPT/HCPCS: 99213; G2211

== ENCOUNTER 2024-09-25 12:25 | Outpatient (REF) | payer MEDICARE, SELFPAY ==
--- NOTE | ~2024-09-25 | MM_ITS ---
EXAMINATION: DXA BONE DENSITY AXIAL HISTORY: Z78.0 TECHNIQUE: Cyanto Dual energy absorptiometry (DEXA) of the lumbar spine, total left hip, and femoral neck was performed. COMPARISON: Comparison is made with the prior examination dated 06/12/2022. FINDINGS: The bone mineral density of the lumbar spine is 1.144, corresponding to a T-score of -0.3, and a Z-score of 1.2. This is indicative of normal bone mineral density. This represents a BMD change of -3.0% compared to the prior exam. This is statistically significant. The bone mineral density of the left total hip is 0.806, corresponding to a T-score of -1.6, and a Z-score of -0.3. This is indicative of osteopenia. This represents a BMD change of -13.7% compared to the prior exam. This is statistically significant. The bone mineral density of the left femoral neck is 0.791, corresponding to a T-score of -1.8, and a Z-score of -0.3. This is indicative of osteopenia. This represents a BMD change of -12.0% compared to the prior exam. FRACTURE RISK: The FRAX index suggests a ten year probability of major osteoporotic fracture of 10.2%, and of hip fracture 1.6%. MM/XR DEXA axial skeleton IMPRESSION: Based on bone mineral density, and according to World Health Organization (WHO) criteria, the diagnosis is consistent with osteopenia. All bone density values are in grams per centimeter squared (g/cm2). Statistically, 68% of repeat scans fall within 1 SD (+/- 0.010 g/cm2 for AP spine L1-L4) and 1 SD (+/- 0.012 g/cm2 for femur total) FRAX is a trademark of the [employer]'s [place] [facility] Met[employer] Disease, a World Health Organization (WHO) Collaborating Center. Electronically signed by: Braulio Stephen MD 09/25/2024 01:17 PM EDT
== END 2024-09-25 12:26 | disposition home or self-care (01) ==
LOC: HO.MAMMO 12:25
PROVIDERS: PCP Internal Medicine; Visit Provider Internal Medicine
DX: Z12.31 Encounter for screening mammogram for malignant neoplasm of breast (principal); Z13.820 Encounter for screening for osteoporosis; Z78.0 Asymptomatic menopausal state
CPT/HCPCS: 77063; 77067; 77080

== ENCOUNTER → 2024-09-25 13:30 | Outpatient (BNV) | payer MEDICARE, SELFPAY | PROVIDERS: PCP Internal Medicine; Visit Provider Radiology Diagnostic Radiology | DX: E28.39 Other primary ovarian failure (principal) | CPT/HCPCS: 77080 ==

== ENCOUNTER 2025-01-19 08:42 | Outpatient (REF) | payer MEDICARE, SELFPAY ==
[2025-01-19 11:52] LABS: Hemoglobin A1C 114.5016 umol/L; Total Hemoglobin (HGBA1C) 3328.2430 umol/L
[2025-01-19 12:07] LABS: Alanine Aminotransferase 25 U/L (0-31); Anion Gap 16 (12-20); Aspartate Amino Transferase 29 U/L (5-31); Blood Urea Nitrogen 17 mg/dL (9-16); Calcium 9.8 mg/dL (8.4-10.2); Carbon Dioxide 21 mmol/L (22-29); Chloride 108 mmol/L (96-108); Cholesterol 109 mg/dL (<200); Estimated Glomerular Filt Rate > 60; HDL Cholesterol 54 mg/dL (>40); Potassium 4.2 mmol/L (3.3-5.1); Sodium 141 mmol/L (135-145); Triglycerides 43 mg/dL (<150)
== END 2025-01-19 08:43 | disposition home or self-care (01) ==
LOC: HO.HMGCLDS 08:42
PROVIDERS: PCP Internal Medicine; Visit Provider Internal Medicine
DX: K76.0 Fatty (change of) liver, not elsewhere classified (principal); I10 Essential (primary) hypertension; E11.9 Type 2 diabetes mellitus without complications; E78.2 Mixed hyperlipidemia
CPT/HCPCS: 36415; 80048; 80061; 82306; 83036; 84450; 84460

== ENCOUNTER 2025-01-27 08:35 | Outpatient (AMB) | payer MEDICARE, SELFPAY ==
--- NOTE | 2025-01-27 09:33 | MHC.PC.OV ---
Vital Signs 01/27/25 09:34 Height 5 ft 7 in Weight 149 lb BMI 23.3 BP 100/60 Blood Pressure Location Lt brachial Position Sitting Respiration 16 Pulse 48 L Pulse Source Pulse Oximeter Temp 98.0 F Temp Source Oral Pulse Oximetry (%) 96 Oxygen Delivery Method Room Air Intake Visit Reasons: 6 months f/up - see comments Intake Note: Pt is here today for her 6mo. f/u Allergies No Known Allergies (No Known Allergies*) Allergy (Verified 01/27/25 09:59) Medication List - Last Reconciled 01/27/25 by Elsa Barrera MD apixaban (Eliquis) 5 mg PO BID atorvastatin 80 mg PO Q2D 3 months blood sugar diagnostic ([employer] Verio test strips) test blood sugar twice a day blood-glucose meter ([employer] Verio Reflect kit) Check blood sugar twice daily as directed lancets ([employer] Delica Plus Lancet) Test blood sugar once a day lisinopril 2.5 mg PO BEDTIME metformin 500 mg PO QPM 3 months metoprolol succinate ER 100 mg PO DAILY oxybutynin chloride ER 10 mg PO DAILY pantoprazole 20 mg PO DAILY polyethylene glycol 3350 (Miralax) 17 grams PO DAILY PRN MDD Constipation terazosin 3 mg (3 x 1 mg) PO BEDTIME 90 days vibegron (Gemtesa) 75 mg PO DAILY 30 days vit C,A-Co-tgvla-lutein-zeaxan 250-90-40-1 mg (PreserVision AREDS-2) 1 tab PO BID ziprasidone HCl 80 mg PO BID Tobacco use date assessed: 01/27/25 Fall risk assessment: No Falls in past year Last assessed Fall Risk: 01/27/25 Dental Screening Dental Screen Date: 01/27/25 Did you have a dental visit in the last 12 months?: No Did you have a dental problem in the last 6 months where you did not have access to dental care?: No Was dental information given to patient?: Patient has dentist HPI 6 months f/up - see comments HPI Details 69 year-old lady with past medical history of bipolar disorder currently followed by psychiatry (Monica Mayer), persistent atrial fibrillation currently on apixaban and metoprolol followed by cardiology, has benign familial tremor, diabetes mellitus, mixed dyslipidemia, history of multinodular goiter, currently euthyroid, macular degeneration, urinary incontinence currently controlled on Gemtesa, here today for her follow-up visit. . Diabetes mellitus has been well-controlled with no evidence of kidney involvement, as indicated by normal urine microalbumin levels. The patient's blood glucose levels have remained stable, and she has been compliant with taking metformin 500 mg at night Hyperlipidemia is managed with atorvastatin, which the patient takes every other day , denies muscle pain. Her lipid profile shows LDL cholesterol less than 90 mg/dL, total cholesterol less than 100 mg/dL, and triglycerides less than 150 mg/dL. Atrial fibrillation is currently under control with the patient in sinus rhythm, and she is on metoprolol and Eliquis . 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 The patient has a history of common variable immunodeficiency diagnosed five years ago, but she is currently asymptomatic . The diagnosis was made by a previous physician, and there is no ongoing management for this condition. Thyroid nodules were noted, but thyroid function tests are normal, and no further intervention indicated. Preventative care includes vaccinations, with the patient having received COVID-19 and pneumococcal vaccines. She has not received the shingles vaccine but is considering it. [facility], [facility] Medical History (Updated 01/27/25 @ 10:26 by Elsa Barrera MD) Dry age-related macular degeneration of left eye Colon cancer screening Constipation Age-related macular degeneration, wet, right eye Traumatic hematoma Anemia Bipolar disorder Morbid obesity Benign familial tremor Ventral hernia Multinodular thyroid Umbilical hernia with obstruction CVID (common variable immunodeficiency) Vitamin D deficiency HLD (hyperlipidemia) HTN (hypertension) Cardiomyopathy Elevated parathyroid hormone Urinary incontinence Controlled diabetes mellitus without long-term current use of insulin Mixed dyslipidemia Surgical History S/P evacuation of hematoma (10/11/23) S/P debridement (10/29/23) History of umbilical hernia repair (07/06/22) Hx of wisdom tooth extraction History of cardiac catheterization (~2016) Hx of biopsy H/O colonoscopy History of hysteroscopy History of adenoidectomy Family History Father Diabetes mellitus Depression Mental health disorder Mother Diabetes mellitus Colon cancer Breast cancer Familial tremor Sister Colon cancer Maternal Aunt Familial tremor Sister No problems noted. Social History Household Members: None Housing: Condominium Are you a primary cattle care worker to a significant other at home: No Do you presently have visiting nurse or other home services: Yes ([facility] QOD dressing change left leg) Alcohol intake: never Comment: COUNT CORRECT Patient Tobacco Use Status: Never used Tobacco e-Cigarette/Vaping Use: Never Used service: No Current occupational status: disabled Cognitive needs: No Hearing needs: No Vision needs: Yes Questionnaire PHQ-9 Over the last 2 weeks, how often have you been bothered by any of the following problems? 1. Little interest or pleasure in doing things: several days 2. Feeling down, depressed, or hopeless: not at all 3. Trouble falling or staying asleep, or sleeping too much: several days 4. Feeling tired or having little energy: not at all 5. Poor appetite or overeating: not at all 6. Feeling bad about yourself - or that you are a failure or have let yourself or your family down: not at all 7. Trouble concentrating on things, such as reading the newspaper or watching television: not at all 8. Moving or speaking so slowly that other people could have noticed. Or the opposite - being so fidgety or restless that you have been moving around a lot more than usual: not at all 9. Thoughts that you would be better off or of hurting yourself in some way: not at all Total score: 2 Depression Screening Interpretation: Positive (Has bipolar disorder, currently followed by Monica Mayer ) Depression Screening Follow-up: Existing condition, In treatment and Community Mental Health Worker F/U Depression Screening Done: Yes Source: Developed by Drs. Braulio Durand, Kathryn Martinez, Javier Hodgson and colleagues, with an educational jeffry from [employer]. Thrive Questionnaire Date Thrive assessed: 07/22/24 I am a: Patient What is your living situation today?: I have a steady place to live Within the past 12 months, did the food you bought not last and you didn't have the money to get more?: Never true Within the past 12 months, did you worry whether your food would run out before you got money to buy more?: Never true Do you have trouble paying for medicines?: No Do you have trouble getting transportation to medical appointments?: Yes Do you have trouble paying your heating and electricity bill?: No Do you have trouble taking care of your child, family member or friend?: No Do you have trouble with day-to-day activities such as bathing, preparing meals, shopping, managing finances, etc.?: No Are you currently unemployed and looking for a job?: No Are you interested in more education?: No Please select the resources that you would like help with: None Currently or been in a relationship where the following occur: No concerns reported THRIVE Score: 1 AUDIT C Alcohol Use Questionnaire (AUDIT-C) 1. How often do you have a drink containing alcohol?: Never 2. How many drinks containing alcohol do you have on a typical day when you are drinking?: 1 or 2 3. How often do you have six or more drinks on one occasion?: Never Total Score: 0 JULIA-7 AMB Questionnaire JULIA-7 Date JULIA - 7 assessed: 11/28/23 Feeling nervous, anxious, or on edge: 0 = Not at all Not being able to stop or control worryin = Not at all Worrying too much about different things: 0 = Not at all Trouble relaxin = Several days Being so restless that it is hard to sit still: 1 = Several days Becoming easily annoyed or irritable: 0 = Not at all Feeling afraid as if something awful might happen: 0 = Not at all Total JULIA-7 score (0-4 normal; 5-9 mild; 10-14 moderate; 15-21 severe): 2 Source: Developed by Drs. Braulio Durand, Kathryn Martinez, Javier Hodgson and colleagues, with an educational jeffry from [employer]. Review of Systems Const Denies fatigue and Denies fever(s) Eyes Details: Followed by [facility] for her macular degeneration ENT Denies dizziness Card Denies chest pain, Denies leg edema, Denies lightheadedness, Denies palpitations and Denies dyspnea on exertion Resp Denies cough and Denies dyspnea on exertion GI Denies abdominal pain, Denies melena, Denies hematochezia, Denies change in bowel habits and Denies change in stool character Reports as per HPI Musc Denies abnormal gait, Denies muscle weakness, Denies numbness and Denies radiating pain into limb Skin/Breast Denies breast mass, Denies change in hair and Denies rash Neuro Denies abnormal gait, Denies dizziness and Denies numbness Psych Reports no additional complaints Endo Denies fatigue and Denies palpitations Jorge/Lymph Reports no additional complaints Aller/Immun Reports no additional complaints Physical exam (Primary Care) Vital Signs: Last Vital Signs Temp 98.0 F 01/27/25 09:34 Pulse 48 L 01/27/25 09:34 Resp 16 01/27/25 09:34 BP 100/60 01/27/25 09:34 Pulse Ox 96 01/27/25 09:34 Oxygen Delivery Method Room Air 01/27/25 09:34 BMI result Body Mass Index 23.3 Tobacco/Smoking Status: Tobacco use Status Tobacco use date assessed 01/27/25 01/27/25 09:43 Patient Tobacco Use Status Never used Tobacco 01/27/25 09:43 e-Cigarette/Vaping Use Never Used 01/27/25 09:43 PHQ-9: PHQ-9 Score PHQ-9: Total score 2 01/27/25 10:26 Depression Screening Interpretation: Positive (Has bipolar disorder, currently followed by Monica Mayer ) Depression Screening Follow-up: Existing condition, In treatment and Community Mental Health Worker F/U Thrive Assessment: Date of Thrive Assessment Date Thrive assessed 07/22/24 01/27/25 09:43 Currently or been in a relationship where the following occur: No concerns reported Const Other: Alert oriented x3 no acute distress noted normal gait HENWI Head: Yes normocephalic General nose exam: Normal external nose present Face and sinus: Yes face symmetric Mouth: moist mucous membranes Eyes General: appearance normal, both eyes and all related structures Neck Neck: Yes full ROM, Yes no lymphadenopathy and Yes supple Resp Auscultation: clear to auscultation bilaterally Cardio Rate: bradycardic GI Palpation (GI): Soft to palpation, nontender and no guarding Auscultation: normal bowel sounds General: Yes deferred Back/Spine/Pelvis Back: No back tenderness Skin General skin exam: no rashes or lesions noted Neuro General: gait normal, tone normal, moves all extremities and no focal motor deficits Extrem General: Yes full ROM, Yes no joint enlargement, Yes no pedal edema, Yes no calf tenderness and Yes normal gait Psych Appearance: grossly normal and well kempt Mental Status: mental status grossly normal Speech and movement: Normal speech and movement present Affect: normal affect Results Reviewed Results Reviewed: Laboratory Tests 02/19/24 01/19/25 10:54 08:51 Estimat Average Glucose 111 105 Hemoglobin A1c % 5.5 5.3 Name: Rissa Betancur Age/Sex: 69/F : 1955 Unit#: [id number] Attend Dr: Elsa Barrera MD Re01/19/25 Status: DEP REF Location: [facility] Disch: SPEC : [id number] DUSTIN: 01/19/25 STATUS: COMP REQ : [id number] RECD: 01/19/25-[address]: Elsa Barrera MD COMP: 01/19/25 ENTERED: 01/19/[address]: ORDERED: Met Prof Fast, AST, ALT, Lipid Panel, Vitamin D 25-OH Test Result Flag Reference Sodium 141 135-145 mmol/L Potassium 4.2 3.3-5.1 mmol/L CL 108 96-108 mmol/L CO2 21 L 22-29 mmol/L Gap 16 12-20 BUN 17 H 9-16 mg/dL Creat 0.79 0.5-1.4 mg/dL eGFR > 60 Chronic Kidney Disease: Estimated GFR < 60 mL/min/1.73m2 Severe Kidney Disease: Estimated GFR < 15 mL/min/1.73m2 FBS 107 H 60-99 mg/dL A fasting glucose from 100-125 mg/dl is considered impaired (pre-diabetes). CA 9.8 8.4-10.2 mg/dL AST (GOT) 29 5-31 U/L ALT (GPT) 25 0-31 U/L Triglyceride 43 <150 mg/dL Desirable Triglyceride: less than 150 mg/dL Borderline High Triglyceride 150-199 mg/dL High Triglyceride: 200-499 mg/dL Very High Triglyceride: greater than or equal to 5OO mg/dL Cholesterol 109 <200 mg/dL Desirable Cholesterol: less than 200 mg/dL Borderline High Cholesterol: 200-239 mg/dL High Cholesterol: greater than 239 mg/dL LDL Calculated 47 <100 mg/dL Desirable LDL: less than 100 mg/dL Near Optimal/Above Optimal LDL: 110-129 mg/dL Borderline High LDL: 130-159 mg/dL High LDL: 160-189 mg/dL Very High LDL: greater than or equal to 190 mg/dL HDL 54 >40 mg/dL Desirable HDL: greater than 40 mg/dL Note: This HDL assay may give artificially low results in patients with liver disease. Vitamin D 25-OH 45.9 >30 ng/mL Health Based Reference Values* < 20 ng/mL Deficient 20-30 ng/mL Insufficient > 30 ng/mL Sufficient Laboratory Tests 07/21/24 09:35 Urine Creatinine 33.35 Urine Microalbumin 9.0 Microalb/Creat Ratio 26.9 Coding Level of Care Code Est Pt Level 4 (13491) Complex EM visit Add On G2211 Diagnoses Essential hypertension I10 Hypertension type: essential hypertension Mixed dyslipidemia E78.2 Controlled diabetes mellitus without long-term current use of insulin E11.9 Assessment & Plan Assessment & Plan (1) HTN (hypertension): Code(s): I10 - Essential (primary) hypertension Category: Medical Qualifiers: Hypertension type: essential hypertension Qualified Code(s): I10 - Essential (primary) hypertension Plan: Currently on lisinopril 2.5 mg at night (2) Mixed dyslipidemia: Code(s): E78.2 - Mixed hyperlipidemia Category: Medical Plan: Fasting lipids are within normal limits, currently on atorvastatin 80 mg every other day (3) Controlled diabetes mellitus without long-term current use of insulin: Code(s): E11.9 - Type 2 diabetes mellitus without complications Category: Medical Plan: Recent lab results reviewed with patient, with sugar and hemoglobin A1c stable and at goal. Continued on metformin 500 mg daily, continue to check fasting blood sugar at home, maintain log and bring to next appointment for review. Reinforced diabetic diet and regular exercise with patient. Counseled regarding importance of yearly diabetes retinopathy screening. Patient advised to inspect feet daily, for any signs of injury, callus or infection. Compliance with diet and regular exercise again stressed. Blood pressure goal is less than 130/80, goal LDL is less than 100 and goal hemoglobin A1c is less than 7%
[2025-01-27 09:34] VITALS: BP 100/60; PULSE 48; RESP 16; TEMP 36.7; O2SAT 96; BMI 23.3
== END 2025-01-27 11:42 | disposition home or self-care (01) ==
LOC: HO.HMCC 08:36
PROVIDERS: PCP Internal Medicine; Visit Provider Internal Medicine
DX: I10 Essential (primary) hypertension (principal); E78.2 Mixed hyperlipidemia; E11.9 Type 2 diabetes mellitus without complications

== ENCOUNTER → 2025-01-27 08:35 | Outpatient (BNVA) | payer MEDICARE, SELFPAY | PROVIDERS: PCP Internal Medicine; Visit Provider Internal Medicine | DX: I10 Essential (primary) hypertension (principal); E11.9 Type 2 diabetes mellitus without complications; F31.9 Bipolar disorder, unspecified; I48.91 Unspecified atrial fibrillation; E04.1 Nontoxic single thyroid nodule; E78.2 Mixed hyperlipidemia | CPT/HCPCS: 96127; 99212 ==

== ENCOUNTER 2025-02-18 09:21 | Outpatient (AMB) | payer MEDICARE, SELFPAY ==
--- NOTE | 2025-02-18 10:03 | A.OFFVIS_ITS ---
Vital Signs 02/18/25 10:04 Height 5 ft 7 in Weight 158 lb 11.725 oz BMI 24.9 BP 90/52 L Blood Pressure Location Lt brachial Position Sitting Pulse 44 L Pulse Source Monitor Intake Visit Reasons: 1 yr follow up Allergies No Known Allergies (No Known Allergies*) Allergy (Verified 02/18/25 10:05) Medication List - Last Reconciled 02/18/25 by Maycol Wolfe MD apixaban (Eliquis) 5 mg PO BID atorvastatin 80 mg PO Q2D 3 months blood sugar diagnostic ([employer] Verio test strips) test blood sugar twice a day blood-glucose meter ([employer] Verio Reflect kit) Check blood sugar twice daily as directed lancets ([employer] Delica Plus Lancet) Test blood sugar once a day lisinopril 2.5 mg PO BEDTIME metformin 500 mg PO QPM 3 months metoprolol succinate ER 100 mg PO DAILY pantoprazole 20 mg PO DAILY terazosin 3 mg (3 x 1 mg) PO BEDTIME 90 days vibegron (Gemtesa) 75 mg PO DAILY 30 days vit C,Z-Zk-dxdyn-lutein-zeaxan 250-90-40-1 mg (PreserVision AREDS-2) 1 tab PO BID ziprasidone HCl 80 mg PO BID HPI Comments Details: Rissa returns for follow-up regarding atrial fibrillation. Previously seen by Dr. Gamez and treated by rate control only. However, over the last couple of years, she has lost a substantial amount of weight, more than 100 lb. After this, her rhythm has converted to sinus rhythm and it seems like she is probably mostly in sinus. Overall, she states she feels good. No new concerns. No cardiac symptoms. [facility] Medical History (Updated 01/27/25 @ 10:26 by Elsa Barrera MD) Dry age-related macular degeneration of left eye Colon cancer screening Constipation Age-related macular degeneration, wet, right eye Traumatic hematoma Anemia Bipolar disorder Morbid obesity Benign familial tremor Ventral hernia Multinodular thyroid Umbilical hernia with obstruction CVID (common variable immunodeficiency) Vitamin D deficiency HLD (hyperlipidemia) HTN (hypertension) Cardiomyopathy Elevated parathyroid hormone Urinary incontinence Controlled diabetes mellitus without long-term current use of insulin Mixed dyslipidemia Surgical History S/P evacuation of hematoma (10/11/23) S/P debridement (10/29/23) History of umbilical hernia repair (07/06/22) Hx of wisdom tooth extraction History of cardiac catheterization (~2016) Hx of biopsy H/O colonoscopy History of hysteroscopy History of adenoidectomy Family History Father Diabetes mellitus Depression Mental health disorder Mother Diabetes mellitus Colon cancer Breast cancer Familial tremor Sister Colon cancer Maternal Aunt Familial tremor Sister No problems noted. Social History Household Members: None Housing: Condominium Are you a primary insurance healthcare representative to a significant other at home: No Do you presently have visiting nurse or other home services: Yes ([facility] QOD dressing change left leg) Alcohol intake: never Comment: COUNT CORRECT Patient Tobacco Use Status: Never used Tobacco e-Cigarette/Vaping Use: Never Used service: No Current occupational status: disabled Cognitive needs: No Hearing needs: No Vision needs: Yes Review of Systems ENT Reports dizziness Card Denies chest pain, Denies chest pain at rest, Denies chest pain with activity, Denies rapid heart rate, Denies pedal edema, Denies edema, Denies leg edema, Denies lightheadedness, Denies palpitations, Denies dyspnea, Denies dyspnea on exertion and Denies orthopnea Resp Denies cough, Denies dyspnea and Denies dyspnea on exertion GI Denies hematochezia and Denies change in stool character Musc Denies abnormal gait, Reports limited range of motion, Reports muscle cramps, Denies muscle weakness, Denies numbness, Denies radiating pain into limb, Denies stiffness and Denies tingling Neuro Denies abnormal gait, Reports dizziness, Denies numbness and Denies tingling Endo Denies palpitations Physical Exam Vital Signs: Last Vital Signs Pulse 44 L 02/18/25 10:04 BP 90/52 L 02/18/25 10:04 BMI result Body Mass Index 24.9 Const General: comfortable and no acute distress Orientation/consciousness: patient oriented x3 HEENT Other: Unremarkable Head: Yes normal to inspection Neck Neck: Yes normal visual inspection Chest Chest palpation & inspection: normal inspection of the chest Resp Auscultation: clear to auscultation bilaterally Cardio Palpation: normal PMI Heart sounds: S1 normal heart sound present, S2 normal heart sound present, no gallops, no murmurs and no rubs GI Palpation (GI): Soft to palpation Back/Spine/Pelvis Other: unremarkable Skin General skin exam: no rashes or lesions noted Neuro General: patient oriented x3 Extrem General: Yes normal to inspection Psych Mental Status: mental status grossly normal Office Procedures EKG Details: EKG with sinus bradycardia at 44/minute; preop prolongation at 212 milliseconds; right bundle-branch block pattern; [place]. [id number], Complete Assessment & Plan Assessment & Plan (1) PAF (paroxysmal atrial fibrillation): Code(s): I48.0 - Paroxysmal atrial fibrillation Category: Medical (2) Bradycardia: Code(s): R00.1 - Bradycardia, unspecified Category: Medical (3) Cardiomyopathy: Code(s): I42.9 - Cardiomyopathy, unspecified Category: Medical Qualifiers: Cardiomyopathy type: unspecified Qualified Code(s): I42.9 - Cardiomyopathy, unspecified Plan In the last echocardiogram, LVEF is 55-60%. In the past, reported to have cardiomyopathy in the 40-45% range. Hence seems resolved. She is maintaining sinus rhythm/sinus bradycardia, and suspect mostly remains this way without any definitive atrial fibrillation. Due to bradycardia as well as lowish blood pressures and weight loss, we can cut back on the beta-musa dosing. Continue anticoagulation. We will follow her up in about 6 months' time. She will call us with any interim concerns. Medications: New metoprolol succinate ER (Toprol XL) 50 mg PO DAILY 90 tabs 1RF Discontinued metoprolol succinate ER Discontinued Reason: Doctor's Order 100 mg PO DAILY 90 tabs 3RF Coding Level of Care Code Est Pt Level 4 (10647) Complex EM visit Add On G2211 Diagnoses PAF (paroxysmal atrial fibrillation) I48.0 Bradycardia R00.1 Cardiomyopathy, unspecified type I42.9 Cardiomyopathy type: unspecified CPT Codes EKG - CPT: 51127-[id number], Complete ([id number])
[2025-02-18 10:04] VITALS: BP 90/52; PULSE 44; BMI 24.9
== END 2025-02-18 10:23 | disposition home or self-care (01) ==
LOC: HO.HCS 09:22
PROVIDERS: PCP Internal Medicine; Visit Provider Internal Medicine
DX: I48.0 Paroxysmal atrial fibrillation (principal); R00.1 Bradycardia, unspecified; I42.9 Cardiomyopathy, unspecified
CPT/HCPCS: 93010; 99214; G2211

== ENCOUNTER → 2025-02-18 09:21 | Outpatient (BNVA) | payer MEDICARE, SELFPAY | PROVIDERS: PCP Internal Medicine; Visit Provider Internal Medicine | DX: I48.0 Paroxysmal atrial fibrillation (principal); R00.1 Bradycardia, unspecified; I42.9 Cardiomyopathy, unspecified | CPT/HCPCS: 93005; 99212 ==

== ENCOUNTER 2025-03-24 11:19 | Outpatient (AMB) | payer MEDICARE, SELFPAY ==
--- NOTE | 2025-03-24 11:34 | MHC.OFFVIS ---
Intake Visit Reasons: 6m follow up Intake Note: Patient is present for 6M F/U Urology Medication:TERAZOSIN,VIBEGRON Antibiotic Allergy:NONE Blood Thinner:APIXABAN Psychopaedic Nurse Required: No Allergies No Known Allergies (No Known Allergies*) Allergy (Verified 03/24/25 15:02) Medication List - Last Reconciled 03/24/25 by JS Christianson apixaban (Eliquis) 5 mg PO BID atorvastatin 80 mg PO Q2D 3 months blood sugar diagnostic (FileforceTouch Verio test strips) test blood sugar twice a day blood-glucose meter (Fotoupuch Verio Reflect kit) Check blood sugar twice daily as directed lancets (FileforceTouch Delica Plus Lancet) Test blood sugar once a day lisinopril 2.5 mg PO BEDTIME metformin 500 mg PO QPM 3 months metoprolol succinate ER (Toprol XL) 50 mg PO DAILY pantoprazole 20 mg PO DAILY terazosin 3 mg (3 x 1 mg) PO BEDTIME 90 days vibegron (Gemtesa) 75 mg PO DAILY 30 days vit C,K-Lf-yjpoe-lutein-zeaxan 250-90-40-1 mg (PreserVision AREDS-2) 1 tab PO BID ziprasidone HCl 80 mg PO BID HPI Comments Details: Rissa is a pleasant 69-year-old female patient of Dr. Barrera. She has a past medical history of constipation, macular degeneration, anemia, bipolar disorder, benign tremors, vitamin-D deficiency, hyperlipidemia, hypertension, cardiomyopathy, urinary incontinence, diabetes, and dyslipidemia. She presents to the office today for a follow-up of her lower urinary tract symptoms. In discussion with the patient today she reports to be doing and feeling well. She reports compliance with terazosin and Gemtesa as prescribed. She does report during initial initiation of Gemtesa she did find improvement in episodes of urinary urgency and frequency she had been experiencing however over the last 2-3 months she has been experiencing increased episodes of urinary urgency and frequency. She has previously trialed Myrbetriq and oxybutynin without improvement in her lower urinary tract symptoms. In office urinalysis results reviewed with the patient today. PVR 0 mL. We did discussed potential causes of lower urinary tract symptoms patient is experiencing. We did discuss obtaining retroperitoneal ultrasound for further assessment evaluation. We also discussed near future in office cystoscopy and or urodynamics if symptoms continue and or worsen. She denies gross/visible hematuria, dysuria, foul smelling urine, changes to urinary stream, flank pain, fever, and or chills. She otherwise offers no other issues or concerns at this time. Urine Cytology: 09/27 Negative for high-grade urothelial carcinoma [facility] Medical History (Updated 03/24/25 @ 15:05 by Bella Red [facility]-) Dry age-related macular degeneration of left eye Colon cancer screening Constipation Age-related macular degeneration, wet, right eye Traumatic hematoma Anemia Bipolar disorder Morbid obesity Benign familial tremor Ventral hernia Multinodular thyroid Umbilical hernia with obstruction CVID (common variable immunodeficiency) Vitamin D deficiency HLD (hyperlipidemia) HTN (hypertension) Cardiomyopathy Elevated parathyroid hormone Urinary incontinence Controlled diabetes mellitus without long-term current use of insulin Mixed dyslipidemia Surgical History S/P evacuation of hematoma (10/11/23) S/P debridement (10/29/23) History of umbilical hernia repair (07/06/22) Hx of wisdom tooth extraction History of cardiac catheterization (~2016) Hx of biopsy H/O colonoscopy History of hysteroscopy History of adenoidectomy Family History Father Diabetes mellitus Depression Mental health disorder Mother Diabetes mellitus Colon cancer Breast cancer Familial tremor Sister Colon cancer Maternal Aunt Familial tremor Sister No problems noted. Social History Household Members: None Housing: Condominium Are you a primary healthcare corporate account director to a significant other at home: No Do you presently have visiting nurse or other home services: Yes ([facility] QOD dressing change left leg) Alcohol intake: never Comment: COUNT CORRECT Patient Tobacco Use Status: Never used Tobacco e-Cigarette/Vaping Use: Never Used service: No Current occupational status: disabled Cognitive needs: No Hearing needs: No Vision needs: Yes Review of Systems Const Reports as per HPI Eyes Reports no additional complaints ENT Reports no additional complaints Card Details: reports following up with cardiology for her atrial fibrillation Reports no additional complaints Resp Reports no additional complaints GI Reports as per HPI Reports as per HPI Musc Reports no additional complaints Neuro Reports as per HPI Psych Reports as per HPI Endo Details: patient reports she is diabetic and attempts to maintain her point of care within normal range Reports as per HPI Jorge/Lymph Reports no additional complaints Aller/Immun Reports no additional complaints Physical Exam Const General: cooperative, healthy appearing, comfortable, no acute distress, well developed, alert and awake Nutritional Appearance: thin Orientation/consciousness: patient oriented x3 Limitations: no limitations HEENT Head: Yes normal to inspection, Yes normocephalic and Yes atraumatic Ears: hearing grossly normal bilaterally Eyes General: appearance normal, both eyes and all related structures Neck Neck: Yes normal visual inspection and Yes trachea midline Chest Chest palpation & inspection: normal inspection of the chest Resp Effort & Inspection: normal respiratory effort and able to speak in complete sentences Cardio Rate: regular rate GI Inspection: Yes normal to inspection General: Yes no CVA tenderness Back/Spine/Pelvis Back: no CVA tenderness Skin General skin exam: no rashes or lesions noted Neuro General: patient oriented x3 Extrem General: Yes normal to inspection Psych Appearance: grossly normal and well kempt Mental Status: mental status grossly normal Speech and movement: Normal speech and movement present and Clear speech present Affect: normal affect Attitude: cooperative Thought process: Normal thought process present Thought content: Normal thought content present Insight: Fair insight present (Psych) Judgement: Fair judgement present (Psych) Results AMB Urinalysis, Automated UA Leukoctes 125 Darnell/uL Last Edit by LEWIS Adame on 03/24/25 11:56 UA Nitrite Negative Last Edit by LEWIS Adame on 03/24/25 11:56 UA Urobilinogen 0.2 mg/dL Last Edit by LEWIS Adame on 03/24/25 11:56 UA Protein 0 mg/dL Last Edit by LEWIS Adame on 03/24/25 11:56 UA pH 6.0 Last Edit by LEWIS Adame on 03/24/25 11:56 UA Blood 10 Robert/uL Last Edit by LEWIS Adame on 03/24/25 11:56 UA Specific Spencer 1.010 Last Edit by LEWIS Adame on 03/24/25 11:56 UA Ketone Negative Last Edit by LEWIS Adame on 03/24/25 11:56 UA Bilirubin 0 mg/dL Last Edit by LEWIS Adame on 03/24/25 11:56 UA Glucose 0 mg/dL Last Edit by LEWIS Adame on 03/24/25 11:56 Results Reviewed Results Reviewed: Laboratory Last Values Urine pH (Auto) 6.0 03/24/25 11:55 Specific Spencer (Auto) 1.010 03/24/25 11:55 Urine Protein (Auto) 0 mg/dL 03/24/25 11:55 Glucose (UA)(Auto) 0 mg/dL 03/24/25 11:55 Urine Ketones (Auto) Negative 03/24/25 11:55 Urine Blood (Auto) 10 Robert/uL 03/24/25 11:55 Urine Nitrite (Auto) Negative 03/24/25 11:55 Urine Bilirubin (Auto) 0 mg/dL 03/24/25 11:55 Urine Urobilinogen (Auto) 0.2 mg/dL 03/24/25 11:55 Leukocyte Esterase (Auto) 125 Darnell/uL 03/24/25 11:55 Assessment & Plan Assessment & Plan (1) Urinary urgency: Code(s): R39.15 - Urgency of urination Category: Medical (2) Urinary frequency: Code(s): R35.0 - Frequency of micturition Category: Medical (3) Lower urinary tract symptoms: Code(s): R39.9 - Unspecified symptoms and signs involving the genitourinary system Category: Medical Plan In office urinalysis results with the patient today; as noted above. PVR 0 mL. Recent urine cytology results reviewed with the patient today; as noted above. Stop Gemtesa. Start Toviaz We did discussed potential near future in office cystoscopy and or urodynamics if symptoms continue and or worsen. Will obtain retroperitoneal ultrasound for further assessment evaluation. We discussed bladder triggers and irritants. We discussed healthy bathroom behaviors. Follow-up in 3 months with imaging and PVR; or sooner with any issues, concerns, and or questions. 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 All questions were answered. Physical exam, labs, and imaging were discussed and reviewed in detail. As well as risks, benefits, and discussion of treatment choices. No major barriers to understanding were identified. The patient expressed understanding and agreement with the above treatment plan. The patient was made aware they should contact our office by phone for worsening of their current condition, the appearance of new symptoms, or with any questions or concerns. Compliance is encouraged with any medications and follow up testing that is ordered. It is a privilege to be allowed the opportunity to participate in? your urological care.? Again, if you have any questions or concerns If you have any questions or concerns please do not hesitate to contact me. The office is [phone]. This note is constructed using voice recognition software. While every effort has been made to ensure accuracy plane captain errors may have been included. Yours sincerely, JS Christianson Coding Level of Care Code Est Pt Level 4 (93576) Complex EM visit Add On G2211 Diagnoses Urinary urgency R39.15 Urinary frequency R35.0 Lower urinary tract symptoms R39.9
== END 2025-03-24 12:05 | disposition home or self-care (01) ==
LOC: HO.HUSH 11:20
PROVIDERS: PCP Internal Medicine; Visit Provider Nurse Practitioner Family
DX: R39.15 Urgency of urination (principal); R35.0 Frequency of micturition; R39.9 Unspecified symptoms and signs involving the genitourinary system; Z13.9 Encounter for screening, unspecified
CPT/HCPCS: 99214; G2211

== ENCOUNTER → 2025-03-24 11:19 | Outpatient (BNVA) | payer MEDICARE, SELFPAY | PROVIDERS: PCP Internal Medicine; Visit Provider Nurse Practitioner Family | DX: R39.15 Urgency of urination (principal); R35.0 Frequency of micturition; R39.9 Unspecified symptoms and signs involving the genitourinary system; Z79.01 Long term (current) use of anticoagulants | CPT/HCPCS: 81003; 99212 ==

== ENCOUNTER 2025-04-14 14:09 | Outpatient (REF) | payer MEDICARE, SELFPAY ==
--- NOTE | ~2025-04-14 | US_ITS ---
EXAMINATION: US RETROPERITONEAL COMPLETE (RENAL) CLINICAL INFORMATION: Urinary urgency.. COMPARISON: None. Correlation made with CT abdomen and pelvis 07/07/2021. TECHNIQUE: Real-time imaging of the kidneys and bladder. FINDINGS: RIGHT KIDNEY: 10.2 x 4.5 x 5.2 cm (SAG x AP x TRV). The kidney is normal in size, contour, and echogenicity. Renal cortical thickness is normal. No calculi or focal parenchymal lesions. No hydronephrosis. LEFT KIDNEY: 11.3 x 4.9 x 4.8 cm (SAG x AP x TRV). The kidney is normal in size, contour, and echogenicity. Renal cortical thickness is normal. No focal parenchymal lesions. No hydronephrosis. Nonobstructing calculus in the midpole measuring 3 mm. BLADDER: Well distended and normal. Bilateral ureteral jets are not well seen, nonspecific. Prevoid bladder volume is 407 mL. Postvoid bladder volume is 26 mL. US/US retroperitoneal comp IMPRESSION: 1. Nonobstructing 3 mm calculus left kidney midpole. 2. Otherwise normal retroperitoneal ultrasound. Electronically signed by: Zach Martinez MD 04/14/2025 03:01 PM EST
== END 2025-04-14 14:10 | disposition home or self-care (01) ==
LOC: HO.HMGCX 14:09
PROVIDERS: PCP Internal Medicine; Visit Provider Nurse Practitioner Family
DX: R39.15 Urgency of urination (principal); R35.0 Frequency of micturition; R39.9 Unspecified symptoms and signs involving the genitourinary system
CPT/HCPCS: 76770

== ENCOUNTER → 2025-04-14 14:14 | Outpatient (BNV) | payer MEDICARE, SELFPAY | PROVIDERS: PCP Internal Medicine; Visit Provider Radiology Diagnostic Radiology | DX: N20.0 Calculus of kidney (principal) | CPT/HCPCS: 76770 ==